=== PATIENT | female | born 1995 | race Caucasian/White ===

== ENCOUNTER → 2017-06-10 13:19 | Outpatient (CLI) | payer MEDICAID, SELFPAY | PROVIDERS: Visit Provider Obstetrics & Gynecology | DX: N39.0 Urinary tract infection, site not specified (principal) | CPT/HCPCS: 87086; 87088; 87186 ==

== ENCOUNTER → 2017-07-10 16:50 | Outpatient (CLI) | payer MEDICAID, SELFPAY ==
[2017-07-10 20:33] LABS: Chlamydia Trachomatis by PCR POSITIVE (Negative); Neisserai gonorrhoeae by PCR Negative (Negative); Probe Check PASS; Sample Adequacy Control PASS; Specimen Processing Control PASS
[2017-07-18 11:10] LABS: HPV HC, High Risk Positive (Negative)
[2017-07-18 11:42] LABS: HPV Reflexed? YES, CHARGE PATIENT
== END ==
PROVIDERS: Visit Provider Obstetrics & Gynecology
DX: Z12.4 Encounter for screening for malignant neoplasm of cervix (principal); R87.612 Low grade squamous intraepithelial lesion on cytologic smear of cervix (LGSIL)
CPT/HCPCS: 87491; 87591; 87624; 88175; G0145

== ENCOUNTER → 2017-08-26 16:50 | Outpatient (CLI) | payer MEDICAID, SELFPAY ==
[2017-08-30 13:23] LABS: HSV 1 By PCR Negative
[2017-08-30 13:36] LABS: HSV 2 By PCR POSITIVE ABNORMAL
== END ==
PROVIDERS: Visit Provider Obstetrics & Gynecology
DX: N89.8 Other specified noninflammatory disorders of vagina (principal)
CPT/HCPCS: 87529

== ENCOUNTER → 2018-07-28 14:32 | Outpatient (CLI) | payer MEDICAID, SELFPAY ==
[2018-04-07 12:39] VITALS: BMI 30.6
[2018-07-30 16:23] LABS: HPV Reflexed? NOT INDICATED
== END ==
PROVIDERS: Visit Provider Obstetrics & Gynecology
DX: Z12.4 Encounter for screening for malignant neoplasm of cervix (principal)
CPT/HCPCS: 88175; G0145

== ENCOUNTER → 2019-09-29 17:16 | Outpatient (CLI) | payer OTHER, SELFPAY ==
[2018-04-07 12:39] VITALS: BMI 30.6
== END ==
PROVIDERS: Referring Provider Obstetrics & Gynecology; Visit Provider Obstetrics & Gynecology
DX: Z12.4 Encounter for screening for malignant neoplasm of cervix (principal); Z11.3 Encounter for screening for infections with a predominantly sexual mode of transmission

== ENCOUNTER → 2020-03-21 | Outpatient (CLI) | payer SELFPAY ==
[2018-04-07 12:39] VITALS: BMI 30.6
== END | disposition home or self-care (01) ==
PROVIDERS: Visit Provider Obstetrics & Gynecology
DX: Z11.3 Encounter for screening for infections with a predominantly sexual mode of transmission (principal)

== ENCOUNTER → 2020-05-26 16:09 | Outpatient (CLI) | payer MEDICAID, SELFPAY ==
[2018-04-07 12:39] VITALS: BMI 30.6
[2020-05-26 17:39] LABS: Absolute Lymphocyte Count 2.63 X10^3/uL (0.83-4.51); Basophil# 0.03 X10^3/uL; Basophil% 0.3 % (0-1); Eosinophil# 0.12 X10^3/uL; Eosinophils% 1.2 % (0-5); Hematocrit 36.1 % (37-47); Hemoglobin 11.5 g/dL (12.0-15.0); Lymphocyte # 2.63 X10^3/ul (4.0); Lymphocyte % 25.3 % (19-41); Mean Corp Hgb Conc 31.9 g/dL (32-36); Mean Corpuscular Volume 87.8 fL (81-99); Monocyte% 5.8 % (0-10); NRBC Flagged by Analyzer 0 % (0-5); Neutrophil # 6.98 X10^3/uL (2.7-7.7); Platelet Count 285 K/mm3 (150-450); RBC Distribution Width CV 13.5 % (11.6-14.6); RBC Distribution Width SD 43.8 fl (35.1-43.9); Red Blood Count 4.11 M/mm3 (4.2-5.4); White Blood Count 10.4 K/mm3 (4.4-11.0)
[2020-05-26 18:06] LABS: Color, Urine Yellow (Yellow); Glucose, Dipstick Normal (Normal); Ketone-Dipstick 5 mg/dl (Negative); Leukocyte Esterase-Dipstick Negative /ul (Negative); Nitrite-Dipstick Negative (Negative); Occult Blood-Urine Negative /ul (Negative); Protein-Dipstick 15 mg/dl (Negative); Specific Gravity, Urine 1.025 (1.002-1.030); Urine Bilirubin Dipstick Negative (Negative); Urine Clarity Clear (Clear); Urine Urobilinogen Normal (Normal)
[2020-05-26 18:14] LABS: Thyroid Stim Hormone (TSH) 2.39 uIU/mL (0.358-3.74)
[2020-05-26 18:22] LABS: Amphetamine Urine VISTA NEGATIVE (<1000 ng/mL); Barbiturate Urine VISTA NEGATIVE (< 200 ng/mL); Benzodiazepine Urine VISTA NEGATIVE (< 200 ng/mL); Cocaine Urine VISTA NEGATIVE (< 300 ng/mL); Ecstacy Urine VISTA NEGATIVE (< 500 ng/mL); Methadone Urine VISTA NEGATIVE (< 300 ng/mL); PCP Urine VISTA NEGATIVE (< 25 ng/mL); THC Urine VISTA NEGATIVE (< 50 ng/mL); Vista UDS pH Range 5
[2020-05-29 11:41] LABS: HIV - WCH Non-Reactive (Nonreactive); Hepatitis B Surface Antigen Non-Reactive (Nonreactive); Hepatitis C Antibody Non-Reactive (Nonreactive); Rubella IgG Reactive (Nonreactive); Vitamin D,25 Hydroxy 23.4 ng/mL
[2020-06-01 03:02] LABS: Prenatal RPR NONREACTIVE (NONREACTIVE)
== END ==
PROVIDERS: Visit Provider Obstetrics & Gynecology
DX: Z34.81 Encounter for supervision of other normal pregnancy, first trimester (principal)
CPT/HCPCS: 36415; 80307; 81002; 82306; 83021; 84443; 85025; 85660; 86703; 86762; 86803; 87340; 87491; 87591

== ENCOUNTER → 2020-10-25 15:05 | Outpatient (CLI) | payer MEDICAID, SELFPAY ==
[2018-04-07 12:39] VITALS: BMI 30.6
[2020-10-25 15:37] LABS: Glucose Challenge Gest 1H 50g 178 mg/dL (70-140)
[2020-10-25 15:38] LABS: Hematocrit 33.3 % (37-47); Hemoglobin 10.9 g/dL (12.0-15.0); Mean Corp Hgb Conc 32.7 g/dL (32-36); Mean Corpuscular Hgb 28.1 pg (27.0-32.0); Mean Corpuscular Volume 85.8 fL (81-99); Platelet Count 213 K/mm3 (150-450); RBC Distribution Width CV 14.7 % (11.6-14.6); RBC Distribution Width SD 45.9 fl (35.1-43.9); Red Blood Count 3.88 M/mm3 (4.2-5.4); White Blood Count 11.4 K/mm3 (4.4-11.0)
== END ==
PROVIDERS: Visit Provider Obstetrics & Gynecology
DX: Z34.83 Encounter for supervision of other normal pregnancy, third trimester (principal)
CPT/HCPCS: 36415; 82950; 85027

== ENCOUNTER → 2020-11-01 09:49 | Outpatient (CLI) | payer MEDICAID, SELFPAY ==
[2018-04-07 12:39] VITALS: BMI 30.6
[2020-11-01 10:58] LABS: Glucose GTT-Gestation. Fasting 84 mg/dL (<105)
[2020-11-01 12:17] LABS: Glucose GTT-Gestational 1 Hr 195 mg/dL (<190)
[2020-11-01 14:10] LABS: Glucose GTT-Gestational 2 Hr 154 mg/dL (<165)
[2020-11-01 14:10] LABS: Glucose GTT-Gestational 3 Hr 114 L (<145)
== END ==
PROVIDERS: Referring Provider Obstetrics & Gynecology; Visit Provider Obstetrics & Gynecology
DX: O24.912 Unspecified diabetes mellitus in pregnancy, second trimester (principal); Z3A.00 Weeks of gestation of pregnancy not specified
CPT/HCPCS: 36415; 82951; 82952

== ENCOUNTER → 2020-12-18 | Outpatient (CLI) | payer MEDICAID, SELFPAY ==
[2018-04-07 12:39] VITALS: BMI 30.6
== END | disposition home or self-care (01) ==
LOC: LABSPEC 17:09
PROVIDERS: Visit Provider Obstetrics & Gynecology
DX: Z36.85 Encounter for antenatal screening for Streptococcus B (principal)
CPT/HCPCS: 87077; 87081; 87186

== ENCOUNTER 2021-01-15 14:20 | Outpatient (CLI) | payer MEDICAID, SELFPAY ==
[2021-01-15 14:38] VITALS: BP 124/68; PULSE 95; TEMP 36.9; O2SAT 97
[2021-01-15 14:40] VITALS: BMI 34.4
--- NOTE | 2021-01-17 20:39 | OB.TRI.NOTE ---
HPI - General HPI Narrative OSMNAI RICHARDSON, is a 25 F who presents who presents to labor and delivery at 40 weeks 2 days gestation with decreased movement. PFSH PFSH Medical History (Updated 01/17/21 @ 20:[address] Brooks Villafuerte MD) Abnormal bruising Anxiety Chest pain Chlamydia infection affecting Chronic neck and back pain Difficulty balancing Knee pain Home Medications acyclovir 200 mg capsule 400 mg PO DAILY 04/07/18 [History Last Taken 01/16/21 12:00] ferrous sulfate [Iron (ferrous sulfate)] 325 mg PO DAILY 01/15/21 [History Last Taken 01/16/21 12:00] prenat.vits,adriana,[id number] [ #2] 1 tab PO DAILY 01/15/21 [History Last Taken 01/16/21 12:00] helder [id number]-ipgyfeszs ac [[place] Oil] 1 cap PO TID 01/17/21 [History Last Taken 01/16/21 12:00] Allergy/AdvReac Type Severity Reaction Status Date / Time No Known Allergies Allergy Verified 01/15/21 14:41 Family History (Updated 04/07/18 @ 12:45 by Sandy Ramírez) Other Diabetes Surgical History (Updated 01/17/21 @ 10:10 by Aldair Bryant) History of surgery Social History (Updated 04/07/18 @ 13:25 by Toy PETER, PA) Smoking Status: Never smoker alcohol intake: never History Elective abortions Hx Para 1 Spontaneous abortions Hx # Term Pregnancies Ectopic pregnancies Hx # Pregnancies Multiple births # of living children NST FHR Rate Baby A NST Reactive:: Yes FHR Category:: Category I Assessment & Plan (1) Decreased movement during in third trimester, antepartum: PLAN: 40 weeks 2 days gestation with decreased movement. Cervix is closed. Rupture membrane test negative. Minimal to no contractions noted. Encourage fluid intake. Nonstress test was reactive. Routine follow-up in the office recommended and labor instructions given.
== END 2021-01-15 15:37 | disposition home or self-care (01) ==
LOC: WPOUT 14:37 → WP 14:37
PROVIDERS: Visit Provider Obstetrics & Gynecology
DX: O36.8130 Decreased fetal movements, third trimester, not applicable or unspecified (principal); Z3A.40 40 weeks gestation of pregnancy
CPT/HCPCS: 59025; 59050

== ENCOUNTER 2021-01-17 09:20 | Inpatient (IN) | payer MEDICAID, SELFPAY ==
[2021-01-17] VITALS (28 sets, daily range): BP systolic 94–146; BP diastolic 52–76; PULSE 64–117; RESP 21; TEMP 35.9–37.8; O2SAT 92–99; BMI 37.5
[2021-01-17 09:18] LABS: ROM Internal Control Test YES-OK TO RESULT pt. (Internal QC)
[2021-01-17 09:19] LABS: ROM Patient Test POSITIVE (Negative)
[2021-01-17] MEDS: Lactated Ringers 1,000 ML 50 ML IV (10:00)
[2021-01-17 10:25] LABS: Absolute Lymphocyte Count 1.45 X10^3/uL (0.83-4.51); Absolute Neutrophil Count 8.7 X10^3/uL (2.0-7.7); Basophil# 0.02 X10^3/uL; Basophil% 0.2 % (0-1); Eosinophil# 0.07 X10^3/uL; Eosinophils% 0.6 % (0-5); Hematocrit 34.7 % (37-47); Hemoglobin 11.2 g/dL (12.0-15.0); Lymphocyte # 1.45 X10^3/ul (0.83-4.51); Lymphocyte % 13.2 % (19-41); Mean Corp Hgb Conc 32.3 g/dL (32-36); Mean Corpuscular Volume 86.8 fL (81-99); Mean Platelet Vol. 10.1 fl (6.2-12.0); Monocyte# 0.61 X10^3/uL; Monocyte% 5.6 % (0-10); NRBC Flagged by Analyzer 0 % (0-5); Neutrophil % 79.3 % (47-70); Platelet Count 215 K/mm3 (150-450); RBC Distribution Width CV 14.9 % (11.6-14.6); RBC Distribution Width SD 47.5 fl (35.1-43.9)
[2021-01-17] MEDS: Penicillin G 3,000,000 Units 50 ML 100 UNITS IV (14:11)
--- NOTE | 2021-01-17 15:21 | HP.PCM_ITS ---
History and Physical Date of Admission: 01/17/21 ACOG ANTEPARTUM RECORD - HISTORY AND PHYSICAL (01/17/2021) Name: CHRISTINA CUEVAS History of this : This is a 25 year old [id number] presents at 40 wks + 4 days gestation in active labor with spontaneous rupture membranes. OB Physician: Mercy Zhang MD [place]'s Physician: UNDECIDED ...................................................................... : 1995 Age: 25 Address: [address] [place] [address] Phone: (H) [phone] (O) [phone] Insurance Carrier: [facility] CLAIMS DEPT [phone] Emergency Contact: SAUNDRA OGDEN [phone] ...................................................................... Final JAVY: 01/13/21 By Ultrasound: 10 weeks 6 days PARITY: (G-Total Pregnancies P-Fullterm,Premature,Induced AB,Spont AB, Ectopics, Multiple,Living) JAVY CONFIRMATION: By LMP: 04/08/20 By First Ultrasound Exam: 01/09/21 Final JAVY: 01/13/21 OB PROBLEM LIST: 3 hour GTT OK (one abnormal) Anxiety, states undaignosed. EPDS = 3. Breastfeeidng, office class encouraged Does not want an epidural, office childbirth class encouraged First baby was adopted out. 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 Drug Use - denies use of street drugs Sexual Activity - Residence - lives with Place of - [place] Hours Worked - 30 wk Spouse-Sig Other Name - Lee Cuevas Spouse-Sig Other Occupation - , Khai Spouse-Sig Other Phone No - [phone] PRIOR DELIVERY HISTORY DEL DATE GEST LAB WT LB WT OZ TYPE ANES LABOR TX 19 Aug 10 38 12 0 0 Vag Epidural No ANTEPARTUM FLOW CHART VISIT GE RTC FU F F NH U U DATE WK MD WKS HT PN HR M SS BP ED WT NH GL D EF ST __ ____ ___ __ __ ___ __ __ __ ___ __ __ __ ___ __ 02 Jan 39 JMW 1 38 V + + 104/66 0 233 1+ ne Dec JM 1 38 V + + 136/86 sl 234 tr - 1 Dec JM 1 37 V + + 126/82 sl 233 tr - 09 Dec 36 JM 1 36 V + + 122/70 0 234 - - 1 Nov JM 2 34 V + + 112/72 233 1+ - 16 Nov JM 2 32 V + + 130/76 sl 234 tr - 30 Nov 08 JM 2 30 - + + 116/70 0 229 tr ne 16 Nov 06 JMW 2 29 + + 110/70 0 231 1+ ne October 02 JMW 4 24 + + 106/62 0 233 tr - 14 Aug 28 JMW 4 20 + + 100/70 0 229 16 Jul 24 JMW 4 15 + ? 134/82 0 231 tr - 12 Jun 21 SHM 5 on US 100/80 0 238 tr - ANTEPARTUM NOTE(S): Jan 11 2021: Good FM Jan 04 2021: Ctxs-occas, Good FM, Dec 29 2020: Ctxs-mild, Good FM,Feeling Well Dec 18 2020: Dec 07 2020: heartburn Nov 24 2020: Occ low backache, occ isela hip pains Nov 08 2020: Oct 25 2020: Check 3-hour GTT Sep 27 2020: 1 HR instructions given, US OK Aug 23 2020: US today Jul 25 2020: Declines AFP and Declines CF, Feeling Well Jun 23 2020: feeling well. Would like to do gender blood draw. AM COMPREHENSIVE ANTEPARTUM NOTE(S): Jan 11 2021: Christina is here for PNV at 39/5. States that if she makes it to next week's apt would like membrane sweep. Declines cervix check today. No ctx or LOF. Having good FM. No edema noted today. Urine 1+/neg. LSS Jan 04 2021: 38wk, discussed IOL at 41wk. JM Dec 29 2020: Christina presents here today for PNV and reports that last night she fell on her (R) side and injured her (R) elbow, did not hit her abdomen. Denies cramping/pain. Denies spotting/bleeding or leaking of fluid. Good FM last night and today. TERRI Dec 29 2020: 37 weeks, GBS positive. Discussed GBS in . For penicillin in labor. Discussed cervical exams with patient. Discussed visitation in labor and delivery. Dec 28 2020: H faxed to OB. AB Dec 21 2020: GBS pos Dec 18 2020: Christina reporting good FM. GBS and LARC done today; declines LARC. Advised to pre-register. kbm Dec 18 2020: 36 weeks, GBS collected today. Patient currently on HSV prophylaxis. Dec 08 2020: 34 weeks, travel to [place] without any issue. Feeling well. GBS next visit. Dec 07 2020: Christina is here for a PNV at 34 wks. Good FM. No edema present. Reports heartburn, tx's w/ milk and asia chews. Rib pain. No other concerns expressed. Nov 24 2020: 32 weeks, patient desires plan gave me a copy of the plan. Sciatic pain, reviewed herbal supplement noted to unknown side effects in . Offered Tylenol Flexeril, declined. Traveling to [place] discussed travel. Nov 08 2020: Christina is here for PNV. Other than being hot, voices no complaints or concers today. No edema noted. Having good FM. Urine tr/neg. 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 Desires birthing tub, educated on tub. Oct 26 2020: 3 hr GTT scheduled for 11/01/2020. Order sent. Sep 27 2020: Christina is here for a PNV. Good FM. No edema present. Materials/ instructions given for 1 HR at next appt. Jun 26 2020: TELEHEALTH NOB VISIT, 45 MINUTE DURATION. Christina is a 24 year old with an JAVY of 01/13/2021, current GA is 11 w 2 d. She states that this is a planned , and that she and , Lee, as well as their families, are all really happy. Christina states that she adopted her first child out, and is not sure about all of the details of the babies , weight; past history up Jun 23 2020: Christina is here with her today. She had labs at last visit and wnl. Rh positive, Hgb AA. Reviewed. Discussed aneuploidy screening, pt considering for next visit, but has opted for [place] [place]ek today. Discussed exercise in . NEW REVIEW OF SYSTEMS: GENERAL - Denies fever, or chills SKIN - Denies rash, new skin lesions, or change in moles EYES - Denies blurred vision, or change in visual acuity EARS - Denies ear pain, or difficulty hearing NOSE - Denies nasal congestion, discharge, or bleeding MOUTH - Denies sore throat, or difficulty swallowing NECK - Denies pain or swelling RESPIRATORY - Denies shortness of breath, cough, wheezing CARDIOVASCULAR - Denies palpitations, chest pain, orthopnea, PND, peripheral edema, syncope or claudication GASTROINTESTINAL - Denies nausea, vomiting, diarrhea, constipation, Denies abdominal pain, melena and or bright red blood GENITOURINARY - Denies dysuria, frequency of urination, urgency, or hesitancy MUSCULOSKELETAL - Denies joint or muscle pain, or back pain NEUROLOGICAL - Denies localized numbness, weakness, or tingling PSYCHIATRIC - Denies depression, anxiety, substance abuse or suicide attempts ENDOCRINE - Denies heat or cold intolerance, weight loss or gain, increasing thirst HEMATO-IMMUNOLOGIC - Denies easy bruising, bleeding, oral ulcerations or recurrent infections GENETICS SCREENING: Age 35+ years: No Thalassemia: No Neural Tube Defect: No Down Syndrome: No EVELYN-SACHS: No Sickle Cell Disease: No Hemophilia: No Musc. Dystrophy: No Cystic Fibrosis: requests screening [place] Chorea: No Mental Retardation: No Fragile X: No Other genetic: No Other defects: No SABs/still births: No Drugs since LMP: No Comments: AA INFECTION HISTORY: High risk AIDS: No High risk Hepatitis: No Exposed to TB: No Exposed to Herpes: No Rash/viral illness since LMP: No History of STD: HPV Comments: HSV MENSTRUAL HISTORY: *Menses Amount/Duration: 4 daysMenses Regularity: RegularFrequency: monthlyMenarche (Age Onset): 9* PAST SUMMARY: PARITY: 1. Total Pregnancies............ 2 2. Full Term Pregnancies........ 1 3. Premature.................... 0 4. Abortions - Induced.......... 0 5. Abortions - Spontaneous...... 0 6. Ectopics..................... 0 7. Multiple Births.............. 0 8. Living Children.............. 1 PAST #1: Date of :.................. 12/28/09 Gestation Weeks:................ 38 Length of labor(hours):......... 12 Sex:............................ F Weight-lbs:............... 0 Weight-oz:................ 0 Type of Delivery:............... Vag Type of Anesthesia:............. Epidural Place of Delivery:.............. [place] Treatment of Labor?:.... No Comment: ADOPTED BABY OUT PHYSICAL EXAMINATION General Appearence: 25 yo female in no acute distress Vital Signs: AF, VSS Heart: RRR without rubs or gallops Lungs: CTA x 2 Breasts: deferred Abdomen: gravid Pelvis: Cervix: Presentation: cephalic Station: Fetus: Size: AGA Movement: present Heart: present LAB TEST(S) ORDERED SINCE:04/18/20 01/17/2021 TYPE AND SCREEN 01/17/2021 COVID 19 AG RAPID (RN COLLECT) 01/17/2021 CBC W/DIFF, AUTOMATED 01/17/2021 (ROM) RUPTURE OF MEMBRANES 12/22/2020 RULE OUT BETA STREP (GRP. B) 11/01/2020 GESTATIONAL GTT 3HR 100G 10/25/2020 GLUCOSE CHALLENGE GEST 1H 50G 10/25/2020 CBC-COMPLETE BLOOD CNT NO DIFF 06/01/2020 RPR 05/31/2020 HEMOGLOBINOPATHY PROFILE 05/29/2020 VITAMIN D,25 HYDROXY 05/29/2020 RUBELLA IGG 05/29/2020 HIV - [facility] 05/29/2020 HEPATITIS C ANTIBODY 05/29/2020 HEPATITIS B SURFACE ANTIGEN 05/26/2020 URINE DRUG SCREEN (VISTA) 05/26/2020 URINALYSIS, ROUTINE (DIPSTICK) 05/26/2020 THYROID STIM HORMONE (TSH) 05/26/2020 T AND S-NO CHARGE W/PNP 05/26/2020 CBC W/DIFF, AUTOMATED == ==== Order Observation Description Value Ref_Range A* Site == ==== Labor [facility]~[address] [place], [address]~ TYPE AND SCRE AB SCREEN GEL NEGATIVE ML CBC W/DIFF, AUT NOTE HERBERT CBC W/DIFF, AUT WBC 11.0 K/mm3 4.4-11.0 ML CBC W/DIFF, AUT RBC 4.00 M/mm3 4.2-5.4 L ML CBC W/DIFF, AUT HGB 11.2 g/dL 12.0-15.0 L ML CBC W/DIFF, AUT HCT 34.7 37-47 L ML CBC W/DIFF, AUT MCV 86.8 fL 81-99 ML CBC W/DIFF, AUT MCH 28.0 pg 27.0-32.0 ML CBC W/DIFF, AUT MCHC 32.3 g/dL 32-36 ML CBC W/DIFF, AUT RDW CV 14.9 11.6-14.6 H ML CBC W/DIFF, AUT RDW SD 47.5 fl 35.1-43.9 H ML CBC W/DIFF, AUT PLT 215 K/mm3 150-450 ML CBC W/DIFF, AUT MPV 10.1 fl 6.2-12.0 ML CBC W/DIFF, AUT NEUT% 79.3 47-70 H ML CBC W/DIFF, AUT LY% 13.2 19-41 L ML CBC W/DIFF, AUT MONO% 5.6 0-10 ML CBC W/DIFF, AUT EO% 0.6 0-5 ML CBC W/DIFF, AUT BASO% 0.2 0-1 ML CBC W/DIFF, AUT IG% 1.100 0.0-0.9 H ML IG% - Immature Granulocytes (promyelocytes, myelocytes and metamyelocytes) > 1% indicates that a LEFT SHIFT is Present. CBC W/DIFF, AUT ABSOLUTE NEUT 8.7 X10 3/uL 2.0-7.7 H ML CBC W/DIFF, AUT ABSOLUTE LYMPH 1.45 X10 3/uL 0.83-4.51 ML CBC W/DIFF, AUT NUCLEATED RBC 0 0-5 ML COVID 19 AG RAP NOTE HERBERT (ROM) RUPTURE O NOTE HERBERT (ROM) RUPTURE O ROM POSITIVE Negative A ML Amniotic fluid present indicates rupture of Membranes. RESULTS CALLED TO FABIAN 01/17/21 [email or web address] Wendy Grossman. REPORT READ BACK BY KT . RULE OUT BETA S NOTE HERBERT GESTATIONAL GTT NOTE HERBERT GESTATIONAL GTT 3HR GTT- GEST. MG/DL H ML FASTING 84 Col: 11/01/20 0957 GLUCOSE TOLERANCE TEST FOR Reference Interval GESTATIONAL DIABETES Fasting <105 mg/dL 1 hour <190 mg/dl 2 hour <165 mg/dl 3 hour <145 mg/dl 1 HR GLU 195 H Col: 11/01/20 1105 2 HR GLU 154 Col: 11/01/20 1202 3 HR GLU 114 Col: 11/01/20 1303 CBC-COMPLETE BL NOTE HERBERT CBC-COMPLETE BL WBC 11.4 K/mm3 4.4-11.0 H ML CBC-COMPLETE BL RBC 3.88 M/mm3 4.2-5.4 L ML CBC-COMPLETE BL HGB 10.9 g/dL 12.0-15.0 L ML CBC-COMPLETE BL HCT 33.3 37-47 L ML CBC-COMPLETE BL MCV 85.8 fL 81-99 ML CBC-COMPLETE BL MCH 28.1 pg 27.0-32.0 ML CBC-COMPLETE BL MCHC 32.7 g/dL 32-36 ML CBC-COMPLETE BL RDW CV 14.7 11.6-14.6 H ML CBC-COMPLETE BL RDW SD 45.9 fl 35.1-43.9 H ML CBC-COMPLETE BL PLT 213 K/mm3 150-450 ML CBC-COMPLETE BL MPV 10.0 fl 6.2-12.0 ML GLUCOSE CHALLEN NOTE HERBERT GLUCOSE CHALLEN GLU GEST 50G 1H 178 mg/dL 70-140 H ML RPR NOTE HERBERT RPR RPR NONREACTIVE NONREACTIVE ML HEMOGLOBINOPATH NOTE HERBERT HEMOGLOBINOPATH HGB SOLUBILITY . LC TEST RESULT LIMITS Hgb Frac. Profile Hgb Solubility Negative Negative Hgb F 0.0 % 0.0-2.0 Hgb A 98.3 % 96.4-98.8 Hgb S 0.0 % 0.0 Hgb C 0.0 % 0.0 Hgb A2 1.7 Low % 1.8-3.2 Interpretation Normal adult hemoglobin present. Low Hgb A2 may indicate an alpha-thalassemia or iron deficiency. Suggest clinical and hematologic correlation. Comments: Results of this test are labeled for research purposes only by the assay's photoengraving apprentice. The performance characteristics of this assay have not been established by the photoengraving apprentice. The result should not be used for treatment or for diagnostic purposes without confirmation of the diagnosis by another medically established diagnostic product or procedure. The performance characteristics were determined by [facility]. TESTING PERFORMED AT [facility]. ORIGINAL REPORT ON FILE IN LAB CONTAINS ADDITIONAL TEST SITE INFORMATION. HEPATITIS C ANT NOTE HERBERT HEPATITIS C ANT HEPATITIS C AB Non-Reactive Nonreactive ML Non Reactive: < 0.8 Equivocal: >/= 0.8 to < 1.0 Reactive: >/= 1.0 The CDC recommends that a reactive/equivocal HCV antibody result be followed up by the HCV Nucleic Acid Amplification test (389244) HEPATITIS B CRISSY NOTE HERBERT HEPATITIS B CRISSY HEPB SURFACE AG Non-Reactive Nonreactive ML HIV - WCH NOTE HERBERT HIV - WCH HIV - [facility] Non-Reactive Nonreactive ML RUBELLA IGG NOTE HERBERT RUBELLA IGG RUBELLA IGG Reactive Nonreactive ML Antibody Results Interpretation of Immune Status Non Reactive Presumed Non-Immune Equivocal Equivocal Reactive Presumed Immune VITAMIN D,25 HY NOTE HERBERT VITAMIN D,25 HY VITAMIN D 25-OH 23.4 ng/mL ML Vitamin D 25(OH) Status Range Deficiency <20 ng/mL (50nmol/L) Insufficiency 20 - 30 ng/mL (50 - 75 nmol/L) Sufficiency 30 - 100 ng/mL (75 - 250 nmol/L) Toxicity >100 ng/mL (>250 nmol/L) URINE DRUG SCRE NOTE HERBERT URINE DRUG SCRE TO BE CONFIRMED ML CONFIRMATORY TESTING FOR ALL POSITIVE URINE DRUG SCREEN RESULTS WILL ONLY BE SENT OUT UPON PHYSICIAN ORDER. VISTA Urine Drug Screen methods provide only preliminary analytical test results. A more specific alternate chemical method must be used in order to obtain a confirmed analytical result. Gas chromatography/mass spectrometery (GC/MS) is the preferred confirmatory method. Clinical consideration and professional judgement should be applied to any drug of abuse test result, particularly when preliminary positive results are used. URINE TCA TESTING MUST BE ORDERED SEPARATELY. USE TEST MNEMONIC: UTCA URINE DRUG SCRE VISTA UDS PH 5 ML URINE DRUG SCRE AMPHETAMINES NEGATIVE <1000 ng/mL ML URINE DRUG SCRE BARBITIURATES NEGATIVE < 200 ng/mL ML URINE DRUG SCRE BENZODIAZIPINE NEGATIVE < 200 ng/mL ML URINE DRUG SCRE COCAINE NEGATIVE < 300 ng/mL ML URINE DRUG SCRE ECSTACY NEGATIVE < 500 ng/mL ML URINE DRUG SCRE METHADONE NEGATIVE < 300 ng/mL ML URINE DRUG SCRE OPIATES NEGATIVE < 300 ng/mL ML URINE DRUG SCRE PCP NEGATIVE < 25 ng/mL ML URINE DRUG SCRE THC NEGATIVE < 50 ng/mL ML THYROID STIM HO NOTE HERBERT THYROID STIM HO TSH 2.39 uIU/mL 0.358-3.74 ML Reason for Type AND Screen/Red Cells: Surgery? [facility]~[address] [place], [address]~ T AND BLOOD TYPE GEL A POSITIVE N ML T AND AB SCREEN GEL NEGATIVE N ML URINALYSIS, ROU NOTE HERBERT URINALYSIS, ROU COLOR Yellow Yellow ML URINALYSIS, ROU CLARITY Clear Clear ML URINALYSIS, ROU GLUCOSE, UR Normal mg/dl Normal ML URINALYSIS, ROU BILIRUBIN URINE Negative mg/dL Negative ML URINALYSIS, ROU KETONE UR 5 mg/dl Negative H ML URINALYSIS, ROU SP.GR. DIPSTX 1.025 1.002-1.030 ML URINALYSIS, ROU PH UR 5.0 5.0 - 8.0 ML URINALYSIS, ROU PROT DIPSTX 15 mg/dl Negative H ML URINALYSIS, ROU UROBILI Normal mg/dl Normal ML URINALYSIS, ROU NITRITE UR Negative Negative ML URINALYSIS, ROU OCCULT BLOOD-UR Negative /ul Negative ML URINALYSIS, ROU LEUK ESTERASE Negative /ul Negative ML CBC W/DIFF, AUT NOTE HERBERT CBC W/DIFF, AUT WBC 10.4 K/mm3 4.4-11.0 ML CBC W/DIFF, AUT RBC 4.11 M/mm3 4.2-5.4 L ML CBC W/DIFF, AUT HGB 11.5 g/dL 12.0-15.0 L ML CBC W/DIFF, AUT HCT 36.1 % 37-47 L ML CBC W/DIFF, AUT MCV 87.8 fL 81-99 ML CBC W/DIFF, AUT MCH 28.0 pg 27.0-32.0 ML CBC W/DIFF, AUT MCHC 31.9 g/dL 32-36 L ML CBC W/DIFF, AUT RDW CV 13.5 % 11.6-14.6 ML CBC W/DIFF, AUT RDW SD 43.8 fl 35.1-43.9 ML CBC W/DIFF, AUT PLT 285 K/mm3 150-450 ML CBC W/DIFF, AUT MPV 10.0 fl 6.2-12.0 ML CBC W/DIFF, AUT NEUT% 67.0 % 47-70 ML CBC W/DIFF, AUT LY% 25.3 % 19-41 ML CBC W/DIFF, AUT MONO% 5.8 % 0-10 ML CBC W/DIFF, AUT EO% 1.2 % 0-5 ML CBC W/DIFF, AUT BASO% 0.3 % 0-1 ML CBC W/DIFF, AUT IM GRAN % 0.400 % 0.0-0.9 ML IG% - Immature Granulocytes (promyelocytes, myelocytes and metamyelocytes) > 1% indicates that a LEFT SHIFT is Present. CBC W/DIFF, AUT ABSOLUTE NEUT 7.0 X10 3/uL 2.0-7.7 ML CBC W/DIFF, AUT ABSOLUTE LYMPH 2.63 X10 3/uL 0.83-4.51 ML CBC W/DIFF, AUT NRBC, FLAGGED 0 % 0-5 ML A POSITIVE *Negative results from patients with symptom onset beyond five days should be treated as presumptive and confirmed by a molecular assay if clinically necessary. Negative results should not be used as the sole basis for treatment or for patient management. COVID 19 AG RAPID (RN COLLECT) *Positive results do not differentiate between SARS-CoV and SARS-CoV-2. If differentation of the specific SARS virus is desired an additional sample and an additional order is required. COVID 19 AG RAPID (RN COLLECT) * This test has not been FDA cleared or approved; the test has been authorized by FDA under an Emergency Use Authorization (EAU) for use by laboratories certified under CLIA that meet the requirements to perform moderate, high, or waived complexity tests. COVID 19 AG RAPID (RN COLLECT) Normal Reference Range: Negative SARS-CoV-2 (COVID 19) Negative RAPID METHOD Quidel Deisy Analyzer MALDONADO, lateral flow immunofluorescent Streptococcus agalactiae (B) Amount Growth Growth Streptococcus agalactiae (B): REACTION Ampicillin <=0.25 Penicillin G 0.12 S Ceftriaxone <=0.12 S Clindamycin >=1 R Clindamycin.induced NEG Linezolid <=2 S Vancomycin 0.5 S == ==== Impression /Plan: 40 wks + 4 days intrauterine in active labor with spontaneous rupture of membranes. Preparations in progress for delivery.
[2021-01-17] MEDS: Oxytocin 30 units/NS 500 ml 30 UNITS/500 ML IV.SOLN 334 UNITS IV (17:21)
[2021-01-17] MEDS: Methylergonovine 0.2 MG/ML Ampul IM (17:24)
--- NOTE | 2021-01-17 17:31 | EX.PCM.OBRPT ---
Maternal Data Information Gestational age: 40 weeks 4 days gestation Vaginal Delivery Maternal Presentation Maternal Presentation: Active Labor and Spontaneous Rupture of Membranes Operative Information Date of Procedure: 01/17/21 Pre-Operative Diagnosis: IUP Post-Operative Diagnosis: IUP Surgery / Procedure Performed: Spontaneous Vaginal Delivery Type of Anesthesia: None Estimated Blood Loss: 250 cc Fluids Replaced: Crystalloid Findings Description of Procedure: Spontaneous vaginal delivery of a viable male with Apgars of 8/9 from an occiput anterior presentation with clear amniotic fluid and normal three-vessel placenta. No episiotomy. First-degree midline laceration repaired with 3-0 repeat suture. Sponges okay. Delivery physician: Brooks Villafuerte MD. Presentation: Vertex Amniotic Membrane Rupture Type: Spontaneous Amniotic Fluid Description: Clear Placental Delivery Description: Spontaneous Placenta Disposition: [facility] Cord Vessel Description: 3 Vessels Cord Entanglement: None A Gender: Male (1 minute): 8 (5 minute): 9 Post Vaginal Delivery Medications Given After Delivery: IV Pitocin and IM Methergin Episiotomy Description: None Laceration: Midline and 1st degree Complication Complications: None
--- NOTE | 2021-01-17 17:36 | DCINST_ITS ---
Discharge Instructions Diet Discharge Diet: No restrictions Activity Discharge Activity: May Drive (In 1 to 2 days if not taking narcotic pain medication), May Shower and May Take a Tub Bath May resume sexual activity in: 4-6 weeks Additional Activity Instructions:: Nothing in the vagina for 4-6 weeks. You may return to work/school in 6 weeks. Dressing / Incision Call your doctor if you observe: Fever of 101 or Higher, Inability to urinate, Inability to have a bowel movement and Using more than 1 pad per hour Follow Up Care Please Follow Up With: Luis Melgar MD When: Call [phone] to make an appointment with your doctor in 6 weeks. Test Results: Test results from this visit will be discussed in further detail at your follow-up appointment, if applicable. Discharge Plan Admission Admit Date/Time: 01/17/21 09:20 Primary Reason for Your Visit: Vaginal Delivery Attending Provider: Brooks Villafuerte Primary Care Provider: Care Physician,Elba Primary Discharge Orders/Prescriptions Prescriptions: No Action acyclovir 200 mg capsule 400 mg PO DAILY RF: 0 ferrous sulfate [Iron (ferrous sulfate)] 325 mg (65 mg iron) Tablet 325 mg PO DAILY RF: 0 #2 Tablet 1 tab PO DAILY RF: 0 [place] Oil 1,000 mg Capsule 1 cap PO TID RF: 0 Referrals / Follow Up: Care Physician,No Primary [Primary Care Provider] - Disposition Disposition (needs filled in before D/C Order can be placed): Home, Self Care
--- NOTE | 2021-01-17 19:48 | NURSING ---
pt also missed hat during urination
[2021-01-17] MEDS: 0.9% Saline Lock 10 ML Syringe IV (20:08)
[2021-01-17] MEDS: Acyclovir 200 MG Capsule 400 MG PO (21:08)
[2021-01-18 00:05] VITALS: BP 117/64; PULSE 89; RESP 22; TEMP 37.3
[2021-01-18 03:22] VITALS: BP 98/46; PULSE 74; RESP 20; TEMP 36.8
--- NOTE | 2021-01-18 07:15 | NURSING ---
bedside report given to Elo Keene RN who is assuming care of pt at this time
[2021-01-18 07:54] VITALS: BP 116/60; PULSE 82; RESP 16; TEMP 36.8
--- NOTE | 2021-01-18 09:34 | PCM.PN.OB ---
Subjective Subjective Patient without complaints. Getting some help with breast-feeding this afternoon. Wants to go home later today. Minimal vaginal bleeding reported. Objective Data Objective Data Vital Signs: Vital Signs Temp Pulse Resp BP Pulse Ox 98.2 F 82 16 116/60 98 01/18/21 07:54 01/18/21 07:54 01/18/21 07:54 01/18/21 07:54 01/17/21 19:48 Oxygen Delivery Method Room Air Weight: 233 lb 0.458 oz Body Mass Index (BMI) 37.5 Intake & Output: Intake and Output for Last 24 Hours 01/16/21 01/17/21 01/18/21 23:59 23:59 23:59 Intake Total 1162.49 / 1162.49 Output Total 700 / 700 500 / 500 Balance 462.49 / 462.49 -500 / -500 Lab / Micro Data Result Diagrams: 01/17/21 09:55 Labs: Laboratory Results - last 24 hr 01/17/21 09:55: WBC 11.0, RBC 4.00 L, Hgb 11.2 L, Hct 34.7 L, MCV 86.8, MCH 28.0, MCHC 32.3, RDW Std Deviation 47.5 H, RDW Coeff of Caitlyn 14.9 H, Plt Count 215, MPV 10.1, Immature Gran % (Auto) 1.100 H, Neut % (Auto) 79.3 H, Lymph % (Auto) 13.2 L, Parmer % (Auto) 5.6, Eos % (Auto) 0.6, Baso % (Auto) 0.2, Absolute Neuts (auto) 8.7 H, Absolute Lymphs (auto) 1.45, Nucleated RBC % 0 01/17/21 09:55: Blood Type A POSITIVE, Antibody Screen NEGATIVE Micro: Microbiology 01/17/21 09:40 Nasal Secretion SARS-CoV-2 Antigen (Rapid) - Final Assessment & Plan (1) Spontaneous vaginal delivery: PLAN: Doing well day #1 status post routine spontaneous vaginal delivery. Will discharge to home with routine instructions if baby is able to be discharged later today.
[2021-01-18] MEDS: Acyclovir 200 MG Capsule 400 MG PO (09:53)
[2021-01-18 13:55] VITALS: BP 103/64; PULSE 86; RESP 16; TEMP 36.8
--- NOTE | 2021-01-18 16:15 | CASEMGMT ---
Social Work Assessment Labor and Delivery Unit Patient Address: [address] [place] [address] Phone number: [phone] Date of Referral: 01/17/2021 Time of Referral: 2102 Referred By: Dr. Brooks Villafuerte Date of Intervention: 01/18/2021 Time of Intervention: 1615 : Maternal history of anxiety; first child placed for adoption 11 years ago History obtained from: Medical records and mother of baby (MOB) Christina Cuevas; father of baby (FOB) Lee Cuevas present for part of conversation.*OTILIO'S sister also present for part of conversation, but did not participate in conversation.* Household composition: MOB and FOB live in an apartment together. The MOB sister who was present in the room also has been staying at this apartment. Home situation is reported as adequate. Patient's parent/guardian status: OTILIO is a 25-year-old female, to the FOB who is -[place]. for 2 years, but together for 5. During private conversation with the MOB, the MOB denied any type of abuse, control, or intimidation in the relationship with the FOB. [place] baby is the first child for the parents together, and the first for the FOB. [place] baby boy is to be named Deshaun Cuevas, born 01/17/2021.OTILIO delivered a baby girl on December 28, 2009, and this child was placed for adoption. LESLIE was a teen when the baby was born. LESLIE states that she is still at peace with this decision to make an adoption plan. Medical History: OTILIO is 2, para 1 now 2 after delivering Deshaun. care started at 10 weeks and regular thereafter. Deshaun delivered at 8 pounds 10 ounces. Apgars are 8 and 9 at 1 and 5 minutes of life respectively. Educational Status: OTILIO graduated from high school. No reported issues with reading, writing, or learning. Financial Status: OTILIO is employed at [employer] and will return there after maternity leave. The FOB is in the [employer] and receives financial payment for this. Father of baby also reportedly works at [employer]. The plate MOB sister who lives in the home also is employed at [employer]. Infant Supplies: OTILIO reports to have all necessary supplies for the infant including safe sleep sleep space and car seat. Reports to be okay on clothing, diapers, and wipes. MOB is planning to breast-feed. Childcare/Caregiver(s): MOB will be the primary caregiver along with help from the FOB. Transportation: MOB and FOB both report to have vehicles and dolly driver's licenses. Programs/Agencies Involved: MOB has Medicaid through job and family services. Has not done anything with WIC due to belief that GIANFRANCO makes too much money. MOB and FOB verbally agreed to help me grow referral. Children Services/Legal Issues: No reported legal issues. No reported history of children services. Behavioral Health Issues: Mental Health History: MOB has a history of anxiety. [place] depression screen completed during was a score of 3 on this date, during the assessment the MOB'S score was: 1. MOB denies: History of suicidal ideation, planning, or attempts. States I could never do that. MOB denies any depression or anxiety during this . Reports does not really remember the . After her daughter was born, so cannot really say whether she had any depression or anxiety at that time. Substance Use History: MOB denies any substance use history and does not smoke cigarettes. Drug Screens: Maternal drug screen negative on 05/26/2020. Family/Social Stressors: No identified stressors at this time. The MOB'S mother did want to be the second support person for delivery, but the MOB sister came along and was banded as the second visitor. This created a little bit of stress but MOB reports to be doing well. MOB started sharing that the labor was difficult but that she got through it. MOB delivered without an epidural. The FOB interjected that he got the MOB through without having to have an epidural. Support Systems: MOB reports support from the FOB, her parents, sister. MOB and FOB both report believed to have an adequate support system. Depression/Shaken Baby/Safe Sleeping: Educated to shaken baby prevention and safe sleeping. Educated to mood and anxiety disorders, risk factors, and that both mom and dad's can experience this. ASSESSMENT: Met with the MOB and FOB in room. Baby to MOB's past intermittently feeding and sleeping during social work assessment. The MOB sister was present in the room and on her phone. The FOB and sister did me in the room at 1 point when this writer producer requested, so as to complete the [place] depression screen privately. During private conversation was able to also address substance use topic and domestic violence. MOB denied any substance use history, and denied any type of domestic violence, control, or intimidation by the FOB. MOB and FOB both report to have necessary supplies to care for the baby. FOB plans to take some time off of work, but the MOB sister and also MOB'S family are available to help if and when needed. MOB and FOB both agreed to help me grow referral. This writer producer observed that when the family was present the MOB'S affect was constricted with shorter answers, and the FOB interjecting and answering questions that were directly asked to the MOB. FOB was pleasant and cooperative but did seem to want to be part of the conversation. When speaking with the MOB privately, the MOB'S affect was less constricted, more expansive answers, and better eye contact. MOB a did identify that when she is feeling overwhelmed or emotionally upset, the FOB is the first person she goes to. And will be shared that the FOB is the counselor of various family members as many people tend to tell FOB their problems. Provided the parents with [facility] in case there is needed in the future, which does include services for in current support, counseling, intermediate. Note did educate the MOB that due to having Medicaid product his insurance, the family would qualify for [facility] services. Encourage MOB to consider this should the family need or desire some additional support. Information provided on mood and anxiety disorders as well. No voiced concerns by nursing staff regarding parent-child interactions or bonding. PLAN: MOB and infant will discharge home when ready. Homemaker referral to be made. Community resource information has been provided. -RAMANDEEP Malave MSW *This note was generated with [employer]comation software. It may contain incorrect words, spelling, and punctuation that were not noted in review of the chart prior to signing*
[2021-01-18 20:00] VITALS: BP 113/69; PULSE 86; RESP 18; TEMP 36.7; O2SAT 98
--- NOTE | 2021-01-19 09:58 | CASEMGMT ---
Social Work Labor and Delivery unit Help me grow referral submitted through the [facility] assisted care web-based referral system. No other services requested or indicated. -JAYNE Malave, VEGETABLE TRIMMER. *This note was generated with [employer] dictation software. It may contain incorrect words, spelling, and punctuation that were not noted in review of the chart prior to signing*
== END 2021-01-18 21:50 | disposition home or self-care (01) | DRG 560 ==
LOC: WPOUT 09:26 → WP 09:26
PROVIDERS: Admitting Provider Obstetrics & Gynecology; Referring Provider Obstetrics & Gynecology; Visit Provider Obstetrics & Gynecology
DX: O48.0 Post-term pregnancy (principal); Z3A.40 40 weeks gestation of pregnancy; O70.0 First degree perineal laceration during delivery; Z37.0 Single live birth
CPT/HCPCS: 59025; 59050; 84112; 85025; 86850; 86900; 86901; 87426; 99218; J7120; A4216; G0378

== ENCOUNTER 2021-05-21 14:34 | Outpatient (CLI) | payer MEDICAID, SELFPAY ==
[2021-05-21 14:52] LABS: Absolute Neutrophil Count 7.3 X10^3/uL (2.0-7.7); Basophil# 0.02 X10^3/uL; Basophil% 0.2 % (0-1); Eosinophil# 0.11 X10^3/uL; Eosinophils% 1.1 % (0-5); Hematocrit 34.6 % (37-47); Hemoglobin 11.4 g/dL (12.0-15.0); Lymphocyte % 18.9 % (19-41); Mean Corp Hgb Conc 32.9 g/dL (32-36); Mean Corpuscular Hgb 28.5 pg (27.0-32.0); Mean Corpuscular Volume 86.5 fL (81-99); Mean Platelet Vol. 9.7 fl (6.2-12.0); NRBC Flagged by Analyzer 0 % (0-5); Neutrophil % 72.5 % (47-70); Platelet Count 244 K/mm3 (150-450); RBC Distribution Width SD 43.7 fl (35.1-43.9); White Blood Count 10.1 K/mm3 (4.4-11.0)
[2021-05-21 17:54] LABS: HIV - WCH Non-Reactive (Nonreactive); Hepatitis B Surface Antigen Non-Reactive (Nonreactive); Hepatitis C Antibody Non-Reactive (Nonreactive); Rubella IgG Reactive (Nonreactive); Syphilis Antibodies Non-reactive
[2021-05-23 22:06] LABS: Chlamydia By Nucleic Acid AMP Negative (Negative)
[2021-05-24 08:23] LABS: Gonococcus By Nucleic Acid AMP Negative (Negative)
== END 2021-05-21 23:59 | disposition short-term general hospital (02) ==
LOC: WOBLAB 14:36
PROVIDERS: Visit Provider Obstetrics & Gynecology
DX: Z34.81 Encounter for supervision of other normal pregnancy, first trimester (principal)
CPT/HCPCS: 36415; 85025; 86703; 86762; 86780; 86803; 87086; 87088; 87340; 87491; 87591

== ENCOUNTER 2021-08-17 18:35 | Outpatient (CLI) | payer MEDICAID, SELFPAY ==
[2021-08-17 18:48] VITALS: BMI 36.9
[2021-08-17 20:04] LABS: Color, Urine Yellow (Yellow); Glucose, Dipstick Normal (Normal); Ketone-Dipstick Negative (Negative); Leukocyte Esterase-Dipstick 500 /ul (Negative); Nitrite-Dipstick Negative (Negative); Occult Blood-Urine 150 /ul (Negative); Protein-Dipstick 15 mg/dl (Negative); Urine Bilirubin Dipstick Negative (Negative); Urine Clarity Clear (Clear); Urine Urobilinogen Normal (Normal)
[2021-08-17] MEDS: Lactated Ringers 500 ML 999 ML IV (20:05)
--- NOTE | 2021-08-21 04:51 | PCM.PN.BLA ---
Progress Note Triage visit 08/17: Pt in triage on 08/16 for spotting with wiping at 21/0 weeks. Cramping. Patient was monitored for 90 minutes, no irritability or contractions on toco. heart rate 150s. UA sent, leukocyte esterase, protein, blood. Throughout stay, patient was comfortable in bed on phone. Patient had some light spotting when wiping after voiding. With cramping. No leaking of fluid. IV fluid bolus given. Discharge home with precautions, follow-up to be arranged this week. Macrobid prescription sent to pharmacy. A pos, anterior placenta on anatomy US (no previa) Note this was previously documented on admission 08/19
== END 2021-08-17 23:59 | disposition home or self-care (01) ==
LOC: WPOUT 18:44 → WP 18:47
PROVIDERS: Visit Provider Student in an Organized Health Care Education/Training Program
DX: O26.852 Spotting complicating pregnancy, second trimester (principal); Z3A.21 21 weeks gestation of pregnancy
CPT/HCPCS: 59025; 59050 ×2; 81002; 96360; G0378 ×2; 99218; J7120

== ENCOUNTER 2021-08-19 04:31 | Inpatient (IN) | payer MEDICAID, SELFPAY ==
[2021-08-19] VITALS (30 sets, daily range): BP systolic 104–119; BP diastolic 55–77; PULSE 78–98; RESP 17–18; TEMP 36.4–37.1; O2SAT 96–99; BMI 37.1
--- NOTE | 2021-08-19 04:28 | POC_PTH ---
PATIENT: OSMANI RICHARDSON LOC: WP U#:[id number] AGE/SX: ROOM: WP019 RE08/19/[address]: Dr. Hannah Melgar DO : 1995 BED: 1 DIS: 08/19/2021 SPEC #: [id number] RECD: 08/20/21 09:38 STATUS: JOE REQ #: [id number] LORENA: 08/19/21 04:[address]: Hannah Melgar DEPT: SURGICAL PATHOLOGY RECD BY: Carolyn Henry ENTERED: 08/20/21 09:39 SP TYPE: PROD CONC OTHR DR: No Primary Care Phys Tissues: Product of conception, NOS Procedures: Surgery Specimen Level IV HEADER OPERATION: Not noted PRE-OP DIAGNOSIS: demise TISSUE SUBMITTED: Products of conception MICROSCOPIC DIAGNOSIS Products of conception: Chorionic villi, decidualized stroma and trophoblastic cells consistent with products of conception. AM:chuck 08/21/2021 MICROSCOPIC DESCRIPTION Slides are reviewed. GROSS DESCRIPTION Received is one container labeled with the patient's name and not further designated. The specimen consists of an irregular fragment of light pink-espinoza soft tissue measuring 4 x 4 x 0.7 cm. The specimen is sectioned to reveal spongy cut surfaces. The specimen is serially sectioned and totally submitted in two cassettes. / AM:chuck 08/20/2021 TC:5 CPT: 00015
--- NOTE | 2021-08-19 04:48 | ED.VIS.FEGU ---
HPI HPI - Female History of Present Illness Chief Complaint: Vag Bld, Preg Narrative Narrative: Patient is a G3, P2 female who is approximately 21 weeks . She states she was having some light bleeding/spotting over the last few days. She states with this she has felt some abdominal cramping. She reports that this evening the cramping worsened along with the bleeding and she felt she was going into early labor and therefore came to the ER. Patient set up to get into the wheelchair and at that time passed a large sac that is most consistent with expulsion of contents. Patient denies any history of bleeding disorder or blood thinner use. She denies any lightheadedness or syncope. She states her first 2 pregnancies occurred without difficulty and that her blood type is a positive [facility] Medical History Abnormal bruising Anxiety Chest pain Chlamydia infection affecting Chronic neck and back pain Difficulty balancing Knee pain Spontaneous vaginal delivery Home Medications acyclovir 200 mg capsule 400 mg PO DAILY 04/07/18 [History Last Taken 08/16/21] ferrous sulfate [Iron (ferrous sulfate)] 325 mg PO DAILY 01/15/21 [History Last Taken 08/16/21] prenat.vits,adriana,qph-[id number] [ #2] 1 tab PO DAILY 01/15/21 [History Last Taken 08/16/21] amoxicillin 08/17/21 [History Last Taken 08/17/21] famotidine 08/17/21 [History Last Taken Unknown] promethazine [Phenergan] 08/17/21 [History Last Taken Unknown] Allergy/AdvReac Type Severity Reaction Status Date / Time No Known Allergies Allergy Verified 08/17/21 18:53 Family History (Updated 04/07/18 @ 12:45 by Sandy Ramírez) Other Diabetes Surgical History History of surgery Social History (Updated 04/07/18 @ 13:25 by Toy PETER, PA) Smoking Status: Never smoker alcohol intake: never ROS ROS ED Constitutional Constitutional ED: Denies chills or fever(s) ENT ENT ED: Denies sore throat Cardiovascular Cardiovascular: Denies chest pain Respiratory/Chest Respiratory/Chest: Denies cough or dyspnea Gastrointestinal Gastrointestinal: Reports abdominal pain and nausea; Denies diarrhea or vomiting Genitourinary Genitourinary ED: Reports other Details: Positive vaginal bleeding ; Denies dysuria Musculoskeletal Musculoskeletal: Denies myalgias Integumentary Denies rash Neurologic Neurologic: Denies headache(s) Psychiatric Psychiatric: Reports anxiety Hematologic/Lymphatic Hematologic/Lymphatic: Denies easy bleeding or easy bruising EXAM Physical Exam Const Vital Signs: 08/19/21 04:32 Temperature 97.8 F Temperature Source Oral Pulse Rate 98 Respiratory Rate 18 Blood Pressure 113/74 Blood Pressure Mean 87 Pulse Ox 99 Oxygen Delivery Method Room Air Positive well nourished and well developed General Appearance ED: well developed Eyes PERRL and EOMs intact bilaterally Neck supple Resp normal respiratory effort and clear to auscultation bilaterally Cardio regular rate and regular rhythm GI normal to inspection, nondistended, normoactive bowel sounds, soft to palpation, non-tender and non-distended GI Narrative: No abdominal guarding or rigidity. No obvious fundus palpated. No pulsatile mass Auscultation: normoactive bowel sounds Palpation: soft Narrative: Patient has small amount of clots that the vaginal opening with trickle of blood but nothing to suggest yari hemorrhage Extremity normal to inspection Neuro oriented x3 and CN's II-XII intact bilaterally Sensorium / Orientation: alert Psych mental status grossly normal Skin no rashes or lesions noted MDM MDM MDM Narrative Medical decision making narrative: Patient had reported increased bleeding over the past few days with abdominal cramping most consistent with labor. She stood up in order to transfer from the car to the wheelchair and had spontaneous expulsion of the contents. After this her vitals remained stable her blood pressure is normal she is not tachycardic and pulse ox is 99% on room air. She has a soft abdomen with minimal pain and no obvious changes to suggest yari hemorrhage. Examination of the expels contents does appear to indicate that she has no retained products of conception. Chart review reveals that she is a positive consistent with her reported history and therefore there is no need for RhoGam. RESTAURANT GREETER was contacted and does recommend that patient be sent to their section of the hospital so that patient can undergo further recovery and treatment options. The plan of care was discussed with the patient and she is agreeable to this. Therefore she will be discharged from the emergency department and will be transported to OB for further care. Discharge Plan Triage Chief Complaint: Vag Bld, Preg ED Provider: Jt Solomon Dx/Rx/DC Orders Clinical Impression: Spontaneous miscarriage Instructions: ED MISCARRIAGE Completed Prescriptions: No Action acyclovir 200 mg capsule 400 mg PO DAILY RF: 0 ferrous sulfate [Iron (ferrous sulfate)] 325 mg (65 mg iron) Tablet 325 mg PO DAILY RF: 0 #2 Tablet 1 tab PO DAILY RF: 0 amoxicillin 500 mg Capsule RF: 0 promethazine [Phenergan] 12.5 mg Tablet RF: 0 famotidine 20 mg Tablet RF: 0 Primary Care Provider: Care Physician,No Primary Referrals: Care Physician,No Primary [Primary Care Provider] - Hannah Melgar DO [STAFF PHYSICIAN] - As soon as possible Disposition Disposition: Home, Self Care
[2021-08-19] MEDS: oxyCODONE 5 MG Tablet PO (04:54)
[2021-08-19] MEDS: LORazepam 1 MG Tablet PO (04:54)
[2021-08-19] MEDS: Ondansetron ODT 4 MG Tablet PO (04:55)
--- NOTE | 2021-08-19 04:56 | ED.RN ---
Dr Hannah Melgar paged and spoke with Emily SCOTT from , both are in agreement that the patient should be sent down to their department for recovery and proper paperwork and resources. Pt and in agreement with plan. Dr Solomon in agreement, nursing instructional supervisor contacted. Pt was seen and assessed by Dr Solomon. Emily SCOTT came to patients bedside to transport patient to .
--- NOTE | 2021-08-19 04:59 | ED.RN ---
pressed the button for ER door, stating his is in labor. Patient was sitting in car and says she cannot stand up. They report she is 21 weeks. Patient;s pad covered in large blood and tissue. As patient went to stand the placenta fell out, still whole, and hit the ground between her feet. She began to vomit and was tearful at this time. Brought patient in via wheel chair and placenta brought into the ER room. [facility] called.
--- NOTE | 2021-08-19 04:59 | ED.RN ---
Assisted Jayne SCOTT with getting pt out of car. Fetus fell onto ground once pt was standing. Gave emotional support and put in wheelchair. Brought to ER bed 2. Cleaned with bath wipes and sheets changed for comfort with Mary SCOTT. Emotional support given.
[2021-08-19] MEDS: 0.9% Saline Lock 10 ML Syringe IV (05:45)
--- NOTE | 2021-08-19 05:57 | PCM.HP.BLA ---
History and Physical Date of Admission: 08/19/21 History of present illness: 25-year-old G3, P2 at 21/2w JAVY 12/27/2021 by LMP, admitted after delivery of previable fetus. Patient had been seen and evaluated on Friday evening for cramping and light bleeding. She had some spotting with wiping, nothing on a pad or in toilet. No clots. She was monitored on toco with no irritability or contractions, received IV fluid bolus. UA positive for possible UTI, sent home with treatment on Macrobid. She states yesterday she had some cramping on and off, was not very painful, was able to rest. She had intermittent light spotting with wiping. Last night cramping became more severe and had heavier bleeding. She and partner then came to the emergency room, delivered in ER parking lot. States she no longer has cramping. She is having some bleeding, states that it feels minimal. Denies fevers or chills, nausea or vomiting, chest pain or shortness of breath, diarrhea or constipation. complicated by: Shortening of , genital herpes on suppression OBSTETRICS GYNECOLOGY PHYSICIAN history: G1: 01/07/2010 38-week , adopted G2: 01/17/2021 40-week Medical history: Denies Surgical history: 1. Adenoidectomy Family history: Noncontributory Social history: Denies tobacco, alcohol, drug use Allergies: No known drug allergies Medications: vitamin, acyclovir, aspirin 81 mg, Macrobid, Pepcid, Phenergan Review of systems: Negative otherwise stated above Physical exam: Vitals: Blood pressure 111/57, pulse 83, Oxygen saturation 97% on room air General: Patient resting in bed HEENT: Normocephalic/atraumatic, PERRLA Cardiorespiratory: No increased effort Abdomen: Soft, slight discomfort with ultrasound probe, otherwise nontender nondistended fundus firm and below umbilicus Extremities: No edema Musculoskeletal: Strength 5 out of 5 throughout all extremities Neurologic: Cranial nerves II through XII grossly intact no focal deficits labs: A pos Gonorrhea/chlamydia negative HIV negative Hepatitis B/hepatitis C negative/negative Rubella immune Syphilis negative CBC, type and screen today pending Fetus inspected: Delivered and call with intact membranes. Placenta inspected thoroughly, appears intact without any missing areas of the placenta. Amniotic fluid clear, yellow-colored. Amniotic fluid was not cloudy or foul-smelling. 21-week female fetus: Normal in appearance, no skin sloughing or visualized anomalies. Bedside ultrasound completed: Some clot in the endometrial cavity. No noted blood flow. Assessment/plan: 25-year-old admitted status post previable delivery. Working diagnosis: labor. -Admit to labor and delivery for observation. -CBC, type and screen, demise labs to be drawn. Placenta to be sent to pathology. Discussed autopsy, do not think that this would be helpful in this scenario, however offered to patient and her partner. Have not decided yet. -Discussed possible etiologies or causes for labor and delivery. These include but are not limited to: Infection, severe maternal medical problems, cervical insufficiency. Reassured patient that this was not a result of her doing. Discussed that in the scenarios it can be difficult to discern the precise cause. Emotional support provided at length. Briefly discussed possible measures for delivery prevention in future . -Discussed precautions of when to call office for evaluation. Patient to call for fever over 100.4 ?F, foul-smelling discharge, heavy bleeding (soaking 2 pads an hour for 2 hours), call with any questions or concerns in regarding delivery. -All questions answered. -Reviewed plan at length with bedside RN -We will advance diet to clears at this time, will monitor for bleeding post delivery. -Continued monitoring, will reevaluate later today for stability of discharge if patient desires, otherwise discharged home tomorrow. Assessment & Plan Assessment/Plan (1) delivery:
--- NOTE | 2021-08-19 06:54 | PCM.PN.BLA ---
Progress Note Triage visit 08/16: Pt in triage on 08/16 for spotting with wiping at 21/0 weeks. Cramping. Patient was monitored for 90 minutes, no irritability or contractions on toco. heart rate 150s. UA sent, leukocyte esterase, protein, blood. Throughout stay, patient was comfortable in bed on phone. Patient had some light spotting when wiping after voiding. With cramping. No leaking of fluid. IV fluid bolus given. Discharge home with precautions, follow-up to be arranged this week. Macrobid prescription sent to pharmacy. A pos, anterior placenta on anatomy US (no previa)
[2021-08-19 07:26] LABS: Absolute Lymphocyte Count 1.06 X10^3/uL (0.83-4.51); Absolute Neutrophil Count 15.3 X10^3/uL (2.0-7.7); Basophil# 0.01 X10^3/uL; Basophil% 0.1 % (0-1); Eosinophil# 0.01 X10^3/uL; Eosinophils% 0.1 % (0-5); Hematocrit 31.5 % (37-47); Hemoglobin 10.1 g/dL (12.0-15.0); Lymphocyte # 1.06 X10^3/ul (0.83-4.51); Lymphocyte % 6.1 % (19-41); Mean Corp Hgb Conc 32.1 g/dL (32-36); Mean Corpuscular Hgb 26.9 pg (27.0-32.0); Mean Corpuscular Volume 83.8 fL (81-99); Mean Platelet Vol. 10.2 fl (6.2-12.0); Monocyte# 0.87 X10^3/uL; NRBC Flagged by Analyzer 0 % (0-5); Neutrophil # 15.31 X10^3/uL (2.7-7.7); Neutrophil % 87.9 % (47-70); Platelet Count 252 K/mm3 (150-450); RBC Distribution Width CV 14.2 % (11.6-14.6); RBC Distribution Width SD 43.6 fl (35.1-43.9); Red Blood Count 3.76 M/mm3 (4.2-5.4); White Blood Count 17.4 K/mm3 (4.4-11.0)
[2021-08-19 07:45] LABS: Thyroid Stim Hormone (TSH) 2.26 uIU/mL (0.358-3.74)
[2021-08-19 07:51] LABS: International Normalized Ratio 1.1; Prothrombin Time (Protime)PT. 13.6 SECONDS (11.7-14.9)
[2021-08-19 07:52] LABS: Partial Thromboplast Time 28.3 Seconds (24.1-36.2)
--- NOTE | 2021-08-19 07:52 | NURSING ---
0428 call received from ER that patient was on ER ramp and delivered intact in the amniotic sack with placenta; after assessment in ER, patient moved to for recovery and emotional support.
[2021-08-19 08:24] LABS: Hemoglobin A1c 5.5 % (3.8-5.6)
[2021-08-19 08:33] LABS: Pathology Specimen OB SEE PATHOLOGY REPORT
[2021-08-19 08:37] LABS: Syphilis Antibodies Non-reactive
--- NOTE | 2021-08-19 09:22 | NURSING ---
0990-called Gianluca home, made aware of pt choosing their home for doing their for their baby. originally spoke with Krystal and then Hai called back. to call Hai when family is ready for them to come apple picking supervisor baby.
--- NOTE | 2021-08-19 09:25 | NURSING ---
0830- weight on demise is 13.5oz, .385 gms Head 18.5cm Length 26.25 cm, 10.25 inches
--- NOTE | 2021-08-19 12:50 | PCM.DC ---
Discharge Instructions Diet Discharge Diet: No restrictions Activity Discharge Activity: Return to Normal Activity May resume sexual activity in: 4-6 weeks Lifting Restrictions: No greater than 25 pounds Dressing / Incision Call your doctor if you observe: Fever of 101 or Higher, Inability to urinate, Using more than 1 pad per hour, Shortness of breath, Dizziness, Swelling in the ankles, Chest pain, Calf discomfort and Uncontrolled pain Follow Up Care Please Follow Up With: Luis Melgar MD When: 1-2 weeks Test Results: Test results from this visit will be discussed in further detail at your follow-up appointment, if applicable. Discharge Plan Admission Admit Date/Time: 08/19/21 05:10 Primary Reason for Your Visit: Delivery, miscarriage Attending Provider: Hannah Melgar Primary Care Provider: Care Physician,Elba Primary Instructions Patient Instructions: ED MISCARRIAGE Completed Discharge Orders/Prescriptions Prescriptions: No Action ferrous sulfate [Iron (ferrous sulfate)] 325 mg (65 mg iron) Tablet 325 mg PO DAILY RF: 0 #2 Tablet 1 tab PO DAILY RF: 0 amoxicillin 500 mg Capsule 500 mg BID RF: 0 promethazine [Phenergan] 12.5 mg Tablet PO Q8H PRN PRN (Reason: Nausea) RF: 0 Referrals / Follow Up: Hannah Melgar DO [STAFF PHYSICIAN] - As soon as possible Care Physician,No Primary [Primary Care Provider] - Disposition Disposition (needs filled in before D/C Order can be placed): Home, Self Care
--- NOTE | 2021-08-19 13:00 | PCM.PN.OB ---
Subjective Subjective Patient seen and examined. Resting in bed. Partner at bedside. Reports bleeding as minimal. Mild cramping, declines any Motrin or Tylenol. Objective Data Objective Data Vital Signs: Vital Signs Temp Pulse Resp BP Pulse Ox 98.8 F 78 18 110/55 L 98 08/19/21 12:33 08/19/21 12:33 08/19/21 12:33 08/19/21 12:33 08/19/21 06:56 Oxygen Delivery Method Room Air Weight: 104.4 kg Body Mass Index (BMI) 37.1 Lab / Micro Data Result Diagrams: 08/19/21 06:50 Labs: Laboratory Results - last 24 hr 08/19/21 06:50: WBC 17.4 H, RBC 3.76 L, Hgb 10.1 L, Hct 31.5 L, MCV 83.8, MCH 26.9 L, MCHC 32.1, RDW Std Deviation 43.6, RDW Coeff of Caitlyn 14.2, Plt Count 252, MPV 10.2, Immature Gran % (Auto) 0.800, Neut % (Auto) 87.9 H, Lymph % (Auto) 6.1 L, [place] % (Auto) 5.0, Eos % (Auto) 0.1, Baso % (Auto) 0.1, Absolute Neuts (auto) 15.3 H, Absolute Lymphs (auto) 1.06, Nucleated RBC % 0 08/19/21 06:50: Blood Type A POSITIVE, Antibody Screen NEGATIVE 08/19/21 06:50: PT 13.6, INR 1.1, APTT 28.3 08/19/21 06:50: TSH 2.26 08/19/21 06:50: Hemoglobin A1c 5.5 08/19/21 06:50: Syphilis Total Ab Non-reactive Physical Exam Const alert, oriented x3 and no apparent distress HEENT normocephalic Head and Scalp: atraumatic Resp normal respiratory effort Cardio regular rate GI normal to inspection, nondistended, normoactive bowel sounds GI Narrative: No fundal tenderness Extremity no pedal edema Assessment & Plan (1) delivery: PLAN: day 0 status post 21-week vaginal delivery. -Quiet in room, partner with her in room, supportive. -Mild cramping, declines Motrin or Tylenol. No fundal tenderness, bleeding minimal. Patient is afebrile, vital signs are stable. Mild leukocytosis, likely secondary to delivery. -TSH and hemoglobin A1c, syphilis all negative. Remaining labs pending. Results reviewed with patient. -Patient and partner have not seen baby or held her at this time. Partner is considering, but does not feel ready quite at this time. Discussed that they have time to rest, and decide when they are ready. Photos mementos done, discussed that they may want to look at these in the short-term or it may be far in the future. Discussed other support materials and packet. Emotional support provided. -Stable for discharge at any time when patient feels ready. -Plan for 1 to 2-week follow-up visit (2) Spontaneous miscarriage:
--- NOTE | 2021-08-19 14:39 | NURSING ---
1313- reviewed with pt concerns for depression and grief following the loss of her baby. informed pt nurse will place note for hospital nursing home social worker and she may receive a call from her. pt ok with this.
[2021-08-21 12:16] LABS: Toxoplasma Gondii IgG < 3.0 IU/mL (0.0-7.1)
[2021-08-21 14:10] LABS: Dilute Prothrombin Time (dPT) 40.3 sec (0.0-47.6); PTT-LA 37.2 sec (0.0-51.9); Thrombin Time 14.4 sec (0.0-23.0); dPT Confirm Ratio 1.11 Ratio (0.00-1.34)
[2021-08-21 15:33] LABS: Interpretation Comment: (.)
[2021-08-22 21:40] LABS: Anti-Cardiolipin Ab, IgA, Qn < 9 APL U/mL (0-11); Anti-Cardiolipin Ab, IgG, Qn < 9 GPL U/mL (0-14); Anti-Cardiolipin Ab, IgM, Qn 14 MPL U/mL (0-12); CMV Acute Antibody IgM < 30.0 AU/mL (0.0-29.9); PARVOVIRUS B19 IGG 0.1 index (0.0-0.8); PARVOVIRUS B19 IGM 0.1 index (0.0-0.8); Toxoplasma Gondii IgM < 3.0 AU/mL (0.0-7.9)
--- NOTE | 2021-08-23 15:33 | CASEMGMT ---
Social Work Labor and Delivery Unit Message received from TYLER Pond Regarding and out reach call to this patient. Concern regarding 21-week demise that was delivered on the ramp in the emergency department. Medical records reviewed, and this marketing copywriter familiar with patient from prior delivery at [facility]. Phone call to patient, introducing to self and role. Patient reports to be doing okay, and just taking things day by day. Reports her Lee has been at home for support. Reports to have arrangements made for the infant, Osbaldo Cuevas. This marketing copywriter offered to send information regarding grief, supports, and resources. Patient reports was provided resources prior to home-going, and denies any additional needs. Explored whether patient has been eating and sleeping okay, and the patient reports has been doing the best that she can. Reports to have phone numbers to call should patient feel the need for any additional support. This marketing copywriter let patient know, that if concerns or questions arise could call into the unit for direction on resources. Reviewed that staff typically call into a 1 month follow-up, and patient was okay with this. Patient denies any additional needs at this point. Condolences and emotional support offered during brief phone call. -JAYNE Malave, NEUROPSYCHOLOGIST *This note was generated with [employer] dictation software. It may contain incorrect words, spelling, and punctuation that were not noted in review of the chart prior to signing*
--- NOTE | 2021-08-23 15:55 | NURSING ---
Discussed with social work about follow-up phone call d/t seeing note from TYLER Aguilar sent to DALLIN Raza to follow-up. Follow up done per DALLIN today.
[2021-08-23 15:59] LABS: Beta-2-Microglobulin, S 1.3 mg/L (0.6-2.4)
--- NOTE | 2021-09-17 19:26 | NURSING ---
Called Christina this evening to follow-up from delivery 1 month ago of 21 week loss, daughter Osbaldo. Upon answering the phone, pt. reports she has continued fever and sinus pressure. Upon further conversation, it was realized that Christina was in Urgent Care today, and was diagnosed with Covid. Pt. reports she is taking cold & flu meds, and aware able to take Tylenol prn. Asked how pt. has been doing since loss of baby Osbaldo, reports she thinks she is doing ok. Sleeping ok, as much as can with an 8-month-old. Reports and son also at urgent care, and have covid as well. Asked pt. if she was aware of resources if needed for support - pt. reports that she has info on resources, will reach out prn. Discussed grief taking different lengths of time for each person, hitting different areas of grief at times when it seemed it was over. Also discussed men and women dealing with grief differently, and to try to talk with each other over this loss as needed. Pt. reports she will reach out to resources prn. Offered follow-up phone calls for due date and 1-yr anniversary, and pt. remains firm in decision to not receive phone calls after today. Denies other needs at this time.
== END 2021-08-19 14:05 | disposition home or self-care (01) | DRG 564 ==
LOC: ED 04:58 → WP 12:51
PROVIDERS: Admitting Provider Student in an Organized Health Care Education/Training Program; Emergency Provider Emergency Medicine; Visit Provider Student in an Organized Health Care Education/Training Program
DX: O03.9 Complete or unspecified spontaneous abortion without complication (principal); O98.32 Other infections with a predominantly sexual mode of transmission complicating childbirth; A60.09 Herpesviral infection of other urogenital tract; O26.852 Spotting complicating pregnancy, second trimester; Z3A.21 21 weeks gestation of pregnancy; Z79.899 Other long term (current) drug therapy
CPT/HCPCS: 59025; 59050; 76815; 81002; 82232; 83036; 84443; 85025; 85610; 85730; 86147; 86644; 86645; 86747; 86777; 86778; 86780; 86850; 86900; 86901; 88305; 99218; 99282; J7120; A4216; G0378

== ENCOUNTER → 2022-01-09 | Outpatient (CLI) | payer MEDICAID, SELFPAY | END | disposition home or self-care (01) | LOC: LABSPEC 15:14 | PROVIDERS: Visit Provider Obstetrics & Gynecology | DX: N76.0 Acute vaginitis (principal); R30.0 Dysuria | CPT/HCPCS: 87077; 87086; 87088; 87186 ==

== ENCOUNTER → 2022-06-11 | Outpatient (CLI) | payer MEDICAID, SELFPAY ==
[2022-06-17 14:31] LABS: HPV Reflexed? NOT INDICATED
== END | disposition home or self-care (01) ==
LOC: LABSPEC 15:36
PROVIDERS: Visit Provider Obstetrics & Gynecology
DX: Z12.4 Encounter for screening for malignant neoplasm of cervix (principal)
CPT/HCPCS: 88175; G0145

== ENCOUNTER → 2022-10-03 | Outpatient (CLI) | payer MEDICAID, SELFPAY ==
[2022-10-03 14:59] LABS: Absolute Lymphocyte Count 1.67 X10^3/uL (0.83-4.51); Absolute Neutrophil Count 5.6 X10^3/uL (2.0-7.7); Basophil# 0.03 X10^3/uL; Basophil% 0.4 % (0-1); Eosinophil# 0.12 X10^3/uL; Eosinophils% 1.5 % (0-5); Hematocrit 34.9 % (37-47); Hemoglobin 11.5 g/dL (12.0-15.0); Lymphocyte # 1.67 X10^3/ul (0.83-4.51); Lymphocyte % 21.1 % (19-41); Mean Corpuscular Hgb 28.3 pg (27.0-32.0); Mean Platelet Vol. 10.3 fl (6.2-12.0); Monocyte# 0.41 X10^3/uL; Monocyte% 5.2 % (0-10); NRBC Flagged by Analyzer 0 % (0-5); Neutrophil # 5.62 X10^3/uL (2.7-7.7); Neutrophil % 71.2 % (47-70); Platelet Count 193 K/mm3 (150-450); RBC Distribution Width CV 14.2 % (11.6-14.6); RBC Distribution Width SD 44.8 fl (35.1-43.9); Red Blood Count 4.06 M/mm3 (4.2-5.4); White Blood Count 7.9 K/mm3 (4.4-11.0)
[2022-10-03 16:12] LABS: HIV - WCH Non-Reactive (Nonreactive); Hepatitis B Surface Antigen Non-Reactive (Nonreactive); Hepatitis C Antibody Non-Reactive (Nonreactive); Rubella IgG Reactive (Nonreactive); Syphilis Antibodies Non-reactive
[2022-10-05 05:07] LABS: V-Zoster IgG (Immunity) 167 index (Immune >165)
== END | disposition home or self-care (01) ==
LOC: WOBLAB 14:02
PROVIDERS: Visit Provider Obstetrics & Gynecology
DX: Z34.81 Encounter for supervision of other normal pregnancy, first trimester (principal); N91.2 Amenorrhea, unspecified
CPT/HCPCS: 36415; 85025; 86703; 86762; 86780; 86787; 86803; 87086; 87088; 87340

== ENCOUNTER → 2022-11-05 | Outpatient (CLI) | payer MEDICAID, SELFPAY ==
[2022-11-05 14:37] LABS: Glucose Challenge Gest 1H 50g 153 mg/dL (70-140)
== END | disposition home or self-care (01) ==
LOC: WOBLAB 13:29
PROVIDERS: Visit Provider Obstetrics & Gynecology
DX: Z34.82 Encounter for supervision of other normal pregnancy, second trimester (principal); Z3A.00 Weeks of gestation of pregnancy not specified
CPT/HCPCS: 36415; 82950

== ENCOUNTER → 2022-11-11 | Outpatient (CLI) | payer MEDICAID, SELFPAY ==
[2022-11-11 10:02] LABS: Glucose GTT-Gestation. Fasting 87 mg/dL (<105)
[2022-11-11 10:11] LABS: Glucose GTT-Gestational 1 Hr 193 mg/dL (<190)
[2022-11-11 11:16] LABS: Glucose GTT-Gestational 2 Hr 138 mg/dL (<165)
[2022-11-11 12:38] LABS: Glucose GTT-Gestational 3 Hr 73 L (<145)
== END | disposition home or self-care (01) ==
LOC: WOBLAB 08:37
PROVIDERS: Visit Provider Obstetrics & Gynecology
DX: O24.912 Unspecified diabetes mellitus in pregnancy, second trimester (principal); Z3A.00 Weeks of gestation of pregnancy not specified
CPT/HCPCS: 36415; 82951; 82952

== ENCOUNTER → 2022-12-23 | Outpatient (CLI) | payer MEDICAID, SELFPAY ==
[2022-12-23 09:03] LABS: Absolute Lymphocyte Count 1.73 X10^3/uL (0.83-4.51); Absolute Neutrophil Count 5.6 X10^3/uL (2.0-7.7); Basophil# 0.01 X10^3/uL; Basophil% 0.1 % (0-1); Eosinophil# 0.11 X10^3/uL; Eosinophils% 1.4 % (0-5); Hematocrit 33.5 % (37-47); Hemoglobin 10.5 g/dL (12.0-15.0); Lymphocyte # 1.73 X10^3/ul (0.83-4.51); Lymphocyte % 21.9 % (19-41); Mean Corp Hgb Conc 31.3 g/dL (32-36); Mean Corpuscular Hgb 27.4 pg (27.0-32.0); Mean Corpuscular Volume 87.5 fL (81-99); Monocyte# 0.42 X10^3/uL; Monocyte% 5.3 % (0-10); NRBC Flagged by Analyzer 0 % (0-5); Neutrophil # 5.58 X10^3/uL (2.7-7.7); Neutrophil % 70.8 % (47-70); Platelet Count 199 K/mm3 (150-450); RBC Distribution Width CV 14.7 % (11.6-14.6); RBC Distribution Width SD 46.6 fl (35.1-43.9); Red Blood Count 3.83 M/mm3 (4.2-5.4); White Blood Count 7.9 K/mm3 (4.4-11.0)
[2022-12-23 09:36] LABS: Glucose GTT-Gestation. Fasting 93 mg/dL (<105)
[2022-12-23 09:55] LABS: Syphilis Antibodies Non-reactive
[2022-12-23 10:42] LABS: Glucose GTT-Gestational 1 Hr 216 mg/dL (<190)
[2022-12-23 11:16] LABS: Glucose GTT-Gestational 2 Hr 134 mg/dL (<165)
[2022-12-23 13:18] LABS: Glucose GTT-Gestational 3 Hr 91 L (<145)
== END | disposition home or self-care (01) ==
LOC: WOBLAB 08:36
PROVIDERS: Visit Provider Obstetrics & Gynecology
DX: Z34.92 Encounter for supervision of normal pregnancy, unspecified, second trimester (principal); Z3A.24 24 weeks gestation of pregnancy
CPT/HCPCS: 36415; 82951; 82952; 85025; 86780

== ENCOUNTER 2023-04-01 19:15 | Outpatient (CLI) | payer MEDICAID, SELFPAY ==
[2023-04-01 19:35] LABS: Color, Urine Yellow (Yellow); Glucose, Dipstick Normal (Normal); Ketone-Dipstick Negative (Negative); Leukocyte Esterase-Dipstick 25 /ul (Negative); Nitrite-Dipstick Negative (Negative); Occult Blood-Urine Negative /ul (Negative); Protein-Dipstick 15 mg/dl (Negative); Specific Gravity, Urine 1.025 (1.002-1.030); Urine Bilirubin Dipstick Negative (Negative); Urine Clarity Sl. Cloudy (Clear); Urine Urobilinogen Normal (Normal)
[2023-04-01 19:37] VITALS: BP 120/72; PULSE 92; TEMP 36.9; O2SAT 96
[2023-04-01 19:39] VITALS: BMI 39.3
--- NOTE | 2023-04-11 18:29 | OB.TRI.PN ---
Progress Notes Progress Note: Emma presents at 36w3 days for lower back pain. No vaginal bleeding or fluid leakage. Laboratory Studies: Laboratory Tests 04/01/23 Range/Units 19:25 Urine Color Yellow (Yellow) Urine Clarity Sl. Cloudy (Clear) Urine pH 6.0 (5.0 - 8.0) Ur Specific [place] 1.025 (1.002-1.030) Urine Protein 15 H (Negative) mg/dl Urine Glucose (UA) Normal (Normal) mg/dl Urine Ketones Negative (Negative) mg/dl Urine Occult Blood Negative (Negative) /ul Urine Nitrite Negative (Negative) Urine Bilirubin Negative (Negative) mg/dL Urine Urobilinogen Normal (Normal) mg/dl Ur Leukocyte Esterase 25 H (Negative) /ul NST 130, moderate, accels, reactive Cervix closed Assessment & Plan (1) Back pain: (2) 36 weeks gestation of : PLAN: Plan 1) No signs of labor 2) Tylenol for pain 3) D/C home
== END 2023-04-01 20:15 | disposition home or self-care (01) ==
LOC: WPOUT 19:19 → WP 19:19
PROVIDERS: Referring Provider Advanced Practice Midwife; Visit Provider Advanced Practice Midwife
DX: O99.891 Other specified diseases and conditions complicating pregnancy (principal); Z3A.36 36 weeks gestation of pregnancy; M54.50 Low back pain, unspecified
CPT/HCPCS: 59025; 59050; 81002; 87086; 87088; 99221; G0378

== ENCOUNTER 2023-04-23 07:30 | Inpatient (IN) | payer MEDICAID, SELFPAY ==
[2023-04-23] VITALS (37 sets, daily range): BP systolic 95–176; BP diastolic 52–135; PULSE 63–122; RESP 16; TEMP 36.5–37.3; O2SAT 96–100; BMI 39.6
--- NOTE | 2023-04-23 07:44 | PCM.HP.OB ---
HPI - General General Date of Admission: 04/23/23 HPI Narrative OSMANI RICHARDSON, is a 27 F at 39.3 weeks gestation who presents for induction of labor. complicated by GDM A1, Oligo, SGA, GBS positive, and previous demise at 21 weeks gestation. Maternal Data Information JAVY Calculator Estimated Delivery Date Method Current WG Current Estimate 04/27/23 Manual 39w 3d PFSH [facility] Medical History Abnormal bruising Acute sinusitis, unspecified Anxiety Chest pain Chlamydia infection affecting Chronic neck and back pain Difficulty balancing Knee pain Spontaneous vaginal delivery Home Medications ferrous sulfate 325 mg (65 mg iron) tablet (Iron (ferrous sulfate)) 325 mg PO DAILY anemia 01/15/21 [History Last Taken 03/31/23 19:00] prenat.vits,adriana,puz-sfvb-oqtpr 1 tab PO DAILY 01/15/21 [History Last Taken 03/31/23 19:00] acyclovir 400 mg tablet 400 mg PO DAILY 01/23/23 [History Last Taken 03/31/23 19:00] aspirin 81 mg tablet,delayed release mg PO 01/23/23 [History Last Taken 03/31/23 19:00] folic acid 800 mcg tablet PO 01/23/23 [History Last Taken 03/31/23 19:00] Allergy/AdvReac Type Severity Reaction Status Date / Time No Known Allergies Allergy Verified 04/01/23 19:41 Family History Other Diabetes Surgical History History of adenoidectomy History of surgery Social History Smoking Status: Never smoker alcohol intake: never History Elective abortions Hx Para 1 Spontaneous abortions Hx # Term Pregnancies Ectopic pregnancies Hx # Pregnancies Multiple births # of living children Labs Labs Labs: Blood Type A POSITIVE Antibody Screen NEGATIVE Hct 34.9 % (37-47) L Hgb 11.3 g/dL (12.0-15.0) L Syphilis Total Ab Non-reactive VZV IgG Antibody 167 index (Immune >165) Rubella IgG Antibody Reactive (Nonreactive) Hep Bs Antigen Non-Reactive (Nonreactive) Hepatitis C Antibody Non-Reactive (Nonreactive) Chlamydia DNA (ELDA) Negative (Negative) N.gonorrhoeae DNA (ELDA) Negative (Negative) HIV 1&2 Antibody Non-Reactive (Nonreactive) Glucose 1 Hr 50 gm 153 mg/dL (70-140) H Gest Glucose Tolerance MG/DL Rhogam given: No Miscellaneous Test GBS postive Assessment & Plan (1) 39 weeks gestation of : (2) GDM, class A1: (3) Oligohydramnios: (4) Prior with demise: PLAN: Plan Cat. 1 tracing No contractions CE- 1/50/-2 Quintanilla bulb placed without difficulty and filled with 50 cc N/S Start Pitocin at 2 mu/min and increase per policy GBS positive- Start PCN protocol Dr. Drake notified of admission and is collaborating physician
[2023-04-23] MEDS: Lactated Ringers 1,000 ML 999 ML IV (07:55)
[2023-04-23] MEDS: 0.9% Normal Saline Single 100 ML IV.SOLN. INTRA-UTER (07:57)
[2023-04-23] MEDS: Penicillin G Pot 5,000,000 UNITS in 0.9% Normal Saline (100mL MB+) 100 ML 150 UNITS IV (08:04)
[2023-04-23 08:18] LABS: Absolute Lymphocyte Count 1.41 X10^3/uL (0.83-4.51); Absolute Neutrophil Count 7.2 X10^3/uL (2.0-7.7); Basophil# 0.01 X10^3/uL; Basophil% 0.1 % (0-1); Eosinophil# 0.05 X10^3/uL; Eosinophils% 0.6 % (0-5); Hematocrit 34.9 % (37-47); Hemoglobin 11.3 g/dL (12.0-15.0); Lymphocyte # 1.41 X10^3/ul (0.83-4.51); Lymphocyte % 15.6 % (19-41); Mean Corp Hgb Conc 32.4 g/dL (32-36); Mean Corpuscular Hgb 28.3 pg (27.0-32.0); Mean Corpuscular Volume 87.3 fL (81-99); Mean Platelet Vol. 10.2 fl (6.2-12.0); Monocyte# 0.34 X10^3/uL; Monocyte% 3.8 % (0-10); NRBC Flagged by Analyzer 0 % (0-5); Neutrophil # 7.16 X10^3/uL (2.7-7.7); Neutrophil % 79.3 % (47-70); Platelet Count 200 K/mm3 (150-450); RBC Distribution Width SD 48.4 fl (35.1-43.9)
[2023-04-23] MEDS: Oxytocin 15 Units/NS 250ml 15 UNITS/250 ML IV.SOLN 2 UNITS IV (08:40)
[2023-04-23] MEDS: Lactated Ringers 1,000 ML 50 ML IV (08:57)
[2023-04-23 08:59] LABS: Bedside Glucose 211 mg/dL (74-106)
[2023-04-23] MEDS: Lactated Ringers 1,000 ML 15 ML IV (09:00)
[2023-04-23 09:01] LABS: Syphilis Antibodies Non-reactive
[2023-04-23 09:07] LABS: Bedside Glucose 176 mg/dL (74-106)
[2023-04-23] MEDS: Insulin Lispro 100 UNIT in 0.9% Normal Saline (100mL Bag) 99 ML IV (09:22)
[2023-04-23] MEDS: Dext 5%-0.45% NS 1,000 ML 125 ML IV (09:23)
[2023-04-23 11:02] LABS: Bedside Glucose 151 mg/dL (74-106)
[2023-04-23 12:10] LABS: Bedside Glucose 76 mg/dL (74-106)
[2023-04-23] MEDS: Penicillin G 3,000,000 Units 50 ML 100 UNITS IV ×2 (12:38→17:25)
--- NOTE | 2023-04-23 12:43 | PN.OBGYN_ITS ---
Subjective Subjective Patient seen at bedside. Starting to feel pain with contractions. Quintanilla bulb out. Objective Data Objective Data Vital Signs: Vital Signs Temp Pulse BP Pulse Ox 97.7 F L 90 133/72 H 98 04/23/23 11:48 04/23/23 12:39 04/23/23 12:39 04/23/23 11:47 Weight: 246 lb Body Mass Index (BMI) 39.6 Intake & Output: Intake and Output for Last 24 Hours 04/21/23 04/22/23 04/23/23 23:59 23:59 23:59 Intake Total 1531.37 / 1531.37 Output Total 600 / 600 Balance 931.37 / 931.37 Lab / Micro Data 04/23/23 07:45 Labs: Laboratory Results - last 24 hr 04/23/23 07:45: WBC 9.0, RBC 4.00 L, Hgb 11.3 L, Hct 34.9 L, MCV 87.3, MCH 28.3, MCHC 32.4, RDW Std Deviation 48.4 H, RDW Coeff of Caitlyn 15.0 H, Plt Count 200, MPV 10.2, Immature Gran % (Auto) 0.600, Neut % (Auto) 79.3 H, Lymph % (Auto) 15.6 L, [place] % (Auto) 3.8, Eos % (Auto) 0.6, Baso % (Auto) 0.1, Absolute Neuts (auto) 7.2, Absolute Lymphs (auto) 1.41, Nucleated RBC % 0, Syphilis Total Ab Non- reactive, Blood Type A POSITIVE, Antibody Screen NEGATIVE 04/23/23 07:48: POC Glucose 211 H 04/23/23 08:48: POC Glucose 176 H 04/23/23 10:26: POC Glucose 151 H 04/23/23 11:50: POC Glucose 76 Micro: Microbiology 04/23/23 08:30 Genital vaginal Chlamydia trachomatis (PCR) - Final 04/23/23 08:30 Genital vaginal Neisseria gonorrhoeae (PCR) - Final Assessment & Plan (1) Oligohydramnios: (2) GDM, class A1: (3) 39 weeks gestation of : (4) Obesity affecting : PLAN: Plan Insulin pump started due to elevated blood glucose levels NST reactive, Cat. 1 tracing Pitocin at 10 mu/min- continue to increase per policy CE- 4/70/-2 AROM for minimal amount of bloody fluid IUPC and FSE placed without difficulty Epidural when indicated Anticipate
[2023-04-23 13:35] LABS: Bedside Glucose 91 mg/dL (74-106)
[2023-04-23 13:35] LABS: Bedside Glucose 63 mg/dL (74-106)
[2023-04-23] MEDS: CHLORHEXIDINE GLUC 2% CLOTH 1 EACH TOWELETTE TOPICAL (13:47)
[2023-04-23 14:31] LABS: Bedside Glucose 84 mg/dL (74-106)
[2023-04-23] MEDS: LACTATED RINGERS 500 ML 999 ML IV (15:44)
[2023-04-23] MEDS: Amnioinfusion- 0.9% NS 1,000 ML IV.SOLN. 1000 ML INTRA-UTER (15:48)
[2023-04-23] MEDS: fentaNYL-bupivacaine (epidural) 100 ML BAG EPIDURAL (16:48)
[2023-04-23 17:58] LABS: Bedside Glucose 85 mg/dL (74-106)
--- NOTE | 2023-04-23 18:15 | OP.PCM_ITS ---
Assessment & Plan (1) GDM, class A1: (2) Obesity affecting : (3) Spontaneous vaginal delivery: Maternal Data Information JAVY Calculator Estimated Delivery Date Method Current WG Current Estimate 04/27/23 Manual 39w 3d Vaginal Delivery Maternal Presentation Maternal Presentation: Medically Indicated Induction Maternal Presentation: for induction of labor for GDM, Obesity, and Oligohydramnios. Type of Induction: Pitocin, Quintanilla Bulb and Amniotomy Medical Reason for Induction: - (GDM, Obesity, Oligohydramnios) Operative Information Date of Procedure: 04/23/23 Pre-Operative Diagnosis: Term gestation, induction of labor Post-Operative Diagnosis: , live male infant Surgery / Procedure Performed: Spontaneous Vaginal Delivery Type of Anesthesia: Epidural Estimated Blood Loss: 100 Time of Delivery: 17:50 Findings Description of Procedure: Patient quickly progressed to complete dilation with urge to push. With initial push, head delivered over intact perineum followed immediately by manager payroll ior shoulder and remainder of infant body without traction. Vigorous male placed on maternal abdomen and was attended to by nursing staff. Pitocin Iv started for active management of the third stage of labor. 3 vessel cord clamped and cut by FOB after delay and infant placed skin to skin with patient. Placenta delivered spontaneously and intact. Vagina and perineum intact. Vaginal sweep completed by me. Fundus firm 2 below U. Hemostasis obtained. EBL [address] cc. APGARS 8/9. Dr. Drake notified of delivery. Presentation: Vertex Amniotic Membrane Rupture Type: Artificial Time of Membrane Rupture: 1230 Amniotic Fluid Description: Clear Placental Delivery Description: Spontaneous Placenta Disposition: [facility] Cord Vessel Description: 3 Vessels Cord Entanglement: None A Gender: Male (1 minute): 8 (5 minute): 9 Delayed Cord Clamping: Yes Post Vaginal Delivery Medications Given After Delivery: IV Pitocin Episiotomy Description: None Laceration: None Complication Complications: None
[2023-04-23] MEDS: Oxytocin 15 Units/NS 250ml 15 UNITS/250 ML IV.SOLN 83 UNITS IV (18:20)
[2023-04-23 19:17] LABS: Bedside Glucose 92 mg/dL (74-106)
[2023-04-24 04:00] VITALS: BP 105/66; PULSE 79; RESP 16; TEMP 36.4
[2023-04-24 06:07] LABS: Bedside Glucose 70 mg/dL (74-106)
--- NOTE | 2023-04-24 08:07 | PCM.PN.OB ---
Subjective Subjective No complaints Objective Data Objective Data Vital Signs: Vital Signs Temp Pulse Resp BP Pulse Ox O2 Del Method 97.6 F L 79 16 105/66 100 Room Air 04/24/23 04:00 04/24/23 04:00 04/24/23 04:00 04/24/23 04:00 04/23/23 17:17 04/24/23 04:00 Oxygen Delivery Method Room Air Weight: 246 lb Body Mass Index (BMI) 39.6 Intake & Output: Intake and Output for Last 24 Hours 04/22/23 04/23/23 04/24/23 23:59 23:59 23:59 Intake Total 3238.95 / 3238.95 Output Total 1500 / 1500 250 / 250 Balance 1738.95 / 1738.95 -250 / -250 Lab / Micro Data 04/23/23 07:45 Labs: Laboratory Results - last 24 hr 04/23/23 07:45: WBC 9.0, RBC 4.00 L, Hgb 11.3 L, Hct 34.9 L, MCV 87.3, MCH 28.3, MCHC 32.4, RDW Std Deviation 48.4 H, RDW Coeff of Caitlyn 15.0 H, Plt Count 200, MPV 10.2, Immature Gran % (Auto) 0.600, Neut % (Auto) 79.3 H, Lymph % (Auto) 15.6 L, [place] % (Auto) 3.8, Eos % (Auto) 0.6, Baso % (Auto) 0.1, Absolute Neuts (auto) 7.2, Absolute Lymphs (auto) 1.41, Nucleated RBC % 0, Syphilis Total Ab Non-reactive, Blood Type A POSITIVE, Antibody Screen NEGATIVE 04/23/23 07:48: POC Glucose 211 H 04/23/23 08:48: POC Glucose 176 H 04/23/23 10:26: POC Glucose 151 H 04/23/23 11:50: POC Glucose 76 04/23/23 12:42: POC Glucose 63 L 04/23/23 13:04: POC Glucose 91 04/23/23 14:10: POC Glucose 84 04/23/23 17:29: POC Glucose 85 04/23/23 18:56: POC Glucose 92 04/24/23 05:48: POC Glucose 70 L Micro: Microbiology 04/23/23 08:30 Genital vaginal Chlamydia trachomatis (PCR) - Final 04/23/23 08:30 Genital vaginal Neisseria gonorrhoeae (PCR) - Final Physical Exam Const alert, oriented x3 and no apparent distress HEENT normocephalic GI soft to palpation, non-tender and non-distended GI Narrative: fundus firm, mid & below umbilicus Extremity normal to inspection and no calf tenderness Assessment & Plan (1) GDM, class A1: COMMENT: PPD#1 (2) Oligohydramnios: QUALIFIERS: Fetus number: single or unspecified fetus Trimester: unspecified trimester Qualified Code(s): O41.00X0 - Oligohydramnios, unspecified trimester, not applicable or unspecified (3) Spontaneous vaginal delivery: PLAN: Plan GDM - FBS normal this am. Plan for PP GDM screening. Routine PP care
[2023-04-24 08:45] VITALS: BP 112/55; PULSE 68; RESP 16; TEMP 36.9
[2023-04-24] MEDS: Acetaminophen 500 MG Tablet 1000 MG PO (09:08)
[2023-04-24 12:15] VITALS: BP 119/60; PULSE 76; RESP 16; TEMP 37
[2023-04-24 15:15] VITALS: BP 132/78; PULSE 76; RESP 18; TEMP 36.8
[2023-04-24 15:38] VITALS: BP 119/79
--- NOTE | 2023-04-24 15:39 | NURSING ---
patient was ambulating the room before B/P, B/P will be repeated in 15-30 minutes.
--- NOTE | 2023-04-24 16:18 | CASEMGMT ---
Social Work Assessment Labor and Delivery Unit Patient Address:[address] [place] [id number] Phone number: [phone] Date of Referral: 04/23/23 Time of Referral:? 1941 Referred By: Charla Rubio Date of Intervention: 04/24/23?? Time of Intervention:?1419 Reason for Referral:? History of anxiety, 21 week demise Sw completed chart review and acknowledges social work consult entered due to maternal mental health history positive for anxiety and for a previous 21 week demise. Sw presented to bedside and introduced self to mother of baby (MOB- Christina) and father of baby (FOB- Lee). Parents had visitor present, sw asked if it was ok to complete psychosocial assessment with visitor present, to which MOB stated that it was. History obtained from: medical records, MOB and FOB Household composition: OTILIO, GIANFRANCO, their older son (Jelani 2 years old) and now baby currently reside with maternal great grandparents. Parents state that their housing is safe and secure. Parents report that they are in the process of looking for their own housing, working on improving their credit score and saving money. Patient's parent/guardian status:? ?OTILIO states that she and GIANFRANCO have been together for 6 years. They met while they were both working at [employer]. No concerns at this time regarding domestic violence or intimate partner violence. Medical History: ?OTILIO is 27 year old, female who is 4, para 2-now 3. MOB states that she had a daughter when she was 14 years and and gave baby up for adoption. OTILIO states that that daughter is now 13 years old and they have an open adoption- but OTILIO is not close with her at this time. OTILIO states that she and GIANFRANCO have their 2 year old son, and then experienced a loss at 21 weeks in 2021. OTILIO states that she has done well over the past year with her grief, but was anxious and fearful when she learned she was again. OTILIO received routine care during with [facility]. OTILIO delivered baby on 04/23/23 via vaginal delivery after scheduled induction. Baby boy, named Minesh, was born weighing 6lb 11oz and his apgars were 8 and 9 at one and five minutes of life respectfully. Baby will be followed by Dr. Everett for pediatrics. Educational Status:? MOB states that both parents graduated from high school. OTILIO obtained her associates degree in medical billing and coding. Parents deny any concerns with reading, learning and comprehension. Financial Status: GIANFRANCO is gainfully employed outside of the home as a cook at [employer] in [place]. OTILIO works for [employer]. OTILIO states that she is able to take 6 weeks off of work for maternity leave. Supplies:?? OTILIO states that she has obtained all necessary baby supplies, including: car seat, safe sleep space, clothes, diapers and wipes. Childcare/Caregiver(s):? OTILIO states that she and GIANFRANCO alternate their schedules so that one of them is always able to watch their children. Transportation:?? No barriers at this time. Programs/Agencies Involved: ???Parents are connected to resources through [employer] including insurance and WIC. Children Services/Legal Issues:??No history of involvement, no issues or concerns warranting a referral to be made at this time. ? Behavioral Health Issues: ??Mental Health History:??GIANFRANCO denies mental health history. OTILIO states that she has been diagnosed with anxiety and did experience anxiety after their son was born. OTILIO stated that she is not prescribed any medications at this time. OTILIO completed [place] Depression Scale, her score was a 4. Thelma provided education and literature for OTILIO to review. ? Substance Use History:??Parents deny Family History:?No family history of substance use or mental health.? Drug Screens: No urine screens observed in chart review. ?? Family/Social Stressors:?MOB denies any stressors at this time. Support Systems: MOB states that they have a lot of family support. Depression/Shaken Baby/Safe Sleeping:? Sw educated parents on signs and symptoms of baby blues and depression/ anxiety. MOB states that GIANFRANCO would be able to recognize when she is struggling and he would know how to best support her. Sw educated parents on shaken baby prevention and ABCs of safe sleep. Parents expressed understanding. ASSESSMENT:? MOB and baby admitted following labor and delivery. Parents talking over each other answering questions asked during psychosocial assessment. Family member visiting with parents was appropriately providing hands on care to baby. MOB made eye contact with sw during assessment and answered questions openly. MOB with history of loss at 21 weeks but states that she feels as though she is doing ok. Parents have supports in place and have obtained all necessary baby supplies. MOB was encouraged to utilize supports from community mental health agencies should she struggle with depression/ or anxiety during her journey. MOB expressed understanding. PLAN:? MOB and baby to be discharged when medically ready. ?No other services requested or indicated. Baudilio Robertson, DEVOPS, MANAGER GRAPHIC
--- NOTE | 2023-04-24 17:26 | PCM.DC.SUM ---
Providers Date of Admission: 04/23/23 Primary Care Physician: No Primary Care Phys Reason For Visit: VAG Diagnosis Discharge Diagnosis (1) GDM, class A1: Status: Acute Code(s): O24.410 - Gestational diabetes mellitus in , diet controlled (2) Oligohydramnios: Status: Acute Code(s): O41.00X0 - Oligohydramnios, unspecified trimester, not applicable or unspecified Qualifiers: Fetus number: single or unspecified fetus Trimester: unspecified trimester Qualified Code(s): O41.00X0 - Oligohydramnios, unspecified trimester, not applicable or unspecified (3) Spontaneous vaginal delivery: Status: Acute Code(s): O80 - Encounter for full-term uncomplicated delivery Plan GDM - FBS normal this am. Plan for PP GDM screening. Routine PP care Medications at Discharge Home Medications prenat.vits,adriana,kmp-amrg-lgfft 1 tab PO DAILY 01/15/21 acyclovir 400 mg tablet 400 mg PO DAILY 01/23/23 acetaminophen 500 mg tablet 1,000 mg (2 x 500 mg) PO Q6H PRN PRN Pain 1-10 Or Fever #0 tabs 04/24/23 ibuprofen 600 mg tablet 600 mg PO Q6H PRN PRN Pain Score 1-3 #0 tabs 04/24/23 Hospital Course Summary of Care Provided Minutes Spent on Discharge: 15 Hospital Course: Vaginal delivery Weight / BMI Weight Weight: 246 lb Body Mass Index (BMI) 39.6 ABG / Lab / Microbiology Data 04/23/23 07:45 Laboratory: Laboratory Results - last 24 hr 04/23/23 17:29: POC Glucose 85 04/23/23 18:56: POC Glucose 92 04/24/23 05:48: POC Glucose 70 L Microbiology: Microbiology 04/23/23 08:30 Genital vaginal Chlamydia trachomatis (PCR) - Final 04/23/23 08:30 Genital vaginal Neisseria gonorrhoeae (PCR) - Final D/C Instructions Discharge Diet: No restrictions Discharge Activity: May Shower May resume sexual activity in: 6 weeks Weight Bearing Status: Weight bearing as tolerated Call your doctor if you observe: Fever of 101 or Higher, Coldness, Increased Pain, Change in Color, Inability to urinate, Inability to have a bowel movement, Using more than 1 pad per hour, Shortness of breath, Dizziness, Fainting spells, Chest pain, Increased palpitations (irregular heartbeat), Calf discomfort and Uncontrolled pain Please Follow Up With: Charla Rubio CNM When: Follow up in 2 and 6 weeks for visits. Meaningful Use Info Meaningful Use Diagnoses (Choose all that apply): None applicable Discharge Plan Admission Admit Date/Time: 04/23/23 07:30 Primary Reason for Your Visit: Vaginal delivery Attending Provider: Charla Rubio Primary Care Provider: Care Physician,[place] Primary Discharge Orders/Prescriptions Prescriptions: New acetaminophen 500 mg Tablet 1,000 mg PO Q6H PRN PRN (Reason: Pain 1-10 Or Fever) Qty: 0 0RF ibuprofen 600 mg Tablet 600 mg PO Q6H PRN PRN (Reason: Pain Score 1-3) Qty: 0 0RF Continued acyclovir 400 mg tablet 400 mg PO DAILY prenat.vits,adriana,ddl-icgl-mohec Tablet 1 tab PO DAILY Discontinued aspirin 81 mg tablet,delayed release (DR/EC) 81 mg PO DAILY folic acid 800 mcg tablet 0.8 mg PO DAILY ferrous sulfate [Iron (ferrous sulfate)] 325 mg (65 mg iron) Tablet 325 mg PO DAILY Referrals / Follow Up: Care Physician,No Primary [Primary Care Provider] - Disposition Disposition (needs filled in before D/C Order can be placed): Home, Self Care
== END 2023-04-24 18:30 | disposition home or self-care (01) | DRG 560 ==
PROVIDERS: Admitting Provider Advanced Practice Midwife; Visit Provider Advanced Practice Midwife
DX: O41.03X0 Oligohydramnios, third trimester, not applicable or unspecified (principal); Z37.0 Single live birth; O24.420 Gestational diabetes mellitus in childbirth, diet controlled; O99.214 Obesity complicating childbirth; O99.824 Streptococcus B carrier state complicating childbirth; Z3A.39 39 weeks gestation of pregnancy; Z79.82 Long term (current) use of aspirin; Z79.899 Other long term (current) drug therapy
CPT/HCPCS: 59025; 59050; 82962; 85025; 86780; 86850; 86900; 86901; 87491; 87591; 99221; J7030; J7120; G0378; J7799

== ENCOUNTER → 2023-06-27 | Outpatient (CLI) | payer MEDICAID, SELFPAY ==
--- NOTE | 2023-06-27 11:38 | RAD_ITS ---
STUDY: X-RAY - RIGHT WRIST REASON FOR EXAM: Female, 27 years old. Right wrist pain TECHNIQUE: 3 view(s) of the wrist were obtained. COMPARISON: None. FINDINGS: Normal visualized distal radius and ulna. Normal radiocarpal articulation. Normal distal radioulnar articulation. Normal carpal bones. Normal carpal articulations. Normal carpometacarpal articulation of the thumb. Normal second through fifth carpometacarpal articulations. Normal visualized metacarpal bones. The soft tissue structures are unremarkable. RAD/Wrist min 3 Views IMPRESSION: Normal x-ray examination of the wrist. Electronically Signed: Mamadou Pal MD at 12:14 EST ,
--- OUTSIDE RECORDS SUMMARY | 2023-06-27 12:00 | XMS RPT_ITS | CCD ---
Author Name Unknown Address [id number] [place] [address] Organization [facility] Care Team Providers Care Supervisor Trust Accounts Name Role Phone VLAD DOMINGUEZ Unavailable Unavailable ANDRE ALVARADO Unavailable Unavailable Unavailable Primary Care Provider Unavailabl e Unavailable Primary Care Provider Unavailabl e Unavailable Primary Care Provider Unavailabl e TOUSSAINT, ZOHAIB F Attending Unavailable RANDEEPKE, PAXTON M Primary Care Unavailable NEIL ALVARADO Referring Unavailable KRELOYPKE, PAXTON M Primary Care Unavailable CARLOS DE LUNA Attending Unavailable NEIL ALVARADO Referring Unavailable KRUEPKE, PAXTON M Primary Care Unavailable CARLOS DE LUNA A Attending Unavailable DANNY AGUILA Referring Unavailable KRUEPKE, PAXTON M Primary Care Unavailable TOUSSAINT, ZOHAIB F Attending Unavailable DANNY AGUILA Referring Unavailable KRUEPKE, PAXTON M Primary Care Unavailable DANNY AGUILA Attending Unavailable DANNY AGUILA Referring Unavailable KRUEPKE, PAXTON M Primary Care Unavailable DANNY AGUILA Referring Unavailable TOUSSAINT, ZOHAIB F Attending Unavailable CARMELITAUEPKE, PAXTON M Primary Care Unavailable CARLOS DE LUNA A Attending Unavailable DANNY AGUILA Referring Unavailable KRUEPKE, PAXTON M Primary Care Unavailable DANNY AUGILA Referring Unavailable TOUSSAINT, ZOHAIB F Attending Unavailable SAMIRA, PAXTON M Primary Care Unavailable DANNY AGUILA Referring Unavailable TOUSSAINT, ZOHAIB F Attending Unavailable RANDEEPKE, PAXTON M Primary Care Unavailable DANNY AGUILA Referring Unavailable TOUSSAINT, ZOHAIB F Attending Unavailable RANDEEPKE, PAXTON M Primary Care Unavailable CARLOS DE LUNA Attending Unavailable DANNY AGUILA Referring Unavailable KRUEPKE, PAXTON M Primary Care Unavailable BEBE HARRIS Attending Unavailable DANNY AGUILA Referring Unavailable TOUSSAINT, ZOHAIB F Attending Unavailable PAXTON HOGAN M Primary Care Unavailable NEIL ALVARADO Referring Unavailable ZOHAIB TOUSSAINT Attending Unavailable SAMIRA, PAXTON M Primary Care Unavailable KAYLAN HARRIS Referring Unavailable SAMIRA, PAXTON M Primary Care Unavailable CARLOS DE LUNA Attending Unavailable DANNY AGUILA Referring Unavailable PAXTON HOGAN M Primary Care Unavailable CARLOS DE LUNA Attending Unavailable NEIL MORALES Referring Unavailable Kelechi Viveros DO Primary Care Provider YOUNG DELGADO Attending Unavailable NEIL ALVARADO Attending Unavailable ANAYA MORALES Referring Unavailable ANAYA MORALES Attending Unavailable BRITNEY REYES Attending Unavail able KELECHI VIVEROS Primary Care Unavailable BRITNEY REYES Attending Unavail able PIETRO MCKEE Attending Unavailable YOUNG DELGADO Attending Unavailable PIETRO MCKEE Attending Unavailable PIETRO MCKEE Attending Unavailable Medications Completed/Discontinued Medications Medication Drug Class(es) Dates Sig (Normalized) Sig (Original) acyclovir 400 mg oral tablet (18 sources) Herpesvirus Nucleoside Analog DNA Polymerase Inhibitor, Herpes Simplex Virus Nucleoside Analog DNA Polymerase Inhibitor, Herpes Zoster Virus Nucleoside Analog DNA Polymerase Inhibitor Start: 03-04-2023 take 1 tablet by mouth three times daily acyclovir (ZOVIRAX) 400 mg tablet Take 1 tablet by mouth three times a day. 80 tablet 4 03/04/2023 Active Problems Active Problems Problem Classification Problem Date Documented Da te Episodic/Chronic Immunizations and screening for infectious disease (9 sources) Patient encounter status; Translations: [Encounter for immunization] Onset: 03-18-2023 03-18-2023 Episodic Other complications of (2 sources) Maternal obesity complicating , childbirth and the puerperium, antepartum; Translations: [Obesity complicating , third trimester] 04-14-2023 Chronic Other complications of (20 sources) High risk ; Translations: [Supervision of with other poor reproductive or obstetric history, unspecified trimester] Onset: 02-03-2023 02-03-2023 Episodic Other complications of (1 source) Supervision of other high risk pregnancies, third trimester; Translations: [Supervision of other high risk pregnancies, third trimester] Onset: 03-20-2023 Episodic Other upper respiratory infections (1 source) Sore throat symptom; Translations: [Acute pharyngitis, unspecified] 05-31-2023 Episodic Polyhydramnios and other problems of amniotic cavity (1 source) Oligohydramnios; Translations: [Oligohydramnios, third trimester, not applicable or unspecified] 04-22-2023 Episodic Residual codes; unclassified (1 source) Gestation period, 28 weeks; Translations: [28 weeks gestation of ] 02-03-2023 Episodic Residual codes; unclassified (1 source) Gestation period, 30 weeks; Translations: [30 weeks gestation of ] 02-21-2023 Episodic Residual codes; unclassified (1 source) Gestation period, 32 weeks; Translations: [32 weeks gestation of ] 03-07-2023 Episodic Residual codes; unclassified (1 source) Gestation period, 38 weeks; Translations: [38 weeks gestation of ] 04-14-2023 Episodic Residual codes; unclassified (1 source) Gestation period, 39 weeks; Translations: [39 weeks gestation of ] 04-22-2023 Episodic Residual codes; unclassified (1 source) 34 weeks gestation of ; Translations: [34 weeks gestation of ] Onset: 03-18-2023 Episodic Viral infection (2 sources) Viral disease; Translations: [Viral infection, unspecified] Episodic Past or Other Problems Problem Classification Problem Date Documented Da te Episodic/Chronic Diabetes or abnormal glucose tolerance complicating ; childbirth; or the puerperium (19 sources) Gestational diabetes mellitus; Translations: [Gestational diabetes mellitus in , diet controlled] Onset: 02-03-2023 02-03-2023 Episodic Early or threatened labor (13 sources) Premature delivery; Translations: [ labor with delivery, unspecified trimester, not applicable or unspecified] Onset: 02-03-2023 02-03-2023 Episodic Residual codes; unclassified (1 source) 28 weeks gestation of ; Translations: [28 weeks gestation of ] Onset: 02-03-2023 Episodic Results Test Name Value Interpretation Reference Range Facil ity Vital Signs Date Time Vital Sign Value Performing Clinician Cruz vera 05-31-2023 12:56-0500 Body temperature 97.7 [degF] Jorge Schmitz [employer].PORTRAIT CONSULTANT Work Phone: [facility] 05-31-2023 12:56-0500 Body weight 105.14 kg Jorge Callow [employer]PORTRAIT CONSULTANT Work Phone: [facility] 05-31-2023 12:56-0500 Diastolic blood pressure 68 mm[Hg] Jorge Callow [employer].PORTRAIT CONSULTANT Work Phone: [facility] 05-31-2023 12:56-0500 Heart rate 80 /min Jorge Callow [employer].PORTRAIT CONSULTANT Work Phone: [facility] 05-31-2023 12:56-0500 Respiratory rate 16 /min Jorge Callow [employer].PORTRAIT CONSULTANT Work Phone: [facility] 05-31-2023 12:56-0500 SaO2% (BldA) [Mass fraction] 98 % Jorge Callow [employer].PORTRAIT CONSULTANT Work Phone: [facility] 05-31-2023 12:56-0500 Systolic blood pressure 90 mm[Hg] Jorge Callow [employer].PORTRAIT CONSULTANT Work Phone: [facility] 04-22-2023 15:07-0500 Body weight 109.77 kg Britney Lee MD Work Phone: [facility] 04-22-2023 15:07-0500 Diastolic blood pressure 77 mm[Hg] Britney Lee MD Work Phone: [facility] 04-22-2023 15:07-0500 Systolic blood pressure 114 mm[Hg] Britney Lee MD Work Phone: [facility] 04-14-2023 14:45-0500 Body weight 110.77 kg Pietro Mckee [employer].CNM Work Phone: [facility] 04-14-2023 14:45-0500 Diastolic blood pressure 69 mm[Hg] Pietro Mckee [employer].CNM Work Phone: [facility] 04-14-2023 14:45-0500 Systolic blood pressure 104 mm[Hg] Pietro Mckee [employer].CNM Work Phone: [facility] 03-07-2023 10:33-0400 Body weight 107.23 kg Young Delgado MD Work Phone: [facility] 03-07-2023 10:33-0400 Diastolic blood pressure 62 mm[Hg] Young Delgado MD Work Phone: [facility] 03-07-2023 10:33-0400 Systolic blood pressure 100 mm[Hg] Young Delgado MD Work Phone: [facility] 02-21-2023 14:47-0400 Body height 167.6 cm Neil Alvarado MD Work Phone: [facility] 02-21-2023 14:35-0400 Body weight 107.5 kg Neil Alvarado MD Work Phone: [facility] 02-21-2023 14:35-0400 Diastolic blood pressure 72 mm[Hg] Neil Alvarado MD Work Phone: [facility] 02-21-2023 14:35-0400 Systolic blood pressure 110 mm[Hg] Neil Alvarado MD Work Phone: [facility] 02-03-2023 13:05-0400 Body weight 107.05 kg Anaya Andrew [employer]PORTRAIT CONSULTANT Work Phone: [facility] 02-03-2023 13:05-0400 Diastolic blood pressure 70 mm[Hg] Anaya Andrew [employer].PORTRAIT CONSULTANT Work Phone: [facility] 02-03-2023 13:05-0400 Systolic blood pressure 110 mm[Hg] Anaya [place] [employer].PORTRAIT CONSULTANT Work Phone: [facility] 03-20-2022 17:20-0500 Body temperature 98.1 [degF] Willie Ellis [employer].PORTRAIT CONSULTANT Work Phone: [facility] 03-20-2022 17:20-0500 Body weight 111.4 kg Willie Ellis [employer].PORTRAIT CONSULTANT Work Phone: [facility] 03-20-2022 17:20-0500 Diastolic blood pressure 78 mm[Hg] Willie Pendlebury [employer].PORTRAIT CONSULTANT Work Phone: [facility] 03-20-2022 17:20-0500 Heart rate 106 /min Willie Pendlebury [employer].PORTRAIT CONSULTANT Work Phone: [facility] 03-20-2022 17:20-0500 Respiratory rate 18 /min Willie Pendlebury [employer].PORTRAIT CONSULTANT Work Phone: [facility] 03-20-2022 17:20-0500 SaO2% (BldA) [Mass fraction] 98 % Willie Pendlebury [employer].PORTRAIT CONSULTANT Work Phone: [facility] 03-20-2022 17:20-0500 Systolic blood pressure 110 mm[Hg] Willie Pendlebury [employer].PORTRAIT CONSULTANT Work Phone: [facility] 09-17-2021 13:45-0400 Body temperature 100.4 [degF] Willie Pendlebury [employer].PORTRAIT CONSULTANT Work Phone: [facility] 09-17-2021 13:45-0400 Body weight 103.42 kg Willie Pendlebury [employer].PORTRAIT CONSULTANT Work Phone: [facility] 09-17-2021 13:45-0400 Diastolic blood pressure 72 mm[Hg] Willie Pendlebury [employer].PORTRAIT CONSULTANT Work Phone: [facility] 09-17-2021 13:45-0400 Heart rate 126 /min Willie Pendlebury [employer].PORTRAIT CONSULTANT Work Phone: [facility] 09-17-2021 13:45-0400 Respiratory rate 18 /min Willie Pendlebury [employer].PORTRAIT CONSULTANT Work Phone: [facility] 09-17-2021 13:45-0400 SaO2% (BldA) [Mass fraction] 98 % Willie Pendlebury [employer].PORTRAIT CONSULTANT Work Phone: [facility] 09-17-2021 13:45-0400 Systolic blood pressure 124 mm[Hg] Willie Pendlebury [employer].PORTRAIT CONSULTANT Work Phone: [facility] Encounters Encounter Date Encounter Type Care Provider Facility Start: 06-04-2023 End: 06-04-2023 ambulatory BRITNEY LEE Facility:[facility] Start: 05-31-2023 End: 05-31-2023 ambulatory YOUNG DELGADO Facility:[facility] Start: 05-31-2023 End: 05-31-2023 Patient encounter procedure Jorge Schmitz [employer]PORTRAIT CONSULTANT Work Phone: [facility] Procedures Date Procedure Procedure Detail Performing Clinician Start: 05-31-2023 STREP A MOLECULAR (POC) [facility] Provider Start: 04-22-2023 URINE OB DIP B/O Britney Lee MD Work Phone: Start: 04-14-2023 URINE OB DIP B/O Avelina Mckee APRN.CNM Work Phone: Start: 03-07-2023 URINE OB DIP B/O Young Delgado MD Work Phone: Start: 02-21-2023 URINE OB DIP B/O Sandra Alvarado MD Work Phone: Start: 02-03-2023 Antibody screen YOUNG DELGADO Plan of Treatment Date Care Activity Detail Author Start: 05-12-2023 Depression Assessment Depression Ass essment [facility] Start: 03-15-2023 Urine microalbumin profile DTaP,Tdap,Td Vaccine (7 - Td or Tdap) [facility] Start: 02-03-2023 End: 04-05-2023 SYPHILIS TOTAL W/REFLEX [facility] Work Phone: Immunizations Immunization Date Immunization Notes Care Provider Fa cility 03-18-2023 respiratory syncytia l virus (RSV) vaccine, bivalent (ABRYSVO) Pietro Mckee APRN.CNM Work Phone: [facility] 03-15-2013 meningococcal polysaccharide (groups A, C, Y and W-135) diphtheria toxoid conjugate vaccine (MCV4P) Young Delgado MD Work Phone: [facility] 11-04-2013 tetanus toxoid, redu isacc diphtheria toxoid, and acellular pertussis vaccine, adsorbed Young Delgado MD Work Phone: [facility] 02-04-2001 varicella virus vaccine Alexander Delgado MD Work Phone: [facility] 12-17-1999 diphtheria, tetanus toxoids and acellular pertussis vaccine Young Delgado MD Work Phone: [facility] 12-17-1999 measles, mumps and rubella virus vaccine Young Delgado MD Work Phone: [facility] 12-17-1999 poliovirus vaccine, inactivated Young Delgado MD Work Phone: [facility] 12-08-1995 diphtheria, tetanus toxoids and acellular pertussis vaccine Young Delgado MD Work Phone: [facility] 12-08-1995 haemophilus influenz ae type b vaccine, PRP-T conjugate Young Delgado MD Work Phone: [facility] 09-12-1995 measles, mumps and rubella virus vaccine Young Delgado MD Work Phone: [facility] 04-17-1995 hepatitis B vaccine, pediatric or pediatric/adolescent dosage Young Delgado MD Work Phone: [facility] 02-19-1995 diphtheria, tetanus toxoids and acellular pertussis vaccine Young Delgado MD Work Phone: [facility] 02-19-1995 haemophilus influenz ae type b vaccine, PRP-T conjugate Young Delgado MD Work Phone: [facility] 02-19-1995 poliovirus vaccine, inactivated Young Delgado MD Work Phone: [facility] 1994 diphtheria, tetanus toxoids and acellular pertussis vaccine Young Delgado MD Work Phone: [facility] 1994 haemophilus influenz ae type b vaccine, PRP-T conjugate Young Delgado MD Work Phone: [facility] 1994 poliovirus vaccine, inactivated Young Delgado MD Work Phone: [facility] 1994 hepatitis B vaccine, pediatric or pediatric/adolescent dosage Young Delgdao MD Work Phone: [facility] 1994 diphtheria, tetanus toxoids and acellular pertussis vaccine Young Delgado MD Work Phone: [facility] 1994 haemophilus influenz ae type b vaccine, PRP-T conjugate Young Delgado MD Work Phone: [facility] 1994 poliovirus vaccine, inactivated Young Delgado MD Work Phone: [facility] 1994 hepatitis B vaccine, pediatric or pediatric/adolescent dosage Young Delgado MD Work Phone: [facility] NEGATED: Highlighted row has not occurred!02-03-2023 RHO(D) immune globulin- IV or IM Anaya [place] [employer].PORTRAIT CONSULTANT Work Phone: [facility] Payers Date Payer Category Payer Medicaid [employer] [facility] MEDICAID [id number] 2020-Present [phone] [address] [place] [address] Medicaid [id number] 2020 Medicaid [id number] 2017 Unknown [id number] 1994 Unknown [id number] 1994 Unknown [id number] 1994 Unknown [id number] 1994 Unknown [id number] 1994 Unknown [id number] 1994 Unknown [id number] 1994 Unknown [id number] 1994 Unknown [id number] 1994 Unknown [id number] 1994 Unknown [id number] 1994 Unknown [id number] 1994 Unknown [id number] 1994 Unknown [id number] 1994 Unknown [id number] 1994 Unknown [id number] 1994 Unknown [id number] Unknown [id number] Social History Date Type Detail Facility Start: 12-08-2012 End: 03-20-2022 Tobacco smoking status MIIS Never smoked tobacco [facility] Work Phone: Start: 12-08-2012 End: 03-20-2022 Tobacco use and exposure Smokeless tobacco non-user [facility] Work Phone: Start: 09-17-2021 End: 03-20-2022 Alcohol intake Not Asked [facility] Start: 1995 Sex Assigned At Not on file [facility] Start: 09-07-2021 End: 03-20-2022 Exposure to SARS-CoV-2 (event) Not sure [facility] Start: 03-20-2022 End: 02-03-2023 History of Social function [facility] Start: 03-20-2022 End: 02-03-2023 Tobacco use panel [facility] National Score (1-100), lower number is lower risk Not on file [facility] Start: 02-03-2023 End: 05-31-2023 Alcohol intake Lifetime non-drinker (finding) [facility] Start: 08-04-2022 [facility] Medical Equipment Procedure Code Equipment Code Equipment Origin al Text Equipment Identifier Dates TRUE METRIX GLUC OSE TEST STRIP test strip Start: 01-15-2023 Goals Date Patient Goal Desired Activity /State Personal health goal Clinical Notes 09-17-2021 to 06-04-2023 Jorge Schmitz APRN.PORTRAIT CONSULTANT - 05/31/2023 1:05 PM Britney Piper MD - 04/22/2023 5:09 PM ESTPrenatal Quick Notes - Britney Reyes MD - 04/22/2023 5:07 PM ESTPatient Instructions Note Date & Type Note Facility 06-04-2023 Note HNO ID: [id number] Author: BRITNEY REYES MD Service: ? Author Type: Physician Type: Progress Notes Filed: 06/04/2023 15:24 Note Text: VISIT Christina Cuevas is a 27 year old year old here for visit.pt reports bright red blood with BMs x 3 episodes. No h/o hemorrhoids. Delivery Summary: 04/23/2023 Male- Minesh 6lb 11oz ROS/ Recovery: Feeding: Bottle feeding problems: None Menses since delivery: spotting Menstrual pattern prior to : Regular periods [place] since delivery: Not resumed Depression: denies symptoms of depression. OB Depression and Anxiety Screening- This Encounter (since 06/03/2023) Over the past 2 weeks have you felt down, depressed, or hopeless? Positive - Further Testing Indicated I have been able to laugh and see the funny side of things. As much as I always could I have looked forward with enjoyment to things. As much as I ever did I have blamed myself unnecessarily when things went wrong. No, never I have been anxious or worried for no good reason. Hardly ever I have felt scared or panicky for no good reason. No, not at all Things have been getting on top of me. No, I have been coping as well as ever I have been so unhappy that I have had difficulty sleeping. Not at all I have felt sad or miserable. Yes, quite often I have been so unhappy that I have been crying. Only occasionally The thought of harming myself has occurred to me. Never [place] Depression Scale Total 4 Feeling nervous, anxious or on edge 2-More than half the days Not being able to stop or control worrying 0-Not al all Anxiety Pre-Screening Total (If >/= 3 additional questions will be reviewed) 2 Emotional support: Yes Bowel symptoms: Negative for abdominal discomfort, blood in stools or black stools and change in bowel habits Abdomen: N/A Bladder symptoms: No dysuria, gross hematuria, urinary frequency, urinary urgency, or incontinence Other issues: None Last Pap: N/A HPV: N/A No past medical history on file. PAST SURGICAL HISTORY Procedure Laterality Date ADENOIDECTOMY SECONDARY AGE 11/> Bilateral No family history on file. Social History Tobacco Use Smoking status: Never Smokeless tobacco: Never Substance Use Topics Alcohol use: Never Drug use: Never PHYSICAL EXAMINATION: BP 108/64 Wt 231 lb (104.8kg) LMP 07/21/2022 GENERAL: pleasant, female in no apparent distress HEENT: Normocephalic, atraumatic, mucus membranes moist, and no lesions NECK: Supple, full range of motion, no adenopathy, and thyroid normal DERMATOLOGY: Normal, without lesions, non-icteric, and non-hirsute BREAST: pt declined ABDOMEN: soft, non-tender, and no masses. INCISION: N/A PELVIC: external genitalia normal, normal Bartholin's glands, urethra, [place]'s glands, no vulvar lesions, no cervical lesions, good vaginal support, physiologic discharge present, normal appearing perineal body and perianal region- No external hemorrhoids noted BIMANUAL: uterus normal size, shape and consistency, no adnexal masses, and non-tender NEURO: alert and oriented x3,exam grossly non-focal EXTREMITIES: normal ASSESSMENT AND PLAN: 27 year old status post with normal course. Contraception plan: patch- no CI to start Follow up: Prescription given per orders, PAP, RTC for annual exams and PRN, Consult to Gen surgery for evaluation of rectal bleeding. Britney Hickey MD [facility] 05-31-2023 Note HNO ID: [id number] Author: JORGE SCHMITZ APRN.PORTRAIT CONSULTANT Service: ? Author Type: Nurse Practitioner Type: Progress Notes Filed: 05/31/2023 13:21 Note Text: Subjective HPI Christina presents today say with resolved cough but continues to clear her throat a lot . She has not had a fever, is eating and drinking well, her son is also sick. No past medical history on file. PAST SURGICAL HISTORY Procedure Laterality Date ADENOIDECTOMY SECONDARY AGE 11/> Bilateral ALLERGIES Patient has no known allergies. MEDICATIONS vit calc,iron,folic (PRENAT.VITS,GERA,JVA-DRVF-WOPVO ORAL) Take 1 tablet by mouth once daily. MAGNESIUM GLYCINATE ORAL Take 2 capsules by mouth once daily. acyclovir (ZOVIRAX) 400 mg tablet Take 1 tablet by mouth three times a day. No family history on file. Social History Tobacco Use Smoking status: Never Smokeless tobacco: Never Substance Use Topics Alcohol use: Never Drug use: Never Review of Systems HENT: Positive for sore throat. Objective Physical Exam Vitals and nursing note reviewed. Constitutional: General: She is not in acute distress. Appearance: Normal appearance. HENT: Head: Normocephalic and atraumatic. Right Ear: Tympanic membrane, ear canal and external ear normal. Left Ear: Tympanic membrane, ear canal and external ear normal. Nose: Nose normal. Mouth/Throat: Mouth: Mucous membranes are dry. Pharynx: Oropharynx is clear. No oropharyngeal exudate or posterior oropharyngeal erythema. Eyes: Extraocular Movements: Extraocular movements intact. Conjunctiva/sclera: Conjunctivae normal. Pupils: Pupils are equal, round, and reactive to light. Cardiovascular: Rate and Rhythm: Normal rate and regular rhythm. Pulses: Normal pulses. Heart sounds: Normal heart sounds. Pulmonary: Effort: Pulmonary effort is normal. No respiratory distress. Breath sounds: Normal breath sounds. No stridor. No wheezing, rhonchi or rales. Chest: Chest wall: No tenderness. Abdominal: General: Abdomen is flat. Palpations: Abdomen is soft. Musculoskeletal: General: Normal range of motion. Cervical back: Normal range of motion and neck supple. No rigidity or tenderness. Lymphadenopathy: Cervical: No cervical adenopathy. Skin: General: Skin is warm and dry. Capillary Refill: Capillary refill takes less than 2 seconds. Neurological: General: No focal deficit present. Mental Status: She is alert and oriented to person, place, and time. Psychiatric: Mood and Affect: Mood normal. ASSESSMENT/PLAN: 1. Sorethroat - ICD9: 462, ICD10: J02.9 - suspect viral - Discussed supportive care treatment with fluids, rest and analgesia. - The patient may also use nasal saline gtts and suction prn. - Contagious dz precautions discussed- including considered contagious until on antibiotics for 24 hours - Call back if drooling, increased temperature, symptoms of dehydration and/or still sick in one week - COVID AND INFLUENZA A/B AND RSV NAAT, ROUTINE - RAPID STREP TEST B/O Jorge Schmitz APRN.[facility] 05-31-2023 History of Presen t illness Narrative Subjective HPI Christina presents today say with resolved cough but continues to clear her throat a lot . She has not had a fever, is eating and drinking well, her son is also sick. No past medical history on file. PAST SURGICAL HISTORY Procedure Laterality Date ADENOIDECTOMY SECONDARY AGE 11/> Bilateral ALLERGIES Patient has no known allergies. MEDICATIONS vit calc,iron,folic (PRENAT.VITS,GERA,YYN-MADI-APSFY ORAL) Take 1 tablet by mouth once daily. MAGNESIUM GLYCINATE ORAL Take 2 capsules by mouth once daily. acyclovir (ZOVIRAX) 400 mg tablet Take 1 tablet by mouth three times a day. No family history on file. Social History Tobacco Use Smoking status: Never Smokeless tobacco: Never Substance Use Topics Alcohol use: Never Drug use: Never Review of Systems HENT: Positive for sore throat. Objective Physical Exam Vitals and nursing note reviewed. Constitutional: General: She is not in acute distress. Appearance: Normal appearance. HENT: Head: Normocephalic and atraumatic. Right Ear: Tympanic membrane, ear canal and external ear normal. Left Ear: Tympanic membrane, ear canal and external ear normal. Nose: Nose normal. Mouth/Throat: Mouth: Mucous membranes are dry. Pharynx: Oropharynx is clear. No oropharyngeal exudate or posterior oropharyngeal erythema. Eyes: Extraocular Movements: Extraocular movements intact. Conjunctiva/sclera: Conjunctivae normal. Pupils: Pupils are equal, round, and reactive to light. Cardiovascular: Rate and Rhythm: Normal rate and regular rhythm. Pulses: Normal pulses. Heart sounds: Normal heart sounds. Pulmonary: Effort: Pulmonary effort is normal. No respiratory distress. Breath sounds: Normal breath sounds. No stridor. No wheezing, rhonchi or rales. Chest: Chest wall: No tenderness. Abdominal: General: Abdomen is flat. Palpations: Abdomen is soft. Musculoskeletal: General: Normal range of motion. Cervical back: Normal range of motion and neck supple. No rigidity or tenderness. Lymphadenopathy: Cervical: No cervical adenopathy. Skin: General: Skin is warm and dry. Capillary Refill: Capillary refill takes less than 2 seconds. Neurological: General: No focal deficit present. Mental Status: She is alert and oriented to person, place, and time. Psychiatric: Mood and Affect: Mood normal. ASSESSMENT/PLAN: 1. Sorethroat - ICD9: 462, ICD10: J02.9 - suspect viral - Discussed supportive care treatment with fluids, rest and analgesia. - The patient may also use nasal saline gtts and suction prn. - Contagious dz precautions discussed- including considered contagious until on antibiotics for 24 hours - Call back if drooling, increased temperature, symptoms of dehydration and/or still sick in one week - COVID & INFLUENZA A/B & RSV NAAT, ROUTINE - RAPID STREP TEST B/O Jorge Schmitz APRN.PORTRAIT CONSULTANT documented in this encounter [facility] 05-03-2023 Note HNO ID: [id number] Author: Vlad Arzate MD Service: ? Author Type: Physician Type: Progress Notes Filed: 05/03/2023 1:58 PM Note Text: Patient presents with: Cough: Cough x 9 days HPI: Coughing for 9 days. Positive symptoms: Cough, Rhinorrhea, Negative symptoms: Shortness of breath, Wheezing, Chest pain, Sore throat, Earache, Sinus pressure, Fever, Chills, Body Aches, Malaise, Nausea, Vomiting, Diarrhea, OTC: Cold Medicine, benadryl, left over amoxicillin Patient delivered via at [facility] on 04/23/23. Symptoms started after she was discharged home. She is not breast-feeding. MEDICATIONS: Current Outpatient Medications Medication Sig acyclovir (ZOVIRAX) 400 mg tablet Take 1 tablet by mouth three times a day. No current facility-administered medications for this visit. ALLERGIES: ALLERGIES No Known Allergies VITALS: BP 102/64 Pulse 84 Temp 36.6 ?C (97.9 ?F) (Tympanic) Resp 18 Wt 102.3 kg (225 lb 9.6 oz) LMP 07/21/2022 SpO2 98% BMI 36.41 kg/m? PHYSICAL EXAM: GEN: mildly ill appearing HEENT: PERRL, EOMI, conjunctiva clear Ears: canals clear. TMs without erythema, bulge, or effusion Sinuses: non-tender frontal sinus, non-tender maxillary sinuses Throat: moist mucous membranes, no erythema, no exudate Neck: supple, no thyromegaly, no lymphadenopathy HEART: regular rate and rhythm, no murmurs LUNGS: clear to auscultation, no wheezes or crackles, no increased WOB ASSESSMENT/PLAN: 1. Acute cough - ICD9: 786.2, ICD10: R05.1 - suspect viral URI - Discussed supportive care treatment with rest, cough and cold medicine, and analgesia. - BENZONATATE 100 MG CAPSULE Vlad Arzate MD [facility] 04-24-2023 Note HNO ID: [id number] Author: Krystal Uribe RN Service: ? Author Type: Registered Nurse Type: Progress Notes Filed: 04/24/2023 8:37 AM Note Text: Patient delivered via at [facility] on 04/23/23 per Charla Rubio CNM. See OB Outcome note. Krystal Uribe RN [facility] 04-22-2023 Note HNO ID: [id number] Author: Britney Reyes MD Service: ? Author Type: Physician Type: Progress Notes Filed: 04/22/2023 5:09 PM Note Text: NST SUMMARY PROVIDER ASSESSMENT AND INTERPRETATION Christina Cuevas is a 27 year old female, , who is at 39w2d with an JAVY of 04/27/2023, by Last Menstrual Period dating method. Indications for NST: Oligohydramnios Baseline: 140 Variability: Moderate Accelerations: Present 15 X 15 Decelerations: None Contractions: TOCO: None Interpretation: Category I and Reactive SIGNATURE: Britney Hickey MD [facility] 04-22-2023 History of Presen t illness Narrative NST SUMMARY PROVIDER ASSESSMENT AND INTERPRETATION Christina Cuevas is a 27 year old female, , who is at 39w2d with an JAVY of 04/27/2023, by Last Menstrual Period dating method. Indications for NST: Oligohydramnios Baseline: 140 Variability: Moderate Accelerations: Present 15 X 15 Decelerations: None Contractions: TOCO: None Interpretation: Category I and Reactive SIGNATURE: Britney Hickey MD documented in this encounter [facility] 04-22-2023 Miscellaneous Notes DM-Pt doing well. Denies vaginal Bleeding, Leaking fluid, or regular Contractions. Pt reports good movement Physical Exam: Gen: female in no apparent distress Abd: soft, Gravid. Non tender to palpation. See flow sheet A/P: @ 39.2 weeks- GDMA1, Oligo 1) sent from [facility] office for OLIGO 2cm- IOL scheduled tmrw, NST today reactive cat 1 2) [place]anilla/pit reviewed 3) Kick counts 4) reviewed BS log - well controlled 5) IOL consent signed Britney Hickey MD documented in this encounter [facility] 04-22-2023 Jaqueline Montalvo Ma - 04/22/2023 3:07 PM EST SEQUENTIAL SCREENINGS The [facility] offers sequential screenings for women who are interested in screenings for chromosomal abnormalities and certain defects during a . The sequential screen combines ultrasound and blood tests to determine the risk of chromosomal abnormalities, including Down's Syndrome (Trisomy 21) and Trisomy 18, as well as open neural tube defects including spina bifida. Ultrasound examination is performed between 11 weeks and 13 weeks gestational age. Blood tests are drawn after the ultrasound and again later in the between 15 and 21 weeks gestational age. Please let your physician know if you are interested in this testing. It will require an appointment with our tool maintenance technician. This is not an ultrasound performed by a physician in our office during a routine visit. SIGNS AND SYMPTOMS OF LABOR 1. Contractions every 10 minutes or more often 2. Clear, pink, or brownish fluid (water) leaking from vagina 3. Feeling that baby is pushing down, pressure 4. Low, dull backache 5. Cramps that feel like a period 6. Cramps with or without diarrhea If you notice any of the above symptoms, contact our office at [phone] and ask to speak with a nurse. After hours, you can call doctors registry at [phone] OR call [facility] at [phone] and ask to have the doctor siphon operator paged. If you consider this an emergency, dial 9-1-1 or go to your nearest emergency department. NEED HELP? Are you dealing with a violent or abusive relationship? Are you a victim of rape or sexual assult? Call [facility] ([place]) 24 hour Crisis Hotline: 583.507.9600 or 776-946-8058. MANUAL Your Guide to a Healthy manual is now on-line. Visit [email or web address] to download your free copy documented in this encounter [facility] 04-22-2023 Miscellaneous Notes Patient coming in for an appointment to see DM. Spoke with L&D. They took patient name down to hold an induction spot for tomorrow AM. Krystal Uribe, RN Spoke w/ MFM from [facility]. US today shows oligo> BPP 10/17. Needs to come to office for NST, cervical check and schedule induction. Please call her MATTHEW. Dr. Delgado aware. See if tomorrow there is an opening in the am they can save for her. Neil Alvarado MD Received the following message from : This patient is on my schedule for but should be rescheduled to cnm or physician due to diabetes and to schedule an induction. Left patient a message to either call the office or to review Mychart message. Moved her to 2:40 with KJ instead that day. documented in this encounter [facility] 04-22-2023 Note HNO ID: [id number] Author: Paxton Montalvo MA Service: ? Author Type: Tying Machine Operator Type: Progress Notes Filed: 04/22/2023 10:59 AM Note Text: POPULATION HEALTH NAVIGATION OUTREACH Action/ 2nd attempt: Called and left message to call back. Patient Identified by Name and : NO Outreach Outcome/Action Unable to reach patient: Left message Navigation Signature: Paxton Lopez MA April 22, 2023 10:59 AM [facility] 04-18-2023 Note Patient Outreach (NE TNAV) CHRISTINA CUEVAS ([id number]) 1995 F Date Time Provider Department 04/18/23 PAXTON MONTALVO During your visit today, we recorded the following information about you: Paxton Montalvo MA 04/18/2023 10:30 AM Signed POPULATION HEALTH NAVIGATION OUTREACH Action/FYI 1st attempt: Called and left message to call back to discuss arborer. MC message sent. Patient Identified by Name and : NO Outreach Outcome/Action Unable to reach patient: Left message MyChart message sent Did you use a PCP flex slot to schedule this appointment? 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: Payor: [facility] MEDICAID / Plan: [facility] MEDICAID / Product Type: Medicaid / Care Gap Reviewed:: N/A Reminder: Reminder note to check Health Maintenance for items below Health Maintenance items due: Covid-19 Vaccine(1) Never done Pap Testing Never done Depression Assessment Never done Influenza Vaccine(1) Never done DTaP,Tdap,Td Vaccine(7 - Td or Tdap) due on 03/15/2023 Navigation Signature: Paxton Lopez MA April 18, 2023 10:15 AM Paxton Montalvo MA 04/22/2023 10:59 AM Signed POPULATION HEALTH NAVIGATION OUTREACH Action/I 2nd attempt: Called and left message to call back. Patient Identified by Name and : NO Outreach Outcome/Action Unable to reach patient: Left message Navigation Signature: Paxton Lopez MA April 22, 2023 10:59 AM Allergies As of Date: 04/18/2023 (No Known Allergies) Date Reviewed: 04/14/2023 Reviewed by: Paxton Trevino MA - Fully Assessed Reason for Visit: Population Health Navigation Outreach [3910] Cmt: Peds/OB Prescriptions as of 04/22/2023 - PNV no.95/ferrous fum/folic ac ( ORAL) Take by mouth. - acyclovir (ZOVIRAX) 400 mg tablet Take 1 tablet by mouth three times a day. - aspirin, enteric coated (ASPIRIN, ENTERIC COATED) 81 mg EC tablet - TRUE METRIX GLUCOSE TEST STRIP test strip - TRUE METRIX AIR GLUCOSE METER - folic acid 800 mcg tablet Take by mouth. - Progesterone 200 mg supp Use 1 Suppository vaginally once daily. - ferrous sulfate 325 mg (65 mg iron) tablet Take by mouth. Problem List As Of Date 04/18/2023 Noted Resolved Diet controlled gestational diabetes mellitus (*02/03/2023 Prior with demise [O09.299] 02/03/2023 Premature delivery [O60.10X0] 02/03/2023 Supervision of other high risk pregnancies, thi*03/18/2023 Encounter for administration of vaccine [Z23] 03/18/2023 Encounter Status:Closed by PAXTON MONTALVO on 04/18/23 [facility] 04-18-2023 Note HNO ID: [id number] Author: Paxton Montalvo MA Service: ? Author Type: Tying Machine Operator Type: Progress Notes Filed: 04/18/2023 10:30 AM Note Text: POPULATION HEALTH NAVIGATION OUTREACH Action/ attempt: Called and left message to call back to discuss arborer. MC message sent. Patient Identified by Name and : NO Outreach Outcome/Action Unable to reach patient: Left message MyChart message sent Did you use a PCP flex slot to schedule this appointment? 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: Payor: [facility] MEDICA[facility] / Plan: [facility] / Product Type: Medicaid / Care Gap Reviewed:: N/A Reminder: Reminder note to check Health Maintenance for items below Health Maintenance items due: Covid-19 Vaccine(1) Never done Pap Testing Never done Depression Assessment Never done Influenza Vaccine(1) Never done DTaP,Tdap,Td Vaccine(7 - Td or Tdap) due on 03/15/2023 Navigation Signature: Paxton Lopez MA April 18, 2023 10:15 AM [facility] 04-18-2023 History of Presen t illness Narrative POPULATION HEALTH NAVIGATION OUTREACH Action/ 1st attempt: Called and left message to call back to discuss arborer. MC message sent. Patient Identified by Name and : NO Outreach Outcome/Action Unable to reach patient: Left message MyChart message sent Did you use a PCP flex slot to schedule this appointment? 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: Payor: [facility] MEDICAID / Plan: [facility] / Product Type: Medicaid / Care Gap Reviewed:: N/A Reminder: Reminder note to check Health Maintenance for items below Health Maintenance items due: Covid-19 Vaccine(1) Never done Pap Testing Never done Depression Assessment Never done Influenza Vaccine(1) Never done DTaP,Tdap,Td Vaccine(7 - Td or Tdap) due on 03/15/2023 Navigation Signature: Paxton Lopez MA April 18, 2023 10:15 AM documented in this encounter [facility] 04-14-2023 Note HNO ID: [id number] Author: Pietro Mckee APRN.CNM Service: ? Author Type: Route Manager Type: Progress Notes Filed: 04/14/2023 4:45 PM Note Text: NST SUMMARY PROVIDER ASSESSMENT AND INTERPRETATION Christina Cuevas is a 27 year old female, , who is at 38w1d with an JAVY of 04/27/2023, by Last Menstrual Period dating method. Indications for NST: Diabetes - Diet Controlled Baseline: 135 Variability: Moderate Accelerations: Present 15 X 15 Decelerations: None Contractions: TOCO: None Interpretation: Reactive SIGNATURE: Pietro Mckee APRN.CNM [facility] 04-14-2023 History of Presen t illness Narrative NST SUMMARY PROVIDER ASSESSMENT AND INTERPRETATION Christina Cuevas is a 27 year old female, , who is at 38w1d with an JAVY of 04/27/2023, by Last Menstrual Period dating method. Indications for NST: Diabetes - Diet Controlled Baseline: 135 Variability: Moderate Accelerations: Present 15 X 15 Decelerations: None Contractions: TOCO: None Interpretation: Reactive SIGNATURE: Pietro Mckee APRN.CNM documented in this encounter [facility] 04-14-2023 Miscellaneous Notes MIR-S: Christina Cuevas is a 27 year old female who presents at 38w1d with JAVY:04/27/2023, by Last Menstrual Period for a routine visit. Good FM. Denies headache, visual changes, chest pain, shortness of breath, vaginal bleeding, leakage of fluid, or dysuria. Feeling well, no complaints. O: See flow sheet Gen: No apparent distress Abd: Gravid, nontender NST reactive FBS all nml, 2 elevate 2hr PP, good control ASSESSMENT/PLAN: 1. 38 weeks gestation of 2. Supervision of other high risk pregnancies, third trimester 3. Diet controlled gestational diabetes mellitus (GDM) in third trimester 4. Obesity affecting in third trimester, unspecified obesity type P: 1) PTL precautions reviewed and when to call 2) RTO in one week for NST and visit 3) Schedule IOL 39-40 week for GDM and history of demise. She is uncertain and may want to go to 41 weeks. Does not want to schedule today and discuss next visit. 4) Good glycemic control 5) Growth US with Rosa Mckee APRN.CNM documented in this encounter [facility] 04-14-2023 Instructions Paxton Trevino MA - 04/14/2023 2:44 PM EST SEQUENTIAL SCREENINGS The [facility] offers sequential screenings for women who are interested in screenings for chromosomal abnormalities and certain defects during a . The sequential screen combines ultrasound and blood tests to determine the risk of chromosomal abnormalities, including Down's Syndrome (Trisomy 21) and Trisomy 18, as well as open neural tube defects including spina bifida. Ultrasound examination is performed between 11 weeks and 13 weeks gestational age. Blood tests are drawn after the ultrasound and again later in the between 15 and 21 weeks gestational age. Please let your physician know if you are interested in this testing. It will require an appointment with our tool maintenance technician. This is not an ultrasound performed by a physician in our office during a routine visit. SIGNS AND SYMPTOMS OF LABOR 1. Contractions every 10 minutes or more often 2. Clear, pink, or brownish fluid (water) leaking from vagina 3. Feeling that baby is pushing down, pressure 4. Low, dull backache 5. Cramps that feel like a period 6. Cramps with or without diarrhea If you notice any of the above symptoms, contact our office at [phone] and ask to speak with a nurse. After hours, you can call doctors registry at [phone] OR call [facility] at [phone] and ask to have the doctor siphon operator paged. If you consider this an emergency, dial 9--1 or go to your nearest emergency department. NEED HELP? Are you dealing with a violent or abusive relationship? Are you a victim of rape or sexual assult? Call [facility] ([place]) 24 hour Crisis Hotline: 283.748.9472 or 921-832-1209. MANUAL Your Guide to a Healthy manual is now on-line. Visit [email or web address] to download your free copy documented in this encounter [facility] 04-08-2023 Note HNO ID: [id number] Author: Young Delgado MD Service: ? Author Type: Physician Type: Progress Notes Filed: 04/08/2023 3:52 PM Note Text: NST SUMMARY PROVIDER ASSESSMENT AND INTERPRETATION Christina Cuevas is a 27 year old female, , who is at 37w2d with an JAVY of 04/27/2023, by Last Menstrual Period dating method. Indications for NST: Obesity Baseline: 140 Variability: Moderate Accelerations: Present 15 X 15 Decelerations: Variable Contractions: TOCO: None Interpretation: Reactive SIGNATURE: Young Delgado MD [facility] 04-07-2023 Miscellaneous Notes 3rd risk assessment form submitted 04/07/23 Nara Blount RN documented in this encounter [facility] 04-04-2023 Miscellaneous Notes FMLA faxed to employer, scanned into EMR and filed in nurses station. Adri De La Rosa LPN FMLA completed and placed on providers desk for signature. Adri LPN\ documented in this encounter [facility] 03-20-2023 Note HNO ID: [id number] Author: Krystal Uribe RN Service: ? Author Type: ? Type: Progress Notes Filed: 03/20/2023 12:02 PM Note Text: [facility] Ultrasound on 03/20/23 Scan on 03/20/2023 11:44 AM by Provider, ExternalJAISONC: Ultrasound [facility] 03-18-2023 Miscellaneous Notes Patient in office for visit with MIR now. Geraldine Breen RN Reassuring growth US. Follow up is scheduled 2 weeks from that US. Young Delgado MD Received US from [facility] Scan on 03/18/2023 10:24 AM by Provider, JAISON VargasC: Ultrasound Called and spoke with [facility]. They will be faxing the US report over to our office. Krystal Uribe RN Attempted to contact [facility] in [place] @ [phone] but no one in the office. Will try calling again. Krystal Uribe RN Patient returned call. Asked patient to contact [facility] and have them fax our office the US report and future reports. Please leave open to make sure the US report is faxed to us. Krystal Uribe RN Left message for patient to call office. Dr. Delgado requested a copy of the US report from [facility] but we never received it, not on care everywehre. Patients care team on their encounter has Danny Aguila listed, so was going to ask patient to update them that she is seeing us and ask them to send her ultrasound to us. REKHA SCHAEFER, RN documented in this encounter [facility] 03-07-2023 Miscellaneous Notes 2ND risk assessment form submitted 03/07/23 Nara Blount RN documented in this encounter [facility] 03-07-2023 Miscellaneous Notes KJ - VB No. LOF No. CTXS No. Movement: present. Other c/o: No. Medication list reviewed. Physical Exam See Flow Sheet Gen: no accute distress, well appearing Abd: soft, nontender, gravid A/P 32w5d Estimated Date of Delivery: 04/27/23 GDMA1 - BS log reviewed & all normal H/o 21wk demise - continue US with Kendra PIKE (last US yesterday & await final report) PTL precautions reviewed, Kick counts reviewed. Young Delgado MD documented in this encounter [facility] 03-07-2023 Instructions Paxton Trevino MA - 03/07/2023 10:26 AM EDT SEQUENTIAL SCREENINGS The [facility] offers sequential screenings for women who are interested in screenings for chromosomal abnormalities and certain defects during a . The sequential screen combines ultrasound and blood tests to determine the risk of chromosomal abnormalities, including Down's Syndrome (Trisomy 21) and Trisomy 18, as well as open neural tube defects including spina bifida. Ultrasound examination is performed between 11 weeks and 13 weeks gestational age. Blood tests are drawn after the ultrasound and again later in the between 15 and 21 weeks gestational age. Please let your physician know if you are interested in this testing. It will require an appointment with our tool maintenance technician. This is not an ultrasound performed by a physician in our office during a routine visit. SIGNS AND SYMPTOMS OF LABOR 1. Contractions every 10 minutes or more often 2. Clear, pink, or brownish fluid (water) leaking from vagina 3. Feeling that baby is pushing down, pressure 4. Low, dull backache 5. Cramps that feel like a period 6. Cramps with or without diarrhea If you notice any of the above symptoms, contact our office at [phone] and ask to speak with a nurse. After hours, you can call doctors registry at [phone] OR call [facility] at [phone] and ask to have the doctor siphon operator paged. If you consider this an emergency, dial 9-6 or go to your nearest emergency department. NEED HELP? Are you dealing with a violent or abusive relationship? Are you a victim of rape or sexual assult? Call [facility] ([place]) 24 hour Crisis Hotline: 547.822.1765 or 904-158-1393. MANUAL Your Guide to a Healthy manual is now on-line. Visit [email or web address] to download your free copy documented in this encounter [facility] 03-04-2023 Miscellaneous Notes Done Young Delgado MD 32w2d Patient is a transfer from [place]. Takes Acyclovir for daily suppressive therapy. She has been out of her medication for approximately a week. Needing a new Rx. Pharmacy is up to date. No need to call patient back unless there is a problem. Krystal Uribe RN documented in this encounter [facility] 02-21-2023 Miscellaneous Notes RR- VB No. LOF No. CTXS No. Movement: present. Other c/o: pelvic pain, hard to stand and work her 5 hr shifts this Medication list reviewed. Physical Exam See Flow Sheet Abd: soft, nontender, gravid Ext: edema: 1+ A/P 30w5d Estimated Date of Delivery: 04/27/23 GDMA1- reports FBS are in 90 range after meals within limits for most part per her. Neil Alvarado M.D. documented in this encounter [facility] 02-21-2023 Instructions Ashlee Rebolledo Kendal - 02/21/2023 2:34 PM EDT SEQUENTIAL SCREENINGS The [facility] offers sequential screenings for women who are interested in screenings for chromosomal abnormalities and certain defects during a . The sequential screen combines ultrasound and blood tests to determine the risk of chromosomal abnormalities, including Down's Syndrome (Trisomy 21) and Trisomy 18, as well as open neural tube defects including spina bifida. Ultrasound examination is performed between 11 weeks and 13 weeks gestational age. Blood tests are drawn after the ultrasound and again later in the between 15 and 21 weeks gestational age. Please let your physician know if you are interested in this testing. It will require an appointment with our tool maintenance technician. This is not an ultrasound performed by a physician in our office during a routine visit. SIGNS AND SYMPTOMS OF LABOR 1. Contractions every 10 minutes or more often 2. Clear, pink, or brownish fluid (water) leaking from vagina 3. Feeling that baby is pushing down, pressure 4. Low, dull backache 5. Cramps that feel like a period 6. Cramps with or without diarrhea If you notice any of the above symptoms, contact our office at [phone] and ask to speak with a nurse. After hours, you can call doctors registry at [phone] OR call [facility] at [phone] and ask to have the doctor siphon operator paged. If you consider this an emergency, dial -2 or go to your nearest emergency department. NEED HELP? Are you dealing with a violent or abusive relationship? Are you a victim of rape or sexual assult? Call [facility] ([place]) 24 hour Crisis Hotline: 291.623.6129 or 500-715-2561. MANUAL Your Guide to a Healthy manual is now on-line. Visit [email or web address] to download your free copy documented in this encounter [facility] 02-03-2023 Note HNO ID: [id number] Author: Anaya Morales APRN.CNP Service: ? Author Type: Nurse Practitioner Type: Progress Notes Filed: 02/03/2023 1:57 PM Note Text: INITIAL OB ASSESSMENT OB Provider: Anaya Morales CNP HPI: Christina is a 27 year old White here to establish Obstetrical Care. Patient's last menstrual period was 05/25/2017. from OB Dating Form. Cycles regular was unplanned but accepted Complaints: None OB History T2 L2 SAB0 IAB0 Ectopic0 Multiple0 Live Births2 Previous history: Prior : never History of 4th degree laceration: No History of shoulder dystocia: No History of Hypertensive disorders including pre-eclampsia, chronic hypertension or gestational hypertension: No History of gestational diabetes: No -current Patient's Risk Screening for delivery: MEDICAL/PSYCHOSOCIAL HISTORY: History of hemorrhage or bleeding concerns: No Thyroid Disease: No History of chronic hypertension: No History of pre-existing diabetes: No No results found for: ABORHD No weight on file for this encounter. History of abnormal pap: No-has history of HPV Prior treatment for cervical dysplasia: none. History of STDs: HPV and HSV Tobacco use: No Caffeine use: Yes occasionally Drug use: No Alcohol use: No Multivitamin with Folic acid: Yes Druze or heritage: No Would refuse blood transfusion if medically necessary: No Are you currently employed? Yes, Occupation: [employer] Do you have any history of depression, anxiety, PTSD, eating disorders or other mood problems: Yes anxiety Do you have any safety concerns or history of traumatic events that you would like to discuss with your provider: No SDOH Screening: How often does this describe you? I don't have enough money to pay my bills: Never Within the past 12 months, have you worried that your food would run out before you had money to buy more: Never In the past 12 months, has lack of reliable transportation kept you from going to medical appointments or work, or from keeping things needed for daily living: Never In the past 12 months, have you had any concerns about having a place to live, or about the condition or quality of your housing: Never Are there any cultural or spiritual needs we should be aware of: No Depression/Anxiety Screening: denies symptoms of depression. OB Depression and Anxiety Screening- This Encounter (since 02/02/2023) None Genetic Screening: Partner present: No Patient verbalized knowledge of partner family health history: No Do you or your partner have any personal or family history of defects not previously discussed: No Do you have history of a complicated by anomaly, genetic condition, or demise: Yes, 21 weeks demise ACOG Recommended Screening Screening for early gestational diabetes testing: Criteria for early testing requires elevated BMI plus one other risk factor: No weight on file for this encounter. (risk factor if > than 25 or 23 in Americans) Additional risk factors: None She does meet ACOG criteria for early gestational DM screening. Screening for low dose aspirin use for the prevention of pre-eclampsia: Low dose aspirin should be considered if the patient has one high or two moderate risk factors: High risk factors: None Moderate risk ractors: Obesity (body mass index greater than 30) She does meet criteria for low dose ASA Marital Status: Partner: Name: Lee Age: 24 Occupation: [employer] Gender: Male History of STDs: HSV No past medical history on file. No past surgical history on file. Current Outpatient Medications Medication Sig Dispense Refill ferrous sulfate 325 mg (65 mg iron) tablet Take by mouth. (Patient not taking: Reported on 09/17/2021 ) promethazine (PHENERGAN) 12.5 mg tablet Take 12.5 mg by mouth. (Patient not taking: Reported on 09/17/2021 ) famotidine (PEPCID) 20 mg tablet Take 20 mg by mouth twice daily. (Patient not taking: Reported on 09/17/2021 ) Pseudoephedrine HCl (SUDAFED 12 HOUR) 120 mg TbER Take 1 tablet by mouth every 12 hours. (Patient not taking: Reported on 03/07/2020 ) 30 tablet 0 fluticasone (FLONASE) 50 mcg/actuation nasal spray Use 2 Sprays in each nostril once daily. Rinse mouth after use. (Patient not taking: Reported on 03/07/2020 ) 1 Bottle 1 Ethinyl Estradiol-Norelgestrom (XULANE) 150-35 mcg/24 hr (Patient not taking: Reported on 06/12/2021 ) ACYCLOVIR ORAL Take by mouth. No current facility-administered medications for this visit. Allergies As of Date: 02/03/2023 (No Known Allergies) Fully Assessed 03/20/2022 Does patient have penicillin allergy: No REVIEW OF SYSTEMS: GENERAL: Negative for: Fever or Chills HEENT: Negative for: Headache, Impaired Vision, Ringing in Ears, Nosebleeds NECK: Negative for: Swelling, Pain, Stiffness RESPIRATORY: (more content not included)... [facility] 02-03-2023 History of Presen t illness Narrative INITIAL OB ASSESSMENT OB Provider: Anaya Morales CNP HPI: Christina is a 27 year old White here to establish Obstetrical Care. Patient's last menstrual period was 05/25/2017. from OB Dating Form. Cycles regular was unplanned but accepted Complaints: None OB History T2 L2 SAB0 IAB0 Ectopic0 Multiple0 Live Births2 Previous history: Prior : never History of 4th degree laceration: No History of shoulder dystocia: No History of Hypertensive disorders including pre-eclampsia, chronic hypertension or gestational hypertension: No History of gestational diabetes: No -current Patient's Risk Screening for delivery: MEDICAL/PSYCHOSOCIAL HISTORY: History of hemorrhage or bleeding concerns: No Thyroid Disease: No History of chronic hypertension: No History of pre-existing diabetes: No No results found for: ABORHD No weight on file for this encounter. History of abnormal pap: No-has history of HPV Prior treatment for cervical dysplasia: none. History of STDs: HPV and HSV Tobacco use: No Caffeine use: Yes occasionally Drug use: No Alcohol use: No Multivitamin with Folic acid: Yes Druze or heritage: No Would refuse blood transfusion if medically necessary: No Are you currently employed? Yes, Occupation: [employer] Do you have any history of depression, anxiety, PTSD, eating disorders or other mood problems: Yes anxiety Do you have any safety concerns or history of traumatic events that you would like to discuss with your provider: No SDOH Screening: How often does this describe you? I don't have enough money to pay my bills: Never Within the past 12 months, have you worried that your food would run out before you had money to buy more: Never In the past 12 months, has lack of reliable transportation kept you from going to medical appointments or work, or from keeping things needed for daily living: Never In the past 12 months, have you had any concerns about having a place to live, or about the condition or quality of your housing: Never Are there any cultural or spiritual needs we should be aware of: No Depression/Anxiety Screening: denies symptoms of depression. OB Depression and Anxiety Screening- This Encounter (since 02/02/2023) None Genetic Screening: Partner present: No Patient verbalized knowledge of partner family health history: No Do you or your partner have any personal or family history of defects not previously discussed: No Do you have history of a complicated by anomaly, genetic condition, or demise: Yes, 21 weeks demise ACOG Recommended Screening Screening for early gestational diabetes testing: Criteria for early testing requires elevated BMI plus one other risk factor: No weight on file for this encounter. (risk factor if > than 25 or 23 in Americans) Additional risk factors: None She does meet ACOG criteria for early gestational DM screening. Screening for low dose aspirin use for the prevention of pre-eclampsia: Low dose aspirin should be considered if the patient has one high or two moderate risk factors: High risk factors: None Moderate risk ractors: Obesity (body mass index greater than 30) She does meet criteria for low dose ASA Marital Status: Partner: Name: Lee Age: 24 Occupation: [employer] Gender: Male History of STDs: HSV No past medical history on file. No past surgical history on file. Current Outpatient Medications Medication Sig Dispense Refill ferrous sulfate 325 mg (65 mg iron) tablet Take by mouth. (Patient not taking: Reported on 09/17/2021 ) promethazine (PHENERGAN) 12.5 mg tablet Take 12.5 mg by mouth. (Patient not taking: Reported on 09/17/2021 ) famotidine (PEPCID) 20 mg tablet Take 20 mg by mouth twice daily. (Patient not taking: Reported on 09/17/2021 ) Pseudoephedrine HCl (SUDAFED 12 HOUR) 120 mg TbER Take 1 tablet by mouth every 12 hours. (Patient not taking: Reported on 03/07/2020 ) 30 tablet 0 fluticasone (FLONASE) 50 mcg/actuation nasal spray Use 2 Sprays in each nostril once daily. Rinse mouth after use. (Patient not taking: Reported on 03/07/2020 ) 1 Bottle 1 Ethinyl Estradiol-Norelgestrom (XULANE) 150-35 mcg/24 hr (Patient not taking: Reported on 06/12/2021 ) ACYCLOVIR ORAL Take by mouth. No current facility-administered medications for this visit. Allergies As of Date: 02/03/2023 (No Known Allergies) Fully Assessed 03/20/2022 Does patient have penicillin allergy: No REVIEW OF SYSTEMS: GENERAL: Negative for: Fever or Chills HEENT: Negative for: Headache, Impaired Vision, Ringing in Ears, Nosebleeds NECK: Negative for: Swelling, Pain, Stiffness RESPIRATORY: Negative for: Cough, Shortness of breath, Wheezing GASTROINTESTINAL: Positive for: Heartburn MUSCULOSKELETAL: Negative for: Muscle or joint pain, stiffness, Joint swelling NEUROLOGIC/PSYCHIATRIC: Negative for: Weakness, Paralysis, Numbness, Tingling, Tremor, Anxiety, Depression, Memory loss SKIN: Negative for: Rash, Itching GENITOURINARY: Negative for: vaginal itching, vaginal discharge, hematuria or dysuria PHYSICAL EXAM: LMP 05/25/2017 GENERAL: pleasant in no apparent distress DERMATOLOGY: Normal, without lesions, non-icteric, and non-hirsute CHEST: Normal inspiratory effort Limited OB ultrasound exam: not performed ASSESSMENT: 27 year old at 28w3d wks gestational age PLAN: 1) Patient oriented to practice. Patient given new OB orientation folder. Discussed nutrition, folic acid supplementation, dietary guidelines, exercise, smoking, alcohol, caffeine, and drug use. Discussed gestational weight gain guidelines. Discussed routine OB labs including STD/HIV. Discussed how to access Your guide to a health and the Insurance And Financial Services Agent. Reviewed midwifery and machine puller services that are available. 2) Gest DM- diet controlled Refused Tdapt, LARC declined Follow up in 2 weeks or sooner franchesca. Anaya Morales APRN.NATALY documented in this encounter [facility] 02-03-2023 Instructions Jaqueline Ching Ma 02/03/2023 1:03 PM EDT Please select the following link to access the [facility] Your Guide to a Healthy . [email or web address] documented in this encounter [facility] 01-10-2023 Note HNO ID: [id number] Author: Krystal Uribe RN Service: ? Author Type: ? Type: Progress Notes Filed: 01/10/2023 9:21 AM Note Text: Records updated in [employer]. Sent for scanning. Krystal Uribe RN [facility] 01-09-2023 Note HNO ID: [id number] Author: Krystal Uribe RN Service: ? Author Type: ? 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 In nurse triage room. Krystal Uribe RN [facility] 01-09-2023 History of Presen t illness Narrative Received outside medical records from [facility] [employer] O[employer]ATOR. In nurse triage room. Krystal Uribe RN documented in this encounter [facility] 03-20-2022 History of Presen t illness Narrative Subjective HPI Nontoxic-appearing female presents urgent complaint sore throat left ear pain. Duration of symptoms transient over the last week and a half. Presents today for evaluation. States feels like she is improving. Concerned about possible ear infection. No known sick contacts. 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 No OTC medications currently. No pain. Denies any fever body aches chills productive cough chest pain shortness of breath pleuritic pain hemoptysis nausea vomiting abdominal pain change in bowel or bladder habits. Past medical history prescription medication use and allergies reviewed. .Patient presents with: Sore Throat: ST and left ear pain x 1.5 days History reviewed. No pertinent past medical history. History reviewed. No pertinent surgical history. ALLERGIES Patient has no known allergies. MEDICATIONS ferrous sulfate 325 mg (65 mg iron) tablet Take by mouth. (Patient not taking: Reported on 09/17/2021 ) promethazine (PHENERGAN) 12.5 mg tablet Take 12.5 mg by mouth. (Patient not taking: Reported on 09/17/2021 ) famotidine (PEPCID) 20 mg tablet Take 20 mg by mouth twice daily. (Patient not taking: Reported on 09/17/2021 ) Pseudoephedrine HCl (SUDAFED 12 HOUR) 120 mg TbER Take 1 tablet by mouth every 12 hours. (Patient not taking: Reported on 03/07/2020 ) fluticasone (FLONASE) 50 mcg/actuation nasal spray Use 2 Sprays in each nostril once daily. Rinse mouth after use. (Patient not taking: Reported on 03/07/2020 ) Ethinyl Estradiol-Norelgestrom (XULANE) 150-35 mcg/24 hr (Patient not taking: Reported on 06/12/2021 ) ACYCLOVIR ORAL Take by mouth. History reviewed. No pertinent family history. Social History Tobacco Use Smoking status: Never Smokeless tobacco: Never BP 110/78 Pulse 106 Temp 36.7 C (98.1 F) (Tympanic) Resp 18 Wt 111.4 kg (245 lb 9.6 oz) LMP 05/25/2017 SpO2 98% Hr 92 Review of Systems Constitutional: Negative for chills, fever and malaise/fatigue. HENT: Positive for ear pain and sore throat. Negative for congestion, ear discharge and sinus pain. Eyes: Negative for blurred vision, pain, discharge and redness. Respiratory: Negative for cough, hemoptysis, sputum production, shortness of breath, wheezing and stridor. Cardiovascular: Negative for chest pain. Gastrointestinal: Negative for abdominal pain, diarrhea, nausea and vomiting. Musculoskeletal: Negative for myalgias. Skin: Negative for itching and rash. Neurological: Negative for dizziness and headaches. Objective Physical Exam Constitutional: General: She is not in acute distress. Appearance: She is not diaphoretic. HENT: Head: Normocephalic. Right Ear: Tympanic membrane, ear canal and external ear normal. Left Ear: Tympanic membrane, ear canal and external ear normal. Nose: Congestion present. Mouth/Throat: Mouth: Mucous membranes are moist. Pharynx: Oropharynx is clear. Uvula midline. No pharyngeal swelling, oropharyngeal exudate, posterior oropharyngeal erythema or uvula swelling. Tonsils: No tonsillar exudate or tonsillar abscesses. Eyes: Conjunctiva/sclera: Conjunctivae normal. Pupils: Pupils are equal, round, and reactive to light. Cardiovascular: Rate and Rhythm: Normal rate and regular rhythm. Heart sounds: Normal heart sounds. Pulmonary: Effort: Pulmonary effort is normal. No tachypnea, accessory muscle usage or respiratory distress. Breath sounds: Normal breath sounds. No stridor. No wheezing, rhonchi or rales. Abdominal: Palpations: Abdomen is soft. Tenderness: There is no abdominal tenderness. There is no guarding or rebound. Musculoskeletal: Cervical back: Normal range of motion and neck supple. No rigidity or tenderness. Lymphadenopathy: Cervical: No cervical adenopathy. Skin: General: Skin is warm and dry. Neurological: Mental Status: She is alert and oriented to person, place, and time. ASSESSMENT/PLAN: 1. Viral illness - ICD9: 079.99, ICD10: B34.9 Patient diagnosed with viral illness. His symptoms progressively improving. We will continue supportive therapies. Follow-up with PCP 3 to 5 days reevaluation. Red flags for prompt reevaluation discussed. Patient was educated on supportive therapies. Patient will follow up with primary care provider as needed. Patient was instructed to immediately proceed to emergency room for any new, worsening, or symptoms lasting longer than anticipated. The patient's clinical presentation is otherwise unremarkable at this time. Based on exam and clinical finding, the patient is stable for discharge. Plan of care was discussed with patient. Patient verbalizes understanding and agrees to plan of care. This note was generated using [employer] software. It may contain errors in wording, punctuation, or spelling. Willie Ellis APRN.NATALY documented in this encounter [facility] 09-18-2021 Miscellaneous Notes Patient given results and verbalized understanding of instructions given. Coco Chao You tested positive for COVID-19 Follow the CDC guidelines for isolation: 1. Everyone, regardless of vaccination status, should stay home for 5 days. 2. If you have no symptoms or your symptoms are resolving after 5 days, you can leave your house. 3. Continue to wear a mask around others for 5 additional days. If you have a fever, continue to stay home until your fever resolves, even if it is longer than 5 days. Please monitor your symptoms, and for any worrisome symptoms, call your primary care provider or schedule a visit with [facility]. A test is not recommended to return to work/school when meeting the above criteria. documented in this encounter [facility] 09-17-2021 Instructions Willie Ellis APRN.NATALY - 09/17/2021 2:16 PM EDT How to Manage Common Symptoms Associated with COVID for Adults Fever- Fever is a temperature over 100.4 F and can occur when the body is fighting an infection. To help treat a fever: Drink plenty of fluids and stay well hydrated. Eat small amounts of easy to digest food. Rest. Your body needs rest to recover, but getting up and moving around the house frequently is a good idea. You should try to continue doing your normal daily activities (bathing, toileting, grooming, cooking), though you will probably feel tired, and need to rest often. Avoid any heavy activity or exercise, as this will increase your body temperature. Dress in light clothing and stay covered in a light sheet. Keep the room temperature cool. Take a slightly warm (not cold or cool) bath, or apply damp washcloths to the forehead and wrists. Cough- Cough is a common symptom associated with COVID and can be bothersome. To help treat a cough: Stay well hydrated. Try warm water or tea with lemon and/or honey to help soothe the cough. Use a humidifier to add moisture to the air. Try a product with menthol, like a cough drop or a rub for your chest such as Vicks, which can help reduce cough. Try cough drops. Avoid smoking and other strong odors or perfumes. Try breathing exercises to keep your lungs open and clear. Take a big deep breath through your nose and hold for 5 seconds before slowly releasing. Repeat frequently, while you are awake. Congestion- Runny nose or nasal congestion can occur with COVID. Treatment can help relieve symptoms: Try OTC nasal saline spray, or nasal saline rinse to relieve mucus congestion. Nasal strips can help keep nasal passages open, to increase airflow. Elevating your head with an extra pillow in bed can help reduce congestion. Using a humidifier can increase moisture in the air, and make breathing easier. Sore Throat- Another common symptom with COVID, can be managed at home by: Stay well hydrated. Gargle with salt water mix teaspoon salt with 1 cup of warm water and gargle. This helps to loosen mucus in the back of the throat and may reduce discomfort. Try ice chips, popsicles or lozenges to soothe the throat. Nausea/Vomiting/Diarrhea- These are common symptoms, and staying hydrated is most important. If you are nauseous or vomiting, start with small sips of water every 10-15 minutes and increase as tolerated. You can try sucking an ice cube too. If tolerating, you can try pedialyte or Gatorade, or flat sprite or asia-sydnie. Start slowly and increase as you are able to. Instead of meals, try smaller, more frequent snacks. Try eating bland foods like crackers, toast, rice, and applesauce. Avoid spicy, greasy or fried foods and dairy containing foods. Even if you aren't feeling hungry due to lack of smell or taste, it is important to try to take in some food when you are able. After drinking and eating, rest in an upright position for up to two hours as needed to help decrease nauseous feelings. Try closing your eyes, avoid moving and watching TV. Avoid strong odors that can make you feel more nauseated. When to seek emergency medical attention Look for emergency warning signs for COVID-19. If having any of these symptoms, seek emergency medical care immediately: Trouble breathing Persistent pain or pressure in the chest New confusion Inability to wake or stay awake Bluish lips or face *This list is not all possible symptoms. Please call your medical provider for any other symptoms that are severe or concerning to you. documented in this encounter [facility] 09-17-2021 History of Presen t illness Narrative Subjective HPI Nontoxic-appearing female presents urgent care chief complaint sinus pressure fatigue. Duration of symptoms 1 day. Associated symptoms sinus pressure ear pain headache dizziness cough body aches chills and fever. Patient states 1 episode of dizziness early this morning that has since subsided. States she did take a positive COVID-19 home test. Other members of her family are sick as well. Denies history of COVID-19. Is not vaccinated. Denies any productive cough chest pain shortness of breath pleuritic pain hemoptysis nausea vomiting abdominal pain change in bowel or bladder habits. Denies chance of . Is not breast-feeding. Past medical history prescription medication use allergies reviewed. .Patient presents with: Sinus Problem: sinus pressure, fatigue and dizziness x 1 day History reviewed. No pertinent past medical history. History reviewed. No pertinent surgical history. ALLERGIES Patient has no known allergies. MEDICATIONS ACYCLOVIR ORAL Take by mouth. ferrous sulfate 325 mg (65 mg iron) tablet Take by mouth. promethazine (PHENERGAN) 12.5 mg tablet Take 12.5 mg by mouth. famotidine (PEPCID) 20 mg tablet Take 20 mg by mouth twice daily. Pseudoephedrine HCl (SUDAFED 12 HOUR) 120 mg TbER Take 1 tablet by mouth every 12 hours. fluticasone (FLONASE) 50 mcg/actuation nasal spray Use 2 Sprays in each nostril once daily. Rinse mouth after use. Ethinyl Estradiol-Norelgestrom (XULANE) 150-35 mcg/24 hr History reviewed. No pertinent family history. Social History Tobacco Use Smoking status: Never Smoker Smokeless tobacco: Never Used Substance Use Topics Alcohol use: Not on file Drug use: Not on file BP 124/72 Pulse (!) 126 Temp (!) 38 C (100.4 F) Resp 18 Wt 103.4 kg (228 lb) LMP 05/25/2017 SpO2 98% hr 103 Review of Systems Constitutional: Positive for chills and fever. Negative for malaise/fatigue. HENT: Positive for congestion, sinus pain and sore throat. Negative for ear discharge and ear pain. Eyes: Negative for blurred vision, pain, discharge and redness. Respiratory: Positive for cough. Negative for hemoptysis, sputum production, shortness of breath, wheezing and stridor. Cardiovascular: Negative for chest pain. Gastrointestinal: Negative for abdominal pain, diarrhea, nausea and vomiting. Musculoskeletal: Positive for myalgias. Skin: Negative for itching and rash. Neurological: Positive for headaches. Negative for dizziness. Objective Physical Exam Vitals and nursing note reviewed. Constitutional: General: She is not in acute distress. Appearance: She is not diaphoretic. HENT: Head: Normocephalic and atraumatic. Jaw: No trismus. Right Ear: Hearing, tympanic membrane, ear canal and external ear normal. No decreased hearing noted. No drainage, swelling or tenderness. No mastoid tenderness. Tympanic membrane is not perforated, erythematous or bulging. Left Ear: Hearing, tympanic membrane, ear canal and external ear normal. No decreased hearing noted. No drainage, swelling or tenderness. No mastoid tenderness. Tympanic membrane is not perforated, erythematous or bulging. Mouth/Throat: Lips: Ruma. Mouth: Mucous membranes are moist. Pharynx: Oropharynx is clear. Uvula midline. No pharyngeal swelling, oropharyngeal exudate, posterior oropharyngeal erythema or uvula swelling. Eyes: General: Right eye: No discharge. Left eye: No discharge. Conjunctiva/sclera: Conjunctivae normal. Pupils: Pupils are equal, round, and reactive to light. Cardiovascular: Rate and Rhythm: Normal rate and regular rhythm. Heart sounds: Normal heart sounds. Pulmonary: Effort: Pulmonary effort is normal. No tachypnea, accessory muscle usage or respiratory distress. Breath sounds: Normal breath sounds. No stridor. No wheezing or rales. Chest: Chest wall: No tenderness. Abdominal: Palpations: Abdomen is soft. Tenderness: There is no abdominal tenderness. Musculoskeletal: General: No tenderness. Normal range of motion. Cervical back: Normal range of motion and neck supple. No rigidity or tenderness. Lymphadenopathy: Head: Right side of head: No submental, submandibular, tonsillar, preauricular, posterior auricular or occipital adenopathy. Left side of head: No submental, submandibular, tonsillar, preauricular, posterior auricular or occipital adenopathy. Cervical: No cervical adenopathy. Right cervical: No superficial or posterior cervical adenopathy. Left cervical: No superficial or posterior cervical adenopathy. Skin: General: Skin is warm and dry. Findings: No rash. Neurological: Mental Status: She is alert and oriented to person, place, and time. ASSESSMENT/PLAN: 1. Viral illness - ICD9: 079.99, ICD10: B34.9 - COVID WITH FLUA+B, ROUTINE Will test for COVID-19 due to positive home test. Suspicious of viral illness. Home quarantining recommended. Patient was educated on supportive therapies. Patient will follow up with primary care provider as needed. Patient was instructed to immediately proceed to emergency room for any new, worsening, or symptoms lasting longer than anticipated. The patient's clinical presentation is otherwise unremarkable at this time. Based on exam and clinical finding, the patient is stable for discharge. Plan of care was discussed with patient. Patient verbalizes understanding and agrees to plan of care. This note was generated using [employer] software. It may contain errors in wording, punctuation, or spelling. Willie Ellis APRN.NATALY documented in this encounter [facility] Viral illness- Primary Unspecified viral infection, in conditions classified elsewhere and of unspecified site [facility] Diagnosis 28 weeks gestation of - Primary state, incidental Previous stillbirth or demise, antepartum with other poor reproductive history Diet controlled gestational diabetes mellitus (GDM) in third trimester Prior with demise with other poor reproductive history documented in this encounter [facility] note* Diagnosis 30 weeks gestation of - Primary state, incidental Diet controlled gestational diabetes mellitus (GDM) in third trimester Prior with demise with other poor reproductive history [facility] Diagnosis 32 weeks gestation of - Primary state, incidental Diet controlled gestational diabetes mellitus (GDM) in third trimester [facility]* Diagnosis 38 weeks gestation of - Primary state, incidental Supervision of other high risk pregnancies, third trimester Diet controlled gestational diabetes mellitus (GDM) in third trimester Obesity affecting in third trimester, unspecified obesity type documented in this encounter [facility] note* Diagnosis Supervision of other high risk pregnancies, third trimester- Primary Diet controlled gestational diabetes mellitus (GDM) in third trimester Oligohydramnios in third trimester, single or unspecified fetus Obesity affecting in third trimester, unspecified obesity type 39 weeks gestation of state, incidental [facility] Diagnosis Sorethroat- Primary Acute pharyngitis documented in this encounter [facility] Summary Purpose Family History No Family History Records FoundNo Family History Records FoundNo Family History Records Found Advance Directives No Advanced Directives Records FoundNo Advanced Directives Records FoundNo Advanced Directives Records Found Health Concerns Infection Onset Date Last Indicated Resolved Time COVID-19 Confirmed 09/17/2021 09/17/2021 Problem Noted Date Diagnosed Date [facility] - [facility] 02/03/2023 Education - [place] 02/03/2023 Problem Noted Date Diagnosed Date [facility] - [facility] 02/03/2023 Education - [place] 02/03/2023 Problem Noted Date Diagnosed Date [facility] - [facility] 02/03/2023 Education - [place] 02/03/2023 Problem Noted Date Diagnosed Date [facility] - [facility] 02/03/2023 Education - [place] 02/03/2023 Problem Noted Date Diagnosed Date [facility] - [facility] 02/03/2023 Education - [place] 02/03/2023 Problem Noted Date Diagnosed Date [facility] - [facility] 02/03/2023 Education - [place] 02/03/2023 Problem Noted Date Diagnosed Date [facility] - [facility] 02/03/2023 Education - [place] 02/03/2023 Problem Noted Date Diagnosed Date [facility] - [facility] 02/03/2023 Education - [place] 02/03/2023 Problem Noted Date Diagnosed Date [facility] - [facility] 02/03/2023 Education - [place] 02/03/2023 Problem Noted Date Diagnosed Date [facility] - [facility] 02/03/2023 Education - [place] 02/03/2023 Problem Noted Date Diagnosed Date [facility] - [facility] 02/03/2023 Education - [place] 02/03/2023 Additional Source Comments INFORMATION SOURCE (unrecogn ized section and content) DATE CREATED AUTHOR AUTHOR'S ORGANIZ ATION 04/24/2023 [facility] DATE CREATED AUTHOR AUTHOR'S ORGANIZ ATION 06/14/2023 [facility] Source Comments (unrecognize d section and content) In the event this informatio n is protected by the Federal Confidentiality of Alcohol and Drug Abuse Patient Records regulations: The Federal rules restrict any use of the information to criminally investigate or prosecute any alcohol or drug abuse patient.[facility] the event this information is protected by the Federal Confidentiality of Alcohol and Drug Abuse Patient Records regulations: The Federal rules restrict any use of the information to criminally investigate or prosecute any alcohol or drug abuse patient.[facility] the event this information is protected by the Federal Confidentiality of Alcohol and Drug Abuse Patient Records regulations: The Federal rules restrict any use of the information to criminally investigate or prosecute any alcohol or drug abuse patient.[facility] the event this information is protected by the Federal Confidentiality of Alcohol and Drug Abuse Patient Records regulations: The Federal rules restrict any use of the information to criminally investigate or prosecute any alcohol or drug abuse patient.[facility] the event this information is protected by the Federal Confidentiality of Alcohol and Drug Abuse Patient Records regulations: The Federal rules restrict any use of the information to criminally investigate or prosecute any alcohol or drug abuse patient.[facility] the event this information is protected by the Federal Confidentiality of Alcohol and Drug Abuse Patient Records regulations: The Federal rules restrict any use of the information to criminally investigate or prosecute any alcohol or drug abuse patient.[facility] the event this information is protected by the Federal Confidentiality of Alcohol and Drug Abuse Patient Records regulations: The Federal rules restrict any use of the information to criminally investigate or prosecute any alcohol or drug abuse patient.[facility] the event this information is protected by the Federal Confidentiality of Alcohol and Drug Abuse Patient Records regulations: The Federal rules restrict any use of the information to criminally investigate or prosecute any alcohol or drug abuse patient.[facility] the event this information is protected by the Federal Confidentiality of Alcohol and Drug Abuse Patient Records regulations: The Federal rules restrict any use of the information to criminally investigate or prosecute any alcohol or drug abuse patient.[facility] the event this information is protected by the Federal Confidentiality of Alcohol and Drug Abuse Patient Records regulations: The Federal rules restrict any use of the information to criminally investigate or prosecute any alcohol or drug abuse patient.[facility] the event this information is protected by the Federal Confidentiality of Alcohol and Drug Abuse Patient Records regulations: The Federal rules restrict any use of the information to criminally investigate or prosecute any alcohol or drug abuse patient.[facility] the event this information is protected by the Federal Confidentiality of Alcohol and Drug Abuse Patient Records regulations: The Federal rules restrict any use of the information to criminally investigate or prosecute any alcohol or drug abuse patient.[facility] the event this information is protected by the Federal Confidentiality of Alcohol and Drug Abuse Patient Records regulations: The Federal rules restrict any use of the information to criminally investigate or prosecute any alcohol or drug abuse patient.[facility] the event this information is protected by the Federal Confidentiality of Alcohol and Drug Abuse Patient Records regulations: The Federal rules restrict any use of the information to criminally investigate or prosecute any alcohol or drug abuse patient.[facility] the event this information is protected by the Federal Confidentiality of Alcohol and Drug Abuse Patient Records regulations: The Federal rules restrict any use of the information to criminally investigate or prosecute any alcohol or drug abuse patient.[facility] the event this information is protected by the Federal Confidentiality of Alcohol and Drug Abuse Patient Records regulations: The Federal rules restrict any use of the information to criminally investigate or prosecute any alcohol or drug abuse patient.[facility] Center[facility] the event this information is protected by the Federal Confidentiality of Alcohol and Drug Abuse Patient Records regulations: The Federal rules restrict any use of the information to criminally investigate or prosecute any alcohol or drug abuse patient.[facility] Reason for Visit (unrecogniz ed section and content) Reason Comments Results Reason Comments Sore Throat ST and left ear pain x 1.5 days Reason Comments Received Outside Medical Records Reason Onset Date Comments Care 02/21/2023 Reason Comments Question (OB Question) Acyclovir Reason Onset Date Comments Care 03/07/2023 Reason Comments PRAF Reason Comments FMLA Paperwork Reason Onset Date Comments Care 04/14/2023 Reason Onset Date Comments Population Health Navigation Outreach 04/18/2023 Peds/OB Reason Comments Appointment Reason Onset Date Comments Care 04/22/2023 Reason Comments Rhinitis With nasal drainage x 2 days Care Teams (unrecognized sec tion and content) FOR RECORDS PERTAINING TO PATIENTS WHO ARE OR HAVE BEEN ENROLLED IN A CHEMICAL DEPENDENCY/SUBSTANCEABUSE PROGRAM, SOME INFORMATION MAY BE OMITTED. This clinical summary was aggregated from multiple sources. Caution should be exercised in using it in the provision of clinical care. This summary normalizes information from multiple sources, and as a consequence, information in this document may materially change the coding, format and clinical context of patient data. In addition, data may be omitted in some cases. CLINICAL DECISIONS SHOULD BE BASED ON THE PRIMARY CLINICAL RECORDS. [employer] [facility]. provides no warranty or guarantee of the accuracy or completeness of information in this document.
== END | disposition home or self-care (01) ==
LOC: MTRAD 11:36
PROVIDERS: Referring Provider Physician Assistant Surgical; Visit Provider Physician Assistant Surgical
DX: S66.911A Strain of unspecified muscle, fascia and tendon at wrist and hand level, right hand, initial encounter (principal); X58.XXXA Exposure to other specified factors, initial encounter
CPT/HCPCS: 73110

== ENCOUNTER 2023-07-20 03:41 | Emergency (ER) | payer MEDICAID, SELFPAY ==
[2023-07-20 03:42] VITALS: BP 124/84; PULSE 76; RESP 18; TEMP 36.7; O2SAT 97; BMI 37.1
--- NOTE | 2023-07-20 03:48 | EX.ED.DYSGE1 ---
HPI History of Present Illness Chief Complaint: Abd Pain PFSH PFSH Medical History Abnormal bruising Acute sinusitis, unspecified Anxiety Chlamydia infection affecting Chronic neck and back pain GDM, class A1 Gestational diabetes HPV (human papilloma virus) infection Oligohydramnios Prior with demise Spontaneous vaginal delivery Stillborn, normal Home Medications sertraline 50 mg tablet (Zoloft) 50 mg PO DAILY 06/27/23 [History Last Taken Unknown] vitamin C 45 mg-zinc citrate 3.75 mg-elderberry 50 mg chewable tablet (Front Flip) 2 tab PO DAILY 06/27/23 [History Last Taken Unknown] ondansetron 4 mg disintegrating tablet 4 mg PO Q8H PRN PRN Nausea #10 tabs 07/20/23 [Rx Last Taken Unknown] Allergy/AdvReac Type Severity Reaction Status Date / Time No Known Allergies Allergy Verified 07/20/23 03:41 Family History Other Diabetes Surgical History History of adenoidectomy History of surgery Social History Smoking Status: Never smoker alcohol intake: never EXAM Physical Exam Const Vital Signs: 07/20/23 03:42 Temperature 98.1 F Temperature Source Oral Pulse Rate 76 Respiratory Rate 18 Blood Pressure 124/84 H Blood Pressure Mean 97 Pulse Ox 97 MDM MDM MDM Narrative Medical decision making narrative: HISTORY OF PRESENT ILLNESS: 19-year-old female presents abdominal pain. States this began 11 PM last night. Notes acute onset epigastric abdominal pain that is nonradiating. Is not worse with food. She denies any vomiting but notes nausea. Denies any changes to bowel or bladder habits. Denies any vaginal bleeding or discharge. Denies history abdominal surgeries. REVIEW OF SYSTEMS: Pertinent positives: Abdominal pain, nausea Pertinent negatives: Vomiting, constipation, hematuria, vaginal bleeding or discharge PHYSICAL EXAM: Nursing triage notes reviewed, Vital signs reviewed Constitutional: please see mdm HENT: MMM Eyes: Pupils equal round and reactive to light, Extraocular muscles intact Neck: No stridor, no JVD, full neck ROM Lungs: Clear to auscultation, No wheezing or rales. No increased work of breathing, no conversational dyspnea, no accessory muscle use, no nasal flaring. No respiratory distress noted Heart: Regular rate and rhythm, No murmurs, No rubs and No gallops, 2+ distal pulses (radial, femoral, posterior tibial) in all extremities Abdomen: Soft, there is no tenderness, rigidity, rebound or guarding, no obvious peritoneal signs, no palpable pulsatile abdominal masses, no auscultated abdominal bruit : No CVAT Extremities: No edema Neuro: No focal neurological deficits, cranial nerves II through XII intact, 5/5 strength in all extremities. Intact sensation to light touch in all extremities, 2+ reflexes bilateral patella tendons. Normal gait. No ataxia. Skin: No rash or lesions noted MEDICAL DECISION MAKING: Chief Complaint: Abdominal pain External records reviewed: No recent advanced imaging of the abdomen Factors affecting care: none Social determinants of health: none History obtained from others: none Consults: none MDM Narrative: Patient was hemodynamically stable, afebrile, nontoxic-appearing. Abdominal exam benign. Abdominal exam is not consistent with perforation or obstruction. While I considered obtaining CT scan the benign nature the patients abdominal exam made an acute life-threatening etiology less likely and as such a CT scan not indicated at this time. I considered the following differential diagnosis: AAA, small bowel obstruction, abdominal perforation, appendicitis, pancreatitis, hepatobiliary pathology (acute cholecystitis), mesenteric ischemia, pathology (ie nephrolithiasis, pyelonephritis). I opted to obtain labs to further elucidate the etiology of the patient's complaints Treat the patient with normal saline, Zofran and Pepcid ALL IMAGES (IF OBTAINED) HAVE BEEN PERSONALLY REVIEWED AND INTERPRETED BY MYSELF. CBC without leukocytosis, anemia, no thrombocytopenia BMP without evidence of significant electrolyte abnormalities, no anion gap, no acute kidney injury. Lipase is wnl indicating no pancreatic inflammation. Urine is negative Patient noted symptomatic improvement after the above interventions. I suspect the patient is suffering from gastritis. Repeat abdominal exam remained benign The patient and/or family, caregivers express understanding. The patient and/or family, caregivers agrees with the plan. Shared decision making: I will have a discussion with the patient and or visitors regarding risk/benefits of further testing or admission. They will be made aware of of the risk/benefits inherent in this decision they will be given the opportunity to voice understanding. Total critical care time today provided was at least 0 minutes. This excludes separately billable procedures. Critical care time (if documented) is secondary to the patient having high probability of clinically significant/life threatening deterioration in the patient's condition which required my urgent intervention. Impression: 1. Abdominal pain 2. Anemia Dispo: Discharge home This note was generated with [employer] dictation software. It may contain incorrect words, spelling, and punctuation that were not noted in review of the chart prior to signing. Lab Data Labs: Laboratory Results - last 24 hr 07/20/23 07/20/23 04:27 06:08 WBC 3.3 L RBC 4.11 L Hgb 11.5 L Hct 36.0 L MCV 87.6 MCH 28.0 MCHC 31.9 L RDW Std Deviation 43.8 RDW Coeff of Caitlyn 13.6 Plt Count 157 MPV 9.5 Immature Gran % (Auto) 0.000 Neut % (Auto) 52.7 Lymph % (Auto) 36.6 Jewell % (Auto) 9.8 Eos % (Auto) 0.6 Baso % (Auto) 0.3 Absolute Neuts (auto) 1.7 L Absolute Lymphs (auto) 1.19 Nucleated RBC % 0 Sodium 139 Potassium 3.8 Chloride 107 Carbon Dioxide 27.0 Anion Gap 5 BUN 13 Creatinine 0.74 Estim Creat Clear Calc 138.19 Est GFR (MDRD) Af Amer 119 Est GFR (MDRD) Non-Af 99 BUN/Creatinine Ratio 17.6 Glucose 114 H Calcium 8.4 L Lipase 44 Urine Test Negative Discharge Plan Triage Chief Complaint: Abd Pain ED Provider: Francisco Mcgovern Dx/Rx/DC Orders Instructions: ED Abdominal Pain Unkn Cause Male... Prescriptions: New ondansetron 4 mg tablet,disintegrating 4 mg PO Q8H PRN PRN (Reason: Nausea) Qty: 10 0RF No Action sertraline [Zoloft] 50 mg tablet 50 mg PO DAILY Front Flip 45-3.75-50 mg tablet,chewable 2 tab PO DAILY Primary Care Provider: Care Physician,No Primary Referrals: Deanna Mayes MD [Med Staff - Instructional Support Services Director] - Friend,DO Osvaldo [Med Staff - Active Staff] - Activity Restrictions/Additional Instructions: Thank you for trusting us with your care today! Please go to local pharmacy or drugstore and obtain omeprazole(Prilosec). Please take as directed. Please take Zofran as needed for nausea control. Please take Tylenol (2 pills, 650 mg) every 6 hours as needed for pain and fever control. Please return to the emergency department if your symptoms change or worsen. Please follow with your primary care physician for further outpatient evaluation and management. Please follow-up with our local clinical data abstractor Dr. Roper at the number and location provided. Disposition Disposition: Home, Self Care
--- OUTSIDE RECORDS SUMMARY | 2023-07-20 04:08 | XMS RPT_ITS | CCD ---
Author Name Unknown Address [address] [place] [address] Organization [facility] Care Team Providers Care King Maker Name Role Phone VLAD DOMINGUEZ Unavailable Unavailable [...] Care Unavailable CARLOS DE LUNA Attending Unavailable DNANY AGUILA Referring Unavailable PAXTON HOGAN M Primary [...] 12:56-0500 Body temperature 97.7 [degF] Jorge Schmitz HAIRSPRING VIBRATOR.TELEHEALTH NURSE EDUCATOR Work Phone: [facility] 05-31-2023 12:56-0500 Body weight 105.14 kg Jorge Callow HAIRSPRING VIBRATOR.TELEHEALTH NURSE EDUCATOR Work Phone: [facility] 05-31-2023 12:56-0500 Diastolic blood pressure 68 mm[Hg] Jorge Callow HAIRSPRING VIBRATOR.TELEHEALTH NURSE EDUCATOR Work Phone: [facility] 05-31-2023 12:56-0500 Heart rate 80 /min Jorge Callow HAIRSPRING VIBRATOR.TELEHEALTH NURSE EDUCATOR Work Phone: [facility] 05-31-2023 12:56-0500 Respiratory rate 16 /min Jorge Callow HAIRSPRING VIBRATOR.TELEHEALTH NURSE EDUCATOR Work Phone: [facility] 05-31-2023 12:56-0500 SaO2% (BldA) [Mass fraction] 98 % Jorge Callow HAIRSPRING VIBRATOR.TELEHEALTH NURSE EDUCATOR Work Phone: [facility] 05-31-2023 12:56-0500 Systolic blood pressure 90 mm[Hg] Jorge Callow HAIRSPRING VIBRATOR.TELEHEALTH NURSE EDUCATOR Work Phone: [facility] 04-22-2023 15:07-0500 Body weight 109.77 kg Britney Lee MD Work Phone: [facility] 04-22-2023 15:07-0500 Diastolic blood pressure 77 mm[Hg] Britney Lee MD Work Phone: [facility] 04-22-2023 15:07-0500 Systolic blood pressure 114 mm[Hg] Britney Lee MD Work Phone: [facility] 04-14-2023 14:45-0500 Body weight 110.77 kg Pietro Mckee HAIRSPRING VIBRATOR.CNM Work Phone: [facility] 04-14-2023 14:45-0500 Diastolic blood pressure 69 mm[Hg] Pietro Mckee HAIRSPRING VIBRATOR.CNM Work Phone: [facility] 04-14-2023 14:45-0500 Systolic blood pressure 104 mm[Hg] Pietro Mckee HAIRSPRING VIBRATOR.CNM Work Phone: [facility] 03-07-2023 10:33-0400 Body weight 107.23 kg Young Delgado MD Work Phone: [facility] 03-07-2023 10:33-0400 Diastolic blood pressure 62 mm[Hg] Young Delgado MD Work Phone: [facility] 03-07-2023 10:33-0400 Systolic blood pressure 100 mm[Hg] Young Delgado MD Work Phone: [facility] 02-21-2023 14:47-0400 Body height 167.6 cm Neil Alvarado MD Work Phone: [facility] 02-21-2023 14:35-0400 Body weight 107.5 kg Neil Alvarado MD Work Phone: [facility] 02-21-2023 14:35-0400 Diastolic blood pressure 72 mm[Hg] Neil Alvarado MD Work Phone: [facility] 02-21-2023 14:35-0400 Systolic blood pressure 110 mm[Hg] Neil Alvarado MD Work Phone: [facility] 02-03-2023 13:05-0400 Body weight 107.05 kg Anaya Highspire HAIRSPRING VIBRATOR.TELEHEALTH NURSE EDUCATOR Work Phone: [facility] 02-03-2023 13:05-0400 Diastolic blood pressure 70 mm[Hg] Anaya Highspire HAIRSPRING VIBRATOR.TELEHEALTH NURSE EDUCATOR Work Phone: [facility] 02-03-2023 13:05-0400 Systolic blood pressure 110 mm[Hg] Anaya Andrew HAIRSPRING VIBRATOR.TELEHEALTH NURSE EDUCATOR Work Phone: [facility] 03-20-2022 17:20-0500 Body temperature 98.1 [degF] Willie Ellis HAIRSPRING VIBRATOR.TELEHEALTH NURSE EDUCATOR Work Phone: [facility] 03-20-2022 17:20-0500 Body weight 111.4 kg Willie Ellis HAIRSPRING VIBRATOR.TELEHEALTH NURSE EDUCATOR Work Phone: [facility] 03-20-2022 17:20-0500 Diastolic blood pressure 78 mm[Hg] Willie Pendlebury HAIRSPRING VIBRATOR.TELEHEALTH NURSE EDUCATOR Work Phone: [facility] 03-20-2022 17:20-0500 Heart rate 106 /min Willie Pendlebury HAIRSPRING VIBRATOR.TELEHEALTH NURSE EDUCATOR Work Phone: [facility] 03-20-2022 17:20-0500 Respiratory rate 18 /min Willie Pendlebury HAIRSPRING VIBRATOR.TELEHEALTH NURSE EDUCATOR Work Phone: [facility] 03-20-2022 17:20-0500 SaO2% (BldA) [Mass fraction] 98 % Willie Pendlebury HAIRSPRING VIBRATOR.TELEHEALTH NURSE EDUCATOR Work Phone: [facility] 03-20-2022 17:20-0500 Systolic blood pressure 110 mm[Hg] Wilile Pendlebury HAIRSPRING VIBRATOR.TELEHEALTH NURSE EDUCATOR Work Phone: [facility] 09-17-2021 13:45-0400 Body temperature 100.4 [degF] Willie Pendlebury HAIRSPRING VIBRATOR.TELEHEALTH NURSE EDUCATOR Work Phone: [facility] 09-17-2021 13:45-0400 Body weight 103.42 kg Willie Pendlebury HAIRSPRING VIBRATOR.TELEHEALTH NURSE EDUCATOR Work Phone: [facility] 09-17-2021 13:45-0400 Diastolic blood pressure 72 mm[Hg] Willie Pendlebury HAIRSPRING VIBRATOR.TELEHEALTH NURSE EDUCATOR Work Phone: [facility] 09-17-2021 13:45-0400 Heart rate 126 /min Willie Pendlebury HAIRSPRING VIBRATOR.TELEHEALTH NURSE EDUCATOR Work Phone: [facility] 09-17-2021 13:45-0400 Respiratory rate 18 /min Willie Pendlebury HAIRSPRING VIBRATOR.TELEHEALTH NURSE EDUCATOR Work Phone: [facility] 09-17-2021 13:45-0400 SaO2% (BldA) [Mass fraction] 98 % Willie Pendlebury HAIRSPRING VIBRATOR.TELEHEALTH NURSE EDUCATOR Work Phone: [facility] 09-17-2021 13:45-0400 Systolic blood pressure 124 mm[Hg] Willie Pendlebury HAIRSPRING VIBRATOR.TELEHEALTH NURSE EDUCATOR Work Phone: [facility] Encounters Encounter Date Encounter Type Care Provider Facility Start: 06-04-2023 End: 06-04-2023 ambulatory BRITNEY LEE Facility:[facility] Start: 05-31-2023 End: 05-31-2023 ambulatory YOUNG DELGADO Facility:[facility] Start: 05-31-2023 End: 05-31-2023 Patient encounter procedure Jorge Schmitz HAIRSPRING VIBRATOR.TELEHEALTH NURSE EDUCATOR Work Phone: [facility] Procedures Date [...] Start: 05-12-2023 Depression Assessment Depression Ass essment [facility] Start: 03-15-2023 Urine microalbumin profile DTaP,Tdap,Td Vaccine (7 - Td or Tdap) [facility] Start: 02-03-2023 End: 04-05-2023 SYPHILIS TOTAL W/REFLEX [facility] Work Phone: Immunizations Immunization Date Immunization Notes Care Provider Fa cility 03-18-2023 respiratory syncytia l virus (RSV) vaccine, bivalent (ABRYSVO) Pietro cMkee APRN.CNM Work Phone: [facility] 03-15-2013 meningococcal polysaccharide (groups A, C, Y and W-135) diphtheria toxoid conjugate vaccine (MCV4P) Young Delgado MD Work Phone: [facility] 11-04-2013 tetanus toxoid, redu isacc diphtheria toxoid, and acellular pertussis vaccine, adsorbed Young Delgado MD Work Phone: [facility] 02-04-2001 varicella virus vaccine Alexander Delgado MD Work Phone: [facility] 12-17-1999 diphtheria, tetanus toxoids and acellular pertussis vaccine Young Delgado MD Work Phone: [facility] 12-17-1999 measles, mumps and rubella virus vaccine Young Delgado MD Work Phone: [facility] 12-17-1999 poliovirus vaccine, inactivated Young Delgado MD Work Phone: [facility] 12-08-1995 diphtheria, tetanus toxoids and acellular pertussis vaccine Young Delgado MD Work Phone: [facility] 12-08-1995 haemophilus influenz ae type b vaccine, PRP-T conjugate Young Delgado MD Work Phone: [facility] 09-12-1995 measles, mumps and rubella virus vaccine Young Delgado MD Work Phone: [facility] 04-17-1995 hepatitis B vaccine, pediatric or pediatric/adolescent dosage Young Delgado MD Work Phone: [facility] 02-19-1995 diphtheria, tetanus toxoids and acellular pertussis vaccine Young Delgado MD Work Phone: [facility] 02-19-1995 haemophilus influenz ae type b vaccine, PRP-T conjugate Young Delgado MD Work Phone: [facility] 02-19-1995 poliovirus vaccine, inactivated Young Delgado MD Work Phone: [facility] 1994 diphtheria, tetanus toxoids and acellular pertussis vaccine Young Delgado MD Work Phone: [facility] 1994 haemophilus influenz ae type b vaccine, PRP-T conjugate Young Delgado MD Work Phone: [facility] 1994 poliovirus vaccine, inactivated Young Delgado MD Work Phone: [facility] 1994 hepatitis B vaccine, pediatric or pediatric/adolescent dosage Young Delgado MD Work Phone: [facility] 1994 diphtheria, tetanus toxoids and acellular pertussis vaccine Young Delgado MD Work Phone: [facility] 1994 haemophilus influenz ae type b vaccine, PRP-T conjugate Young Delgado MD Work Phone: [facility] 1994 poliovirus vaccine, inactivated Young Delgado MD Work Phone: [facility] 1994 hepatitis B vaccine, pediatric or pediatric/adolescent dosage Young Delgado MD Work Phone: [facility] NEGATED: Highlighted row has not occurred!02-03-2023 RHO(D) immune globulin- IV or IM Anaya Highspire HAIRSPRING VIBRATOR.TELEHEALTH NURSE EDUCATOR Work Phone: [facility] Payers Date Payer Category Payer Medicaid [employer] [facility] MEDICAID [id number] 2020-Present [phone] [address] [place] [address] Medicaid [id number] 2020 Medicaid [id number] 2017 Unknown [id number] 1994 Unknown [id number] 1994 Unknown [id number] 1994 Unknown [id number] 1994 Unknown [id number] 1994 Unknown [id number] 1994 Unknown [id number] 1994 Unknown [id number] 1994 Unknown [id number] 1994 Unknown [id number] 1994 Unknown [id number] 1994 Unknown [id number] 1994 Unknown [id number] 1994 Unknown [id number] 1994 Unknown [id number] 1994 Unknown [id number] 1994 Unknown [id number] Unknown [id number] Social History Date Type Detail Facility Start: 12-08-2012 End: 03-20-2022 Tobacco smoking status RIIS Never smoked tobacco [facility] Work Phone: Start: 12-08-2012 End: 03-20-2022 Tobacco use and exposure Smokeless tobacco non-user [facility] Work Phone: Start: 09-17-2021 End: 03-20-2022 Alcohol intake Not Asked [facility] Start: 1995 Sex Assigned At Not on file [facility] Start: 09-07-2021 End: 03-20-2022 Exposure to SARS-CoV-2 (event) Not sure [facility] Start: 03-20-2022 End: 02-03-2023 History of Social function [facility] Start: 03-20-2022 End: 02-03-2023 Tobacco use panel [facility] National Score (1-100), lower number is lower risk Not on file [facility] Start: 02-03-2023 End: 05-31-2023 Alcohol intake Lifetime non-drinker (finding) [facility] Start: 08-04-2022 [facility] Medical Equipment Procedure Code Equipment Code Equipment Origin al Text Equipment Identifier Dates TRUE METRIX GLUC OSE TEST STRIP test strip Start: 01-15-2023 Goals Date Patient Goal Desired Activity /State Personal health goal Clinical Notes 09-17-2021 to 06-04-2023 Jorge Schmitz APRN.TELEHEALTH NURSE EDUCATOR - 05/31/2023 1:05 PM Britney Piper MD - 04/22/2023 5:09 PM ESTPrenatal Quick Notes - Britney Reyes MD - 04/22/2023 5:07 PM ESTPatient Instructions Note Date & Type Note Facility 06-04-2023 Note HNO ID: [id number] Author: BRITNEY REYES MD Service: ? Author [...] Menstrual pattern prior to : Regular periods [place] since delivery: Not resumed Depression: denies symptoms [...] harming myself has occurred to me. Never [place] Depression Scale Total 4 Feeling nervous, anxious [...] external genitalia normal, normal Bartholin's glands, urethra, [place]'s glands, no vulvar lesions, no cervical lesions, [...] evaluation of rectal bleeding. Britney Hickey MD [facility] 05-31-2023 Note HNO ID: [id number] Author: JORGE SCHMITZ APRN.TELEHEALTH NURSE EDUCATOR Service: ? Author Type: Nurse Practitioner Type: [...] has no known allergies. MEDICATIONS vit calc,iron,folic (PRENAT.VITS,GERA,SCF-VXPI-QPRWA ORAL) Take 1 tablet by mouth once [...] - RAPID STREP TEST B/O Jorge Schmitz APRN.[facility] 05-31-2023 History of Presen t illness Narrative [...] has no known allergies. MEDICATIONS vit calc,iron,folic (PRENAT.VITS,GERA,IYD-[id number]-KJESN ORAL) Take 1 tablet by mouth once [...] - RAPID STREP TEST B/O Jorge Schmitz APRN.TELEHEALTH NURSE EDUCATOR documented in this encounter [facility] 05-03-2023 Note HNO ID: [id number] Author: Vlad Arzate MD Service: ? Author [...] left over amoxicillin Patient delivered via at [facility] on 04/23/23. Symptoms started after she was [...] BENZONATATE 100 MG CAPSULE Vlad Arzate MD [facility] 04-24-2023 Note HNO ID: [id number] Author: Krystal Uribe RN Service: ? Author Type: Registered Nurse Type: Progress Notes Filed: 04/24/2023 8:37 AM Note Text: Patient delivered via at [facility] on 04/23/23 per Charla Rubio CNM. See OB Outcome note. Krystal Uribe RN [facility] 04-22-2023 Note HNO ID: [id number] Author: Britney Reyes MD Service: ? Author [...] I and Reactive SIGNATURE: Britney Hickey MD [facility] 04-22-2023 History of Presen t illness [...] Britney Hickey MD documented in this encounter [facility] 04-22-2023 Miscellaneous Notes DM-Pt doing well. Denies vaginal Bleeding, Leaking fluid, or regular Contractions. Pt reports good movement Physical Exam: Gen: female in no apparent distress Abd: soft, Gravid. Non tender to palpation. See flow sheet A/P: @ 39.2 weeks- GDMA1, Oligo 1) sent from [facility] office for OLIGO 2cm- IOL scheduled tmrw, NST today reactive cat 1 2) [place]/pit reviewed 3) Kick counts 4) reviewed BS log - well controlled 5) IOL consent signed Britney Hickey MD documented in this encounter [facility] 04-22-2023 Jaqueline Montalvo Ma - 04/22/2023 3:07 PM EST SEQUENTIAL SCREENINGS The [facility] offers sequential screenings for women who are [...] It will require an appointment with our eye technician. This is not an ultrasound performed [...] the above symptoms, contact our office at [phone] and ask to speak with a nurse. After hours, you can call doctors registry at [phone] OR call [facility] at [phone] and ask to have the doctor ironer machine paged. If you consider this an emergency, dial 9-1-1 or go to your nearest emergency department. NEED HELP? Are you dealing with a violent or abusive relationship? Are you a victim of rape or sexual assult? Call [facility] ([place]) 24 hour Crisis Hotline: 617.613.5546 or 463-980-0408. MANUAL Your Guide to a Healthy manual is now on-line. Visit [email or web address] to download your free copy documented in this encounter [facility] 04-22-2023 Miscellaneous Notes Patient coming in for an appointment to see DM. Spoke with L&D. They took patient name down to hold an induction spot for tomorrow AM. Krystal Uribe, RN Spoke w/ MFM from [facility]. US today shows oligo> BPP 10/17. [...] instead that day. documented in this encounter [facility] 04-22-2023 Note HNO ID: [id number] Author: Paxton Montalvo MA Service: ? Author Type: Signal Engineer Type: Progress Notes Filed: 04/22/2023 10:59 AM Note Text: POPULATION HEALTH NAVIGATION OUTREACH Action/ 2nd attempt: Called and left message to call back. Patient Identified by Name and : NO Outreach Outcome/Action Unable to reach patient: Left message Navigation Signature: Paxton Lopez MA April 22, 2023 10:59 AM [facility] 04-18-2023 Note Patient Outreach (NE TNAV) CHRISTINA CUEVAS ([id number]) 1995 F Date Time Provider Department 04/18/23 PAXTON MONTALOV During your visit today, we recorded the following information about you: Paxton Montalvo MA 04/18/2023 10:30 AM Signed POPULATION HEALTH NAVIGATION OUTREACH Action/FYI 1st attempt: Called and left message to call back to discuss broke handler. MC message sent. Patient Identified by Name and : NO Outreach Outcome/Action Unable to reach patient: Left message MyChart message sent Did you use a PCP flex slot to schedule this appointment? N/A Reason for Outreach Payer: Payor: [facility] MEDICAID / Plan: [facility] MEDICAID / Product Type: Medicaid / [...] Encounter Status:Closed by PAXTON MONTALVO on 04/18/23 [facility] 04-18-2023 Note HNO ID: [id number] Author: Paxton Montalvo MA Service: ? Author Type: Signal Engineer Type: Progress Notes Filed: 04/18/2023 10:30 AM Note Text: POPULATION HEALTH NAVIGATION OUTREACH Action/ attempt: Called and left message to call back to discuss broke handler. MC message sent. Patient Identified by Name and : NO Outreach Outcome/Action Unable to reach patient: Left message MyChart message sent Did you use a PCP flex slot to schedule this appointment? N/A Reason for Outreach Payer: Payor: [facility] MEDICAID / Plan: [facility] MEDICAID / Product Type: Medicaid / Care Gap Reviewed:: N/A Reminder: Reminder note to check Health Maintenance for items below Health Maintenance items due: Covid-19 Vaccine(1) Never done Pap Testing Never done Depression Assessment Never done Influenza Vaccine(1) Never done DTaP,Tdap,Td Vaccine(7 - Td or Tdap) due on 03/15/2023 Navigation Signature: Paxton Lopez MA April 18, 2023 10:15 AM [facility] 04-18-2023 History of Presen t illness Narrative POPULATION HEALTH NAVIGATION OUTREACH Action/ 1st attempt: Called and left message to call back to discuss broke handler. MC message sent. Patient Identified by Name and : NO Outreach Outcome/Action Unable to reach patient: Left message MyChart message sent Did you use a PCP flex slot to schedule this appointment? N/A Reason for Outreach [place] Payer: Payor: [facility] MEDICAID / Plan: [facility] MEDICAID / Product Type: Medicaid / Care Gap Reviewed:: N/A Reminder: Reminder note to check Health Maintenance for items below Health Maintenance items due: Covid-19 Vaccine(1) Never done Pap Testing Never done Depression Assessment Never done Influenza Vaccine(1) Never done DTaP,Tdap,Td Vaccine(7 - Td or Tdap) due on 03/15/2023 Navigation Signature: Paxton Lopez MA April 18, 2023 10:15 AM documented in this encounter [facility] 04-14-2023 Note HNO ID: [id number] Author: Pietro Mckee APRN.CNM Service: ? Author Type: Flat Lock Machine Operator Type: Progress Notes Filed: 04/14/2023 4:45 PM [...] None Interpretation: Reactive SIGNATURE: Pietro Mckee APRN.CNM [facility] 04-14-2023 History of Presen t illness [...] Pietro Mckee APRN.CNM documented in this encounter [facility] 04-14-2023 Miscellaneous Notes MIR-S: Christina Cuevas is [...] Rosa Mckee APRN.CNM documented in this encounter [facility] 04-14-2023 Instructions Paxton Trevino MA - 04/14/2023 2:44 PM EST SEQUENTIAL SCREENINGS The [facility] offers sequential screenings for women who are [...] It will require an appointment with our eye technician. This is not an ultrasound performed [...] the above symptoms, contact our office at [phone] and ask to speak with a nurse. After hours, you can call doctors registry at [phone] OR call [facility] at [phone] and ask to have the doctor ironer machine paged. If you consider this an emergency, dial 9--1 or go to your nearest emergency department. NEED HELP? Are you dealing with a violent or abusive relationship? Are you a victim of rape or sexual assult? Call [facility] ([place]) 24 hour Crisis Hotline: 940.421.3748 or 881-059-4678. MANUAL Your Guide to a Healthy manual is now on-line. Visit [email or web address] to download your free copy documented in this encounter [facility] 04-08-2023 Note HNO ID: [id number] Author: Young Delgado MD Service: ? Author [...] None Interpretation: Reactive SIGNATURE: Young Delgado MD [facility] 04-07-2023 Miscellaneous Notes 3rd risk assessment form submitted 04/07/23 Nara Blount RN documented in this encounter [facility] 04-04-2023 Miscellaneous Notes FMLA faxed to employer, scanned into EMR and filed in nurses station. Adri De La Rosa LPN FMLA completed and placed on providers desk for signature. Adri LPN\ documented in this encounter [facility] 03-20-2023 Note HNO ID: [id number] Author: Krystal Uribe RN Service: ? Author Type: ? Type: Progress Notes Filed: 03/20/2023 12:02 PM Note Text: [facility] Ultrasound on 03/20/23 Scan on 03/20/2023 11:44 AM by Provider, ExternalJAISONC: Ultrasound [facility] 03-18-2023 Miscellaneous Notes Patient in office for visit with MIR now. Geraldine Breen RN Reassuring growth US. Follow up is scheduled 2 weeks from that US. Young Delgado MD Received US from [facility] Scan on 03/18/2023 10:24 AM by Provider, JAISON VargasC: Ultrasound Called and spoke with [facility]. They will be faxing the US report over to our office. Krystal Uribe RN Attempted to contact [facility] in [place] @ [phone] but no one in the office. Will try calling again. Krystal Uribe RN Patient returned call. Asked patient to contact [facility] and have them fax our office the US report and future reports. Please leave open to make sure the US report is faxed to us. Krystal Uribe RN Left message for patient to call office. Dr. Delgado requested a copy of the US report from [facility] but we never received it, not on care everywehre. Patients care team on their encounter has Danny Aguila listed, so was going to ask patient to update them that she is seeing us and ask them to send her ultrasound to us. REKHA SCHAEFER, RN documented in this encounter [facility] 03-07-2023 Miscellaneous Notes 2ND risk assessment form submitted 03/07/23 Nara Blount RN documented in this encounter [facility] 03-07-2023 Miscellaneous Notes KJ - VB No. [...] Young Delgado MD documented in this encounter [facility] 03-07-2023 Instructions Paxton Trevino MA - 03/07/2023 10:26 AM EDT SEQUENTIAL SCREENINGS The [facility] offers sequential screenings for women who are [...] It will require an appointment with our eye technician. This is not an ultrasound performed [...] the above symptoms, contact our office at [phone] and ask to speak with a nurse. After hours, you can call doctors registry at [phone] OR call [facility] at [phone] and ask to have the doctor ironer machine paged. If you consider this an emergency, dial 9-8 or go to your nearest emergency department. NEED HELP? Are you dealing with a violent or abusive relationship? Are you a victim of rape or sexual assult? Call [facility] ([place]) 24 hour Crisis Hotline: 390.101.7393 or 858-200-3908. MANUAL Your Guide to a Healthy manual is now on-line. Visit [email or web address] to download your free copy documented in this encounter [facility] 03-04-2023 Miscellaneous Notes Done Young Dlegado MD 32w2d Patient is a transfer from [place]. Takes Acyclovir for daily suppressive therapy. She has been out of her medication for approximately a week. Needing a new Rx. Pharmacy is up to date. No need to call patient back unless there is a problem. Krystal Uribe RN documented in this encounter [facility] 02-21-2023 Miscellaneous Notes RR- VB No. LOF [...] Neil Alvarado M.D. documented in this encounter [facility] 02-21-2023 Instructions Ashlee Rebolledo Kendal - 02/21/2023 2:34 PM EDT SEQUENTIAL SCREENINGS The [facility] offers sequential screenings for women who are [...] It will require an appointment with our eye technician. This is not an ultrasound performed [...] the above symptoms, contact our office at [phone] and ask to speak with a nurse. After hours, you can call doctors registry at [phone] OR call [facility] at [phone] and ask to have the doctor ironer machine paged. If you consider this an emergency, dial 5--9 or go to your nearest emergency department. NEED HELP? Are you dealing with a violent or abusive relationship? Are you a victim of rape or sexual assult? Call [facility] ([place]) 24 hour Crisis Hotline: 267.217.8501 or 361-542-2269. MANUAL Your Guide to a Healthy manual is now on-line. Visit [email or web address] to download your free copy documented in this encounter [facility] 02-03-2023 Note HNO ID: [id number] Author: Anaya Morales APRN.CNP Service: ? Author [...] use: No Multivitamin with Folic acid: Yes Denominational or heritage: No Would refuse blood transfusion [...] Status: Partner: Name: Lee Age: 24 Occupation: [employer] Gender: Male History of STDs: HSV No [...] Pain, Stiffness RESPIRATORY: (more content not included)... [facility] 02-03-2023 History of Presen t illness [...] use: No Multivitamin with Folic acid: Yes Denominational or heritage: No Would refuse blood transfusion [...] Status: Partner: Name: Lee Age: 24 Occupation: [employer] Gender: Male History of STDs: HSV No [...] Your guide to a health and the Registered Radiographer. Reviewed midwifery and probate clerk services that are available. 2) Gest DM- diet controlled Refused Tdapt, LARC declined Follow up in 2 weeks or sooner franchesca. Anaya Morales APRN.NATALY documented in this encounter [facility] 02-03-2023 Instructions Jaqueline Ching Ma 02/03/2023 1:03 PM EDT Please select the following link to access the [facility] Your Guide to a Healthy . [email or web address] documented in this encounter [facility] 01-10-2023 Note HNO ID: [id number] Author: Krystal Uribe RN Service: ? Author Type: ? Type: Progress Notes Filed: 01/10/2023 9:21 AM Note Text: Records updated in [employer]. Sent for scanning. Krystal Uribe RN [facility] 01-09-2023 Note HNO ID: [id number] Author: Krystal Uirbe RN Service: ? Author Type: ? Type: Progress Notes Filed: 01/09/2023 5:36 PM Note Text: Received outside medical records from [place] COORDINATOR. In nurse triage room. Krystal Uribe RN [facility] 01-09-2023 History of Presen t illness Narrative Received outside medical records from [place] COORDIN[facility]. In nurse triage room. Krystal Uribe RN documented in this encounter [facility] 03-20-2022 History of Presen t illness Narrative [...] of care. This note was generated using [employer] software. It may contain errors in wording, punctuation, or spelling. Willie Ellis APRN.NATALY documented in this encounter [facility] 09-18-2021 Miscellaneous Notes Patient given results and [...] care provider or schedule a visit with [facility]. A test is not recommended to return to work/school when meeting the above criteria. documented in this encounter [facility] 09-17-2021 Instructions Willie Ellis APRN.NATALY - 09/17/2021 [...] concerning to you. documented in this encounter [facility] 09-17-2021 History of Presen t illness Narrative [...] not perforated, erythematous or bulging. Mouth/Throat: Lips: [place]. Mouth: Mucous membranes are moist. Pharynx: Oropharynx [...] of care. This note was generated using [employer] software. It may contain errors in wording, punctuation, or spelling. Willie Ellis APRN.NATALY documented in this encounter [facility] Viral illness- Primary Unspecified viral infection, in conditions classified elsewhere and of unspecified site [facility]* Diagnosis 28 weeks gestation of - Primary state, incidental Previous stillbirth or demise, antepartum with other poor reproductive history Diet controlled gestational diabetes mellitus (GDM) in third trimester Prior with demise with other poor reproductive history documented in this encounter [facility] note* Diagnosis 30 weeks gestation of - Primary state, incidental Diet controlled gestational diabetes mellitus (GDM) in third trimester Prior with demise with other poor reproductive history [facility] Diagnosis 32 weeks gestation of - Primary state, incidental Diet controlled gestational diabetes mellitus (GDM) in third trimester documented [facility]* Diagnosis 38 weeks gestation of - Primary state, incidental Supervision of other high risk pregnancies, third trimester Diet controlled gestational diabetes mellitus (GDM) in third trimester Obesity affecting in third trimester, unspecified obesity type documented in this encounter [facility] note* Diagnosis Supervision of other high risk pregnancies, third trimester- Primary Diet controlled gestational diabetes mellitus (GDM) in third trimester Oligohydramnios in third trimester, single or unspecified fetus Obesity affecting in third trimester, unspecified obesity type 39 weeks gestation of state, incidental [facility] Diagnosis Sorethroat- Primary Acute pharyngitis documented in this encounter [facility] Summary Purpose Family History No Family History Records FoundNo Family History Records FoundNo Family History Records Found Advance Directives No Advanced Directives Records FoundNo Advanced Directives Records FoundNo Advanced Directives Records Found Health Concerns Infection Onset Date Last Indicated Resolved Time COVID-19 Confirmed 09/17/2021 09/17/2021 Problem Noted Date Diagnosed Date [facility] - [facility] 02/03/2023 [place] - [place] 02/03/2023 Problem Noted Date Diagnosed Date [facility] - [facility] 02/03/2023 [place] - [place] 02/03/2023 Problem Noted Date Diagnosed Date [facility] - [facility] 02/03/2023 [place] - [place] 02/03/2023 Problem Noted Date Diagnosed Date [facility] - [facility] 02/03/2023 Education - [place] 02/03/2023 Problem Noted Date Diagnosed Date [facility] - [facility] 02/03/2023 Education - [place] 02/03/2023 Problem Noted Date Diagnosed Date [facility] - [facility] 02/03/2023 Education - [place] 02/03/2023 Problem Noted Date Diagnosed Date [facility] - [facility] 02/03/2023 Education - [place] 02/03/2023 Problem Noted Date Diagnosed Date [facility] - [facility] 02/03/2023 Education - [place] 02/03/2023 Problem Noted Date Diagnosed Date [facility] - [facility] 02/03/2023 Education - [place] 02/03/2023 Problem Noted Date Diagnosed Date [facility] - [facility] 02/03/2023 Education - [place] 02/03/2023 Problem Noted Date Diagnosed Date [facility] - [facility] 02/03/2023 [place] - [place] 02/03/2023 Additional Source Comments INFORMATION SOURCE (unrecogn ized section and content) DATE CREATED AUTHOR AUTHOR'S ORGANIZ ATION 04/24/2023 [facility] DATE CREATED AUTHOR AUTHOR'S ORGANIZ ATION 06/14/2023 [facility] Source Comments (unrecognize d section and content) In the event this informatio n is protected by the Federal Confidentiality of Alcohol and Drug Abuse Patient Records regulations: The Federal rules restrict any use of the information to criminally investigate or prosecute any alcohol or drug abuse patient.[facility] the event this information is protected by the Federal Confidentiality of Alcohol and Drug Abuse Patient Records regulations: The Federal rules restrict any use of the information to criminally investigate or prosecute any alcohol or drug abuse patient.[facility] Foundation[facility] the event this information is protected by the Federal Confidentiality of Alcohol and Drug Abuse Patient Records regulations: The Federal rules restrict any use of the information to criminally investigate or prosecute any alcohol or drug abuse patient.[facility] Foundation[facility] the event this information is protected by the Federal Confidentiality of Alcohol and Drug Abuse Patient Records regulations: The Federal rules restrict any use of the information to criminally investigate or prosecute any alcohol or drug abuse patient.[facility] Foundation[facility] the event this information is protected by the Federal Confidentiality of Alcohol and Drug Abuse Patient Records regulations: The Federal rules restrict any use of the information to criminally investigate or prosecute any alcohol or drug abuse patient.[facility] Foundation[facility] the event this information is protected by the Federal Confidentiality of Alcohol and Drug Abuse Patient Records regulations: The Federal rules restrict any use of the information to criminally investigate or prosecute any alcohol or drug abuse patient.[facility] Foundation[facility] the event this information is protected by the Federal Confidentiality of Alcohol and Drug Abuse Patient Records regulations: The Federal rules restrict any use of the information to criminally investigate or prosecute any alcohol or drug abuse patient.[facility] Foundation[facility] the event this information is protected by the Federal Confidentiality of Alcohol and Drug Abuse Patient Records regulations: The Federal rules restrict any use of the information to criminally investigate or prosecute any alcohol or drug abuse patient.[facility] Foundation[facility] the event this information is protected by the Federal Confidentiality of Alcohol and Drug Abuse Patient Records regulations: The Federal rules restrict any use of the information to criminally investigate or prosecute any alcohol or drug abuse patient.[facility] Foundation[facility] the event this information is protected by the Federal Confidentiality of Alcohol and Drug Abuse Patient Records regulations: The Federal rules restrict any use of the information to criminally investigate or prosecute any alcohol or drug abuse patient.[facility] Foundation[facility] the event this information is protected by the Federal Confidentiality of Alcohol and Drug Abuse Patient Records regulations: The Federal rules restrict any use of the information to criminally investigate or prosecute any alcohol or drug abuse patient.[facility] Foundation[facility] the event this information is protected by the Federal Confidentiality of Alcohol and Drug Abuse Patient Records regulations: The Federal rules restrict any use of the information to criminally investigate or prosecute any alcohol or drug abuse patient.[facility] Foundation[facility] the event this information is protected by the Federal Confidentiality of Alcohol and Drug Abuse Patient Records regulations: The Federal rules restrict any use of the information to criminally investigate or prosecute any alcohol or drug abuse patient.[facility] Foundation[facility] the event this information is protected by the Federal Confidentiality of Alcohol and Drug Abuse Patient Records regulations: The Federal rules restrict any use of the information to criminally investigate or prosecute any alcohol or drug abuse patient.[facility] FoundationIn the event this information is protected by the Federal Confidentiality of Alcohol and Drug Abuse Patient Records regulations: The Federal rules restrict any use of the information to criminally investigate or prosecute any alcohol or drug abuse patient.[facility] Foundation[facility] the event this information is protected by the Federal Confidentiality of Alcohol and Drug Abuse Patient Records regulations: The Federal rules restrict any use of the information to criminally investigate or prosecute any alcohol or drug abuse patient.[facility] Foundation[facility] the event this information is protected by the Federal Confidentiality of Alcohol and Drug Abuse Patient Records regulations: The Federal rules restrict any use of the information to criminally investigate or prosecute any alcohol or drug abuse patient.[facility] Reason for Visit (unrecogniz ed section and [...] BE BASED ON THE PRIMARY CLINICAL RECORDS. [facility]. provides no warranty or guarantee of the accuracy or completeness of information in this document.
[2023-07-20] MEDS: Famotidine 200 MG/20 ML MDV 20 MG in 0.9% Normal Saline (Pres. free 8 ML 300 MG IV (04:25)
[2023-07-20] MEDS: Ondansetron 4 MG/2 ML Vial IV (04:25)
[2023-07-20] MEDS: 0.9% Normal Saline (1000mL) 1,000 ML 1000 ML IV (04:27)
[2023-07-20 04:32] LABS: Absolute Lymphocyte Count 1.19 X10^3/uL (0.83-4.51); Absolute Neutrophil Count 1.7 X10^3/uL (2.0-7.7); Basophil# 0.01 X10^3/uL; Basophil% 0.3 % (0-1); Eosinophil# 0.02 X10^3/uL; Eosinophils% 0.6 % (0-5); Hemoglobin 11.5 g/dL (12.0-15.0); Lymphocyte # 1.19 X10^3/ul (0.83-4.51); Lymphocyte % 36.6 % (19-41); Mean Corp Hgb Conc 31.9 g/dL (32-36); Mean Corpuscular Volume 87.6 fL (81-99); Mean Platelet Vol. 9.5 fl (6.2-12.0); Monocyte# 0.32 X10^3/uL; Monocyte% 9.8 % (0-10); NRBC Flagged by Analyzer 0 % (0-5); Neutrophil # 1.71 X10^3/uL (2.7-7.7); Neutrophil % 52.7 % (47-70); Platelet Count 157 K/mm3 (150-450); RBC Distribution Width CV 13.6 % (11.6-14.6); RBC Distribution Width SD 43.8 fl (35.1-43.9); Red Blood Count 4.11 M/mm3 (4.2-5.4); White Blood Count 3.3 K/mm3 (4.4-11.0)
[2023-07-20 04:46] LABS: Anion Gap 5 (5-15); BUN 13 mg/dL (7-18); BUN/Creat Ratio 17.6 RATIO (10-20); Calcium,Total 8.4 mg/dL (8.5-10.1); Chloride 107 mmol/L (98-107); Creatinine, Serum 0.74 mg/dL (0.55-1.02); EST Glomerular Filtration Rate 99 mL/min (>60); Est Glom Filt Rate - Afr Amer 119 mL/min (>60); Estimated Creatinine Clearance 138.19 ml/min; Glucose 114 mg/dL (74-106); Lipase 44 U/L (13-75); Potassium 3.8 mmol/L (3.5-5.1); Sodium Level 139 mmol/L (136-145)
[2023-07-20 06:23] LABS: Internal QC Validated? YES +Cl - CLEAR BKGD; Pregnancy, Urine Negative Negative
[2023-07-20 07:16] VITALS: BP 110/72; PULSE 55; RESP 16; TEMP 36.7; O2SAT 99
== END 2023-07-20 07:18 | disposition home or self-care (01) ==
PROVIDERS: Emergency Provider Emergency Medicine; Visit Provider Emergency Medicine
DX: R10.9 Unspecified abdominal pain (principal); D64.9 Anemia, unspecified; F41.9 Anxiety disorder, unspecified; Z79.899 Other long term (current) drug therapy
CPT/HCPCS: 80048; 81025; 83690; 85025; 96361; 96374; 96375; 99283; J7030; A4216; J2405; J3490

== ENCOUNTER 2023-09-29 23:27 | Observation (INO) | payer MEDICAID, SELFPAY ==
[2023-09-29 23:28] VITALS: BP 118/76; PULSE 56; RESP 18; TEMP 35.8; O2SAT 99; BMI 37.7
--- NOTE | 2023-09-29 23:48 | ED.VIS.GI ---
HPI <Dr. Ben Galloway MD - Last Filed: 09/30/23 01:15> HPI - GI History of Present Illness Chief Complaint: Abd Pain Informant: patient Narrative Narrative: 28-year-old female states she has been having upper abdominal pain as a band across her upper abdomen but does not go into her back or shoulders for the past couple hours. Prior to coming here, she had nausea and vomiting, she tried multiple antacids none of which helped. She tried a nausea medicine that did not help. She states it started maybe an hour after eating a cheeseburger. She had this couple months ago and was seen here and diagnosed with gastritis she states. She has had no hematemesis or bright red blood per rectum or melena. No fevers or chills. No prior abdominal surgeries. PFSH <Dr. Ben Galloway MD - Last Filed: 09/30/23 01:15> [facility] Medical History HPV (human papilloma virus) infection Stillborn, normal Oligohydramnios Gestational diabetes Prior with demise GDM, class A1 Acute sinusitis, unspecified Spontaneous vaginal delivery Chlamydia infection affecting Anxiety Chronic neck and back pain Abnormal bruising Home Medications ?Medication ?Instructions ?Recorded ?Last Taken ?Type sertraline 50 mg tablet (Zoloft) 50 mg PO DAILY 06/27/23 09/29/23 History vitamin C 45 mg-zinc citrate 3.75 2 tab PO DAILY 06/27/23 09/29/23 History mg-elderberry 50 mg chewable tablet (YaSabe) Allergy/AdvReac Type Severity Reaction Status Date / Time No Known Allergies Allergy Verified 09/29/23 23:28 Family History Other Diabetes Surgical History History of adenoidectomy History of surgery Social History Smoking Status: Never smoker alcohol intake: never ROS <Dr. Ben Galloway MD - Last Filed: 09/30/23 01:15> ROS ED Constitutional Constitutional ED: Denies chills or fever(s) Eyes Eyes: Denies change in vision or diplopia ENT ENT ED: Denies rhinorrhea or sore throat Cardiovascular Cardiovascular: Denies chest pain or palpitations Respiratory/Chest Respiratory/Chest: Denies cough or dyspnea Gastrointestinal Gastrointestinal: Reports abdominal pain, nausea and vomiting; Denies diarrhea or melena Genitourinary Genitourinary ED: Denies dysuria or hematuria Musculoskeletal Musculoskeletal: Denies back pain or neck pain Integumentary Denies abscess or rash Neurologic Neurologic: Denies headache(s), paresthesias or weakness Psychiatric Psychiatric: Denies suicidal thoughts EXAM <Dr. Ben Galloway MD - Last Filed: 09/30/23 01:15> Physical Exam Const Vital Signs: 09/29/23 23:28 09/30/23 01:30 09/30/23 03:00 Temperature 96.4 F L Temperature Source Temporal Pulse Rate 56 L 78 74 Respiratory Rate 18 23 H 16 Blood Pressure 118/76 120/81 H 127/98 H Blood Pressure Mean 90 94 107 Pulse Ox 99 98 Oxygen Delivery Method Room Air Room Air 09/30/23 05:00 09/30/23 07:00 09/30/23 09:00 Temperature 98.4 F Temperature Source Oral Pulse Rate 77 61 Respiratory Rate 18 16 14 Blood Pressure 135/90 H 134/84 H Blood Pressure Mean 105 100 Pulse Ox 98 98 Oxygen Delivery Method Room Air Room Air Positive well nourished and well developed Constitutional Narrative: Well-appearing in no distress General Appearance ED: well developed and NAD HEENT Reports moist mucous membranes normocephalic and atraumatic Eyes PERRL and EOMs intact bilaterally Neck full ROM and supple Resp normal respiratory effort and clear to auscultation bilaterally Cardio regular rate, regular rhythm and no murmurs GI non-distended GI Narrative: Tender across upper abdomen negative Tee no guarding or rebound otherwise benign exam Auscultation: normoactive bowel sounds Palpation: soft Back/Spine no CVA tenderness General Back: other FROM Extremity normal to inspection General Extremety ED: Negative for edema, pulses abnormal or tenderness General Extremity: Negative for edema or pulses abnormal Neuro oriented x3, CN's II-XII intact bilaterally and no sensory deficits noted Sensorium / Orientation: awake and alert Motor Exam: strength 5/5 throughout Skin no rashes or lesions noted and no wounds <Dr. Krystal Miller MD - Last Filed: 09/30/23 10:54> Physical Exam Const Vital Signs: 09/29/23 23:28 09/30/23 01:30 09/30/23 03:00 Temperature 96.4 F L Temperature Source Temporal Pulse Rate 56 L 78 74 Respiratory Rate 18 23 H 16 Blood Pressure 118/76 120/81 H 127/98 H Blood Pressure Mean 90 94 107 Pulse Ox 99 98 Oxygen Delivery Method Room Air Room Air 09/30/23 05:00 09/30/23 07:00 09/30/23 09:00 Temperature 98.4 F Temperature Source Oral Pulse Rate 77 61 Respiratory Rate 18 16 14 Blood Pressure 135/90 H 134/84 H Blood Pressure Mean 105 100 Pulse Ox 98 98 Oxygen Delivery Method Room Air Room Air MDM <Dr. Ben Galloway MD - Last Filed: 09/30/23 01:15> [facility] Narrative Medical decision making narrative: Symptoms could be compatible with gastritis but also suspicious for biliary colic, although her symptoms are not colicky. Patient presents after ultrasound is gone and not available. Therefore I did a bedside ultrasound of the gallbladder, I see what appears to be a normal kidney without hydronephrosis on the right, and a distended gallbladder with a normal wall grossly, and I can see a single shadowing stone. She has a positive sonographic Tee's. She has a white blood count of 13.8 but her liver enzymes are within normal limits and her total bilirubin is normal as well as her lipase. is negative ruling out ectopic . She was given Toradol, it helped her pain some. She was asking for IV fluids which were not initially ordered because she has had pain and vomiting for an hour or 2. Given all of this, I think the best course of action given her leukocytosis and leftward shift with only couple hours of pain is to observe her in the emergency department until ultrasound is available in the morning; does not need to be done emergently, but if it shows signs of cholecystitis, then antibiotics and admission for cholecystectomy would be most reasonable disposition. Therefore at 0115 she was placed in ED observation for that reason. Lab Data Attestation: I reviewed the patient's lab results. Labs: Laboratory Results - last 24 hr 09/29/23 00:25 WBC 13.8 H RBC 4.22 Hgb 11.8 L Hct 37.7 MCV 89.3 MCH 28.0 MCHC 31.3 L RDW Std Deviation 42.1 RDW Coeff of Caitlyn 12.9 Plt Count 225 MPV 10.1 Immature Gran % (Auto) 0.600 Neut % (Auto) 84.6 H Lymph % (Auto) 9.9 L [place] % (Auto) 4.1 Eos % (Auto) 0.6 Baso % (Auto) 0.2 Absolute Neuts (auto) 11.7 H Absolute Lymphs (auto) 1.37 Nucleated RBC % 0 Sodium 139 Potassium 3.9 Chloride 108 H Carbon Dioxide 26.0 Anion Gap 5 BUN 18 Creatinine 0.80 Estim Creat Clear Calc 127.71 Est GFR (MDRD) Af Amer 109 Est GFR (MDRD) Non-Af 90 BUN/Creatinine Ratio 22.4 H Glucose 159 H Calcium 8.7 Total Bilirubin 0.10 L AST 21 ALT 34 Alkaline Phosphatase 40 L Total Protein 7.4 Albumin 3.5 Globulin 3.9 Albumin/Globulin Ratio 0.9 Lipase 40 Serum , Qual NEGATIVE Radiography Diagnostic Testing: Clinical Impression(s) from Imaging Studies Gallbladder Ultrasound 09/30/23 01:32 IMPRESSION: Cholelithiasis with distended gallbladder. Electronically Signed: Destin Valadez MD at 7:36 EDT , <Dr. Krystal Miller MD - Last Filed: 09/30/23 10:54> [facility] Lab Data Labs: Laboratory Results - last 24 hr 09/29/23 00:25 WBC 13.8 H RBC 4.22 Hgb 11.8 L Hct 37.7 MCV 89.3 MCH 28.0 MCHC 31.3 L RDW Std Deviation 42.1 RDW Coeff of Caitlyn 12.9 Plt Count 225 MPV 10.1 Immature Gran % (Auto) 0.600 Neut % (Auto) 84.6 H Lymph % (Auto) 9.9 L [place] % (Auto) 4.1 Eos % (Auto) 0.6 Baso % (Auto) 0.2 Absolute Neuts (auto) 11.7 H Absolute Lymphs (auto) 1.37 Nucleated RBC % 0 Sodium 139 Potassium 3.9 Chloride 108 H Carbon Dioxide 26.0 Anion Gap 5 BUN 18 Creatinine 0.80 Estim Creat Clear Calc 127.71 Est GFR (MDRD) Af Amer 109 Est GFR (MDRD) Non-Af 90 BUN/Creatinine Ratio 22.4 H Glucose 159 H Calcium 8.7 Total Bilirubin 0.10 L AST 21 ALT 34 Alkaline Phosphatase 40 L Total Protein 7.4 Albumin 3.5 Globulin 3.9 Albumin/Globulin Ratio 0.9 Lipase 40 Serum , Qual NEGATIVE Radiography Diagnostic Testing: Clinical Impression(s) from Imaging Studies Gallbladder Ultrasound 09/30/23 01:32 IMPRESSION: Cholelithiasis with distended gallbladder. Electronically Signed: Destin Valadez MD at 7:36 EDT , Treatment and Re-Evaluation :: Patient signed out to me pending right upper quadrant ultrasound. Ultrasound does reveal distended gallbladder with gallstones. No pericholecystic fluid and negative sonographic Tee sign. I went back and examined the patient. She does still grimace with palpation to the right upper quadrant. I spoke with Dr. Soliz who presented to the emergency room to see the patient. He will plan to admit the patient to take her gallbladder out. I will give her dose of Zosyn at this time. Discharge Plan Triage Chief Complaint: Abd Pain ED Provider: Ben Galloway Dx/Rx/DC Orders Clinical Impression: Acute upper abdominal pain, Cholelithiasis Prescriptions: No Action sertraline [Zoloft] 50 mg tablet 50 mg PO DAILY YaSabe 45-3.75-50 mg tablet,chewable 2 tab PO DAILY Primary Care Provider: Care Physician,No Primary Referrals: Care Physician,No Primary [Primary Care Provider] - Print Language: [place] Irish Disposition Disposition: [facility] Care [facility]
[2023-09-30] VITALS (9 sets, daily range): BP systolic 100–135; BP diastolic 72–106; PULSE 51–78; RESP 14–23; TEMP 36.5–37; O2SAT 96–100; BMI 37.1
[2023-09-30 00:35] LABS: Absolute Lymphocyte Count 1.37 X10^3/uL (0.83-4.51); Absolute Neutrophil Count 11.7 X10^3/uL (2.0-7.7); Basophil# 0.03 X10^3/uL; Basophil% 0.2 % (0-1); Eosinophil# 0.08 X10^3/uL; Eosinophils% 0.6 % (0-5); Hematocrit 37.7 % (37-47); Hemoglobin 11.8 g/dL (12.0-15.0); Lymphocyte # 1.37 X10^3/ul (0.83-4.51); Lymphocyte % 9.9 % (19-41); Mean Corp Hgb Conc 31.3 g/dL (32-36); Mean Corpuscular Volume 89.3 fL (81-99); Mean Platelet Vol. 10.1 fl (6.2-12.0); Monocyte# 0.56 X10^3/uL; Monocyte% 4.1 % (0-10); NRBC Flagged by Analyzer 0 % (0-5); Neutrophil # 11.67 X10^3/uL (2.7-7.7); Neutrophil % 84.6 % (47-70); Platelet Count 225 K/mm3 (150-450); RBC Distribution Width CV 12.9 % (11.6-14.6); RBC Distribution Width SD 42.1 fl (35.1-43.9); Red Blood Count 4.22 M/mm3 (4.2-5.4); White Blood Count 13.8 K/mm3 (4.4-11.0)
[2023-09-30 00:43] LABS: Internal QC Validated? YES +Cl - CLEAR BKGD; Pregnancy, Serum, hCG Quali. NEGATIVE Negative; Record Kit Lot#, Serum Preg. 718089
[2023-09-30 00:49] LABS: ALB/GLOB Ratio 0.9 RATIO (0.9-2.4); AST(SGOT) 21 U/L (15-37); Alanine Aminotransfer ALT/SGPT 34 U/L (13-56); Albumin, Serum 3.5 g/dL (3.2-5.0); Alkaline Phosphatase 40 U/L (45-117); Anion Gap 5 (5-15); BUN 18 mg/dL (7-18); BUN/Creat Ratio 22.4 RATIO (10-20); Calcium,Total 8.7 mg/dL (8.5-10.1); Chloride 108 mmol/L (98-107); EST Glomerular Filtration Rate 90 mL/min (>60); Est Glom Filt Rate - Afr Amer 109 mL/min (>60); Estimated Creatinine Clearance 127.71 ml/min; Globulin 3.9 g/dL (2.2-4.2); Glucose 159 mg/dL (74-106); Lipase 40 U/L (13-75); Potassium 3.9 mmol/L (3.5-5.1); Protein, Total 7.4 g/dL (6.4-8.2); Sodium Level 139 mmol/L (136-145)
[2023-09-30] MEDS: Ketorolac 15 MG/ML Vial IV (00:57)
[2023-09-30] MEDS: Ondansetron 4 MG/2 ML Vial IV (00:57)
[2023-09-30] MEDS: 0.9% Normal Saline (500mL Bag) 500 ML 999 ML IV (01:12)
--- NOTE | 2023-09-30 01:32 | US_ITS ---
EXAM: US ABDOMEN LIMITED, RIGHT UPPER QUADRANT CLINICAL INDICATION: pain, n/v TECHNIQUE: Real-time ultrasound of the right upper quadrant with image documentation. COMPARISON: No relevant prior studies available. FINDINGS: LIVER: The liver measures 18 cm. There is normal echotexture. No intrahepatic biliary ductal dilation. GALLBLADDER: The gallbladder is distended measuring 4.3 cm in diameter and 10.3 cm in length. Multiple small stones layering in the gallbladder neck. No gallbladder wall thickening is demonstrated. No pericholecystic fluid. Negative sonographic Tee''s sign. COMMON BILE DUCT: Unremarkable as visualized. The proximal common bile duct is within normal limits for the patient''s age. PANCREAS: Unremarkable as visualized. No focal abnormality is demonstrated in the pancreas. No pancreatic ductal dilatation. RIGHT KIDNEY: Unremarkable. There is no hydronephrosis. No shadowing calculus. No focal lesion or perinephric collection is demonstrated. US/Gallbladder IMPRESSION: Cholelithiasis with distended gallbladder. Electronically Signed: Destin Valadez MD at 7:36 EDT ,
--- NOTE | 2023-09-30 09:13 | PCM.HP.STD ---
HPI - General General Date of Admission: 09/30/23 Date of Service: 09/30/23 Chief Complaint: Upper abdominal pain HPI Narrative OSMANI RICHARDSON, is a 28 F who presents with an acute onset of epigastric pain. Patient notes an hour after eating a cheeseburger for dinner last night at [facility], she developed acute onset of epigastric discomfort, nausea and vomiting. Patient denies any change in bowel habits. She notes the nausea has subsided since being in the ED. She has not vomited any further. She denies being around any sick contacts. Patient notes she was in the ED with similar pain approximately 2 months ago. She notes she was diagnosed with gastritis at that time and was old to take over the counter antacids, which she did faithfully for a couple of weeks and then stopped. She notes the medication did not make any difference in her symptoms. She notes she was not having any true abdominal pain until this most recent bout. She states the pain does not radiate any other place. She states she tried antacids last night and also tried OTC Prilosec or Nexium without any relief, which prompted her to come to the ED. She notes the pain went from a 7-8/10 to a 4/10 with the pain medication, however the pain is still present. She notes when the ultrasound probe was applied it was painful. Patient's WBC is 13.8 with left shift. Liver enzymes are normal. RUQ u/s demonstrated cholelithiasis with distended gallbladder. Negative for gallbladder wall thickening and no fluid noted. [facility] Medical History HPV (human papilloma virus) infection Stillborn, normal Oligohydramnios Gestational diabetes Prior with demise GDM, class A1 Acute sinusitis, unspecified Spontaneous vaginal delivery Chlamydia infection affecting Anxiety Chronic neck and back pain Abnormal bruising Home Medications ?Medication ?Instructions ?Recorded ?Last Taken ?Type sertraline 50 mg tablet (Zoloft) 50 mg PO DAILY 06/27/23 09/29/23 History vitamin C 45 mg-zinc citrate 3.75 2 tab PO DAILY 06/27/23 09/29/23 History mg-elderberry 50 mg chewable tablet ([employer]) Allergy/AdvReac Type Severity Reaction Status Date / Time No Known Allergies Allergy Verified 09/29/23 23:28 Family History Other Diabetes Surgical History History of adenoidectomy History of surgery Social History Smoking Status: Never smoker alcohol intake: never ROS Constitutional Constitutional: Reports fatigue Eyes Eyes: Reports systems reviewed and no addt'l complaints, except as documented ENT HEENT: Reports systems reviewed and no addt'l complaints, except as documented Cardiovascular Cardiovascular: Reports systems reviewed and no addt'l complaints, except as documented Respiratory/Chest Respiratory/Chest: Reports systems reviewed and no addt'l complaints, except as documented Gastrointestinal Gastrointestinal: Reports systems reviewed and no addt'l complaints, except as documented Genitourinary Genitourinary: Reports systems reviewed and no addt'l complaints, except as documented Musculoskeletal Musculoskeletal: Reports systems reviewed and no addt'l complaints, except as documented Integumentary Integumentary: Reports systems reviewed and no addt'l complaints, except as documented Neurologic Neurologic: Reports systems reviewed and no addt'l complaints, except as documented Psychiatric Psychiatric: Reports systems reviewed and no addt'l complaints, except as documented Endocrine Endocrinology: Reports systems reviewed and no addt'l complaints, except as documented Hematologic/Lymphatic Hematologic/Lymphatic: Reports systems reviewed and no addt'l complaints, except as documented Allergic/Immunologic Allergic/Immunologic: Reports systems reviewed and no addt'l complaints, except as documented Vital Signs Vital Signs Vital Signs: 09/29/23 23:28 09/30/23 01:30 09/30/23 03:00 Temperature 96.4 F L Temperature Source Temporal Pulse Rate 56 L 78 74 Respiratory Rate 18 23 H 16 Blood Pressure 118/76 120/81 H 127/98 H Blood Pressure Mean 90 94 107 Pulse Ox 99 98 Oxygen Delivery Method Room Air Room Air 09/30/23 05:00 09/30/23 07:00 Temperature Temperature Source Pulse Rate 77 Respiratory Rate 18 16 Blood Pressure 135/90 H Blood Pressure Mean 105 Pulse Ox 98 Oxygen Delivery Method Room Air Weight Weight: 233 lb 9.6 oz Body Mass Index (BMI) 37.7 Physical Exam Const alert, oriented x3 and no apparent distress HEENT normocephalic and head/scalp atraumatic Eyes PERRL Neck full ROM Lymph Lymphatic: no lymphadenopathy noted Chest inspection of chest normal Resp normal respiratory effort and clear to auscultation bilaterally Cardio regular rate and regular rhythm GI soft to palpation Inspection: central obesity Palpation: tender epigastric and RUQ no CVA tenderness Back/Spine no CVA tenderness Extremity normal to inspection Skin no rashes or lesions noted Neuro no focal motor deficits and no sensory deficits noted Psych Appearance: grossly normal Speech: normal speech Results Lab / Micro Data 09/29/23 00:25 09/29/23 00:25 Labs: Laboratory Results - last 24 hr 09/29/23 00:25: WBC 13.8 H, RBC 4.22, Hgb 11.8 L, Hct 37.7, MCV 89.3, MCH 28.0, MCHC 31.3 L, RDW Std Deviation 42.1, RDW Coeff of Caitlyn 12.9, Plt Count 225, MPV 10.1, Immature Gran % (Auto) 0.600, Neut % (Auto) 84.6 H, Lymph % (Auto) 9.9 L, [place] % (Auto) 4.1, Eos % (Auto) 0.6, Baso % (Auto) 0.2, Absolute Neuts (auto) 11.7 H, Absolute Lymphs (auto) 1.37, Nucleated RBC % 0, Sodium 139, Potassium 3.9, Chloride 108 H, Carbon Dioxide 26.0, Anion Gap 5, BUN 18, Creatinine 0.80, Estim Creat Clear Calc 127.71, Est GFR (MDRD) Af Amer 109, Est GFR (MDRD) Non-Af 90, BUN/Creatinine Ratio 22.4 H, Glucose 159 H, Calcium 8.7, Total Bilirubin 0.10 L, AST 21, ALT 34, Alkaline Phosphatase 40 L, Total Protein 7.4, Albumin 3.5, Globulin 3.9, Albumin/Globulin Ratio 0.9, Lipase 40, Serum , Qual NEGATIVE Imaging Radiology Impression Gallbladder Ultrasound 09/30/23 01:32 IMPRESSION: Cholelithiasis with distended gallbladder. Electronically Signed: Destin Valadez MD at 7:36 EDT , Assessment & Plan Assessment/Plan (1) Cholelithiasis: QUALIFIERS: Cholelithiasis location: gallbladder Cholecystitis presence: without cholecystitis Biliary obstruction: without biliary obstruction Qualified Code(s): K80.20 - Calculus of gallbladder without cholecystitis without obstruction (2) Acute upper abdominal pain: PLAN: Plan I am following this patient in conjunction with Dr. Soliz. He will independently evaluate this patient. Patient presents with a white count with a left shift, epigastric/right upper quadrant pain, nausea, vomiting. RUQ u/s demonstrates gallstones without pericholecystic fluid. Patient relates her symptoms with dinner she had last evening. We will plan to admit the patient for IV antibiotics, fluids and lap augustus tomorrow. Dr. Soliz will plan to perform a laparoscopic cholecystectomy with intraoperative cholangiogram tomorrow. Procedure details, risks and benefits have been explained to the patient. Patient and her mother have had the opportunity to ask and have questions answered. Patient verbally understands and agrees with the plan. Patient also understands that her symptoms may or may not resolve from removal of her gallbladder as her symptoms may be some component of gastritis. Thank you for allowing us to participate in this patient's care. Charges/Coding Visit Charges OBSV E&M: 05063 Observ/hosp same date L2
--- NOTE | 2023-09-30 11:12 | NURSING ---
MED SURG OBS ZACARIAS CHOLELITHIASIS
[2023-09-30] MEDS: 0.9% Normal Saline (1000mL) 1,000 ML 125 ML IV ×2 (11:21→20:29)
[2023-09-30] MEDS: Piperacil/Tazobactam 3.375 GM in 0.9% Normal Saline (50mL MB+) 50 ML IV ×3 (11:21→22:56)
[2023-09-30] MEDS: HYDROmorphone 0.5 MG/0.5 ML SYRINGE IV (11:35)
[2023-09-30] MEDS: Acetaminophen 500 MG Tablet PO (17:41)
[2023-10-01] VITALS (11 sets, daily range): BP systolic 114–133; BP diastolic 69–88; PULSE 52–87; RESP 16–18; TEMP 36.2–36.8; O2SAT 93–99; BMI 37.1
[2023-10-01] MEDS: Piperacil/Tazobactam 3.375 GM in 0.9% Normal Saline (50mL MB+) 50 ML IV ×3 (05:15→22:10)
[2023-10-01] MEDS: 0.9% Normal Saline (1000mL) 1,000 ML 125 ML IV (05:16)
--- NOTE | 2023-10-01 05:55 | EKG12_ITS ---
Test Reason : pre-op Blood Pressure : / mmHG Vent. Rate : 051 BPM Atrial Rate : 051 BPM P-R Int : 154 ms QRS Dur : 086 ms QT Int : 462 ms P-R-T Axes : 052 017 020 degrees QTc Int : 425 ms Sinus bradycardia Otherwise normal ECG Confirmed by Destin Patton ([id number]), editor city NAHOMY SALAZAR ([id number]) on 10/02/2023 2:21:40 PM Referred By: Confirmed By:Destin Patton
[2023-10-01 07:14] LABS: Absolute Lymphocyte Count 1.84 X10^3/uL (0.83-4.51); Absolute Neutrophil Count 6.9 X10^3/uL (2.0-7.7); Basophil# 0.03 X10^3/uL; Basophil% 0.3 % (0-1); Eosinophil# 0.15 X10^3/uL; Eosinophils% 1.6 % (0-5); Hematocrit 36.2 % (37-47); Hemoglobin 11.5 g/dL (12.0-15.0); Lymphocyte # 1.84 X10^3/ul (0.83-4.51); Lymphocyte % 19.2 % (19-41); Mean Corp Hgb Conc 31.8 g/dL (32-36); Mean Corpuscular Volume 88.1 fL (81-99); Mean Platelet Vol. 10.3 fl (6.2-12.0); Monocyte# 0.65 X10^3/uL; Monocyte% 6.8 % (0-10); NRBC Flagged by Analyzer 0 % (0-5); Neutrophil # 6.87 X10^3/uL (2.7-7.7); Neutrophil % 71.8 % (47-70); Platelet Count 209 K/mm3 (150-450); RBC Distribution Width CV 13.1 % (11.6-14.6); Red Blood Count 4.11 M/mm3 (4.2-5.4); White Blood Count 9.6 K/mm3 (4.4-11.0)
[2023-10-01 07:36] LABS: ALB/GLOB Ratio 0.9 RATIO (0.9-2.4); AST(SGOT) 20 U/L (15-37); Alanine Aminotransfer ALT/SGPT 39 U/L (13-56); Albumin, Serum 3.1 g/dL (3.2-5.0); Alkaline Phosphatase 40 U/L (45-117); Anion Gap 3 (5-15); BUN 7 mg/dL (7-18); BUN/Creat Ratio 9.8 RATIO (10-20); Calcium,Total 8.3 mg/dL (8.5-10.1); Chloride 111 mmol/L (98-107); Creatinine, Serum 0.71 mg/dL (0.55-1.02); EST Glomerular Filtration Rate 103 mL/min (>60); Est Glom Filt Rate - Afr Amer 124 mL/min (>60); Estimated Creatinine Clearance 142.82 ml/min; Globulin 3.4 g/dL (2.2-4.2); Glucose 107 mg/dL (74-106); Protein, Total 6.5 g/dL (6.4-8.2); Sodium Level 138 mmol/L (136-145)
--- NOTE | 2023-10-01 07:53 | PN.SURG_ITS ---
Subjective Subjective Patient evaluated resting comfortably in bed. She notes her pain is improving. She denies nausea, vomiting. She is prepared for surgery and does understand that by removing her gallbladder there is a chance that she may have a component of gastritis post-operatively. Objective Data Objective Data Vital Signs: Vital Signs Temp Pulse Resp BP Pulse Ox O2 Del Method 98.1 F 57 L 16 123/76 H 99 Room Air 10/01/23 05:08 10/01/23 05:08 10/01/23 05:08 10/01/23 05:08 10/01/23 05:08 10/01/23 05:12 Oxygen Delivery Method Room Air Weight: 230 lb 6.129 oz Body Mass Index (BMI) 37.1 Intake & Output: Intake and Output for Last 24 Hours 09/29/23 09/30/23 10/01/23 23:59 23:59 23:59 Intake Total 1600.00 / 1600.00 1050 / 1050 Balance 1600.00 / 1600.00 1050 / 1050 Lab / Micro Data 10/01/23 06:25 10/01/23 06:25 Labs: Laboratory Results - last 24 hr 10/01/23 06:25: WBC 9.6, RBC 4.11 L, Hgb 11.5 L, Hct 36.2 L, MCV 88.1, MCH 28.0, MCHC 31.8 L, RDW Std Deviation 42.0, RDW Coeff of Caitlyn 13.1, Plt Count 209, MPV 10.3, Immature Gran % (Auto) 0.300, Neut % (Auto) 71.8 H, Lymph % (Auto) 19.2, [place] % (Auto) 6.8, Eos % (Auto) 1.6, Baso % (Auto) 0.3, Absolute Neuts (auto) 6.9, Absolute Lymphs (auto) 1.84, Nucleated RBC % 0, PT Cancelled, INR Cancelled, APTT Cancelled, Sodium 138, Potassium 4.0, Chloride 111 H, Carbon Dioxide 24.0, Anion Gap 3 L, BUN 7, Creatinine 0.71, Estim Creat Clear Calc 142.82, Est GFR (MDRD) Af Amer 124, Est GFR (MDRD) Non-Af 103, BUN/Creatinine Ratio 9.8 L, Glucose 107 H, Calcium 8.3 L, Total Bilirubin 0.30, AST 20, ALT 39, Alkaline Phosphatase 40 L, Total Protein 6.5, Albumin 3.1 L, Globulin 3.4, Albumin/Globulin Ratio 0.9 Physical Exam GI GI Narrative: Abdomen- soft, minimal tenderness in the epigastric region Assessment & Plan Assessment/Plan (1) Cholelithiasis: QUALIFIERS: Biliary obstruction: without biliary obstruction C holecystitis presence: without cholecystitis Cholelithiasis location: g allbladder Qualified Code(s): K80.20 - Calculus of gallbladder without cholecystitis without obstruction PLAN: I am following this patient in conjunction with Dr. Soliz. Plan for lap augustus later today around 2:30 We will continue to monitor this patient Possible discharge later today pending procedure outcome Charges/Coding Visit Charges Inpatient E&M: 18220 Subs Hosp L1 (pre-op; no charge)
[2023-10-01] MEDS: Acetaminophen 500 MG Tablet PO (07:59)
[2023-10-01 09:11] LABS: International Normalized Ratio 1.2; Prothrombin Time (Protime)PT. 15.1 SECONDS (11.7-14.9)
[2023-10-01 09:12] LABS: Partial Thromboplast Time 26.5 Seconds (24.1-36.2)
--- NOTE | 2023-10-01 14:30 | GALL_PTH ---
PATIENT: OSMANI RICHARDSON LOC: PCU U#:[id number] AGE/SX: 28/F ROOM: [facility] RE09/30/[address]: Dr. Destin Soliz MD : 1995 BED: 1 DIS: 10/02/2023 SPEC #: [id number] RECD: 10/01/23 18:19 STATUS: JOE REElo #: [id number] LORENA: 10/01/23 14:[address]: Destin Soliz DEPT: SURGICAL PATHOLOGY RECD BY: Carolyn Henry ENTERED: 10/02/23 07:06 SP TYPE: OZZY QUISEP DR: No Primary Care Phys Tissues: Gallbladder, NOS Procedures: Surgery Specimen Level III HEADER OPERATION: Laparoscopic, cholecystectomy with IOC PRE-OP DIAGNOSIS: Acute cholecystitis TISSUE SUBMITTED: Gallbladder and contents MICROSCOPIC DIAGNOSIS Gallbladder, cholecystectomy: Acute and chronic cholecystitis, cholelithiasis and cholesterolosis. AM/mr 10/03/2023 MICROSCOPIC DESCRIPTION Slides are reviewed. GROSS DESCRIPTION Received is one container labeled with the patient's name and designated gallbladder. The specimen consists of a gallbladder measuring 7.5 x 4.0 x 2.0 cm. The external surface is smooth and glistening. Focally, it is granular, hemorrhagic and contains cautery artifact. The lumen of the gallbladder contains yellow-green mucoid bile and multiple yellow chalky calculi ranging in size from <0.1 to 0.7cm in greatest dimension. The mucosa is bile-stained and without any mass lesions. The gallbladder wall averages 0.3 cm in thickness and is free of mass lesions. Compound Finisher sections of the gallbladder and the cystic duct at margin of resection are submitted in one cassette. / AM: 10/02/2023 TC:2 [facility]: [id number]
--- NOTE | 2023-10-01 14:35 | NURSING ---
Gave report to Georgina SCOTT
--- NOTE | 2023-10-01 16:15 | RAD_ITS ---
EXAM: FL CHOLANGIOGRAPHY AND/OR PANCREATOGRAPHY CLINICAL INDICATION: TECHNIQUE: Fluoroscopic cine images of the right upper quadrant obtained in the OR during contrast injections via the cystic duct at the time of the laparoscopic cholecystectomy. COMPARISON: No relevant prior studies available. FINDINGS: Normal-appearing biliary tree. No filling defects to indicate retained stone. There is visualization of the duodenum. See operative note for additional information. Approximate 26 seconds of fluoroscopy utilized. Cumulative dose is 13.9 mGy. RAD/Cholangiogram/ O R,Initial IMPRESSION: Normal operative cholangiogram. Electronically Signed: Meir Hackett MD at 16:51 EDT ,
[2023-10-01] MEDS: Bupivacaine Mpf 0.5% 30 ML VIAL (17:11)
--- NOTE | 2023-10-01 17:14 | PCM.OPRPT ---
Report of Operation Date of Procedure: 10/01/23 Pre-Operative Diagnosis: Acute cholecystitis Post-Operative Diagnosis: Same Surgery/Procedure Performed:: Laparoscopic cholecystectomy with intraoperative cholangiography Description of Surgical Findings:: ? Distended gallbladder that was taut with inflammatory change required decompression to apply traction Surgeon: Destin Soliz electric welder helper: Luan Trejo Type of Anesthesia: General/Supplemental Anesthesiologist: Christian Villafuerte Specimen's removed: Gallbladder Drains: None Estimated Blood Loss (mL): 25 Description of Procedure: After proper identification in the preoperative holding area the patient was brought to the operating room where she was positioned supine on the operating room table. Preoperatively SCDs were connected and antibiotics were redosed. General anesthesia was then induced. Patient's abdomen was prepped and draped in usual sterile fashion. A formal timeout was conducted to confirm both patient and the procedure. Procedure was begun with a supraumbilical incision which was extended deeply down to the level of the fascia. The fascia was elevated and incised, as well as the peritoneum. A finger sweep was performed to ensure there were no underlying adhesions and a 12 mm balloon trocar was inserted. Pneumoperitoneum was established at 15 mmHg. Three additional trocars (all 5 mm) were placed in the epigastrium and in the right upper quadrant. Inspection of the peritoneum revealed no inadvertent injury to the viscera below. The gallbladder was visualized with distention and significant acute inflammation. In fact when I attempted to grasp the gallbladder it was so taut with edema it was unable to be grasped with a traditional laparoscopic grasper. Therefore, the needle puncture tip of the laparoscopic suction veterans rehabilitation counselor was placed and the gallbladder was partially aspirated to facilitate placement of traction. This resulting hole was occluded with a grasper and the gallbladder fundus was then grasped and elevated cephalad. Using careful dissection the peritoneum was opened and the structures of the hepatocystic triangle were delineated. Once the critical view of safety was obtained, the cystic duct was singly clipped and partially divided with a ductotomy. Of note this critical view did include the appearance of a large posterior cystic artery. The proximal duct was milked of any debris until there was backflow of bile. Using an Carrizales [place] clamp, a cholangiocatheter was fed into the proximal segment of the cystic duct and clamped into place. Under fluoroscopy a cholangiogram was then obtained showing a standard length cystic duct flowing into a common bile duct with unobstructed antegrade flow of contrast into the duodenum. There was also retrograde flow through the common hepatic duct into the right and left hepatic ducts. Satisfied with this result, the cholangiocatheter was withdrawn and the proximal cystic duct was sealed with 2 Hem-o-lucho clips and the cystic duct was completely transected. The same process was used for the anterior cystic artery. Then, given the size of the posterior cystic artery I elected to dissect directly against the cystic plate to determine if there were any branches given off towards the liver. There did appear to be a diminutive branch taking this course so I dissected until I was distal to this takeoff point and then clipped above this takeoff point with a Hem-o-lucho clip. The vessel was divided with electrocautery. The gallbladder was then removed from the gallbladder fossa with the use of electrocautery. During this removal I did encounter some brisk bleeding from what appeared to be a superficial hepatic vein directly at the level of the gallbladder fossa. This bleeding was quickly controlled after I energized a laparoscopic [place] grasper and grasped the vessel while applying cautery effect. Additionally during this removal process an inadvertent rent was made in the gallbladder fundus as the gallbladder was removed in the last portion of the gallbladder fossa resulting in some local spillage of bile that was promptly suctioned free of the peritoneum with the laparoscopic suction veterans rehabilitation counselor device. After the gallbladder was nearly fully removed selective electrocautery was used to obtain hemostasis in the gallbladder fossa. The gallbladder was placed in an Endo Catch bag and removed from the peritoneum. Morison's pouch was irrigated and the effluent was suctioned free of the peritoneum. Hemostasis was again confirmed. The supraumbilical port site was closed under laparoscopic visualization using a Jose Raul Vides suture passer and #1 PDS suture in a [id number] fashion. A total of 30 mL of anesthetic was injected at the port sites for postoperative pain control. The skin of each port site was then closed in subcuticular fashion using 4-0 Monocryl. Steri-Strips and bandages were applied as dressings. Patient tolerated the procedure well without any apparent complications. On emergence from their anesthetic the patient was taken to PACU for ongoing recovery. Complications None Admit VTE Documentation VTE Mechan Device Prophylaxis: SCD's Procedures Digestive 40xxx-49xxx: [id number] Laparo cholecystectomy/graph
[2023-10-01] MEDS: 0.9% Normal Saline (1000mL) 1,000 ML 75 ML IV (20:13)
[2023-10-01] MEDS: Ibuprofen 400 MG Tablet PO (20:16)
[2023-10-02 01:02] VITALS: BP 120/74; PULSE 60; RESP 18; TEMP 36.7; O2SAT 96
[2023-10-02] MEDS: Ibuprofen 400 MG Tablet PO ×3 (01:02→12:02)
[2023-10-02] MEDS: Piperacil/Tazobactam 3.375 GM in 0.9% Normal Saline (50mL MB+) 50 ML IV (05:32)
[2023-10-02 05:35] VITALS: BP 117/57; PULSE 52; RESP 18; TEMP 36.5; O2SAT 96; O2SAT 97
[2023-10-02 06:57] LABS: Absolute Lymphocyte Count 1.14 X10^3/uL (0.83-4.51); Absolute Neutrophil Count 7.8 X10^3/uL (2.0-7.7); Basophil# 0.01 X10^3/uL; Basophil% 0.1 % (0-1); Eosinophil# 0.01 X10^3/uL; Eosinophils% 0.1 % (0-5); Hematocrit 35.4 % (37-47); Hemoglobin 11.2 g/dL (12.0-15.0); Lymphocyte # 1.14 X10^3/ul (0.83-4.51); Lymphocyte % 12.1 % (19-41); Mean Corp Hgb Conc 31.6 g/dL (32-36); Mean Corpuscular Hgb 27.8 pg (27.0-32.0); Mean Corpuscular Volume 87.8 fL (81-99); Mean Platelet Vol. 10.3 fl (6.2-12.0); Monocyte# 0.48 X10^3/uL; Monocyte% 5.1 % (0-10); NRBC Flagged by Analyzer 0 % (0-5); Neutrophil # 7.79 X10^3/uL (2.7-7.7); Neutrophil % 82.3 % (47-70); Platelet Count 206 K/mm3 (150-450); RBC Distribution Width CV 12.9 % (11.6-14.6); RBC Distribution Width SD 41.5 fl (35.1-43.9); Red Blood Count 4.03 M/mm3 (4.2-5.4); White Blood Count 9.5 K/mm3 (4.4-11.0)
[2023-10-02 07:39] LABS: ALB/GLOB Ratio 0.7 RATIO (0.9-2.4); AST(SGOT) 33 U/L (15-37); Alanine Aminotransfer ALT/SGPT 46 U/L (13-56); Albumin, Serum 2.9 g/dL (3.2-5.0); Alkaline Phosphatase 41 U/L (45-117); Anion Gap 7 (5-15); BUN 7 mg/dL (7-18); BUN/Creat Ratio 9.7 RATIO (10-20); Calcium,Total 8.6 mg/dL (8.5-10.1); Chloride 110 mmol/L (98-107); Creatinine, Serum 0.72 mg/dL (0.55-1.02); EST Glomerular Filtration Rate 101 mL/min (>60); Est Glom Filt Rate - Afr Amer 122 mL/min (>60); Estimated Creatinine Clearance 140.83 ml/min; Globulin 4.1 g/dL (2.2-4.2); Glucose 113 mg/dL (74-106); Potassium 4.3 mmol/L (3.5-5.1); Sodium Level 139 mmol/L (136-145)
--- NOTE | 2023-10-02 08:33 | PCM.PN.SRG ---
Subjective Subjective Patient evaluated this morning resting comfortably in bed. She notes umbilical incisional discomfort. She denies nausea, vomiting, fever. Objective Data Objective Data Vital Signs: Vital Signs Temp Pulse Resp BP Pulse Ox O2 Del Method 97.7 F L 52 L 18 117/57 L 96 Room Air 10/02/23 05:35 10/02/23 05:35 10/02/23 05:35 10/02/23 05:35 10/02/23 05:35 10/02/23 05:35 Oxygen Delivery Method Room Air Weight: 230 lb 6.129 oz Body Mass Index (BMI) 37.1 Intake & Output: Intake and Output for Last 24 Hours 09/30/23 10/01/23 10/02/23 23:59 23:59 23:59 Intake Total 1600.00 / 1600.00 2150 / 0 50 / 50 Balance 1600.00 / 1600.00 0 / 2149 50 / 50 Lab / Micro Data 10/02/23 06:00 10/02/23 06:00 Labs: Laboratory Results - last 24 hr 10/01/23 08:07: PT 15.1 H, INR 1.2, APTT 26.5 10/02/23 06:00: WBC 9.5, RBC 4.03 L, Hgb 11.2 L, Hct 35.4 L, MCV 87.8, MCH 27.8, MCHC 31.6 L, RDW Std Deviation 41.5, RDW Coeff of Caitlyn 12.9, Plt Count 206, MPV 10.3, Immature Gran % (Auto) 0.300, Neut % (Auto) 82.3 H, Lymph % (Auto) 12.1 L, [place] % (Auto) 5.1, Eos % (Auto) 0.1, Baso % (Auto) 0.1, Absolute Neuts (auto) 7.8 H, Absolute Lymphs (auto) 1.14, Nucleated RBC % 0, Sodium 139, Potassium 4.3, Chloride 110 H, Carbon Dioxide 22.0, Anion Gap 7, BUN 7, Creatinine 0.72, Estim Creat Clear Calc 140.83, Est GFR (MDRD) Af Amer 122, Est GFR (MDRD) Non-Af 101, BUN/Creatinine Ratio 9.7 L, Glucose 113 H, Calcium 8.6, Total Bilirubin 0.30, AST 33, ALT 46, Alkaline Phosphatase 41 L, Total Protein 7.0, Albumin 2.9 L, Globulin 4.1, Albumin/Globulin Ratio 0.7 L Radiography Diagnostic Testing: Radiology Impression Cholangiogram 10/01/23 16:15 IMPRESSION: Normal operative cholangiogram. Electronically Signed: Meir Hackett MD at 16:51 EDT Reading Location ID and State: [facility] / [place] Tel , Service support , Physical Exam GI GI Narrative: Abdomen- soft, tenderness surrounding incision sites. Incisions c/d/i. There is a small area of bloody drainage at the umbilical incision. Seems stable. No erythema or infection noted. Assessment & Plan Assessment/Plan (1) Cholelithiasis: QUALIFIERS: Cholelithiasis location: gallbladder Cholecystitis presence: without cholecystitis Biliary obstruction: without biliary obstruction Qualified Code(s): K80.20 - Calculus of gallbladder without cholecystitis without obstruction PLAN: I have evaluated this patient in conjunction with Dr. Soliz Labs reviewed this morning. Normal WBC and liver enzymes Increase diet to regular diet Plan for discharge after lunch today We will call for a progress report around lunch time Charges/Coding Visit Charges Inpatient E&M: 55749 Subs Hosp L1 (post-op; no charge)
--- NOTE | 2023-10-02 08:45 | PCM.DC.SUM ---
Providers Date of Admission: 09/30/23 Primary Care Physician: No Primary Care Phys Reason For Visit: ACUTE CHOLECYSTITIS Diagnosis Discharge Diagnosis (1) Cholelithiasis: Status: Acute Code(s): K80.20 - Calculus of gallbladder without cholecystitis without obstruction Qualifiers: Biliary obstruction: without biliary obstruction Cholecystitis presence: without cholecystitis Cholelithiasis location: gallbladder Qualified Code(s): K80.20 - Calculus of gallbladder without cholecystitis without obstruction Plan: I have evaluated this patient in conjunction with Dr. Soliz Labs reviewed this morning. Normal WBC and liver enzymes Increase diet to regular diet Plan for discharge after lunch today We will call for a progress report around lunch time Medications at Discharge Home Medications sertraline 50 mg tablet (Zoloft) 50 mg PO DAILY 06/27/23 vitamin C 45 mg-zinc citrate 3.75 mg-elderberry 50 mg chewable tablet (RIISnet) 2 tab PO DAILY 06/27/23 oxycodone 5 mg tablet 5 mg PO Q6H PRN PRN Pain Score 6-10 3 days #9 tabs 10/02/23 Hospital Course Operations cholecystecomy (with intraoperative cholangiogram) Summary of Care Provided Minutes Spent on Discharge: 30 Hospital Course: Patient is a 28 y/o F who presented to the ED with an acute onset of epigastric abdominal pain. RUQ u/s was obtained demonstrating cholelithiasis in the gallbladder. Dr. Soliz performed a laparoscopic cholecystectomy with intraoperative cholangiogram on 10/01/23. Patient tolerated the procedure well. Patient has an uneventful hospitalization. Upon discharge, patient is tolerating a diet. She notes minimal amount of incisional discomfort. Her lab work was unremarkable with normal WBC and liver enzymes. Patient is to follow-up with Dr. Soliz in 10-14 days. Weight / BMI Weight Weight: 230 lb 6.129 oz Body Mass Index (BMI) 37.1 ABG / Lab / Microbiology Data 10/02/23 06:00 10/02/23 06:00 Laboratory: Laboratory Results - last 24 hr 10/01/23 08:07: PT 15.1 H, INR 1.2, APTT 26.5 10/02/23 06:00: WBC 9.5, RBC 4.03 L, Hgb 11.2 L, Hct 35.4 L, MCV 87.8, MCH 27.8, MCHC 31.6 L, RDW Std Deviation 41.5, RDW Coeff of Caitlyn 12.9, Plt Count 206, MPV 10.3, Immature Gran % (Auto) 0.300, Neut % (Auto) 82.3 H, Lymph % (Auto) 12.1 L, [place] % (Auto) 5.1, Eos % (Auto) 0.1, Baso % (Auto) 0.1, Absolute Neuts (auto) 7.8 H, Absolute Lymphs (auto) 1.14, Nucleated RBC % 0, Sodium 139, Potassium 4.3, Chloride 110 H, Carbon Dioxide 22.0, Anion Gap 7, BUN 7, Creatinine 0.72, Estim Creat Clear Calc 140.83, Est GFR (MDRD) Af Amer 122, Est GFR (MDRD) Non-Af 101, BUN/Creatinine Ratio 9.7 L, Glucose 113 H, Calcium 8.6, Total Bilirubin 0.30, AST 33, ALT 46, Alkaline Phosphatase 41 L, Total Protein 7.0, Albumin 2.9 L, Globulin 4.1, Albumin/Globulin Ratio 0.7 L Radiography Diagnostic Testing: Radiology Impression Cholangiogram 10/01/23 16:15 IMPRESSION: Normal operative cholangiogram. Electronically Signed: Meir Hackett MD at 16:51 EDT , D/C Instructions Discharge Diet: Light diet - advance as tolerated Discharge Activity: May Not Drive (3 days or while on narcotic pain medications) Lifting Restrictions: 15 pounds for 2 weeks Call your doctor if your incision/area has: Continuous Slow Oozing, Sudden Increased Bleeding, Increased Pain/ Swelling, Increased Redness, Foul Smelling Discharge and Swelling at the incision site Call your doctor if you observe: Fever of 101 or Higher Suture Line Care: Avoid Pulling/Pushing and Avoid Pinching/Bending Remove Dressing in: 2 days Cleanse incision/area with: Soap & Water Please Follow Up With: Destin Soliz MD When: Please contact our office at [phone] to schedule a follow-up appointment for 10-14 days Meaningful Use Info Meaningful Use Meaningful Use Diagnoses (Choose all that apply): None applicable Ischemic Stroke Statin Dosing Therapy Reference: STATIN DOSE THERAPY REFERENCE: * Patients > 75 years receive moderate or high dose statin therapy. * Patients 75 years or YOUNGER should receive HIGH intensity statin dose unless contraindicated. You will be required to document reason for non-treatment if statin daily dose does not meet guidelines. HIGH DOSE STATIN THERAPY DAILY Atorvastatin > than or = to 40 mg Rosuvastatin > than or = to 20 mg Amlodipine + Atorvastatin > than or = to 2.5/40 mg Ezetimibe + Simvastatin 10/80 mg Simvastatin 80mg Discharge Plan Admission Admit Date/Time: 09/30/23 11:06 Primary Reason for Your Visit: Acute cholecystitis Attending Provider: Destin Soliz Primary Care Provider: Care Physician,No Primary Instructions Additional Instructions / Restrictions: Cholecystectomy Diet ? Start light with soups and soft bland foods. You may advance diet as tolerated. Activity ? You may drive in 3-5 days but not while taking narcotic pain medication. ? I encourage walking. You may go up steps, one at a time. ? Do not swim or use hot tubs for 2 weeks. ? For comfort, you may use warm compresses or ice as needed for 15-20 minutes at a time. Lifting ? You may lift up to 15 pounds for 2 weeks. Dressings/Incision ? You may shower OVER your plastic dressings ? Do NOT tub bathe for 1 week ? Leave plastic dressings on for 2 days. ? When plastic dressings are removed, you will find steri strips. It is okay to continue showering with them in place, pat them dry. ? You may remove steri-strips after 1 week. We recommend getting them soaking wet for easier removal. Medications ? Anesthesia used during surgery and pain medications may cause constipation. I recommend initiating on the day of surgery a fiber supplement like, Metamucil, Citrucel, FiberCon, Benefiber, or a generic form of these medications. 1 heaping tablespoon in water daily. You may continue to utilize any bowel regimen or oral laxatives that you routinely take. We recommend taking Miralax if any difficulties with constipation. Take 1 tablespoon and mix with an 8 ounce glass of water. ? As long as you are not intolerant to Tylenol, acetaminophen, ibuprofen, Motrin, Advil, Aleve, or similar medications, I would recommend transitioning to these mcts-yap-vnszops medicines as soon as possible instead of continued use of narcotic pain medication. Follow up ? You should call [facility] soon after surgery, at [phone] option 1 to make a follow up appointment for 10-14 days after your surgery. Discharge Orders/Prescriptions Prescriptions: New oxycodone 5 mg Tablet 5 mg PO Q6H PRN PRN (Reason: Pain Score 6-10) 3 Days Qty: 9 0RF Continued sertraline [Zoloft] 50 mg tablet 50 mg PO DAILY RIISnet 45-3.75-50 mg tablet,chewable 2 tab PO DAILY Referrals / Follow Up: Destin Soliz MD [Med Staff - Active Staff] - (Please call our office for a follow-up appointment for 10-14 days after your surgery) Care Physician,No Primary [Primary Care Provider] - Disposition Disposition (needs filled in before D/C Order can be placed): Home, Self Care Charges/Coding Visit Charges Inpatient E&M: 66011 Disch Hosp (no charge; post-op)
[2023-10-02 09:35] VITALS: BP 110/57; PULSE 55; RESP 16; TEMP 36.6; O2SAT 99
[2023-10-02 15:00] VITALS: BP 109/60; PULSE 69; RESP 16; TEMP 37; O2SAT 98
--- NOTE | 2023-10-02 15:16 | CASEMGMT ---
Patient has order for discharge. RN CM in to discuss needs at discharge. Patient denies needs or help at discharge. Patient had no further questions or concerns.
--- NOTE | 2023-10-02 15:30 | PHA.DC.MC.R ---
Pharmacy [facility] has performed discharge medication reconciliation and counseling for this patient. 1. OXYCODONE 5MG PO Q6H PRN PAIN The patient's discharge medication list was reviewed for discrepancies and discrepancies were resolved. The patient was counseled on the following discharge medications and changes in medications for homegoing were reviewed. The Reason for Use, instructions for use, and potential side effects were reviewed for all new medications. The patient's questions regarding all of their medications were answered. The patient was able to verbally demonstrate an understanding of their discharge medications. Medications at Discharge Home Medications sertraline 50 mg tablet (Zoloft) 50 mg PO DAILY 06/27/23 vitamin C 45 mg-zinc citrate 3.75 mg-elderberry 50 mg chewable tablet ([employer]) 2 tab PO DAILY 06/27/23 oxycodone 5 mg tablet 5 mg PO Q6H PRN PRN Pain Score 6-10 3 days #9 tabs 10/02/23
== END 2023-10-02 13:29 | disposition home or self-care (01) ==
LOC: ED 09-30 11:05 → PCU 09-30 11:19
PROVIDERS: Admitting Provider Surgery; Emergency Provider Emergency Medicine; Visit Provider Surgery
PROC: (CPT 47610; principal; 2023-10-01 14:15)
DX: K80.12 Calculus of gallbladder with acute and chronic cholecystitis without obstruction (principal)
CPT/HCPCS: 47563; 00790; 36415; 74300; 76000; 76705; 80053; 83690; 84703; 85025; 85610; 85730; 88304; 93005; 96361; 96365; 96366; 96375; 99221; 99283; J7030; A4216; G0378; J2405

== ENCOUNTER → 2024-03-26 | Outpatient (CLI) | payer MEDICAID, SELFPAY ==
--- NOTE | 2024-03-26 15:33 | RAD_ITS ---
INDICATION: left hip pain EXAMINATION/TECHNIQUE: X-RAY - LEFT XR Hip Unilateral with Pelvis when performed; 2-3 Views COMPARISON: None. FINDINGS: Single Frontal view of the pelvis. 2 views of the left hip. BONES: Normal anatomic alignment without evidence of fracture or subluxation. No concerning bony lesion or abnormal sclerosis to suggest lesion. JOINTS: No significant degenerative change. SOFT TISSUES: Unremarkable. RAD/HIP, UNI W/ Pelvis 2-3 Views IMPRESSION: No acute osseous abnormality of the pelvis or left hip. Electronically Signed: Tim Stoll MD at 1:02 EST ,
--- NOTE | 2024-03-26 15:40 | RAD_ITS ---
INDICATION: back pain EXAMINATION/TECHNIQUE: X-RAY - XR Spine Lumbar 2 or 3 Views COMPARISON: None. FINDINGS: 3 views of the lumbar spine. BONES: Normal anatomic alignment without evidence of fracture or subluxation. No concerning bony lesion or abnormal sclerosis to suggest lesion. DISCS/JOINTS: No significant degenerative change. SOFT TISSUES: Unremarkable. RAD/Lumbar Spine 2 or 3 Views IMPRESSION: Unremarkable lumbar spine. If there is persistent clinical concern for spine fracture and this is a trauma patient, recommend dedicated lumbar spine CT. Electronically Signed: Tim Stlol MD at 5:07 EST ,
== END | disposition home or self-care (01) ==
LOC: MTRAD 15:33
PROVIDERS: PCP Family Medicine; Referring Provider Family Medicine; Visit Provider Family Medicine
DX: M25.552 Pain in left hip (principal); M54.9 Dorsalgia, unspecified
CPT/HCPCS: 72100; 73502

== ENCOUNTER 2024-07-30 15:00 | Outpatient (RCR) | payer MEDICAID, SELFPAY ==
--- NOTE | 2024-06-21 14:33 | HP.PTEVAL_ITS ---
Patient's Visit Information Visit Information Visit Information: OSMANI RICHARDSON is a 28 year old F referred to Physical Therapy by DINESH Fraser with a diagnosis of CHRONIC BACK PAIN AND STRESS URINARY INCONTINENCE. Date of Evaluation: 06/21/24 Physical Therapist: Paulette Murrieta PT, Cert MDT Visit Plan Frequency: 1-2x /Week Duration: 2-4 Months Plan: POSTURE CORRECTION/STRENGTHENING, INSTRUCTION IN APPROPRIATE BODY MECHANICS AND ACTIVITY MODIFICATIONS. CORE AND JUVENAL LE ROM, STRETCHING AND STRENGTHENING. PELVIC FLOOR EDUCATION, STRENGTHENING AND ENDURANCE TRAINING. HEALTHY BLADDER HABIT EDUCATION. HEP INSTRUCTION. 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 MOM OF 2 CHILDREN AT HOME - AGES 3.5 YEARS OLD AND 14 MONTHS OLD. Disability: NO Present symptoms: CENTRAL LOW BACK/L HIP PAIN AND MILD INCONTINENCE WITH SNEEZING. INTERMITTENT L LE PAIN RADIATING DOWN LLE TO ARCH OF FOOT (X 2 IN THE LAST 5 MONTHS). PATIENT REPORTS A FEW DROPS INCONTIENCE OCCURRING LESS THAN ONCE A WEEK BUT MORE THAN ONCE A MONTH WITH SNEEZING. SHE DENIES WEARING PAD PROTECTION OR URINE LOSS WITH OTHER ACTIVITY. Present since: CHRONIC LBP/L HIP PAIN (AT LEAST 8 YEARS). UI X AT LEAST 15 YEARS SINCE HAVING FIRST CHILD. Pain Scale: LBP/HIP PAIN - WORST 7/10, LEAST 0/10 Currently: 3/10 Is it getting better, worse or staying the same: STAYING THE SAME Commenced as a result of: EPIDURAL FOR LBP BUT OTHERWISE NO APPARENT REASON. Worse: SITTING Better: RUBBING WITH LOTION, STRETCHING IT OUT - LEANING TO THE RIGHT. Disturbed sleep: NO Previous history/Previous treatment: PT YEARS AGO. CHIROPRACTOR A COUPLE TIMES A REALLY LONG TIME AGO - PATIENT DOESN'T REMEMBER EFFECT. NO BACK OR HIP INJECTIONS OR SURGERY. STATES SHE LEARNED KEGELS A WHILE AGO AND DOES THEM INTERMITTENTLY. Coughing/sneezing/straining: REPORTS intermittently having increased effect on back pain and intermittently having UI with sneezing. Gait: NORMAL. How long can you delay the need to urinate: LONG NEEDED TO GET TO THE BATHROOM IN TIME. Prolapse (Falling out feeling): NO/NEVER Frequency of Urination: 5-8 TIMES DURING THE DAY AND 1 TIME AT NIGHT. Ability to stop urine flow: CAN STOP COMPLETELY Ability to initiate urine stream: YES - NEVER TROUBLE INITIATING. Dyspareunia: NO Bowel Incontinence: NO Accidents: NO IMAGING: L HIP/PELVIS AND LUMBAR SPINE X-RAYS MAR 2024 APPEAR UNREMARKABLE - SEE [facility] EMR. PMH: GALLBLADDER REMOVAL SEPTEMBER 2023. Objective Objective: Sitting/Standing Posture: SITTING: VERY SLOUCHED. STANDING: ANTERIOR PELVIC TILT. NO RELEVANT LATERAL SHIFT. Active Correction of posture: PATIENT ABLE TO PARTIALLY CORRECT AND DENIES CHANGE IN PAIN. Other Observations: INDEP GAIT AND TRANSFERS. SIT TO STAND WITHOUT UE ASSIST. Sensory deficit: JUVENAL LE LIGHT TOUCH SENSATION GROSSLY INTACT AND SYMMETRICAL ROM deficit: JUVENAL LE HIP FLEXOR, ER, HS AND CALF TIGHTNESS Motor deficit: JUVENAL LE'S GROSSLY 5/5 EXCEPT HIPS 4/5 Reflexes: 2+ JUVENAL LE QUADS AND ACHILLES Dural Signs: NEGATIVE JUVENAL LE'S. Lumbar mvmt loss: flex - MIN - INCREASES LB - NW ext - MOD - INCREASES LB - NW R SG - MIN - INCREASES LB - NW L SG - MIN - INCREASES LB - NW Core strength: POOR FUNCTIONAL SCREEN: Incontinence Impact Questionnaire Score: 2 Urogenital Distress Inventory Score: 4 TREATMENT: HEP Inst: Quick Flick Kegels and Posture Correction. Balance/Special Test Scores Oswestry Low Back Score: 14 Goals Goal 1:: DECREASE C/O LOW BACK AND LLE PAIN BY AT LEAST 50% TO EASE ADL'S. Goal Time Frame: 6-8 Weeks Goal 2:: PATIENT WILL DEMONSTRATE/COMMUNICATE HEALTHY BACK HABITS FOR SITTING, WORK AND ADL FUNCTIONS Goal Time Frame: 4-6 Weeks Goal 3:: PATIENT WILL COMMUNICATE HEALTH BLADDER HABITS Goal Time Frame: 4-6 Weeks Goal 4:: PATIENT WILL DEMONSTRATE/COMMUNICATE 10 CONSISTENT AND CONSECUTIVE 10 SECOND PELVIC FLOOR MUSCLE CONTRACTIONS TO DEMONSTRATE IMPROVED PELVIC FLOOR ENDURANCE. Goal Time Frame: 8-12 Weeks Goal 5:: PATIENT WILL REPORT DECREASED UI WITH SNEEZING. Goal Time Frame: 8-12 Weeks Goal 6:: PATIENT WILL BE INDEP WITH A HEP/HOME INSTRUCTIONS FOR BACK/HIP STRETCHING/STRENGTHEING AND PELVIC FLOOR STRETCHING/STRENGTHEING FOR CONTINUED IMPROVEMENT ONCE FORMAL PHYSICAL THERAPY CONCLUDES. Goal Time Frame: 8-12 Weeks Rehabilitation Potential Physical Therapy Diagnosis: TRUNK AND LE STIFFNESS AND WEAKNESS ALONG WITH SX'S CONSISTENT WITH STRESS UI. Rehabilitation Potential: Good Anticipated Interventions Patient/Client Instruction: Educate patient on: Condition, Plan of Care and Risk Factors For the Purpose of:: To improve self management Therapeutic Exercise to Include: Strength training, Endurance training, Body mechanics, Postural training, Flexibilty training and Neuromotor development For the Purpose of:: To decrease pain, To improve muscle performance and motor function, To improve performance and independence with ADL's, To improve ability of physical actions for home/community/work/leisure and To improve self management Ultrasound (thermal/non thermal): Yes For the Purpose of:: To decrease pain and To improve nutrient delivery to tissue Text: Thank you for the opportunity to evaluate your patient. For Medicare and Medicare HMO plans, please review the plan of care and approve it. It will need to be FAXED BACK to us at [phone] for Medicare purposes. For Medicare only, by signing this I certify the plan of care. Please let me know if there are questions or concerns regarding this plan of care. Physician Signature: Date:
== END 2024-07-30 19:00 | disposition home or self-care (01) ==
LOC: PT 15:00
PROVIDERS: PCP Family Medicine; Referring Provider Nurse Practitioner Women's Health; Visit Provider Nurse Practitioner Women's Health
DX: M54.9 Dorsalgia, unspecified (principal); G89.29 Other chronic pain; N39.3 Stress incontinence (female) (male)
CPT/HCPCS: 97162; 97530

== ENCOUNTER 2025-03-08 18:00 | Emergency (ER) | payer MEDICAID, SELFPAY ==
[2025-03-08 18:00] VITALS: BP 139/67; PULSE 78; RESP 16; TEMP 36.1; O2SAT 97; BMI 40.6
--- NOTE | 2025-03-08 18:31 | ED.VIS.FEGU ---
HPI HPI - Female History of Present Illness Chief Complaint: Vag Bleeding Narrative Narrative: 29-year-old female presents with heavy vaginal bleeding that she has had for the last day. She is having stronger amount of cramping today as well. She relates history that she sees the [facility] [employer] practice locally. She had her bilateral tubal ligation performed back in September of this year, approximately 5 months ago. She had a regular menses afterwards, but last month had her normal menses. Today she is on day 4 of her cycle, but noticed increased vaginal bleeding as well as stronger pelvic cramping. She denies any lightheadedness, no exacerbating or alleviating factors, states that perhaps last month but especially this month her menses seem heavier. Quite frankly, she states that she presents to the emergency department to get her labs checked. [facility] Medical History Non-smoker HPV (human papilloma virus) infection Stillborn, normal Oligohydramnios Gestational diabetes Prior with demise GDM, class A1 Acute sinusitis, unspecified Spontaneous vaginal delivery Chlamydia infection affecting Anxiety Chronic neck and back pain Abnormal bruising URI, acute Home Medications ?Medication ?Instructions ?Recorded ?Last Taken ?Type sertraline 50 mg tablet (Zoloft) 50 mg PO DAILY 06/27/23 09/29/23 History vitamin C 45 mg-zinc citrate 3.75 2 tab PO DAILY 06/27/23 09/29/23 History mg-elderberry 50 mg chewable tablet ([employer]) ipratropium bromide 21 mcg (0.03 2 spray intranasal BID-TID PRN 01/20/25 Unknown Rx %) nasal spray postnasal drainage #30 mL Allergy/AdvReac Type Severity Reaction Status Date / Time No Known Allergies Allergy Verified 03/08/25 18:00 Family History Other Diabetes Surgical History History of cholecystectomy S/P cholecystectomy History of adenoidectomy History of surgery Social History Smoking Status: Never smoker alcohol intake: never ROS ROS ED ROS Narrative Review of systems is positive for heavy vaginal bleeding, day 4 of menses. History of regular menses most recently. No lightheadedness, no shortness of breath. No exacerbating or alleviating factors. Using 2 tampons/pads an hour. Increased pelvic cramping. EXAM Physical Exam Narrative Exam Narrative: Afebrile. Vital signs noted. Nontoxic-appearing. Cardiovascular semination reveals regular rate and rhythm. Lungs are clear to auscultation bilaterally. Abdomen is soft and nontender without guarding or rebound. Positive bowel sounds. Neurological examination nonfocal, nonlateralizing. No pallor of skin. Pelvic/speculum exam deferred. Const Vital Signs: 03/08/25 18:00 03/08/25 20:00 03/08/25 20:07 Temperature 97 F L 98 F Temperature Source Temporal Pulse Rate 78 65 65 Respiratory Rate 16 16 16 Blood Pressure 139/67 H 110/57 L 110/57 L Blood Pressure Mean 91 74 74 Pulse Ox 97 97 97 Oxygen Delivery Method Room Air Room Air MDM MDM MDM Narrative Medical decision making narrative: Differential diagnosis includes but not limited to dysfunctional uterine bleeding versus menorrhagia versus heavy menses versus ectopic . CBC, CMP, and serum will be obtained and reviewed. I reviewed her laboratory work and she has a normal white count of 8.2 with hemoglobin stable at 11.6 when compared to prior labs. Although she is slightly anemic I do not feel she requires transfusion. Platelet count normal at 254. CMP is grossly normal including LFTs. Serum test is negative. Hence, I do not feel that she has an ectopic . I feel that she is probably having menstrual cramping and heavy vaginal bleeding with menses. At this point in time, I feel she can be discharged to follow-up with her [employer]ICIAN IN[employer] should she continue to have vaginal bleeding after her regular menses. Return instructions to the emergency department were reviewed. Patient motivated for discharge. Disposition is discharged home, in stable condition. History & Record Review Discussion w/independent historian: Patient Additional record(s) reviewed:: Prior labs Lab Data Attestation: I reviewed the patient's lab results. Labs: Laboratory Results - last 24 hr 03/08/25 18:57 WBC 8.2 RBC 4.22 Hgb 11.6 L Hct 36.0 L MCV 85.3 MCH 27.5 MCHC 32.2 RDW Std Deviation 41.3 RDW Coeff of Caitlyn 13.2 Plt Count 254 MPV 9.6 Immature Gran % (Auto) 0.200 Neut % (Auto) 59.4 Lymph % (Auto) 28.7 [place] % (Auto) 7.1 Eos % (Auto) 4.2 Baso % (Auto) 0.4 Absolute Neuts (auto) 4.9 Absolute Lymphs (auto) 2.35 Nucleated RBC % 0 Sodium 139 Potassium 4.2 Chloride 107 Carbon Dioxide 22.2 Anion Gap 10 BUN 14 Creatinine 0.57 L Estim Creat Clear Calc 185.13 Est GFR (MDRD) Non-Af 125 BUN/Creatinine Ratio 23.8 H Glucose 94 Calcium 8.9 Total Bilirubin 0.16 AST 22 ALT 21 Alkaline Phosphatase 48 Total Protein 6.9 Albumin 4.1 Globulin 2.8 Albumin/Globulin Ratio 1.5 Serum , Qual NEGATIVE Discharge Plan Triage Chief Complaint: Vag Bleeding ED Provider: Terrell Cm Dx/Rx/DC Orders Clinical Impression: Episode of heavy vaginal bleeding, Menstrual cramps Instructions: Understanding Uterine Bleeding, ED MENSTRUAL CRAMPING Prescriptions: No Action sertraline [Zoloft] 50 mg tablet 50 mg PO DAILY [employer] 45-3.75-50 mg tablet,chewable 2 tab PO DAILY ipratropium bromide 21 mcg (0.03 %) spray,non-aerosol 2 spray intranasal BID-TID PRN (Reason: postnasal drainage) Qty: 30 0RF Rx Instructions: administer into each nostril Primary Care Provider: Steph Suh Referrals: Steph Suh MD [Primary Care Provider, Family Practice] Kylee Smith MD [Med Staff - Active Staff, Obstetrics-Gynecology (OBGYN)] - 3-5 Days if not improving Activity Restrictions/Additional Instructions: Follow-up with your 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 Return to the emergency department with increased bleeding, increased pain, new or worsening symptoms including fever. Print Language: Yoruba Disposition Disposition: Home, Self Care
--- OUTSIDE RECORDS SUMMARY | 2025-03-08 19:09 | XMS RPT_ITS | CCD ---
Author Organization [facility] Care Team Providers Care Manager Books Name Role Phone CORAL DOMINGUEZ Unavailable Unavailable ANDRE ALVARADO Unavailable Unavailable Unavailable Primary Care Provider Unavailabl e Unavailable Primary Care Provider Unavailabl e Care Physician, No Primary Primary Care Provider Unavailable Care Physician, No Primary Referring Provider Un available BRITTANI Dorsey Attending Provider BRITTANI Dailey Attending Provider [phone] Unavailable Primary Care Provider Unavailabl e Care Physician, No Primary Primary Care Provider Unavailable Care Physician, No Primary Referring Provider Un available BRITTANI Dorsey Attending Provider BRITTANI Dailey Attending Provider ZOHAIB TOUSSAINT Attending Unavailable KRUEPKE, JULIANA M Primary Care Unavailable NEIL ALVARADO Referring Unavailable KRUEPKE, JULIANA M Primary Care Unavailable CARLOS DE LUNA Attending Unavailable NEIL ALVARADO Referring Unavailable KRUEPKE, JULIANA M Primary Care Unavailable CARLOS DE LUNA Attending Unavailable DANNY AGUILA Referring Unavailable KRUEPKE, JULIANA M Primary Care Unavailable ZOHAIB TOUSSAINT F Attending Unavailable DANNY AGUILA Referring Unavailable KRUEPKE, JULIANA M Primary Care Unavailable DANNY AGUILA Attending Unavailable DANNY AGUILA Referring Unavailable KRUEPKE, JULIANA M Primary Care Unavailable DANNY AGUILA Referring Unavailable TOUSSAINT, ZOHAIB F Attending Unavailable RANDEEPKE, JULIANA M Primary Care Unavailable CARLOS DE LUNA Attending Unavailable DANNY AGUILA Referring Unavailable RANDEEPPADMINI, JULIANA M Primary Care Unavailable DANNY AGUILA Referring Unavailable ZOHAIB TOUSSAINT F Attending Unavailable SAMIRA, JULIANA M Primary Care Unavailable DANNY AGUILA Referring Unavailable ZOHAIB TOUSSAINT F Attending Unavailable SAMIRA, JULIANA M Primary Care Unavailable DANNY AGUILA Referring Unavailable TOUSSAINT, ZOHAIB F Attending Unavailable KRELOYPKE, JULIANA M Primary Care Unavailable ANNAMARIE, CARLOS Rosen Attending Unavailable DANNY AGUILA Referring Unavailable KRELOYPKE, JULIANA M Primary Care Unavailable BEBE HARRIS Attending Unavailable DANNY AGUILA Referring Unavailable TOUSSAINT, ZOHAIB F Attending Unavailable KRUEPKE, JULIANA M Primary Care Unavailable NEIL ALVARADO Referring Unavailable TOUSSAINT, ZOHAIB F Attending Unavailable KRUEPKE, JULIANA M Primary Care Unavailable KAYLAN HARRIS M Referring Unavailable KRUEPKE, JULIANA M Primary Care Unavailable DE LUNA, CARLOS A Attending Unavailable DANNY AGUILA Referring Unavailable KRUEPKE, JULIANA M Primary Care Unavailable ANNAMARIE, CARLOS Rosen Attending Unavailable NEIL WAGGONER Referring Unavailable Yumi DO, Kelechi A Primary Care Provider Care Physician, No Primary Primary Care Provider Unavailable Care Physician, No Primary Referring Provider Un available BRITTANI Dorsey Attending Provider DINESH Rosado Attending Provider Care Physician, No Primary Primary Care Provider Unavailable Care Physician, No Primary Referring Provider Un available BRITTANI Dorsey Attending Provider DINESH Rosado Attending Provider Kelechi Eason DO A Primary Care Provider Steph Schuler MD Primary Care Provider NEIL ALVARADO Admitting Unavailable NEIL ALVARADO Attending Unavailable GANGA, ADENIKEON Primary Care Unavailable NEIL ALVARADO Attending Unavailable YUMI, KELECHI A Primary Care Unavailable NEIL ALVARADO Referring Unavailable YUMI, KELECHI A Primary Care Unavailable YUMI, KELECHI A Primary Care Unavailable NEIL ALVARADO Attending Unavailable TRINIDAD RAYA Attending Unavailable STEPH SCHULER Primary Care Unavailable STEPH SCHULER Primary Care Unavailable KAREN GABRIEL Attending Unavailable TRINIDAD RAYA Attending Unavailable YUMI, KELECHI A Primary Care Unavailable TRINIDAD RAYA Referring Unavailable YUMI, KELECHI A Primary Care Unavailable TRINIDAD RAYA Attending Unavailable YUMI, KELECHI A Primary Care Unavailable Steph Schuler MD Primary Care Provider [phone] Steph Schuler MD Referring Provider [phone] Toy Dorsey Attending Provider Steph Schuler Attending Unavailable Ganga, Chalon Referring Unavailable Ganga, Chalon Primary Care Unavailable Ganga, Chalon Primary Care Unavailable Haury, Trinidad Attending Unavailable Haury, Trinidad Referring Unavailable Ganga, Chalon Referring Unavailable Ganga, Chalon Primary Care Unavailable Ganga, Adenikeon Attending Unavailable Ganga, Chalon Referring Unavailable Ganga, Chalon Primary Care Unavailable Toy Dorsey Attending Unavailable Steph Schuler MD Primary Care Physician [phone] Toy Dorsey Attending Physician Medications Current Medications Medication Drug Class(es) Dates Sig (Normalized) Sig (Original) acyclovir 400 mg oral tablet (20 sources) Herpesvirus Nucleoside Analog DNA Polymerase Inhibitor, Herpes Simplex Virus Nucleoside Analog DNA Polymerase Inhibitor, Herpes Zoster Virus Nucleoside Analog DNA Polymerase Inhibitor Start: 03-04-2023 take 1 tablet by mouth three times daily acyclovir (ZOVIRAX) 400 mg tablet Take 1 tablet by mouth three times a day. 80 tablet 4 03/04/2023 Active Start: 01-23-2023 End: 06-27-2023 take 1 tablet by mouth once daily Acyclovir 400 mg tablet Discontinued 400 mg PO DAILY January 23, 2023 12:00am June 27, 2023 12:06pm End: 03-04-2023 ACYCLOVIR ORAL Take by mouth . 0 03/04/2023 Discontinued ACYCLOVIR ORAL T marilin by mouth. 0 Active Comment on above: Take by mouth. Take 1 tablet by nguyễn th three times a day. 168 hr ethinyl estradiol 0.41762 mg/hr / norelgestromin 0.05288 mg/hr transdermal system (20 sources) Progestin, Estrogen Start: 4 End: 5 apply 1 dose transdermal route every week Ethinyl Estradiol-Norelg estrom (XULANE) 150-35 mcg/24 hr patch Apply 1 Patch as directed one time a week. 3 Patch 3 06/07/2024 Active Start: 04-07-2015 End: 04-07-2018 Norelgestromin-Ethin.Estradi ol 1 EACH patch weekly Discontinued 1 NMA TD DAILY April 07, 2015 1:00am April 07, 2018 1:40pm Start: 04-07-2015 End: 04-07-2018 Norelgestromin-Ethin.Estradi ol Discontinued 1 EACH TD DAILY April 07, 2015 1:00am April 07, 2018 1:40pm Start: 11-18-2014 End: 02-03-2023 Ethinyl Estradiol-Norelgestr om (XULANE) 150-35 mcg/24 hr ipratropium bromide 0.021 mg/actuat metered dose nasal spray (1 source) Anticholinergic Start: 01-20-2025 Ipratropium Immaculata 21 mcg (0.03 %) spray,non-aerosol Active 2 NMA INTRANASAL 2 to 3 times per day as needed for postnasal drainage 30 January 20, 2025 12:00am administer into each nostril Complies with drug therapy Magnesium glycinate (20 sources) take 2 capsules by mouth once daily MAGNESIUM GLYCINATE ORAL Take 2 capsules by mouth once daily. Active take 2 capsules by mouth once da ester MAGNESIUM GLYCINATE ORAL Take 2 capsules by mouth once daily. 0 Active Comment on above: Take 2 capsules by m out once daily. oxyCODONE hydrochloride 5 mg oral tablet (3 sources) Opioid Agonist Start: 09-13-2024 End: 09-16-2024 take 1 tablet by mouth every six hours as needed for pain oxyCODONE IR (ROXICODONE) 5 mg immediate release tablet Indications: Acute post-operative pain Take 1 tablet by mouth every 6 hours as needed for pain for up to 3 days. 5 tablet 09/13/2024 09/16/2024 Active Start: 10-02-2023 End: 10-16-2023 take 1 tablet by mouth every six hours as needed for pain Oxycodone 5 mg Tablet Discontinued 5 mg PO EVERY 6 HOURS NEEDED as needed for Pain Score 6-10 9 3 0 October 02, 2023 October 16, 2023 9:35am Cholelithiasis Calculus of gallbladder without cholecystitis without obstruction Prenat.Vits,Gera,Wty-Gmkw-Boe ic ( #2) Tablet (7 sources) Start: 01-15-2021 take 1 tablet by mouth once daily Prenat.Vits,Gear,Ptx-Kgel-Trhpl ( #2) Tablet Active 1 TABLET PO DAILY January 15, 2021 2:41pm Start: 01-15-2021 take 1 tablet by nguyễn th once daily Prenat.Vits,Gera,Ndj-Pujs-Fnmzt ( #2) Tablet Active 1 TABLET PO DAILY January 14, 2021 11:00pm Start: 01-15-2021 take 1 tablet by nguyễn th once daily Prenat.Vits,Gera,Pfl-Iyoy-Ttgnj ( #2) Tablet Active 1 TABLET PO DAILY January 15, 2021 12:00am sertraline 50 mg oral tablet (18 sources) Serotonin Reuptake Inhibitor Start: 06-07-2023 End: 10-18-2024 take 1 tablet by mouth once daily Vit C-Zinc Citrate-Elderberry (Elderberry Immune Health) 45-3.75-50 mg tablet,chewable (4 sources) Start: 06-27-2023 Start: 06-27-2023 Vit C-Zinc Cit rate-Elderberry (Elderberry Immune Health) 45-3.75-50 mg tablet,chewable Active 2 {tbl} PO DAILY June 27, 2023 1:00am Start: 06-27-2023 take 2 tablets by mo cah once daily Vit C-Zinc Citrate-Elderberry (Elderberry Immune Health) 45-3.75-50 mg tablet,chewable Active 2 TABLET PO DAILY June 27, 2023 1:00am Start: 06-27-2023 Vit C-Zinc Cit rate-Elderberry (Elderberry Immune Health) 45-3.75-50 mg tablet,chewable Active TABLET PO June 27, 2023 12:00am Zinc Acetate (9 sources) ZINC ACETATE ORA L Take by mouth. Active Completed/Discontinued Medications Medication Drug Class(es) Dates Sig (Normalized) Sig (Original) acetaminophen 500 mg oral tablet (7 sources) Start: 09-13-2024 End: 10-18-2024 take 2 tablets by mouth every six hours as needed acetaminophen (TYLENOL EXTRA STRENGTH) 500 mg tablet Take 2 tablets by mouth every 6 hours as needed for pain. 60 tablet 09/13/2024 10/18/2024 Discontinued Start: 04-24-2023 End: 07-20-2023 take 1-10 tablets by mouth every six hours as needed for pain Acetaminophen 500 mg Tablet Discontinued 1000 mg PO EVERY 6 HOURS NEEDED as needed for Pain 1-10 Or Fever 0 0 April 24, 2023 1:00am July 20, 2023 3:41am Start: 04-24-2023 End: 07-20-2023 take 1000 mg by mouth every six hours as needed Acetaminophen Discontinued 1000 MG PO EVERY 6 HOURS NEEDED 0 April 24, 2023 1:00am July 20, 2023 3:41am acetaminophen 325 mg / dextromethorphan hydrobromide 10 mg / phenylephrine hydrochloride 5 mg oral capsule (9 sources) Uncompetitive Y-joxwgl-V-aspartate Receptor Antagonist, Sigma-1 Agonist, alpha-1 Adrenergic Agonist Start: 03-26-2022 End: 04-01-2023 Wvlovxvxehoyn-Eu-Leabdvuarkn en (Vicks Dayquil Cold-Flu Relief) 5-10-325 mg capsule Discontinued NMA PO March 26, 2022 1:00am April 01, 2023 8:43pm amoxicillin 500 mg oral capsule (20 sources) Penicillin-class Antibacterial Start: 04-01-2022 End: 04-11-2022 take 2 capsu les by mouth twice daily Amoxicillin 500 mg capsule Discontinued 1000 mg PO TWICE A DAY 40 10 0 April 01, 2022 1:00am April 10, 2022 1:00am April 11, 2022 1:03am Start: 04-01-2022 End: 04-11-2022 take 1000 mg by mouth twice daily Amoxicillin Discontinued 1000 MG PO TWICE A DAY 40 10 April 01, 2022 1:00am April 11, 2022 1:03am Start: 08-17-2021 End: 03-26-2022 Amoxicillin 500 mg Capsule Discontinued 500 mg TWICE A DAY August 17, 2021 12:00am March 26, 2022 6:35pm ear infection amoxicillin 875 mg / clavulanate 125 mg oral tablet (10 sources) Penicillin-class Antibacterial Start: 05-15-2023 End: 05-25-2023 Amoxicillin-Pot Clavulanate 875-125 mg tablet Discontinued 1 {tbl} PO Q12H 20 10 0 May 15, 2023 1:00am May 24, 2023 1:00am May 25, 2023 1:05am Acute sinusitis, unspecified Start: 05-15-2023 End: 05-25-2023 take 1 tablet by mouth every twelve hours Amoxicillin-Pot Clavulanate Discontinued 1 TABLET PO Q12H 20 May 15, 2023 1:00am May 25, 2023 1:05am Start: 02-01-2023 End: 04-01-2023 Amoxicillin-Pot Clavulanate 875-125 mg tablet Discontinued 1 {tbl} PO TWICE A DAY 20 February 01, 2023 12:00am April 01, 2023 8:44pm Start: 02-01-2023 End: 04-01-2023 take 1 tablet by mouth twice daily Amoxicillin-Pot Clavulanate Discontinued 1 TABLET PO TWICE A DAY February 01, 2023 12:00am April 01, 2023 8:44pm aspirin 81 mg delayed release oral tablet (18 sources) Platelet Aggregation Inhibitor, Nonsteroidal Anti-inflammatory Drug Start: 01-23-2023 Aspirin Active MG PO January 22, 2023 11:00pm Start: 01-11-2023 End: 04-24-2023 take 1 tablet by mouth once daily Aspirin 81 mg tablet,delayed release (DR/EC) Discontinued 81 mg PO DAILY January 23, 2023 12:00am April 24, 2023 6:28pm azithromycin 250 mg oral tablet (9 sources) Macrolide Antimicrobial Start: 03-26-2022 End: 01-23-2023 take 2-5 tablets by mouth once daily Azithromycin 250 mg tablet Discontinued 0 PO .COMPLEX 6 0 March 26, 2022 1:00am January 23, 2023 12:23pm take 500 mg today (day 1), then 250 mg for 4 days (days 2-5) PO famotidine 20 mg oral tablet (5 sources) Histamine-2 Receptor Antagonist Start: 06-18-2021 End: 02-03-2023 take 1 tablet by mouth twice daily famotidine (PEPCID) 20 mg tablet Take 20 mg by mouth twice daily. 0 06/18/2021 02/03/2023 Discontinued Comment on above: Take 20 mg by mouth twice daily. ferrous sulfate 325 mg oral tablet (20 sources) Start: 01-15-2021 End: 04-24-2023 take 1 tablet by mouth once daily Ferrous Sulfate (Iron (Ferrous Sulfate)) 325 mg (65 mg iron) Tablet Discontinued 325 mg PO DAILY January 15, 2021 12:00am April 24, 2023 6:28pm anemia Comment on above: Take by mouth. fluconazole 150 mg oral tablet (1 source) Azole Antifungal Start: 10-19-2024 End: 10-19-2024 take 1 tablet by mouth once fluconazole (DIFLUCAN) 150 mg tablet Take 1 tablet by mouth one time only for 1 dose. 1 tablet 10/19/2024 10/19/2024 fluticasone propionate 0.05 mg/actuat metered dose nasal spray (5 sources) Corticosteroid Start: 04-12-2019 End: 02-03-2023 take 2 spray(s) by mouth once daily fluticasone (FLONASE) 50 mcg/actuation nasal spray Indications: URI, acute Use 2 Sprays in each nostril once daily. Rinse mouth after use. 1 Bottle 1 04/12/2019 02/03/2023 Discontinued Comment on above: Use 2 Sprays in each nostril once daily. Rinse mouth after use. folic acid 0.8 mg oral tablet (18 sources) Start: 01-23-2023 End: 04-24-2023 take 0.8 mg by mouth once daily Folic Acid 800 mcg tablet Discontinued 0.8 mg PO DAILY January 23, 2023 12:00am April 24, 2023 6:28pm pregnan Start: 01-23-2023 End: 04-24-2023 take 0.8 mg by mouth once daily Folic Acid Discontinued 0.8 MG PO DAILY January 23, 2023 12:00am April 24, 2023 6:28pm Start: 10-04-2022 folic acid 800 mcg tablet Take by mouth. 0 10/04/2022 Active Comment on above: Take by mouth. ibuprofen 600 mg oral tablet (7 sources) Nonsteroidal Anti-inflammatory Drug Start: End: take 1 tablet by mouth every six hours as needed ibuprofen (MOTRIN) 600 mg tablet Take 1 tablet by mouth every 6 hours as needed for pain. 30 tablet 09/13/2024 10/18/2024 Discontinued Start: 04-24-2023 End: 06-27-2023 take 1 tablet by mouth every six hours as needed for pain Ibuprofen 600 mg Tablet Discontinued 600 mg PO EVERY 6 HOURS NEEDED as needed for Pain Score 1-3 0 0 April 24, 2023 1:00am June 27, 2023 12:06pm methylPREDNISolone 4 mg oral tablet (4 sources) Corticosteroid Start: 05-15-2023 End: 05-21-2023 take 1 tablet by mouth once Methylprednisolone (Medrol (Chidi)) 4 mg tablets,dose pack Discontinued 4 mg PO per package directions 21 6 0 May 15, 2023 1:00am May 20, 2023 1:00am May 21, 2023 1:04am metroNIDAZOLE 500 mg oral tablet (9 sources) Nitroimidazole Antimicrobial Start: 06-23-2024 End: 06-30-2024 take 1 tablet by mouth twice daily metroNIDAZOLE (FLAGYL) 500 mg tablet Indications: Bacterial vaginosis Take 1 tablet by mouth two times a day for 7 days. 14 tablet 06/23/2024 06/30/2024 metronidazole (F LAGYL ORAL) Take by mouth. Active End: 09-11-2024 metronidazole (FLAGYL ORAL) Take by mouth. 09/11/2024 Active ondansetron 4 mg disintegrating oral tablet (5 sources) Serotonin-3 Receptor Antagonist Start: 09-13-2024 End: 10-18-2024 take 1 tablet by mouth every eight hours as needed ondansetron orally disintegrating (ZOFRAN ODT) 4 mg disintegrating tablet Take 1 tablet by mouth every 8 hours as needed for nausea/vomiting. 10 tablet 09/13/2024 10/18/2024 Discontinued Start: 07-20-2023 End: 09-30-2023 take 1 tablet by mouth every eight hours as needed for nausea Ondansetron 4 mg tablet,disintegrating Discontinued 4 mg PO EVERY 8 HOURS NEEDED as needed for Nausea 10 0 July 20, 2023 1:00am September 30, 2023 9:25am PNV no.95/ferrous fum/folic ac ( ORAL) (4 sources) PNV no.95/ferrou s fum/folic ac ( ORAL) Take by mouth. 0 Active Comment on above: Take by mouth. Prenat.Vits,Gera,Min-Iro n-Folic (3 sources) Start: 01-15-2021 End: 06-27-2023 take 1 tablet by mouth once daily Prenat.Vits,Gera,Min-Ir on-Folic Discontinued 1 TABLET PO DAILY January 15, 2021 12:00am June 27, 2023 12:06pm Start: 01-15-2021 End: 06-27-2023 take 1 tablet by mouth once daily Prenat.Vits,Gera,Qsa-Ehgd-Janep Discontin ued 1 TABLET PO DAILY January 14, 2021 11:00pm June 27, 2023 11:06am Start: 01-15-2021 take 1 tablet by nguyễn th once daily Prenat.Vits,Gera,Tgg-Xqqk-Azlos Active 1 TABLET PO DAILY January 14, 2021 11:00pm Prenat.Vits,Gera,Qba-Gmwu-Zig ic Tablet (2 sources) Start: 01-15-2021 End: 06-27-2023 Prenat.Vits,Gera,Rvq-Uwms-Zrw ic Tablet Discontinued 1 {tbl} PO DAILY January 15, 2021 12:00am June 27, 2023 12:06pm vit calc,iron,folic (PRENAT.VITS,GERA,BLT-VGRY-TNKET ORAL) (11 sources) Start: 01-15-2021 End: 08-09-2024 take 1 tablet by mouth once daily vit calc,iron,folic (PRENAT.VITS,GERA,ZFK-BSJR-ABJKO ORAL) Take 1 tablet by mouth once daily. 01/15/2021 08/09/2024 Discontinued Start: 01-15-2021 take 1 tablet by mouth once daily vit calc,iron,folic (PRENAT.VITS,GERA,CFH-GORJ-MGEPB ORAL) Take 1 tablet by mouth once daily. 01/15/2021 Active Start: 01-15-2021 take 1 tablet by mouth once daily vit calc,iron,folic (PRENAT.VITS,GERA,RDM-XFML-PGVAI ORAL) Take 1 tablet by mouth once daily. 0 01/15/2021 Active Comment on above: Take 1 tablet by nguyễn th once daily. Progesterone (12 sources) Progesterone Progesterone 200 mg supp Use 1 Suppository vaginally once daily. 0 Active Comment on above: Use 1 Suppository va ginally once daily. promethazine hydrochloride 12.5 mg oral tablet (17 sources) Phenothiazine Start: End: take 1 mg by mouth every eight hours as needed for nausea Promethazine (Phenergan) 12.5 mg Tablet Discontinued mg PO EVERY 8 HOURS NEEDED as needed for Nausea August 17, 2021 12:00am January 23, 2023 12:23pm Comment on above: Take 12.5 mg by mout h. 12 hr pseudoephedrine hydrochloride 120 mg extended release oral tablet (5 sources) alpha-Adrenergic Agonist Start: End: take 1 tablet by mouth every twelve hours Pseudoephedrine HCl (SUDAFED 12 HOUR) 120 mg TbER Indications: URI, acute Take 1 tablet by mouth every 12 hours. 30 tablet 0 04/12/2019 02/03/2023 Discontinued Comment on above: Take 1 tablet by nguyễn th every 12 hours. 2 ml rho(d) immune globulin, human 750 unt/ml prefilled syringe (1 source) Human Immunoglobulin G Start: End: RhoD immune globulin 300 mcg injection (RHOPHYLAC) TRUE METRIX AIR GLUCOSE METER (12 sources) Start: TRUE METRIX AIR GLUCOSE METER Problems Active Problems Problem Classification Problem Date Documented Date Episodic/Chronic Abdominal pain (4 sources) Vaginal pain; Translations: [Pelvic and perineal pain] Onset: 10-18-2024 10-18-2024 Episodic Acute bronchitis (12 sources) Acute bronchitis; Translations: [Acute bronchitis, unspecified] 03-26-2022 Episodic Biliary tract disease (2 sources) Biliary calculus; Translations: [Calculus of gallbladder without cholecystitis without obstruction] 10-10-2023 Episodic Contraceptive and procreative management (1 source) Encounter for sterilization; Translations: [Sterilization] Onset: 09-13-2024 Episodic Diabetes or abnormal glucose tolerance complicating ; childbirth; or the puerperium (20 sources) Gestational diabetes mellitus; Translations: [Gestational diabetes mellitus in , diet controlled] Onset: 02-03-2023 Resolved: 06-07-2023 02-03-2023 Episodic Comment on above: PPD#1 Early or threatened labor (20 sources) Premature delivery; Translations: [ labor with delivery, unspecified trimester, not applicable or unspecified] Onset: 02-03-2023 Resolved: 06-07-2023 Episodic Genitourinary symptoms and ill-defined conditions (2 sources) Female stress incontinence; Translations: [Stress incontinence (female) (male)] Onset: 06-07-2024 06-07-2024 Chronic Immunizations and screening for infectious disease (20 sources) Patient encounter status; Translations: [Encounter for immunization] Onset: 03-18-2023 Resolved: 06-07-2023 03-18-2023 Episodic Inflammatory diseases of female pelvic organs (3 sources) Bacterial vaginosis; Translations: [Acute vaginitis] Onset: 12-08-2024 06-23-2024 Episodic Other complications of (7 sources) Maternal obesity complicating , childbirth and the puerperium, antepartum; Translations: [Obesity complicating , third trimester] 04-14-2023 Chronic Other complications of (3 sources) Obesity complicating , unspecified trimester; Translations: [Obesity complicating , childbirth, or the puerperium, unspecified as to episode of care or not applicable] 04-24-2023 Chronic Other complications of (12 sources) Reduced movement; Translations: [Decreased movements, third trimester, not applicable or unspecified] 01-17-2021 Episodic Other complications of (20 sources) High risk ; Translations: [Supervision of with other poor reproductive or obstetric history, unspecified trimester] Onset: 02-03-2023 Resolved: 06-07-2023 02-03-2023 Episodic Other female genital disorders (1 source) Pruritus of vagina; Translations: [Other specified noninflammatory disorders of vagina] 06-21-2024 Episodic Other female genital disorders (1 source) Vaginal discharge; Translations: [Other specified noninflammatory disorders of vagina] 10-18-2024 Episodic Other female genital disorders (1 source) Other specified noninflammatory disorders of vagina; Translations: [Vaginal discharge] Onset: 10-18-2024 Episodic Other nervous system disorders (1 source) Other acute postprocedural pain; Translations: [Acute post-operative pain] Onset: 09-13-2024 Episodic Other nutritional; endocrine; and metabolic disorders (10 sources) Obese class II; Translations: [Obesity, Class II, BMI 35-39.9] Onset: 08-26-2024 08-26-2024 Chronic Other and delivery including normal (6 sources) Vaginal delivery; Translations: [Encounter for full-term uncomplicated delivery] 05-02-2023 Episodic Other upper respiratory disease (2 sources) Nasal discharge; Translations: [Other specified disorders of nose and nasal sinuses] 01-20-2025 Episodic Other upper respiratory infections (20 sources) Acute upper respiratory infection; Translations: [Acute upper respiratory infection, unspecified] Onset: 08-26-2024 04-07-2018 Episodic Otitis media and related conditions (6 sources) Acute right otitis media; Translations: [Otitis media, unspecified, right ear] 05-15-2023 Episodic Polyhydramnios and other problems of amniotic cavity (9 sources) Oligohydramnios; Translations: [Oligohydramnios, third trimester, not applicable [...] of ] 04-14-2023 Episodic Residual codes; unclassified (6 sources) Gestation period, 39 weeks; Translations: [39 weeks gestation of ] 04-22-2023 Episodic Residual codes; unclassified (5 sources) Gestation period, 36 weeks; Translations: [36 weeks gestation of ] 05-02-2023 Episodic Residual codes; unclassified (3 sources) 36 weeks gestation of ; Translations: [ state, incidental] 04-01-2023 Episodic Residual codes; unclassified (3 sources) 39 weeks gestation of ; Translations: [ state, incidental] 04-24-2023 Episodic Spontaneous (13 sources) Miscarriage; Translations: [Complete or unspecified spontaneous without complication] Episodic Sprains and strains (6 sources) Injury of right wrist; Translations: [Strain of unspecified muscle, fascia and tendon at wrist and hand level, right hand, initial encounter] 06-27-2023 Episodic Unclassified (1 source) Anesthesia Consult Onset: 08-26-2024 Viral infection (2 sources) Viral disease; Translations: [Viral infection, unspecified] Episodic Past or Other Problems Problem Classification Problem Date Documented Da te Episodic/Chronic Miscellaneous mental health disorders (20 sources) depression; Translations: [ depression] Onset: 06-07-2023 06-07-2023 Episodic Other complications of (1 source) Supervision of with other poor reproductive or obstetric history, unspecified trimester; Translations: [Supervision of high-risk with other poor reproductive history] 04-24-2023 Episodic Other lower respiratory disease (10 sources) H/O: asthma; Translations: [Personal history of other diseases of the respiratory system] Onset: 08-26-2024 08-26-2024 Episodic Other non-traumatic joint disorders (1 source) Pain in left hip; Translations: [Pain in left hip] Onset: 04-22-2024 Episodic Spondylosis; intervertebral disc disorders; other back problems (9 sources) Backache; Translations: [Dorsalgia, unspecified] Onset: 06-01-2024 05-02-2023 Episodic Results Test Name Value Interpretation Reference Range Facility Urgent Care Visit Reporton 0 01-20-2025 Urgent Care Visit Report [facility] [address], [address] [place] [address] OFFICE VISIT Date of Service: 01/20/25 MR#: [id number] Acct: [id number] Name: CHRISTINA CUEVAS Rep #: [id number] : 1995 Provider: BRITTANI Stewart Age/Sex: 29/F Location[place] [facility] [place] Status: Signed Intake Vital Signs 01/30/24 11:40 01/20/25 16:41 Height 5 ft 6 in BP 128/78 H 122/72 H Blood Pressure Location Lt brachial Lt brachial Position Sitting Sitting Respiration 16 15 Pulse 86 92 Pulse Source Monitor NIBP Temp 98.3 F 98.9 F Temp Source Temporal Oral Pulse Oximetry (%) 98 96 Oxygen Delivery Method room air room air Intake Visit Reasons: RUNNY NOSE Chief Complaint: runny nose Director Pediatric Required: No Is patient in pain?: No Allergies No Known Allergies Allergy (Verified 01/20/25 16:42) Is last menstrual period known: No Post menopausal: No Patient : No Have you fallen in the past year?: No Nurse's Note: runny nose x 1 week. all other viral s/s have resolve but runny nose persists. admits to grass allergy [facility] Medical History (Updated 01/20/25 @ 16:53 by Toy PETER, PA) URI, acute HPV (human papilloma virus) infection Stillborn, normal Oligohydramnios Gestational diabetes Prior with demise GDM, class A1 Acute sinusitis, unspecified Spontaneous vaginal delivery Chlamydia infection affecting Anxiety Chronic neck and back pain Abnormal bruising Surgical History (Updated 10/16/23 @ 20:[address] Destin Soliz MD) S/P cholecystectomy History of adenoidectomy History of surgery Family History Other Diabetes Social History Smoking Status: Never smoker alcohol intake: never HPI HPI Chief Complaint: runny nose Details: CHRISTINA CUEVAS, is a 29 F who presents to the office today for complaint of runny nose for the past 6 to 7 days. Patient states that she had a upper respiratory-like infection at the beginning of the episode however her sore throat and cough have resolved. She denies fever, chills or sweats. No nausea, vomiting or diarrhea. No loss of taste or smell. No other associated symptoms or alleviating/aggravati ng factors. ROS Const Constitutional: Positive for other (ROS negative x6 except what was placed in HPI) Exam Const General: cooperative and well developed HENNM Head: normal to inspection and atraumatic Ears: hearing grossly normal bilaterally Nose: nasal discharge clear Face and sinus: normal facial exam Mouth: oral mucosae normal Throat: postnasal drainage Resp Effort Inspection: normal respiratory effort and no audible wheezes Auscultation: Bilateral: Clear to Auscultation Cardio Rate: regular rate Rhythm: regular rhythm Neuro General: patient alert Psych Appearance: grossly normal Mental Status: mental status grossly normal Coding Level of Care Code Off vis,est,level 3 Diagnoses Rhinorrhea J34.89 Acute upper respiratory infection J06.9 Assessment and Plan Assessment and Plan (1) Rhinorrhea: Status: Acute (2) Acute upper respiratory infection: Status: Acute Medications: New ipratropium bromide administer into each nostril 2 sprays intranasal BID-TID PRN 30 mL 0RF postnasal drainage Plan Atrovent as prescribed today. Encouraged to get plenty of rest, drink lots of clear liquids, and use Tylenol or Ibuprofen (unless contraindicated) for fever and comfort. Patient also educated on other symptomatic management techniques. To be seen in 7-10 days if no improvement; sooner if worsening of symptoms. Patient advised of potential red flags and when appropriate to report to the ED. Patient verbalized understanding and agreement with all the above. Clinical Quality Measures Falls Risk Screening/Assistive Devices Have you fallen in the past year?: No 01/20/25 1706 Date [place] Signature: Date (if applicable) CC: Normal [facility] CNOVon 12-08-2024 CNOV Office Visit (OBGYWM ) CHRISTINA CUEVAS ([id number]) 1995 F Date Time Provider Department 12/08/24 3:30 PM KAREN GABRIEL OBMAR During your visit today, we recorded the following information about you: Blood pressure Weight 104/78 110.2 kg Karen Gabriel APRN.[facility] 12/08/2024 4:14 PM Signed Senior Clerk offered: Patient declines. Obstetrics and Gynecology [place] [employer] DIRECTOR Visit Subjective Recording using ambient Cognovant software for draft documentation of the visit was discussed with the patient/authorized labor union business representative; all questions welcomed and answered. Patient/authorized labor union business representative agreed to proceed CHIEF COMPLAINT: CC: Patient is a 29-year-old female presenting for evaluation of recurrent yeast infections and vaginal dryness. HPI: HPI: Yeast Infection: - Reports itching inside the vagina for about a week; no discharge noted. - Treated with Diflucan for a yeast infection in October. - Completed Day 5 of Monistat 7 treatment last night; symptoms improved by 50-60%. - Denies fever, chills, abdominal pain, bowel, or bladder problems. - No recent antibiotic use. Vaginal Dryness: - Experiencing vaginal dryness during intercourse with a new partner of two months. - Has not experienced this issue with previous partners. - Recently started using lubricant; unsure if discomfort is due to not being fully comfortable with the new partner yet. Sexual Health: - Has had multiple partners since ending a seven-year relationship. - No concerns for STD exposure with the new partner; had STD testing a couple of months ago. - Denies use of feminine sprays, washes, douches, or deodorants. - Has regular monthly periods; has had tubal ligation. - Declines STD testing. HISTORY: OB History Gravida4 Para4 Term3 Preterm1 AB0 Living3 SAB0 IAB0 Ectopic0 Multiple0 Live Births4 Dresser Tender History LMP: 09/09/2024 (Approximate), Unknown Age at Menarche: Age at First : Age at Menopause: Dresser Tender History Comments: Sexual Activity: Yes; Male Contraception: No contraception data on record History reviewed. No pertinent past medical history. PAST SURGICAL HISTORY Procedure Laterality Date ADENOIDECTOMY SECONDARY AGE 11/> Bilateral REMOVAL GALLBLADDER 09/2023 FAMILY HISTORY Problem Relation Age of Onset Diabetes Mother Depression Sister Hypertension Maternal Grandfather Social History Tobacco Use Smoking status: Never Smokeless tobacco: Never Vaping Use Vaping status: Never Used Substance Use Topics Alcohol use: Never Drug use: Never Current Outpatient Medications Medication Sig metronidazole (FLAGYL ORAL) Take by mouth. ZINC ACETATE ORAL Take by mouth. MAGNESIUM GLYCINATE ORAL Take 2 capsules by mouth once daily. acyclovir (ZOVIRAX) 400 mg tablet Take 1 tablet by mouth three times a day. No current facility-administered medications for this visit. ALLERGIES No Known Allergies REVIEW OF SYSTEMS: Genitourinary: (+) vaginal dryness, (+) vaginal pruritus, (+) vaginal burning, (-) abnormal vaginal discharge Objective SENSITIVE EXAM: The sensitive examination was discussed with the Patient or Patient's Authorized [employer]. As applicable, any other physician, advance practice provider, medical student, or other health professional student that will be observing or involved in the sensitive examination for educational or training purposes was discussed with the Patient or Authorized [employer]. The Patient or Authorized [employer] has agreed to proceed with the sensitive examination. (Sensitive examination includes inspection and/or palpation of the breasts, pelvis, prostate and anorectal regions). PHYSICAL EXAM: BP 104/78 Wt 243 lb (110.2kg) LMP 09/09/2024 GENERAL: Pleasant; in no acute distress PULMONARY: normal inspiratory effort ABDOMEN: soft, non-tender, no masses : - PELVIC: external genitalia normal, normal Bartholin's glands, urethra, Orrick's glands, no vulvar lesions, vulva without erythema, no cervical lesions, good vaginal support, physiologic discharge present, normal appearing perineal body and perianal region, unable to visualize internal structures due to presence of antifungal cream - BIMANUAL: uterus normal size, shape and consistency, no adnexal masses, non-tender - Patient consent for exam received NEURO: alert and oriented x3 EXTREMITIES: normal Assessment AND Plan ASSESSMENT AND PLAN: 1. Subacute vaginitis (N76.1) - Currently on day 6 of Monistat 7 treatment with approximately 50-60% improvement in symptoms. - Advised to complete the 7-day course of Monistat 7 and wait an additional 2-3 days post-treatment for full resolution. - If symptoms persist after completing treatment, advised to return for further evaluation. - Provided education on the effectiveness of Monistat 7 compared to Diflucan, and general inf (more content not included)... Normal [facility] BACTERIAL VAGINOSIS NAATon 0 10-18-2024 Lactobacillus crispatus+gasseri+jense andrey + Gardnerella vaginalis + Atopobium vaginae rRNA ELDA+probe Ql (Vag fld) Not detected Normal Not detected [facility] Comment on above: Order Comment: Speci men Type: SWABOrdering Facility: [facility] Address: [address] [place] [address] Performed By: #### B DM BARNHART ####[facility] LABCLIA [id number] [place] [address] [place] BARBARA/TRICHOMONAS NAATon 0 10-18-2024 C. glabrata RNA ELDA+probe Ql (Vag fld) Not detected Not detected [facility] Barbara sp DNA ELDA+probe Ql (Vag fld) Detected Abnormal Not detected [facility] Comment on above: The Barbara species group target includes C. albicans, C. tropicalis, C. parapsilosis, and C. dubliniensis. Interpretation and review of laboratory results Abnormal [facility] T. vaginalis DNA ELDA+probe Ql (Unsp spec) Not detected Not detected [facility] C. glabrata RNA ELDA+probe Ql (Vag fld) Not detected Normal Not detected [facility] Comment on above: Order Comment: Speci men Type: SWABOrdering Facility: [facility] Address: [address] [place] [address] Performed By: #### B VAMP, CVTV ####[facility] LABCLIA [id number] [place] [address] [place] Barbara sp DNA ELDA+probe Ql (Vag fld) Detected Abnormal Not detected [facility] Comment on above: Order Comment: Speci men Type: SWABOrdering Facility: [facility] Address: [address] [place] [address] Result Comment: The Barbara species group target includes C. albicans, C. tropicalis, C. parapsilosis, and C. dubliniensis. Performed By: #### B VAMP, CVTV ####[facility] LABCLIA [id number] [place] [address] [place] T. vaginalis DNA ELDA+probe Ql (Unsp spec) Not detected Normal Not detected [facility] Comment on above: Order Comment: Speci men Type: SWABOrdering Facility: [facility] Address: [address] [place] [address] Performed By: #### B VAMP, CVTV ####[facility] LABCLIA [id number] [place] [address] [place] CNOVon 10-18-2024 CNOV Office Visit (OBGYWM ) CHRISTINA CUEVAS ([id number]) 1995 F Date Time Provider Department 10/18/24 1:30 PM TRINIDAD RAYA During your visit today, we recorded the following information about you: Blood pressure Weight 118/70 108.9 kg Trinidad Raya APRN.COMPENSATOR 10/18/2024 2:40 PM Signed Senior Clerk offered: Patient declines. Christina Cuevas is a 29 year old female who presents for vaginal itching and internal vaginal swelling for 3 days. Has been using Vagisil. Vaginal discharge: none. 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 Contraception: tubal sterilization Last pap: 2023, abnormal ASCUS, HPV negative Past medical, surgical, social history, medications and allergies reviewed and updated. OBJECTIVE: SENSITIVE EXAM: The sensitive examination was discussed with the Patient or Patient's Authorized [employer]. As applicable, any other physician, advance practice provider, medical student, or other health professional student that will be observing or involved in the sensitive examination for educational or training purposes was discussed with the Patient or Authorized [employer]. The Patient or Authorized [employer] has agreed to proceed with the sensitive examination. (Sensitive examination includes inspection and/or palpation of the breasts, pelvis, prostate and anorectal regions). BP 118/70 Wt 240 lb (108.9kg) LMP 09/09/2024 GENERAL: Well developed, well nourished in no apparent distress PELVIC: external genitalia normal, normal Bartholin's glands, urethra, Orrick's glands, no vulvar lesions, no cervical lesions, good vaginal support, + white vaginal discharge, normal appearing perineal body and perianal region BIMANUAL: uterus normal size, shape and consistency, no adnexal masses + tenderness to vagina RECTOVAGINAL: deferred. ASSESSMENT/PLAN: 1. Vaginal pain - ICD9: 625.9, ICD10: R10.2 (primary diagnosis) 2. Vaginal discharge - ICD9: 623.5, ICD10: N89.8 - Denies concerns for STI exposure - Stop Vagisil use - Rotate Tylenol and Ibuprofen for pain - Denies concerns related to recent sterilization - History of HSV? Possible start of outbreak - BACTERIAL VAGINOSIS NAAT - BARBARA/TRICHOMONAS NAAT Treat accordingly. RTO for annual exam or sooner as needed. Trinidad Raya APRN.COMPENSATOR Medical Decision Making: Problems: Low: Acute, uncomplicated illness or injury Data: Unique test(s) ordered: 2 Risk: Minimal: Minimal risk from testing/treatment Medical Decision Making Level: 3 - Low Silvia Gant MA 10/18/2024 1:27 PM Signed Minimizing irritation of the vulva (area around the vagina) Wear white cotton underwear. Avoid synthetic fabrics and tight clothing. Sleep wearing shorts or pajama bottoms without underwear. Shower as soon as possible after exercise. Avoid clothing detergents and soaps with perfumes or dyes. Use warm (not hot) water to wash the vulva and if you use soap use a product designed for sensitive skin (like Dove or Cetaphil). Do not douche or use creams/powders in the vulvar area unless instructed by your physician. If you must douche, use only plain warm water. Make sure the vulva is dry before dressing by patting dry with a towel. Avoid vigorous rubbing with the towel. You may want to use the blow dryer (on the cool setting only!) on the vulva. The most important way to let your body heal is by avoiding scratching. Many patients find it difficult to avoid scratching at night when they are most aware of the itchiness. You can try taking Benadryl just before bedtime. Some women find it helpful to wear cotton gloves to bed to avoid scratching at night. Allergies As of Date: 10/18/2024 (No Known Allergies) Date Reviewed: 10/18/2024 Reviewed by: Trinidad Raya APRN.COMPENSATOR - Fully Assessed Reason for Visit: Dresser Tender Exam [50] Primary Visit Diagnosis:Vaginal pain [R10.2] Other Visit Diagnosis:Vaginal discharge [N89.8] Order(s):BACTERIAL VAGINOSIS NAAT [SQBVAMP] Order #: [id number]. #:[id number] BARBARA/TRICHOMONAS NAAT [SQCVTV] Order #: [id number]. #:[id number] Prescriptions as of 10/18/2024 - metronidazole (FLAGYL ORAL) Take by mouth. - ZINC ACETATE ORAL Take by mouth. - MAGNESIUM GLYCINATE ORAL Take 2 capsules by mouth once daily. - acyclovir (ZOVIRAX) (more content not included)... Normal [facility] CNCOon 09-15-2024 CNCO Letter Text [facility] CNPNon 09-14-2024 CNPN Telephone (OBGYWM) CHRISTINA CUEVAS ([id number]) 1995 F Date Time Provider Department 09/14/24 NEIL ALVARADO OBGYWJose Antonio During your visit today, we recorded the following information about you: Geraldine Daugherty RN 09/14/2024 4:30 PM Signed ----- Message from Neil Alvarado MD sent at 09/14/2024 3:35 PM EDT ----- she sent [employer] message about appointment for today. Please call her and triage her. Schedule for postop appointment in 1-2weeks, can be virtual. If I am not available another provider is fine. Thanks. rlr Geraldine Daugherty RN 09/14/2024 4:37 PM Signed Patient was just requesting letters, not appt. Does she need 1 week post op if she is doing well? She is requesting 1 letter for each of her jobs only. Her one job she has a lot of heavy lifting and would like this week off. 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 Okay for letters without appointment or does she need seen first? Original note stated: Patient had a b/l salpingectomy 09/13/2024 and called requesting notes for work. Patient has 2 jobs and is requesting 1 note written to be off work for 7 days and 2nd letter is requesting to be able to sit in a chair as needed during work hours. TYLER Cardenas Rebecca L, MD 09/14/2024 5:13 PM Signed yes both sound reasonable. Doesn't need postop appointment unless having a problem. Ok for letters. Thank you for the clarification. MD Steffi Kline Lindsey, RN 09/15/2024 8:34 AM Signed Spoke with patient, declines need for post op appointment. Patient would like both letters to be released to her [facility]. Letters prepared and released to [facility]. Екатерина Gann RN Allergies As of Date: 09/14/2024 (No Known Allergies) Date Reviewed: 09/13/2024 Reviewed by: Kaitlynn Parra RN - Fully Assessed Reason for Visit: Patient Request [[id number]] Prescriptions as of 09/15/2024 - metronidazole (FLAGYL ORAL) Take by mouth. - ibuprofen (MOTRIN) 600 mg tablet Take 1 tablet by mouth every 6 hours as needed for pain. - acetaminophen (TYLENOL EXTRA STRENGTH) 500 mg tablet Take 2 tablets by mouth every 6 hours as needed for pain. - oxyCODONE IR (ROXICODONE) 5 mg immediate release tablet Take 1 tablet by mouth every 6 hours as needed for pain for up to 3 days. - ondansetron orally disintegrating (ZOFRAN ODT) 4 mg disintegrating tablet Take 1 tablet by mouth every 8 hours as needed for nausea/vomiting. - ZINC ACETATE ORAL Take by mouth. - sertraline (ZOLOFT) 50 mg tablet Take 1 tablet by mouth once daily. - MAGNESIUM GLYCINATE ORAL Take 2 capsules by mouth once daily. - acyclovir (ZOVIRAX) 400 mg tablet Take 1 tablet by mouth three times a day. 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] 06/07/2023 Obesity, Class II, BMI 35-39.9 [E66.812] 08/26/2024 Viral upper respiratory tract infection [J06.9] 08/26/2024 History of asthma [Z87.09] 08/26/2024 Encounter Status:Closed by ЕКАТЕРИНА GANN on 09/15/24 [facility] ANES POSTPROC EVALon 09-13- 025 ANES POSTPROC EVAL HNO ID: [id number] Author: SON MARSHALL MD Service: Anesthesiology Author Type: Anesthesiologist Type: Anesthesia Postprocedure Evaluation Filed: 09/13/2024 12:38 Note Text: POST ANESTHESIA EVALUATION NOTE : 1995 Procedure Summary Date: 09/13/24 Room / Location: CO OR / CO OR Anesthesia Start: 1040 Anesthesia Stop: 1145 Procedure: LAPAROSCOPIC SALPINGECTOMY (Bilateral: Abdomen) Diagnosis: Sterilization (Sterilization [Z30.2]) Surgeons: Neil Alvarado MD Responsible Provider: Son Marshall MD Anesthesia Type: general ASA Status: 1 Anesthesia Type: general Airway Type: ETT Last Vitals Vitals Value Taken Time BP 133/78 09/13/24 1231 Temp 36 ?C (96.8 ?F) 09/13/24 1139 HR SpO2 84 09/13/24 1139 Resp 17 09/13/24 1225 SpO2 97 % 09/13/24 1236 Vitals shown include unfiled device data. Post Anesthesia Patient Status Patient Evaluation: bedside. Anticipated Disposition: phase 2 then home. Neurological Status: aware and responsive. Pulmonary Status: breathing comfortably on room air Airway Control: returned to baseline unsupported. Cardiovascular Status: stable. Pain Management: clinically adequate Postoperative Hydration: acceptable. Intraoperative Events: no significant anesthesia events Post Operative Nausea/Vomiting Status: no significant post operative nausea or vomiting Recommendation: continue current plan of care. Anesthesia Observations No Documentation SIGNATURE: Son Marshall MD PATIENT NAME: Christina Cuevas DATE: September 13, 2024 TIME: 12:38 PM CSN: [id number] [facility] ANES PRE-OPon 09-13-2024 ANES PRE-OP HNO ID: [id number] Author: SON MARSHALL MD Service: Anesthesiology Author Type: Anesthesiologist Type: Anesthesia Preprocedure Evaluation Filed: 09/13/2024 09:16 Note Text: ANESTHESIOLOGY DAY OF SURGERY NOTE : 1995 Procedure Information Date/Time: 09/13/24 1005 Procedure: LAPAROSCOPIC SALPINGECTOMY (Bilateral: Abdomen quadrant lower) Location: CO OR03 / CO OR Surgeons: Neil Alvarado MD Estimated body mass index is 38.49 kg/m? as calculated from the following: Height as of 09/09/24: 165 cm (5' 4.96). Weight as of 09/09/24: 104.8 kg (231 lb). Most recent hematocrit and potassium results: Hematocrit 35.4 02/03/2023 Relevant Problems NEURO-PSYCH (+) History of asthma I - PHYSICAL EVALUATION AIRWAY Patient intubated: No. Tracheostomy tube not present Mallampati: II. TM distance: >3 FB. Neck ROM: full ROM without neurological symptoms. Mouth opening: adequate. Short neck: no. Thick neck: no Matias present: no Microretrognathia/Agustín ronagthia/Recessed Chin: No DENTAL Dental findings: teeth intact. Additional exam findings: yes. CARDIOVASCULAR Rhythm: regular Rate: normal PULMONARY Breath sounds clear to auscultation. II - ANESTHESIA PLAN ASA Score: 1 Anesthetic Plan: general Airway type: ETT The patient is not a current smoker. NPO Status: adequate Beta Eyad Administration of chronic beta eyad medication not planned. Monitoring Plan Monitoring plan: standard ASA. Post Procedure Analgesic Plan Postoperative analgesic plan: parenteral or oral opioids. Informed Consent Anesthetic risks, benefits, alternatives, personnel and consent discussed: yes. Patient / Responsible Republican agrees to proceed: yes Patient / Surrogate agrees to blood products: Yes DNR status not reviewed with patient and/or family prior to surgery. Significant changes in the patient condition since the History and Physical, not otherwise documented in primary service progress note: no. Potential Anesthesia issues that may suggest increased risk of complications or contraindication to planned procedure: none. No vitals data found for the desired time range. Facility-Administered Medications as of 09/13/2024 Medication Dose Route Frequency lidocaine (PF) 10 mg/mL (1 %) 1-2 mg injection (XYLOCAINE) 0.1-0.2 mL INTRADERMAL PRN lactated ringers iv infusion 5-30 mL/hr INTRAVENOUS CONTINUOUS NaCl 0.9% iv flush bag 20 mL INTRAVENOUS PRN acetaminophen 1,000 mg tab(s) (TYLENOL) 1,000 mg ORAL Pre-Op Once celecoxib 400 mg cap(s) (CeleBREX) 400 mg ORAL Pre-Op Once Outpatient Medications as of 09/13/2024 Medication Sig metronidazole (FLAGYL ORAL) Take by mouth. Ethinyl Estradiol-Norelgestro m (XULANE) 150-35 mcg/24 hr patch Apply 1 Patch as directed one time a week. sertraline (ZOLOFT) 50 mg tablet Take 1 tablet by mouth once daily. MAGNESIUM GLYCINATE ORAL Take 2 capsules by mouth once daily. acyclovir (ZOVIRAX) 400 mg tablet Take 1 tablet by mouth three times a day. I have interviewed and examined the patient. I have reviewed the medical record and/or the pre-anesthesia evaluation, pertinent labs, and test results. This contains updated information obtained within 48 hours of Surgery/Procedure. SIGNATURE: Son Marshall MD PATIENT NAME: Christina Cuevas DATE: September 13, 2024 TIME: 9:13 AM CSN: [id number] [facility] OPERATIVE NOon 09-13-2024 OPERATIVE NO HNO ID: [id number] Author: NEIL ALVARADO MD Service: Gynecology Author Type: Physician Type: Operative Report Filed: 09/13/2024 11:58 Note Text: [employer] LABORATORY DIRECTOR OPERATIVE/PROCEDURE REPORT LOG ID: [id number] Surgery/Procedure Date: 09/13/2024 Incision/Procedure Start Time: 11:00 AM Incision Close/Procedure End Time: 11:28 AM Surgeon(s)/Procedural ist(s) and Foreman Or Supervisor And Operator(s): Surgeons and Role: * Neil Alvarado MD - Primary * Trinidad Hernandez MD - Resident - Assisting * Trinidad Brown DO - Resident - Assisting Informed Consent: Informed Consent obtained and on the chart Procedure: Laparoscopic Bilateral salpingectomy Pre-Op/Pre-Procedure Diagnosis: Desires sterilization Post-Op/Post-Procedur e Diagnosis: Same as pre-op diagnosis Antibiotic: None Findings: Uterus: Normal Right Ovary: Normal Left Ovary: Normal Right Fallopian Tube: Normal Left Fallopian Tube: Normal Posterior cul-de-sac: Normal Appendix: Not seen Liver: Not seen Procedure Details: Patient was taken to the operating room where the sign-in and time out were completed. General anesthesia was induced and found to be adequate. Once anesthesia was found to be adequate, her arms were then tucked to the side, she was placed in dorsal lithotomy position her legs were placed in [place]fin stirrups with careful attention not to hyperflex or hyperextend the knees or hips. SCDs were placed and turned on for DVT prophylaxis. Exam under anesthesia was performed. Patient was prepped and draped in the usual fashion. A Quintanilla catheter was placed in the urinary bladder under sterile conditions A weighted speculum and right angle retractor were placed in the patient's vagina with clear visualization of the cervix. The anterior lip of the cervix was grasped with a single tooth tenaculum. and the cervix was serially dilated to allow placement of a humi manipulator, which was placed in the uterus and left in place throughout the laparoscopic portion of the procedure. Attention was turned to the abdomen with clean sterile gloves. A 5 mm intraumbilical incision was made with the knife. Using a direct entry approach the 5 mm trochar was placed into the peritoneal cavity. The abdomen was insufflated with carbon dioxide. The lower abdominal wall was transilluminated and an avascular site was selected in the right and left lower abdominal quadrant. Before making incision, lidocaine 1% was injected. A 5mm skin incision was made in both the left and right lower quadrants. Under direction visualization, two, 5mm ports were placed in the right and left lower quadrants. Additional techniques Include: BILATERAL SALPINGECTOMY: Atraumatic grasping forceps was passed through the left port and used to elevate the right tube away from the sidewall. Placing the LigaSure across the fallopian tube, the LigaSure was used to serially transect the fallopian tube from the mesosalpinx. The tube was then transected from the uterus. The tube was removed from the ipsilateral port. The same procedure was performed on the contralateral fallopian tube. All pedicles observed and hemostatic. Abdomen was deflated of carbon dioxide and all trocars removed. All skin incisions were closed. The skin was closed with 4-0 Monocryl. The instruments were removed from the vagina. The Quintanilla catheter was removed. Sign-out was completed. IV Fluids: 1,000 mLs LR Urine Output: 50 mL Estimated Blood Loss: < 10 mL Specimens: ID Type Source Tests Collected by Time Destination A : Tissue Fallopian Tube, Left, Resection SURGICAL PATHOLOGY Neil Alvarado MD 09/13/2024 11:09 AM B : Tissue Fallopian Tube, Right, Resection SURGICAL PATHOLOGY Neil Alvarado MD 09/13/2024 11:09 AM Implantable Devices: NONE Drains: None Complications: None A digital sweep of the vaginal canal was performed by the Attending and it was ascertained that no instruments or other foreign bodies are retained within the cavity. Sponge, lap, and needle counts were correct times two and the patient was taken to the recovery room with stable vital signs after tolerating the procedure well. The attending was present for critical and taylor portions of the procedure or immediately available to provide assistance. SIGNATURE: Trinidad Brown DO PATIENT NAME: Christina Cuevas DATE: September 13, 2024 TIME: 11:44 AM PAGER/CONTACT #: Attending Note For the Laparoscopic bilateral salpingectomy procedure, I was physically present during the entire procedure. I was scrubbed for the entire procedure. Signature: Neil Alvarado MD Date: 09/13/2024 Time: 11:56 AM [facility] Pathology biopsy report Mina (Tiss)on 09-13-2024 AP DISCLAIMER [facility] Comment on above: Order Comment: Speci men Type: TISSUE SPECIMEN Ordering Facility: [facility] Address: [address] [place] [address] Result Comment: Labo ratory Developed Test (LDT) Disclaimer: Performance characteristics of immunohistochemical, immunofluorescent, and chromogenic in-situ hybridization tests have been determined by the performing laboratory within [facility]'s Deni Marisol [facility] Pathology and Laboratory Medicine Department ([facility], [facility], [facility], [facility], [facility], [facility], or [facility]) in a manner consistent with CLIA requirements. One or more of these tests may not have been cleared or approved by the FDA. [facility] is regulated under CLIA as qualified to perform high-complexity testing. These tests are used for clinical purposes. These should not be regarded as investigational or for research. Positive and negative controls stain appropriately. Performed By: #### 6 6121-5 #### [facility] CLIA [id number] [address] [place] [address] [place] CASE REPORT [facility] Comment on above: Order Comment: Speci men Type: TISSUE SPECIMEN Ordering Facility: [facility] Address: [address] [place] [address] Result Comment: [facility] Pathology Report Case: [id number] Authorizing Provider: Neil Alvarado MD Collected: 09/13/2024 11:09 AM Ordering Location: [facility] Surgery Received: 09/13/2024 02:05 PM Pathologist: Adele Martin MD Specimens: A) - Fallopian Tube, Left, Resection B) - Fallopian Tube, Right, Resection Performed By: #### 6 6121-5 #### [facility] CLIA [id number] [address] [place] [address] [place] CLINICAL HISTORY [facility] Comment on above: Order Comment: Speci men Type: TISSUE SPECIMEN Ordering Facility: [facility] Address: [address] [place] [address] Result Comment: Pre- op diagnosis: Sterilization [Z30.2] Performed By: #### 6 6121-5 #### [facility] CLIA [id number] [address] [place] [address] [place] FINAL DIAGNOSIS [facility] Comment on above: Order Comment: Speci men Type: TISSUE SPECIMEN Ordering Facility: [facility] Address: [address] [place] [address] Result Comment: A-B. Fallopian tubes, bilateral, bilateral salpingectomy: - Histologically unremarkable fallopian tubes. at 1222 EDT Performed By: #### 6 6121-5 #### [facility] CLIA [id number] [address] [place] [address] [place] FINAL PERFORMING LAB [facility] Comment on above: Order Comment: Speci men Type: TISSUE SPECIMEN Ordering Facility: [facility] Address: [address] [place] [address] Result Comment: Diag nostic interpretation performed at: [facility], [address] [place] [address] CLIA# [id number] Wireless Sales Expert: Jim Castillo MD Performed By: #### 6 6121-5 #### [facility] CLIA [id number] [address] [place] [address] GROSS DESCRIPTION [facility] Comment on above: Order Comment: Speci men Type: TISSUE SPECIMEN Ordering Facility: [facility] Address: [address] [place] [address] Result Comment: A. F allopian Tube, Left, Resection Received in formalin labeled fallopian tube, left, resection is a fallopian tube measuring 4.0 cm in length by 0.7 cm in diameter. A normal villous fimbriated end is present. The lumen is unremarkable. [employer] sections consisting of the entire fimbriated end sectioned and a cross-section are submitted in formalin in cassette A1. B. Fallopian Tube, Right, Resection Received in formalin labeled fallopian tube, right, resection fallopian tube measuring 5.8 cm in length by 0.7 cm in diameter. A normal villous fimbriated end is present. The lumen is unremarkable. [employer] sections consisting of the entire fimbriated end sectioned and a cross-section are submitted in formalin in cassette B1. Gross examination performed at [facility], [address] [place] [address], [address] 09/13/24 4:33 PM Performed By: #### 6 6121-5 #### [facility] CLIA [id number] [address] [place], [place] [id number] [place] [facility] CNOVon 09-09-2024 CNOV Office Visit (OBGYWM ) CHRISTINA CUEVAS ([id number]) 1995 F Date Time Provider Department 09/09/24 3:20 PM NEIL ALVARADO OBGYWM During your visit today, we recorded the following information about you: Blood pressure Weight Height 116/74 104.8 kg 1.65 m Neil Alvarado MD 09/10/2024 1:20 PM Signed Pre-Op History and Physical HPI: The patient is a 29 year old female presenting for pre-operative visit. She is scheduled for laparoscopic tubal sterilization, for sterilization on 09/13/24. Procedure discussed along with risks, benefits and complications. Other alternatives discussed for management. Consent form signed? Yes. No past medical history on file. PAST SURGICAL HISTORY Procedure Laterality Date ADENOIDECTOMY SECONDARY AGE 11/> Bilateral REMOVAL GALLBLADDER 09/2023 Current Outpatient Medications Medication Sig Dispense Refill ZINC ACETATE ORAL Take by mouth. Ethinyl Estradiol-Norelgestro m (XULANE) 150-35 mcg/24 hr patch Apply 1 Patch as directed one time a week. 3 Patch 3 sertraline (ZOLOFT) 50 mg tablet Take 1 tablet by mouth once daily. 30 tablet 5 MAGNESIUM GLYCINATE ORAL Take 2 capsules by mouth once daily. acyclovir (ZOVIRAX) 400 mg tablet Take 1 tablet by mouth three times a day. 80 tablet 4 No current facility-administered medications for this visit. ALLERGIES: Patient has no known allergies. PERSONAL HISTORY: Social History Tobacco Use Smoking status: Never Smokeless tobacco: Never Vaping Use Vaping status: Never Used Substance Use Topics Alcohol use: Never Drug use: Never FAMILY HISTORY: FAMILY HISTORY Problem Relation Age of Onset Diabetes Mother Depression Sister Hypertension Maternal Grandfather REVIEW OF SYMPTOMS: GENERAL: denies fevers or chills ENDOCRINOLOGY: has not been on steroids Cardiology : denies palpitations or chest pain Respiratory: denies SOB or cough Hematology: denies history of prolonged bleeding or easy bruising or VTE Allergy: Denies history of personal or family history of allergy to anesthesia PHYSICAL EXAMINATION: VITALS: Last menstrual period 04/26/2024, not currently . GENERAL: The patient is well nourished, well hydrated in no acute distress. , The patient is oriented to time, place, and person. NECK: Supple. No lynphadenopathy, normal thyroid, no thyromegaly. LUNGS: Clear to auscultation bilaterally. no wheezes, rhonchi or rales HEART: Regular rate and rhythm, Normal heart sounds, and No murmurs or gallops IMPRESSION: sterilization request PLAN: The risks/benefits/altern atives and personal involved for the planned tubal sterilization, likely bilateral salpingectomy were reviewed with the patient. Her questions were answered to her satisfaction and she desires to proceed. Consent was signed. I reviewed with her postop instructions and expectations. I have reviewed and updated past medical and surgical history, medications and allergies Neil Alvarado M.D. Neil Alvarado MD 09/10/2024 1:20 PM Signed Christina Cuevas is a 29 year old female who presents for problem visit for discussion of contraception. HPI: 29-year-old female who is completed childbearing desires permanent sterilization. Patient has no new complaints today. She declines reversible methods. OB History Gravida4 Para4 Term3 Preterm1 AB0 Living3 SAB0 IAB0 Ectopic0 Multiple0 Live Births4 Dresser Tender History LMP: 04/26/2024 (Approximate), Unknown Age at Menarche: Age at First : Age at Menopause: Dresser Tender History Comments: Sexual Activity: Yes; Male Contraception: No contraception data on record History reviewed. No pertinent past medical history. PAST SURGICAL HISTORY Procedure Laterality Date ADENOIDECTOMY SECONDARY AGE 11/ Bilateral REMOVAL GALLBLADDER 09/2023 FAMILY HISTORY Problem Relation Age of Onset Diabetes Mother Depression Sister Hypertension Maternal Grandfather Social History Tobacco Use Smoking status: Never Smokeless tobacco: Never Vaping Use Vaping status: Never Used Substance Use Topics Alcohol use: Never Drug use: Never Current Outpatient Medications Medication Sig metronidazole (FLAGYL ORAL) Take by mouth. ZINC ACETATE ORAL Take by mouth. Ethinyl Estradiol-Norelgestro m (XULANE) 150-35 mcg/24 hr patch Apply 1 Patch as directed one time a week. sertraline (ZOLOFT) 50 mg tablet Take 1 tablet by mouth once daily. MAGNESIUM GLYCINATE ORAL Take 2 capsules by mouth once daily. acyclovir (ZOVIRAX) 400 mg tablet Take 1 tablet by mouth three times a day. No current facility-administered medications for this visit. Allergies As of Date: 09/09/2024 (No Known Allergies) Fully Assessed 09/09/2024 Allergies and current medication updated:Yes SENSITIVE EXAM: The sensitive examination was discussed with the Patient or Patient's Authorized [employer]. As applicable, any (more content not included)... [facility] HISTORY PHYSICALon HISTORY PHYSICAL HNO ID: [id number] Author: NEIL ALVARADO MD Service: ? Author Type: Physician Type: H&P Filed: 09/10/2024 13:20 Note Text: Pre-Op History and Physical HPI: The patient is a 29 year old female presenting for pre-operative visit. She is scheduled for laparoscopic tubal sterilization, for sterilization on 09/13/24. Procedure discussed along with risks, benefits and complications. Other alternatives discussed for management. Consent form signed? Yes. No past medical history on file. PAST SURGICAL HISTORY Procedure Laterality Date ADENOIDECTOMY SECONDARY AGE 11/> Bilateral REMOVAL GALLBLADDER 09/2023 Current Outpatient Medications Medication Sig Dispense Refill ZINC ACETATE ORAL Take by mouth. Ethinyl Estradiol-Norelgestro m (XULANE) 150-35 mcg/24 hr patch Apply 1 Patch as directed one time a week. 3 Patch 3 sertraline (ZOLOFT) 50 mg tablet Take 1 tablet by mouth once daily. 30 tablet 5 MAGNESIUM GLYCINATE ORAL Take 2 capsules by mouth once daily. acyclovir (ZOVIRAX) 400 mg tablet Take 1 tablet by mouth three times a day. 80 tablet 4 No current facility-administered medications for this visit. ALLERGIES: Patient has no known allergies. PERSONAL HISTORY: Social History Tobacco Use Smoking status: Never Smokeless tobacco: Never Vaping Use Vaping status: Never Used Substance Use Topics Alcohol use: Never Drug use: Never FAMILY HISTORY: FAMILY HISTORY Problem Relation Age of Onset Diabetes Mother Depression Sister Hypertension Maternal Grandfather REVIEW OF SYMPTOMS: GENERAL: denies fevers or chills ENDOCRINOLOGY: has not been on steroids Cardiology : denies palpitations or chest pain Respiratory: denies SOB or cough Hematology: denies history of prolonged bleeding or easy bruising or VTE Allergy: Denies history of personal or family history of allergy to anesthesia PHYSICAL EXAMINATION: VITALS: Last menstrual period 04/26/2024, not currently . GENERAL: The patient is well nourished, well hydrated in no acute distress. , The patient is oriented to time, place, and person. NECK: Supple. No lynphadenopathy, normal thyroid, no thyromegaly. LUNGS: Clear to auscultation bilaterally. no wheezes, rhonchi or rales HEART: Regular rate and rhythm, Normal heart sounds, and No murmurs or gallops IMPRESSION: sterilization request PLAN: The risks/benefits/altern atives and personal involved for the planned tubal sterilization, likely bilateral salpingectomy were reviewed with the patient. Her questions were answered to her satisfaction and she desires to proceed. Consent was signed. I reviewed with her postop instructions and expectations. I have reviewed and updated past medical and surgical history, medications and allergies Neil Alvarado M.D. [facility] HISTORY PHYSICALon HISTORY PHYSICAL HNO ID: [id number] Author: CHINYERE GAVIN PA-C Service: ? Author Type: Physician Foreman Or Supervisor And Operator Type: H&P Filed: 08/26/2024 10:27 Note Text: PREANESTHESIA CONSULT CLINIC TELEHEALTH VISIT Patient has been identified by name and date of : Yes This is a virtual visit using [employer] Video Visit. It require patient-provider interaction for the medical decision making as documented below. Reason for contact: PACC visit Accompanied by: Self Scheduled Surgery: lap salpingectomy Subjective CHIEF COMPLAINT: Patient presents with: Anesthesia Consult HPI: This is a 28 year old female who presents with desire for sterilization. No vaginal d/c, itching, rashes. Uses BC patch. ACTIVE PROBLEM LIST Post Depression Obesity, Class II, Bmi 35-39.9 Viral Upper Respiratory Tract Infection History of Asthma History reviewed. No pertinent past medical history. PAST SURGICAL HISTORY Procedure Laterality Date ADENOIDECTOMY SECONDARY AGE 11/> Bilateral REMOVAL GALLBLADDER 09/2023 FAMILY HISTORY Problem Relation Age of Onset Diabetes Mother Depression Sister Hypertension Maternal Grandfather Social History Tobacco Use Smoking status: Never Smokeless tobacco: Never Vaping Use Vaping status: Never Used Substance Use Topics Alcohol use: Never Drug use: Never ALLERGIES No Known Allergies MEDICATIONS: Current Outpatient Medications Medication Sig ZINC ACETATE ORAL Take by mouth. Ethinyl Estradiol-Norelgestro m (XULANE) 150-35 mcg/24 hr patch Apply 1 Patch as directed one time a week. sertraline (ZOLOFT) 50 mg tablet Take 1 tablet by mouth once daily. MAGNESIUM GLYCINATE ORAL Take 2 capsules by mouth once daily. acyclovir (ZOVIRAX) 400 mg tablet Take 1 tablet by mouth three times a day. No current facility-administered medications for this visit. COVID VACCINATION STATUS: REVIEW OF SYSTEMS: Pain Assessment: General: No weight loss, malaise or fevers. Neuro: sciatica Respiratory: current mild URI/runny nose, had cough at s [place] 1 week ago but no other sx; no viral testing. Sx miproving. Hx childhood asthma. No wheezing, SOB as adult. Cardiovascular: No history of HTN requiring medication, no history of angina, CHF, [place], cardiac surgery or stents. Denies rest pain, gangrene or revascularization/amp utation for PVD. No history of cardiovascular symptoms or problems. GI: No history of GI symptoms or problems. No history of esophageal varices, recent ascites, or ETOH greater than 2 drinks per day. : No history of dysuria, frequency or incontinence,, stones or chronic kidney disease [employer] SYSTEMS LABORATORY DIRECTOR: See HPI : Denies, Patient's last menstrual period was 04/26/2024 (approximate). Endocrine: No history of diabetes. Has not taken steroids within the past 30 days. No history of endocrinological symptoms or problems. Hematology: No history of bleeding or clotting disorder. Pt is not taking anti-coagulation or platelet medications. No history of hematological symptoms or problems. Oncology: No history of CA metastasis, chemo within 30 days, or radiotherapy within 90 days. Has not lost 10% of body wt in 6 months. No history of oncological symptoms or problems. Psych: [place] Musculoskeletal: Back pain Skin: Negative for lesions, rash and itching. Objective PHYSICAL EXAM: Pulse 80 Ht 5' 6 (1.68m) Wt 220 lb (99.8kg) LMP 04/26/2024 BMI 35.53 kg/(m2). Last BP readings: Date: BP: 06/21/2024 114/62 06/07/2024 110/64 06/04/2023 108/64 05/31/2023 90/68 VIDEO EXAM: (if completed, performed via video enabled technology) GENERAL: alert and appropriate, in no distress, well-hydrated, interactive, obese SKIN: no rash noted on visualized areas EYES: no injection, EOMI, NOSE: external nose normal without visible rhinorrhea OROPHARYNX: moist mucus membranes, difficult to see OP due to lighting NECK: full ROM, no cervical LNs noted, no masses RESPIRATORY: breathing non-labored, no grunting/flaring/retr actions and or wheezing CHEST: equal chest rise with normal respiratory effort HEART: RRR per verbalization of radial pulse; No cyanosis, JVD EXTREMITIES: no c/c/e/e hands, unable to see LEs due to computer setup NEUROLOGIC: CN II-XII grossly intact Normal speech Diagnostic tests reviewed for today's visit: Lab Value Units Date High Low HB No results within date range. HCT No results within date range. WBC No results within date range. PLT No results within date range. NA No results within date range. K No results within date range. GLUC No results within date range. BUN No results within date range. CREAT No results within date range. PTSEC No results within date range. INR No results within date range. APTT No results within date range. ALT No results within date range. AST No results within date range. TBILI No results within date range. TSH No results within date range. Lab Value Units Date High Low (more content not included)... [facility] [place] 08-13-2024 CNPN Telephone (OBGYWM) CHRISTINA CUEVAS ([id number]) 1995 F Date Time Provider Department 08/13/24 NEIL ALVARADO During your visit today, we recorded the following information about you: Cherry Borrero LPN 08/13/2024 11:16 AM Signed Patient requesting surgery at [facility] on 09/13/2024. Please approve order. Allergies As of Date: 08/13/2024 (No Known Allergies) Date Reviewed: 06/21/2024 Reviewed by: Trinidad Raya APRN.COMPENSATOR - Fully Assessed Reason for Visit: Schedule Surgery [1330] Primary Visit Diagnosis:Sterilizati on [Z30.2] Order(s):SURGICAL REQUEST - ELECTIVE (12/2019) [[id number]] Order #: [id number]: 1 Prescriptions as of 08/18/2024 - Ethinyl Estradiol-Norelgestro m (XULANE) 150-35 mcg/24 hr patch Apply 1 Patch as directed one time a week. - sertraline (ZOLOFT) 50 mg tablet Take 1 tablet by mouth once daily. - MAGNESIUM GLYCINATE ORAL Take 2 capsules by mouth once daily. - acyclovir (ZOVIRAX) 400 mg tablet Take 1 tablet by mouth three times a day. Problem List As Of Date 08/13/2024 Noted Resolved Diet controlled gestational diabetes mellitus (*02/03/2023 06/07/2023 Prior with demise [O09.299] 02/03/2023 06/07/2023 Premature delivery [O60.10X0] 02/03/2023 06/07/2023 Diagnosed: 02/03/2023 Supervision of other high risk pregnancies, thi*03/18/2023 06/07/2023 Encounter for administration of vaccine [Z23] 03/18/2023 06/07/2023 Post depression [F53.0] 06/07/2023 Encounter Status:Closed by CHERRY BORRERO on 08/18/24 [facility] [place] 07-06-2024 BRAYDON Telephone (ALCIRAWJose Antonio) CHRISTINA CUEVAS ([id number]) 1995 F Date Time Provider Department 07/06/24 TRINIDAD RAYA During your visit today, we recorded the following information about you: Krystal Uribe RN 07/06/2024 8:56 AM Signed Patient called inquiring if she needs labs prior to having a tubal ligation. Advised that there are no labs ordered. Does patient need a consult with a physician to discuss or did you certified genetic counselor her regarding this at her last visit? Please advise. Patient aware provider our of office until . TYLER Pope Emily, APRN.NATALY 07/08/2024 7:15 AM Signed I recommend an appointment with physician to make sure she's a good candidate for surgery. Can be virtual or in person. Trinidad Raya APRN.Eda Faye RN 07/08/2024 11:24 AM Signed Left message for patient to call office. TYLER Muñiz Jennifer, RN 07/13/2024 9:23 AM Signed 2nd message left for patient to call the office. TYLER Pope Jennifer, RN 07/13/2024 11:46 AM Signed Patient called back. Appointment given. Krystal Uribe RN Allergies As of Date: 07/06/2024 (No Known Allergies) Date Reviewed: 06/21/2024 Reviewed by: Trinidad Raya APRN.CNP - Fully Assessed Reason for Visit: Patient Question [9357] Prescriptions as of 07/13/2024 - Ethinyl Estradiol-Norelgestro m (XULANE) 150-35 mcg/24 hr patch Apply 1 Patch as directed one time a week. - sertraline (ZOLOFT) 50 mg tablet Take 1 tablet by mouth once daily. - vit calc,iron,folic (PRENAT.VITS,GERA,MIN- IRON-FOLIC ORAL) Take 1 tablet by mouth once daily. - MAGNESIUM GLYCINATE ORAL Take 2 capsules by mouth once daily. - acyclovir (ZOVIRAX) 400 mg tablet Take 1 tablet by mouth three times a day. 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 trachomatis+N. gonorrhoea e DNA ELDA+probe Ql (Unsp spec)on 06-21-2024 C. trachomatis rRNA ELDA+probe Ql (Unsp spec) Not detected Normal Not detected [facility] Comment on above: Order Comment: Speci men Type: SWABOrdering Facility: [facility] Address: [address] [place] [address] Performed By: #### 3 6902-5 ####[facility] LABCLIA [id number] [place] [address] [place] N. gonorrhoeae rRNA ELDA+probe Ql (Unsp spec) Not detected Normal Not detected [facility] Comment on above: Order Comment: Speci men Type: SWABOrdering Facility: [facility] Address: [address] [place] [address] Performed By: #### 3 6902-5 ####[facility] LABCLIA [id number] [place] [address] [place] BARBARA/TRICHOMONAS NAATon 0 06-21-2024 C. glabrata RNA ELDA+probe Ql (Vag fld) Not detected Normal Not detected [facility] Comment on above: Order Comment: Speci men Type: SWABOrdering Facility: [facility] Address: [address] [place] [address] Performed By: #### Royal VAMP CVTV ####[facility] LABIA [id number] [place] [address] [place] Barbara sp DNA ELDA+probe Ql (Vag fld) Not detected Normal Not detected [facility] Comment on above: Order Comment: Speci men Type: SWABOrdering Facility: [facility] Address: [address] [place] [address] Result Comment: The Barbara species group target includes C. albicans, C. tropicalis, C. parapsilosis, and C. dubliniensis. Performed By: #### Royal BARNHART CVTV ####[facility] LABCLIA [id number] [place] [address] [place] T. vaginalis DNA ELDA+probe Ql (Unsp spec) Not detected Normal Not detected [facility] Comment on above: Order Comment: Speci men Type: SWABOrdering Facility: [facility] Address: [address] [place] [address] Performed By: #### Royal VAMP, CVTV ####[facility] LABCLIA [id number] [place] [address] [place] CNOVon 06-21-2024 CNOV Office Visit (OBGYWM ) CHRISTINA CUEVAS ([id number]) 1995 F Date Time Provider Department 06/21/24 4:00 PM TRINIDAD RAYA During your visit today, we recorded the following information about you: Blood pressure Weight 114/62 104.3 kg Trinidad Raya, YANDEL.COMPENSATOR 06/21/2024 4:19 PM Signed Senior Clerk offered: Patient declines. Christina Cuevas is a 28 year old female who presents for problem visit for vaginal itching for a couple weeks. HPI: Christina presents for vaginal itching. Denies discharge or pain. She tried Monistat 7 and experiencing some relief. She noticed that itching resurfaced a few days later after intercourse. She reports some swelling as well. OB History Gravida4 Para4 Term3 Preterm1 AB0 Living3 SAB0 IAB0 Ectopic0 Multiple1 Live Births3 Dresser Tender History LMP: 04/26/2024 (Approximate), Unknown Age at Menarche: Age at First : Age at Menopause: Dresser Tender History Comments: Sexual Activity: Yes; Male Contraception: No contraception data on record No past medical history on file. PAST SURGICAL HISTORY Procedure Laterality Date - ADENOIDECTOMY SECONDARY AGE 11/> Bilateral - REMOVAL GALLBLADDER 09/2023 FAMILY HISTORY Problem Relation Age of Onset - Diabetes Mother - Depression Sister - Hypertension Maternal Grandfather Social History Tobacco Use - Smoking status: Never - Smokeless tobacco: Never Vaping Use - Vaping status: Never Used Substance Use Topics - Alcohol use: Never - Drug use: Never Current Outpatient Medications Medication Sig - Ethinyl Estradiol-Norelgestro m (XULANE) 150-35 mcg/24 hr patch Apply 1 Patch as directed one time a week. - sertraline (ZOLOFT) 50 mg tablet Take 1 tablet by mouth once daily. - vit calc,iron,folic (PRENAT.VITS,GERA,MIN- IRON-FOLIC ORAL) Take 1 tablet by mouth once daily. (Patient not taking: Reported on 06/07/2024) - MAGNESIUM GLYCINATE ORAL Take 2 capsules by mouth once daily. - acyclovir (ZOVIRAX) 400 mg tablet Take 1 tablet by mouth three times a day. No current facility-administered medications for this visit. Allergies As of Date: 06/21/2024 (No Known Allergies) Fully Assessed 06/21/2024 REVIEW OF SYSTEMS Expanded ROS: ENERGY SYSTEMS LABORATORY DIRECTOR: + vaginal itching, swelling Allergies and current medication updated:Yes SENSITIVE EXAM: The sensitive examination was discussed with the Patient or Patient's Authorized [employer]. As applicable, any other physician, advance practice provider, medical student, or other health professional student that will be observing or involved in the sensitive examination for educational or training purposes was discussed with the Patient or Authorized [employer]. The Patient or Authorized [employer] has agreed to proceed with the sensitive examination. (Sensitive examination includes inspection and/or palpation of the breasts, pelvis, prostate and anorectal regions). EXAM: BP 114/62 Wt 230 lb (104.3kg) LMP 04/26/2024 GENERAL: pleasant, female in no apparent distress HEENT: Normocephalic, atraumatic, mucus membranes moist, and no lesions CHEST: Normal inspiratory effort PELVIC: external genitalia normal, erythema to bilateral anterior bilateral labia minora, normal Bartholin's glands, urethra, Orrick's glands, no vulvar lesions, no cervical lesions, good vaginal support, physiologic discharge present, normal appearing perineal body and perianal region NEURO: alert and oriented x3,exam grossly non-focal EXTREMITIES: normal ASSESSMENT AND PLAN: 1. Vaginal itching - ICD9: 698.1, ICD10: N89.8 (primary diagnosis) 2. Screening examination for STD (sexually transmitted disease) - ICD9: V74.5, ICD10: Z11.3 - Cultures obtained - Will treat accordingly - Use neutral unscented soap/detergent RTO for annual or sooner as needed. Trinidad Raya APRN.NATALY Medical Decision Making: Problems: Low: Acute, uncomplicated illness or injury Data: Unique test(s) ordered: 3+ Risk: Minimal: Minimal risk from testing/treatment Medical Decision Making Level: 3 - Low Allergies As of Date: 06/21/2024 (No Known Allergies) Date Reviewed: 06/21/2024 Reviewed by: Trinidad Raya APRN.COMPENSATOR - Fully Assessed Reason for Visit: Vaginal Problem [117] Primary Visit Diagnosis:Vaginal itching [N89.8] Other Visit Diagnosis:Screening examination for STD (sexually transmitted disease) [Z11.3] Order(s):BACTERIAL VAGINOSIS NAAT [SQBVAMP] Order #: [id number] BARBARA/TRICHOMONAS NAAT [SQCVTV] Order #: [id number] GONORRHEA/CHLAMYDIA NAAT [SQGCCT] Order #: [id number] Prescriptions as of 06/21/2024 - Ethinyl Estradiol-Norelgestro m (XULANE) 150-35 mcg/24 hr patch Apply 1 Patch as directed one time a week. - sertraline (ZOLOFT) 50 mg tablet Take 1 tablet by mouth once daily. - vit calc,iron,folic (PRENAT.VITS,GERA,MIN- IRON-FOLIC ORAL) Take 1 tablet by mouth once daily. - MAGNESIU (more content not included)... Normal [facility] Inital Evaluation (1) - PTon 06-21-2024 Inital Evaluation (1) - PT [facility] Physical Therapy [facility] [address] [place] [address] [address] [place] [address] / REHABILITATION SERVICES INITIAL EVALUATION MR#: [id number] Acct: [id number] Name: CHRISTINA CUEVAS Rep #: [id number] : 1995 28 From: Paulette Murrieta PT, Cert. MDT Referring Dr.: DINESH Fraser Status: REG RC R Insurance: [facility] SELF PAY INSURANCE Patient's Visit Information Visit Information Visit Information: CHRISTINA CUEVAS is a 28 year old F referred to Physical Therapy by DINESH Fraser with a diagnosis of CHRONIC BACK PAIN AND STRESS URINARY INCONTINENCE. Date of Evaluation: 06/21/24 Physical Therapist: Paulette Murrieta PT, Cert MDT Visit Plan Frequency: 1-2x /Week Duration: 2-4 Months Plan: POSTURE CORRECTION/STRENGTHEN ING, INSTRUCTION IN APPROPRIATE BODY MECHANICS AND ACTIVITY MODIFICATIONS. CORE AND JUVENAL LE ROM, STRETCHING AND STRENGTHENING. PELVIC FLOOR EDUCATION, STRENGTHENING AND ENDURANCE TRAINING. HEALTHY BLADDER HABIT EDUCATION. HEP INSTRUCTION. 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 MOM OF 2 CHILDREN AT HOME - AGES 3.5 YEARS OLD AND 14 MONTHS OLD. Disability: NO Present symptoms: CENTRAL LOW BACK/L HIP PAIN AND MILD INCONTINENCE WITH SNEEZING. INTERMITTENT L LE PAIN RADIATING DOWN LLE TO ARCH OF FOOT (X 2 IN THE LAST 5 MONTHS). PATIENT REPORTS A FEW DROPS INCONTIENCE OCCURRING LESS THAN ONCE A WEEK BUT MORE THAN ONCE A MONTH WITH SNEEZING. SHE DENIES WEARING PAD PROTECTION OR URINE LOSS WITH OTHER ACTIVITY. Present since: CHRONIC LBP/L HIP PAIN (AT LEAST 8 YEARS). UI X AT LEAST 15 YEARS SINCE HAVING FIRST CHILD. Pain Scale: LBP/HIP PAIN - WORST 7/10, LEAST 0/10 Currently: 3/10 Is it getting better, worse or staying the same: STAYING THE SAME Commenced as a result of: EPIDURAL FOR LBP BUT OTHERWISE NO APPARENT REASON. Worse: SITTING Better: RUBBING WITH LOTION, STRETCHING IT OUT - LEANING TO THE RIGHT. Disturbed sleep: NO Previous history/Previous treatment: PT YEARS AGO. CHIROPRACTOR A COUPLE TIMES A REALLY LONG TIME AGO - PATIENT DOESN'T REMEMBER EFFECT. NO BACK OR HIP INJECTIONS OR SURGERY. STATES SHE LEARNED KEGELS A WHILE AGO AND DOES THEM INTERMITTENTLY. Coughing/sneezing/str aining: REPORTS intermittently having increased effect on back pain and intermittently having UI with sneezing. Gait: NORMAL. How long can you delay the need to urinate: LONG NEEDED TO GET TO THE BATHROOM IN TIME. Prolapse (Falling out feeling): NO/NEVER Frequency of Urination: 5-8 TIMES DURING THE DAY AND 1 TIME AT NIGHT. Ability to stop urine flow: CAN STOP COMPLETELY Ability to initiate urine stream: YES - NEVER TROUBLE INITIATING. Dyspareunia: NO Bowel Incontinence: NO Accidents: NO IMAGING: L HIP/PELVIS AND LUMBAR SPINE X-RAYS MAR 2024 APPEAR UNREMARKABLE - SEE [facility] EMR. PMH: GALLBLADDER REMOVAL SEPTEMBER 2023. Objective Objective: Sitting/Standing Posture: SITTING: VERY SLOUCHED. STANDING: ANTERIOR PELVIC TILT. NO RELEVANT LATERAL SHIFT. Active Correction of posture: PATIENT ABLE TO PARTIALLY CORRECT AND DENIES CHANGE IN PAIN. Other Observations: INDEP GAIT AND TRANSFERS. SIT TO STAND WITHOUT UE ASSIST. Sensory deficit: JUVENAL LE LIGHT TOUCH SENSATION GROSSLY INTACT AND SYMMETRICAL ROM deficit: JUVENAL LE HIP FLEXOR, ER, HS AND CALF TIGHTNESS Motor deficit: JUVENAL LE'S GROSSLY 5/5 EXCEPT HIPS 4/5 Reflexes: 2+ JUVENAL LE QUADS AND ACHILLES Dural Signs: NEGATIVE JUVENAL LE'S. Lumbar mvmt loss: flex - MIN - INCREASES LB - NW ext - MOD - INCREASES LB - NW R SG - MIN - INCREASES LB - NW L SG - MIN - INCREASES LB - NW Core strength: POOR FUNCTIONAL SCREEN: Incontinence Impact Questionnaire Score: 2 Urogenital Distress Inventory Score: 4 TREATMENT: HEP Inst: Quick Flick Kegels and Posture Correction. Balance/Special Test Scores Oswestry Low Back Score: 14 Goals Goal 1:: DECREASE C/O LOW BACK AND LLE PAIN BY AT LEAST 50% TO EASE ADL'S. Goal Time Frame: 6-8 Weeks Goal 2:: PATIENT WILL DEMONSTRATE/COMMUNICA TE HEALTHY BACK HABITS FOR SITTING, WORK AND ADL FUNCTIONS Goal Time Frame: 4-6 Weeks Goal 3:: PATIENT WILL COMMUNICATE HEALTH BLADDER HABITS Goal Time Frame: 4-6 Weeks Goal 4:: PATIENT WILL DEMONSTRATE/COMMUNICA TE 10 CONSISTENT AND CONSECUTIVE 10 SECOND PELVIC FLOOR MUSCLE CONTRACTIONS TO DEMONSTRATE IMPROVED PELVIC FLOOR ENDURANCE. Goal Time Frame: 8-12 Weeks Goal 5:: PATIENT WILL REPORT DECREASED UI WITH SNEEZING. Goal Time Frame: 8-12 Weeks Goal 6:: PATIENT WILL BE INDEP WITH A HEP/HOME INSTRUCTIONS FOR BACK/HIP STRETCHING/STRENGTHEI NG AND PELVIC FLOOR STRETCHING/STRENGTHEI NG FOR CONTINUED IMPROVEMENT ONCE FORMAL PHYSICAL THERAPY CONCLUDES. Goal Time Frame: 8-12 Weeks Rehabilitation Potential Physical Therapy Diagnosis: TRUNK AND LE STIFFNESS AND WEAKNESS ALONG WITH SX'S CONSIST (more content not included)... Normal [facility] HbA1c (Bld)on 06-17-2024 Average glucose Estimated from glycated hemoglobin (Bld) [Mass/Vol] 103 mg/dL Normal [facility] Comment on above: Order Comment: Speci men Type: BLOOD SPECIMENOrdering Facility: [facility] Address: [address] [place] [address] Result Comment: eAG: (Estimated average glucose) is a calculated value from HgbA1c and is labor union business representative of the average blood glucose level in the last 2-3 month period. Performed By: #### 5 5454-3 ####[facility] LABCLIA [id number] [facility] [id number] [address] [place] HbA1c (Bld) [Mass fraction] 5.2 % Normal 4.3-5.6 [facility] Comment on above: Order Comment: Speci men Type: BLOOD SPECIMENOrdering Facility: [facility] Address: [address] [place] [address] Result Comment: [place] Diabetes Association guidelines indicate that patients with HgbA1c in the range 5.7-6.4% are at increased risk for development of diabetes, and intervention by lifestyle modification may be beneficial. HgbA1c greater or equal to 6.5% is considered diagnostic of diabetes. Performed By: #### 5 5454-3 ####[facility] LABCLIA [id number] [facility] [id number] CNOVon 06-07-2024 CNOV Office Visit (OBGYWM ) CHRISTINA CUEVAS Gary ([id number]) 1995 F Date Time Provider Department 06/07/24 1:30 PM TRINIDAD RAYA During your visit today, we recorded the following information about you: Blood pressure Weight Height Last Period 110/64 103.9 kg 1.702 m 04/26/24 Trinidad Raya APRN.COMPENSATOR 06/07/2024 2:02 PM Signed Senior Clerk offered: Patient declines. Vasquez is a 28 year old who presents for an annual gynecologic exam without complaints. LMP: 04/26/2024 Menses: cycles every 30 days and 5-7 days of flow, but some irregular bleeding. Using patch. Sexually active: Yes Contraception: Patch HPV vaccine: No HPV: negative Last pap smear: 06/04/2023 ASCUS History of abnormal pap: Yes- ASCUS, HPV negative 2023 Colposcopy: No Bothersome pelvic pain: No Last mammogram: never OB History T3 L3 SAB0 IAB0 Ectopic0 Multiple1 Live Births3 Dresser Tender History LMP: 04/26/2024 (Approximate), Unknown Age at Menarche: Age at First : Age at Menopause: Dresser Tender History Comments: Sexual Activity: Yes; Male Contraception: No contraception data on record History reviewed. No pertinent past medical history. PAST SURGICAL HISTORY Procedure Laterality Date ADENOIDECTOMY SECONDARY AGE 11/> Bilateral REMOVAL GALLBLADDER 09/2023 History reviewed. No pertinent family history.SOCIAL HISTORY Social History Tobacco Use Smoking status: Never Smokeless tobacco: Never Vaping Use Vaping status: Never Used Substance Use Topics Alcohol use: Never Drug use: Never REVIEW OF SYSTEMS Abdomen: No abdominal pain, nausea, vomiting, diarrhea, or constipation. No bloating, early satiety, indigestion, or increased flatulence. Bladder: No dysuria, gross hematuria, urinary frequency, urinary urgency + stress incontinence Breast: No breast lumps, nipple d/c, overlying skin changes, redness or skin retraction. Allergies and current medication updated:Yes SENSITIVE EXAM: The sensitive examination was discussed with the Patient or Patient's Authorized [employer]. As applicable, any other physician, advance practice provider, medical student, or other health professional student that will be observing or involved in the sensitive examination for educational or training purposes was discussed with the Patient or Authorized [employer]. The Patient or Authorized [employer] has agreed to proceed with the sensitive examination. (Sensitive examination includes inspection and/or palpation of the breasts, pelvis, prostate and anorectal regions). EXAM: BP 110/64 Ht 5' 7 (1.70m) Wt 229 lb (103.9kg) LMP 04/26/2024 BMI 35.86 kg/(m2). GENERAL: pleasant, female in no apparent distress HEENT: Normocephalic, atraumatic, mucus membranes moist, and no lesions NECK: Supple, full range of motion, no adenopathy, and thyroid normal DERMATOLOGY: Normal, without lesions, non-icteric, and non-hirsute BREAST: soft, non-tender, symmetric, no dominant mass, normal nipple-areolar complex, no lymphadenopathy, and no nipple discharge CHEST: Normal inspiratory effort ABDOMEN: soft, non-tender, and no masses PELVIC: external genitalia normal, normal Bartholin's glands, urethra, Orrick's glands, no vulvar lesions, no cervical lesions, good vaginal support, physiologic discharge present, normal appearing perineal body and perianal region BIMANUAL: uterus normal size, shape and consistency, no adnexal masses, and non-tender RECTOVAGINAL: deferred. NEURO: alert and oriented x3,exam grossly non-focal EXTREMITIES: normal I attest that I was present, not working on other tasks, and directing the student during this visit. I have reviewed and agree with the above documentation of this student. Trinidad Raya APRN.CNP ASSESSMENT/PLAN: 1) Health maintenance: Pap/HPV up to date. Plan for pap in 2026. Mammogram starting age 40. Nutrition, exercise and routine health maintenance exams reviewed. HPV vaccine: interested, literature given 2) Contraception: patch. Considering tubal. Title 19 signed. To schedule consult with physician. Denies migraines with aura, VTE history or clotting disorder, hypertension, or liver issues. Does not smoke. 3) STD screening: Declined STD check. 4) Follow up one year or sooner as needed Urinary, incontinence, stress female - ICD9: 625.6, ICD10: N39.3 - Recommend pelvic floor therapy - Consult placed to [facility] per patient request Discussed irregular bleeding may be related to patch use - not recommended for BMI >30. Discussed risk of and breakthrough bleeding. To follow up if persistent/ongoing. KRISTIN Fraser Emily, APRN.CNP 06/07/2024 1:49 PM Signed A 3-dose schedule is recommended for people who get the first dose on or after their 15th birthday, and for people with certain immunocompromising conditions. In a (more content not included)... Normal [facility] 06-07-2024 [place] Telephone (OBGYWM) CHRISTINA CUEVAS ([id number]) 1995 F Date Time Provider Department 06/07/24 TRINIDAD RAYA During your visit today, we recorded the following information about you: Trinidad Raya APRN.CNP 06/07/2024 2:00 PM Signed Please fax PFPT consult to [facility] for stress incontinence. Trinidad Raya APRN.Geraldine Cavazos RN 06/07/2024 2:08 PM Signed Referral faxed to [facility]. Geraldine Daugherty RN Allergies As of Date: 06/07/2024 (No Known Allergies) Date Reviewed: 06/07/2024 Reviewed by: Trinidad Raya APRN.CNP - Fully Assessed Reason for Visit: PFPT [Other] Prescriptions as of 06/07/2024 - Ethinyl Estradiol-Norelgestro m (XULANE) 150-35 mcg/24 hr patch Apply 1 Patch as directed one time a week. - sertraline (ZOLOFT) 50 mg tablet Take 1 tablet by mouth once daily. - vit calc,iron,folic (PRENAT.VITS,GERA,MIN- IRON-FOLIC ORAL) Take 1 tablet by mouth once daily. - MAGNESIUM GLYCINATE ORAL Take 2 capsules by mouth once daily. - acyclovir (ZOVIRAX) 400 mg tablet Take 1 tablet by mouth three times a day. 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 Steph Schuler MD Status: REG CLI Study: HIP, UNI W/ Pelvis 2-3 Views Date of Exam: Exam# [id number] Ordering Dr: Steph Schuler MD [id number] INDICATION: left hip pain EXAMINATION/TECHNIQUE : X-RAY - LEFT XR Hip Unilateral with Pelvis when performed; 2-3 Views COMPARISON: None. __ FINDINGS: Single Frontal view of the pelvis. 2 views of the left hip. BONES: Normal anatomic alignment without evidence of fracture or subluxation. No concerning bony lesion or abnormal sclerosis to suggest lesion. JOINTS: No significant degenerative change. SOFT TISSUES: Unremarkable. RAD/HIP, UNI W/ Pelvis 2-3 Views IMPRESSION: No acute osseous abnormality of the pelvis or left hip. Electronically Signed: Tim Stoll MD at 1:02 EST , CC: Dr. Steph Schuler MD Museum Registrar: Signed Normal [facility] Lumbar Spine 2 or 3 Viewson 03-26-2024 Lumbar Spine 2 or 3 Views [facility] [address] [place] [address] [id number] Lumbar Spine 2 or 3 Views MR#: [id number] Acct: [id number] Name: CHRISTINA CUEVAS Rep #: [id number] : 1995 F 28 From: Tim Stoll MD PCP: Dr. Steph Schuler MD Status: REG CLI Study: Lumbar Spine 2 or 3 Views Date of Exam: Exam# [id number] Ordering Dr: Steph Schuler MD [id number] INDICATION: back pain EXAMINATION/TECHNIQUE : X-RAY - XR Spine Lumbar 2 or 3 Views COMPARISON: None. __ FINDINGS: 3 views of the lumbar spine. BONES: Normal anatomic alignment without evidence of fracture or subluxation. No concerning bony lesion or abnormal sclerosis to suggest lesion. DISCS/JOINTS: No significant degenerative change. SOFT TISSUES: Unremarkable. RAD/Lumbar Spine 2 or 3 Views IMPRESSION: Unremarkable lumbar spine. If there is persistent clinical concern for spine fracture and this is a trauma patient, recommend dedicated lumbar spine CT. Electronically Signed: Tim Stoll MD at 5:07 EST , CC: Dr. Steph Schuler MD Museum Registrar: Signed Normal [facility] Absolute lymphocyte countOrd ered By: Francisco Mcgovern on 07-20-2023 Lymphocytes Auto (Unsp spec) [#/Vol] 1.19 10*3/uL 0.83-4.51 [facility] Automated lymphocyte count a s percentage of total leukocytesOrdered By: Francisco Mcgovern on 07-20-2023 Lymphocytes/100 WBC Auto (Unsp spec) 36.6 % 19-41 [facility] Basophil percentageOrdered B y: Francisco Mcgovern on 07-20-2023 Basophils/100 WBC (Bld) 0.3 % 0-1 [facility] Chloride [Moles/Vol] 107 mmol/L 98-107 [facility] Eosinophils/100 WBC (Bld) 0.6 % 0-5 [facility] Glucose [Mass/Vol] 114 mg/dL 74-106 [facility] Comment on above: Fasting Glucose resu lt from 100 to 125 mg/dL suggests IMPAIRED HOMEOSTASIS per A.D.A. criteria. Hemoglobin (Bld) [Mass/Vol] 11.5 g/dL 12.0-15.0 [facility] Monocytes/100 WBC (Bld) 9.8 % 0-10 [facility] Neutrophils (Bld) [#/Vol] 1.7 10*3/uL 2.0-7.7 [facility] Neutrophils/100 WBC (Bld) 52.7 % 47-70 [facility] Potassium [Moles/Vol] 3.8 mmol/L 3.5-5.1 [facility] Sodium [Moles/Vol] 139 mmol/L 136-145 [facility] WBC (Bld) [#/Vol] 3.3 10*3/uL 4.4-11.0 [facility] Determination of erythrocyte mean corpuscular volume (MCV)Ordered By: Francisco Mcgovern on 07-20-2023 MCV (RBC) [Entitic vol] 87.6 fL 81-99 [facility] Erythrocyte distribution wid th ratioOrdered By: Francisco Mcgovern on 07-20-2023 Erythrocyte distribution width (RBC) [Ratio] 13.6 % 11.6-14.6 [facility] Erythrocyte distribution wid th standard deviationOrdered By: Francisco Mcgovern on 07-20-2023 Erythrocyte distribution width (RBC) [Entitic vol] 43.8 fL 35.1-43.9 [facility] Hematocrit Auto (Bld) [Volum e fraction]Ordered By: Francisco Mcgovern on 07-20-2023 Hematocrit (Bld) [Volume fraction] 36.0 % 37-47 [facility] Immature granulocytes/100 WB C Auto (Bld)Ordered By: Francisco Mcgovern on 07-20-2023 Immature granulocytes/100 WBC (Bld) 0.000 % 0.0-0.9 [facility] Comment on above: IG% - Immature Granu locytes (promyelocytes, myelocytes and metamyelocytes) > 1% indicates that a LEFT SHIFT is Present. Laboratory - Chemistry and C hemistry - challengeOrdered By: Francisco Mcgovern on 07-20-2023 HCG ( test) Ql (U) Negative [facility] Comment on above: 0Very dilute urine s pecimens, as indicated by a low specificgravity, may not contain labor union business representative levels of hCG. If is still suspected, a first morning urinespecimen should be collected 48 hours later and tested. CO2 [Moles/Vol] 27.0 mmol/L 21.0-32.0 [facility] Lipase [Catalytic activity/Vol] 44 U/L 13-75 [facility] Comment on above: Please note:LIPASE r evised reference range effective 22. New Lipase methodology. Expected to produce lower values than the previous assay method. NEW Reference Range: 13 - 75 U/L Urea nitrogen/Creatinine [Mass ratio] 17.6 mg/mg 10-20 [facility] Laboratory - Hematology and Cell countsOrdered By: Francisco Mcgovern on 07-20-2023 MCH (RBC) [Entitic mass] 28.0 pg 27.0-32.0 [facility] MCHC (RBC) [Mass/Vol] 31.9 g/dL 32-36 [facility] Nucleated RBC/100 WBC (Bld) [Ratio] 0 % 0-5 [facility] Platelet mean volume (Bld) [Entitic vol] 9.5 fL 6.2-12.0 [facility] Platelets (Bld) [#/Vol] 157 10*3/uL 150-450 [facility] No Panel InformationOrdered By: Francisco Mcgovern on 07-20-2023 Estimated Creatinine Clearance Calc 138.19 ml/min [facility] Estimated GFR (MDRD) Amer 119 mL/min >60 [facility] Comment on above: GFR Calc Estimated GFR (MDRD) Non-Af Amer 99 mL/min >60 [facility] Comment on above: Non- GFR Calc RBC Auto (Bld) [#/Vol]Ordere d By: Francisco Mcgovern on 07-20-2023 RBC (Bld) [#/Vol] 4.11 10*6/uL 4.2-5.4 [facility] Serum or plasma calcium epi urement (mass/volume)Ordered By: Francisco Mcgovern on 07-20-2023 Calcium [Mass/Vol] 8.4 mg/dL 8.5-10.1 [facility] Serum or plasma creatinine m easurement (mass/volume)Ordered By: Francisco Mcgovern on 07-20-2023 Creatinine [Mass/Vol] 0.74 mg/dL 0.55-1.02 [facility] Comment on above: The validity of the calculated GFR & GFRAA in patients over 70 years has not been determined. Clinical correlation is essential. Serum or plasma urea nitroge n measurement (mass/volume)Ordered By: Francisco Mcgovern on 07-20-2023 Urea nitrogen [Mass/Vol] 13 mg/dL 7-18 [facility] Thin prep Papanicolaou smear with manual screeningOrdered By: Francisco Mcgovern on 07-20-2023 Thin prep Papanicolaou smear with manual screening 5 5-15 [facility] STREP A MOLECULAR (POC)on Procedural Control Valid [facility] Strep A (POCT) Negative Negative [facility] Glucose Glucometer (BldC) [M ass/Vol]Ordered By: Charla Rubio on 04-24-2023 Glucose [Mass/Vol] 70 mg/dL 74-106 [facility] Comment on above: MANAGEMENT OF PATIEN T CARE PER NURSING PROTOCOL Absolute lymphocyte countOrd ered By: Charla Rubio on 04-23-2023 Lymphocytes Auto (Unsp spec) [#/Vol] 1.41 10*3/uL 0.83-4.51 [facility] Basophil percentageOrdered B y: Charla Rubio on 04-23-2023 Basophils/100 WBC (Bld) 0.1 % 0-1 [facility] Eosinophils/100 WBC (Bld) 0.6 % 0-5 [facility] Neutrophils (Bld) [#/Vol] 7.2 10*3/uL 2.0-7.7 [facility] Neutrophils/100 WBC (Bld) 79.3 % 47-70 [facility] WBC (Bld) [#/Vol] 9.0 10*3/uL 4.4-11.0 [facility] Blood erythrocytes count (nu mber/volume)Ordered By: Charla Rubio on 04-23-2023 RBC (Bld) [#/Vol] 4.00 10*6/uL 4.2-5.4 [facility] Blood hemoglobin measurement (mass/volume)Ordered By: Charla Rubio on 04-23-2023 Hemoglobin (Bld) [Mass/Vol] 11.3 g/dL 12.0-15.0 [facility] Blood lymphocytes/100 leukoc ytesOrdered By: Charla Rubio on 04-23-2023 Lymphocytes/100 WBC (Bld) 15.6 % 19-41 [facility] Blood monocytes/100 leukocyt esOrdered By: Charlayareli Rubio on 04-23-2023 Monocytes/100 WBC (Bld) 3.8 % 0-10 [facility] Blood platelet mean volumeOr dered By: Charla Rubio on 04-23-2023 Platelet mean volume (Bld) [Entitic vol] 10.2 fL 6.2-12.0 [facility] Determination of erythrocyte mean corpuscular volume (MCV)Ordered By: Charla Rubio on 04-23-2023 MCV (RBC) [Entitic vol] 87.3 fL 81-99 [facility] Hematocrit Auto (Bld) [Volum e fraction]Ordered By: Charla Rubio on 04-23-2023 Hematocrit (Bld) [Volume fraction] 34.9 % 37-47 [facility] Laboratory - Hematology and Cell countsOrdered By: Charla Rubio on 04-23-2023 Erythrocyte distribution width (RBC) [Entitic vol] 48.4 fL 35.1-43.9 [facility] Erythrocyte distribution width (RBC) [Ratio] 15.0 % 11.6-14.6 [facility] Immature granulocytes/100 WBC (Bld) 0.600 % 0.0-0.9 [facility] Comment on above: IG% - Immature Granu locytes (promyelocytes, myelocytes and metamyelocytes) > 1% indicates that a LEFT SHIFT is Present. MCH (RBC) [Entitic mass] 28.3 pg 27.0-32.0 [facility] Nucleated RBC/100 WBC (Bld) [Ratio] 0 % 0-5 [facility] MCHC Auto (RBC) [Mass/Vol]Or dered By: Charla Rubio on 04-23-2023 MCHC (RBC) [Mass/Vol] 32.4 g/dL 32-36 [facility] Neisseria gonorrhoeae genita l PCROrdered By: Charla Rubio on 04-23-2023 N. gonorrhoeae DNA ELAD+probe Ql (Genital specimen) [facility] N. gonorrhoeae DNA ELDA+probe Ql (Genital specimen) [facility] No Panel InformationOrdered By: Charla Ramiro on 04-23-2023 Chlamydia trachomatis (PCR) [facility] Chlamydia trachomatis (PCR) [facility] Platelets bldOrdered By: Kristen alessio Rubio on 04-23-2023 Platelets (Bld) [#/Vol] 200 10*3/uL 150-450 [facility] Serum Treponema species anti body detectionOrdered By: Charla Rubio on 04-23-2023 Treponema sp Ab Ql (S) Non-Reactive [facility] URINE OB DIP B/Oon 3 Glucose Ql (U) Negative Neg mg/dL [facility] Protein.monoclonal (U) [Mass/Vol] trace Neg mg/dL [facility] URINE OB DIP B/Oon 3 Glucose Ql (U) Negative Neg mg/dL [facility] Protein.monoclonal (U) [Mass/Vol] Negative Neg mg/dL [facility] Bilirubin Test strip Ql (U)O rdered By: Brianna Mckee on 04-01-2023 Bilirubin Ql (U) Negative Negative [facility] Culture, urineOrdered By: Mike Mckee on 04-01-2023 Bacteria identified Cx Nom (U) Positive [facility] Bacteria identified Cx Nom (U) Positive [facility] Ketones Test strip Ql (U)Ord ered By: Brianna Mckee on 04-01-2023 Ketones Ql (U) Negative Negative [facility] Nitrite Test strip Ql (U)Ord ered By: Brianna Mckee on 04-01-2023 Nitrite Ql (U) Negative Negative [facility] Protein Test strip Ql (U)Ord ered By: Brianna Mckee on 04-01-2023 Protein Ql (U) 15 mg/dl Negative [facility] Urine blood detectionOrdered By: Brianna Mckee on 04-01-2023 RBC Ql (U) Negative Negative [facility] Urine clarityOrdered By: Nimo Mckee on 04-01-2023 Clarity (U) Sl. Cloudy Clear [facility] Urine color determinationOrd ered By: Brianna Mckee on 04-01-2023 Color (U) Yellow Yellow [facility] Urine glucose detectionOrder ed By: Brianna Mckee on 04-01-2023 Glucose Ql (U) Normal mg/dl Normal [facility] Urine leukocyte esterase det ection by dipstickOrdered By: Brianna Mckee on 04-01-2023 Leukocyte esterase Test strip Ql (U) 25 /ul Negative [facility] Urine pHOrdered By: Brianna Mckee on 04-01-2023 pH (U) 6.0 [pH] 5.0 - 8.0 [facility] Urine specific gravity measu rementOrdered By: Brianna Mckee on 04-01-2023 Specific gravity (U) [Rel density] 1.025 1.002-1.030 [facility] Urobilinogen Auto test strip Ql (U)Ordered By: Brianna Mckee on 04-01-2023 Urobilinogen Ql (U) Normal mg/dl Normal [facility] URINE OB DIP B/Oon 3 Glucose Ql (U) Negative Neg mg/dL [facility] Protein.monoclonal (U) [Mass/Vol] Negative Neg mg/dL [facility] URINE OB DIP B/Oon 3 Glucose Ql (U) Negative Neg mg/dL [facility] Protein.monoclonal (U) [Mass/Vol] Negative Neg mg/dL [facility] CBC panel Auto (Bld)on 02-03 Erythrocyte distribution width (RBC) [Ratio] 14.7 % 11.5 - 15.0 % [facility] Hematocrit (Bld) [Volume fraction] 35.4 % Low 36.0 - 46.0 % [facility] Hemoglobin (Bld) [Mass/Vol] 11.6 g/dL 11.5 - 15.5 g/dL [facility] MCH (RBC) [Entitic mass] 27.6 pg 26.0 - 34.0 pg [facility] MCHC (RBC) [Mass/Vol] 32.8 g/dL 30.5 - 36.0 g/dL [facility] MCV (RBC) [Entitic vol] 84.3 fL 80.0 - 100.0 fL [facility] Nucleated RBC (Bld) [#/Vol] <0.01 k/uL [facility] Platelet mean volume (Bld) [Entitic vol] 9.6 fL 9.0 - 12.7 fL [facility] Platelets (Bld) [#/Vol] 215 10*3/uL 150 - 400 k /uL [facility] RBC (Bld) [#/Vol] 4.20 10*6/uL 3.90 - 5.2 0 m/uL [facility] WBC (Bld) [#/Vol] 9.12 10*3/uL 3.70 - 11. 00 k/uL [facility] TYPE + SCREEN PRENATALon ABO group Nom (Bld) A [facility] Blood group antibody screen Ql Negative [facility] HIstorical Ab Scr Status Negative [facility] Rh Nom (Bld) Positive [facility] Type and Screen Expiration 02/06/2023 23:59 [facility] No Panel Informationon 01-23 POC SARS CoV-2 Antigen Negative [facility] Absolute lymphocyte countOrd ered By: Danny Aguila on 12-23-2022 Lymphocytes Auto (Unsp spec) [#/Vol] 1.73 10*3/uL 0.83-4.51 [facility] Basophil percentageOrdered B y: Danny Aguila on 12-23-2022 Basophils/100 WBC (Bld) 0.1 % 0-1 [facility] Eosinophils/100 WBC (Bld) 1.4 % 0-5 [facility] Neutrophils (Bld) [#/Vol] 5.6 10*3/uL 2.0-7.7 [facility] Neutrophils/100 WBC (Bld) 70.8 % 47-70 [facility] WBC (Bld) [#/Vol] 7.9 10*3/uL 4.4-11.0 [facility] Blood erythrocytes count (nu mber/volume)Ordered By: Danny Aguila on 12-23-2022 RBC (Bld) [#/Vol] 3.83 10*6/uL 4.2-5.4 [facility] Blood hemoglobin measurement (mass/volume)Ordered By: Danny Aguila on 12-23-2022 Hemoglobin (Bld) [Mass/Vol] 10.5 g/dL 12.0-15.0 [facility] Blood lymphocytes/100 leukoc ytesOrdered By: Danny Aguila on 12-23-2022 Lymphocytes/100 WBC (Bld) 21.9 % 19-41 [facility] Blood monocytes/100 leukocyt esOrdered By: Danny Aguila on 12-23-2022 Monocytes/100 WBC (Bld) 5.3 % 0-10 [facility] Blood platelet mean volumeOr dered By: Danny Aguila on 12-23-2022 Platelet mean volume (Bld) [Entitic vol] 10.0 fL 6.2-12.0 [facility] Determination of erythrocyte mean corpuscular volume (MCV)Ordered By: Danny Aguila on 12-23-2022 MCV (RBC) [Entitic vol] 87.5 fL 81-99 [facility] Hematocrit Auto (Bld) [Volum e fraction]Ordered By: Danny Aguila on 12-23-2022 Hematocrit (Bld) [Volume fraction] 33.5 % 37-47 [facility] Laboratory - Hematology and Cell countsOrdered By: Danny Aguila on 12-23-2022 Erythrocyte distribution width (RBC) [Entitic vol] 46.6 fL 35.1-43.9 [facility] Erythrocyte distribution width (RBC) [Ratio] 14.7 % 11.6-14.6 [facility] Immature granulocytes/100 WBC (Bld) 0.500 % 0.0-0.9 [facility] Comment on above: IG% - Immature Granu locytes (promyelocytes, myelocytes and metamyelocytes) > 1% indicates that a LEFT SHIFT is Present. MCH (RBC) [Entitic mass] 27.4 pg 27.0-32.0 [facility] Nucleated RBC/100 WBC (Bld) [Ratio] 0 % 0-5 [facility] MCHC Auto (RBC) [Mass/Vol]Or dered By: Danny Aguila on 12-23-2022 MCHC (RBC) [Mass/Vol] 31.3 g/dL 32-36 [facility] Platelets bldOrdered By: Deondre Aguila on 12-23-2022 Platelets (Bld) [#/Vol] 199 10*3/uL 150-450 [facility] Quantitative serum or plasma 3 hour gestational glucose tolerance panelOrdered By: Danny Aguila on 12-23-2022 Glucose tolerance 3 hours gestational panel See comment [facility] Comment on above: FASTING 93 Col: 12/10 09/01 0847GLUCOSE TOLERANCE TEST FOR Reference Interval GESTATIONAL DIABETES Fasting <105 mg/dL 1 hour <190 mg/dl 2 hour <165 mg/dl 3 hour <145 mg/dl 1 HR GLU 216 H Col: 12/23/22 0947 2 HR GLU 134 Col: 12/23/22 1047 3 HR GLU 91 Col: 12/23/22 1147 Serum Treponema species anti body detectionOrdered By: Danny Aguila on 12-23-2022 Treponema sp Ab Ql (S) Non-Reactive [facility] Quantitative serum or plasma 3 hour gestational glucose tolerance panelOrdered By: Danny Aguila on 11-11-2022 Glucose tolerance 3 hours gestational panel See comment [facility] Comment on above: FASTING 87 Col: 08/01 0846GLUCOSE TOLERANCE TEST FOR Reference Interval GESTATIONAL DIABETES Fasting <105 mg/dL 1 hour <190 mg/dl 2 hour <165 mg/dl 3 hour <145 mg/dl 1 HR GLU 193 H Col: 11/11/22 0946 2 HR GLU 138 Col: 11/11/22 1046 3 HR GLU PENDING RECEIPT Col: 11/11/22 1146 FASTING 87 Col: 08/01 0846GLUCOSE TOLERANCE TEST FOR Reference Interval GESTATIONAL DIABETES Fasting <105 mg/dL 1 hour <190 mg/dl 2 hour <165 mg/dl 3 hour <145 mg/dl 1 HR GLU 193 H Col: 11/11/22 0946 2 HR GLU 138 Col: 11/11/22 1046 3 HR GLU 73 Col: 11/11/22 1146 Gestational diabetes screen 1-hour screen with 50g oral glucose loadOrdered By: Danny Aguila on 11-05-2022 Glucose 1 Hr post 50 g glucose PO [Mass/Vol] 153 mg/dL 70-140 [facility] Progress Noteon 10-29-2022 Laboratory Supervisor Authentication Interface Message Text [facility] Followup Visit Ms. Cuevas was seen again today for followup visit to discuss records obtained pertaining to history of at 21 weeks. She did not have video availability so the followup was performed via audio only. This is a telemedicine video visit requested by the patient/guardian that was performed with the patient's location at home and the provider's location at home office. She is without any complaints today and feels well. She denies any abdominal cramping, vaginal bleeding, or leakage of fluid. Past Medical History: Diagnosis Date Anxiety Obesity Rh incompatibility affecting Vaginal Pap smear, abnormal Past Surgical History: Procedure Laterality Date ADENOIDECTOMY Physical Exam Deferred due to Telehealth. She underwent ultrasound today for early anatomy and ultrasound was normal. Detailed ultrasound report will be faxed separately. Records confirm that this was suspected PTL and not intrauterine demise. Nonetheless, lab workup was performed as standard for IUFD and all labs normal/negative. All documented in prior [facility] consult on 10/23/22. Continue plan as previously made at [facility] consult on 10/23/22. Patient continues to decline the option of history indicated cerclage. RECOMMENDATIONS: Start vaginal progesterone 200mg nightly at 16 weeks gestation. This was prescribed today. Weekly cervical length screening from 16 weeks-24 weeks. These are scheduled to be performed in our [place] office. If CL <25mm would recommend cerclage Anatomy at 18 weeks gestation- will plan this in our [place] office. Serial growth every 4 weeks thereafter. Patient can have these with OB office. Chart review and preparation: 5 minutes. Face to face: 10 minutes. Documentation and care coordination: 5 minutes. Total time spent on patient care today: 20 minutes. Normal [facility] Progress Noteon 10-23-2022 Laboratory Supervisor Authentication Interface Message Text [facility] MEDICINE CONSULT Referring/Requesting Provider: Danny Aguila MD PCP: Juliana Grigsby DO INDICATION FOR CONSULT: History of delivery at 21 weeks. HISTORY OF PRESENT ILLNESS: Patient is a 27 y.o. at 13w3d who presents for consultation regarding 21 week demise. However, in reviewing history with patient and reviewing records from [place], the history is more concerning for previable labor rather than demise. Per her report and consistent with review of medical records., in August 2021 during her last , the patient presented on a Friday with cramping and spotting. She was monitored on toco and and received IVF. She had a UA positive for possible UTI so she was sent home with Macrobid. On Friday she had cramping on and off and continued spotting. The cramping worsened and she presented early Friday morning for evaluation. When she attempted to transfer to wheelchair from car, she delivered spontaneously en caul in the ER parking lot. She was 21 weeks. The fetus and bag was examined in ER but it is not documented if born with a heartbeat. Once deemed stable she was taken to L&D. Per admission H&P with OB, the fetus was then examined- fetus was in intact bag. Placenta appeared intact, amniotic fluid was clear yellow- not cloudy, foul smelling or bloody. 21 week normal appearing female fetus- no skin sloughing or visualized anomalies. Working diagnosis per records was labor. Though low suspicion, because it could not be completely ruled out, a workup for demise was performed as follows and was negative: TSH 2.26 CBC normal Coags normal Anticardiolipin negative, B2 Glycoprotein negative, Lupus anticoagulant negative CMV IgG positive, but IgM negative Negative Toxo and Parvo A positive, Ab negative Syphilis negative HbA1C 5.5 Her care to that point has been normal. She reports a normal anatomy ultrasound and normal heart tones when she was seen on Friday for cramping. She has no other significant past medical history and prior 2 pregnancies were full term and uncomplicated (. She denies any history of cervical surgeries in between the 2 pregnancies. Thus far this she denies any complications. She has had NIPT drawn last week and is pending. Today the patient denies any OB complaints. She denies abdominal pain and vaginal bleeding. OB History Para Term AB Living 4 3 2 1 1 SAB IAB Ectopic Multiple Live Births 2 # Outcome Date GA Lbr Juan Jose/2nd Weight Sex Delivery Anes PTL Lv 4 Current 3 08/19/21 21w5d F Y ND 2 Term 01/17/21 39w0d 3.912 kg M Vag-Spont RITU 1 Term 2009 39w0d F Vag-Spont Past Medical History: Diagnosis Date Anxiety Obesity Rh incompatibility affecting Vaginal Pap smear, abnormal Past Surgical History: Procedure Laterality Date ADENOIDECTOMY PERTINENT FAMILY HISTORY: Family History Problem Relation Age of Onset Mental Illness Mother Diabetes Mellitus II Mother No known problems Father Mental Illness Sister MEDS: Current Outpatient Medications Medication Sig Dispense Refill Last Dispense Assistance Program Adherence Comment ASPIRIN ADULT LOW DOSE 81 MG EC tablet Take 1 Tablet (81 mg) by mouth daily Unknown (patient-reported) . Refill history: . azithromycin (ZITHROMAX) 250 MG tablet Take by mouth Unknown (patient-reported) . Refill history: . folic acid (FOLVITE) 800 MCG TABS Take 1 Tablet (800 mcg) by mouth daily Unknown (patient-reported) . Refill history: . Vit-Fe Fumarate-FA ( VITAMINS PO) Take by mouth Unknown (patient-reported) . Refill history: . Ferrous Sulfate (IRON) 28 MG TABS Take by mouth Unknown (patient-reported) . Refill history: . benzonatate (TESSALON) 100 MG capsule Take 2 Caps (200 mg) by mouth 3 times daily as needed for Cough Do not crush or chew, swallow whole. (Patient not taking: Reported on 10/23/2022) 24 Cap 1 Unknown (outside pharmacy) . Refill history: . ALLERGY: No Known Allergies PHYSICAL EXAM: VITAL SIGNS: BP 91/64 Pulse 64 Resp 20 Ht 167.6 cm Wt (!) 108.6 kg (239 lb 8 oz) LMP 07/21/2022 SpO2 98% BMI 38.66 kg/m Alert and oriented, NAD Gravid, nontender during ultrasound No edema IMAGING: See ultrasound report for detailed findings, but in brief: Normal first trimester ultrasound and NT today, 1.8mm PERTINENT LABS: See HPI IMPRESSION: Christina is a 27 y.o. at 13w3d with History of previable delivery at 21 weeks- consistent with spontaneous labor COUNSELING: Today I explained to the patient that her history is most consistent with labor rather than intrauterine demise. Pain and cramping preceded her delivery x 2 days and she was noted to have viable heartones at her initial evaluation. Her amniotic fluid was clear yellow, so unlikely abruption. It is not uncommon for fetuses at th (more content not included)... Normal [facility] Absolute lymphocyte countOrd ered By: Danny Aguila on 10-03-2022 Lymphocytes Auto (Unsp spec) [#/Vol] 1.67 10*3/uL 0.83-4.51 [facility] Basophil percentageOrdered B y: Danny Aguila on 10-03-2022 Basophils/100 WBC (Bld) 0.4 % 0-1 [facility] Eosinophils/100 WBC (Bld) 1.5 % 0-5 [facility] Neutrophils (Bld) [#/Vol] 5.6 10*3/uL 2.0-7.7 [facility] Neutrophils/100 WBC (Bld) 71.2 % 47-70 [facility] WBC (Bld) [#/Vol] 7.9 10*3/uL 4.4-11.0 [facility] Blood erythrocytes count (nu mber/volume)Ordered By: Danny Aguila on 10-03-2022 RBC (Bld) [#/Vol] 4.06 10*6/uL 4.2-5.4 [facility] Blood hemoglobin measurement (mass/volume)Ordered By: Danny Aguila on 10-03-2022 Hemoglobin (Bld) [Mass/Vol] 11.5 g/dL 12.0-15.0 [facility] Blood lymphocytes/100 leukoc ytesOrdered By: Danny Aguila on 10-03-2022 Lymphocytes/100 WBC (Bld) 21.1 % 19-41 [facility] Blood monocytes/100 leukocyt esOrdered By: Danny Aguila on 10-03-2022 Monocytes/100 WBC (Bld) 5.2 % 0-10 [facility] Blood platelet mean volumeOr dered By: Danny Aguila on 10-03-2022 Platelet mean volume (Bld) [Entitic vol] 10.3 fL 6.2-12.0 [facility] Culture, urineOrdered By: Ashvin Aguila on 10-03-2022 Bacteria identified Cx Nom (U) Positive [facility] Determination of erythrocyte mean corpuscular volume (MCV)Ordered By: Danny Aguila on 10-03-2022 MCV (RBC) [Entitic vol] 86.0 fL 81-99 [facility] HIV 1 and HIV-2 antibody ass ay with HIV-1 p24 antigen detectionOrdered By: Danny Aguila on 10-03-2022 HIV 1+2 Ab+HIV1 p24 Ag IA Ql Non-Reactive Nonreactive [facility] Hematocrit Auto (Bld) [Volum e fraction]Ordered By: Danny Aguila on 10-03-2022 Hematocrit (Bld) [Volume fraction] 34.9 % 37-47 [facility] Laboratory - Hematology and Cell countsOrdered By: Danny Aguila on 10-03-2022 Erythrocyte distribution width (RBC) [Entitic vol] 44.8 fL 35.1-43.9 [facility] Erythrocyte distribution width (RBC) [Ratio] 14.2 % 11.6-14.6 [facility] Immature granulocytes/100 WBC (Bld) 0.600 % 0.0-0.9 [facility] Comment on above: IG% - Immature Granu locytes (promyelocytes, myelocytes and metamyelocytes) > 1% indicates that a LEFT SHIFT is Present. MCH (RBC) [Entitic mass] 28.3 pg 27.0-32.0 [facility] Nucleated RBC/100 WBC (Bld) [Ratio] 0 % 0-5 [facility] MCHC Auto (RBC) [Mass/Vol]Or dered By: Danny Aguila on 10-03-2022 MCHC (RBC) [Mass/Vol] 33.0 g/dL 32-36 [facility] No Panel InformationOrdered By: Danny Aguila on 10-03-2022 Hepatitis B Surface Antigen Non-Reactive Nonreactive [facility] Hepatitis C Antibody Non-Reactive Nonreactive [facility] Comment on above: Non Reactive: < 0.8 Equivocal: >/= 0.8 to < 1.0 Reactive: >/= 1.0The CDC recommends that a reactive/equivocal HCV antibody result be followed up by the HCV Nucleic Acid Amplificationtest (428237) Rubella IgG Antibody Reactive Nonreactive [facility] Comment on above: Antibody Results Int erpretation of Immune Status Non Reactive Presumed Non-Immune Equivocal Equivocal Reactive Presumed Immune Platelets bldOrdered By: Deondre Aguila on 10-03-2022 Platelets (Bld) [#/Vol] 193 10*3/uL 150-450 [facility] Serum Treponema species anti body detectionOrdered By: Danny Aguila on 10-03-2022 Treponema sp Ab Ql (S) Non-Reactive [facility] Serum Varicella zoster virus IgG antibody assay by immunoassay (units/volume)Ordered By: Danny Aguila on 10-03-2022 VZV IgG IA Qn (S) 167 index Immune >165 [facility] Comment on above: Negative <135 Equivo gera 135 - 165 Positive >165A positive result generally indicates exposure to thepathogen or administration of specific immunoglobulins,but it is not indication of active infection or stageof disease.Performed at: - [facility] [id number] Director: Rodolfo Glez PhD, Phone: [phone] Cervical or vagninal specime n microscopic examination by cytology stain (reported asOrdered By: Dr. Aguila on 06-11-2022 Cytology report Cyto stain Doc (Cvx/Vag) Comment . [facility] Comment on above: The Pap smear is a s creening test designed to aid in thedetection of premalignant and malignant conditions of theuterine cervix. It is not a diagnostic procedure andshould not be used as the sole means of detecting cervicalcancer. Both false-positive and false-negative reports dooccur. Laboratory - CytologyOrdered By: Dr. Aguila on 06-11-2022 Zipper Cutter Cyto stain Nom (Cvx/Vag) [ID] Comment . [facility] Comment on above: Ronny Silva ytotechnologist (ASCP) Laboratory - Miscellaneous t estsOrdered By: Dr. Aguila on 06-11-2022 Service comment (Unsp spec) [Interp] Comment . [facility] Comment on above: This liquid based Th inPrep(R) pap test was screened withthe use of an image guided system. Service comment (Unsp spec) [Interp] . . [facility] No Panel InformationOrdered By: Dr. Aguila on 06-11-2022 Human Papillomavirus Screen Comment . [facility] Comment on above: The HPV DNA reflex c yohannes were not met with this specimenresult therefore, no HPV testing was performed.Performed at: [address] [id number] Director: Evette Singh MD, Phone: [phone] Pathology report final diagnosis Narrative Comment . [facility] Comment on above: NEGATIVE FOR INTRAEP ITHELIAL LESION OR MALIGNANCY. Absolute lymphocyte counton 08-19-2021 Lymphocytes Auto (Unsp spec) [#/Vol] 1.06 10*3/uL 0.83-4.51 [facility] Work Phone: Basophil percentageon 2021 Basophils/100 WBC (Bld) 0.1 % 0-1 [facility] Work Phone: Eosinophils/100 WBC (Bld) 0.1 % 0-5 [facility] Work Phone: Neutrophils (Bld) [#/Vol] 15.3 10*3/uL 2.0-7.7 [facility] Work Phone: Neutrophils/100 WBC (Bld) 87.9 % 47-70 [facility] Work Phone: WBC (Bld) [#/Vol] 17.4 10*3/uL 4.4-11.0 [facility] Work Phone: Blood erythrocytes count (nu mber/volume)on 08-19-2021 RBC (Bld) [#/Vol] 3.76 10*6/uL 4.2-5.4 [facility] Work Phone: Blood hemoglobin measurement (mass/volume)on 08-19-2021 Hemoglobin (Bld) [Mass/Vol] 10.1 g/dL 12.0-15.0 [facility] Work Phone: Blood lymphocytes/100 leukoc yteson 08-19-2021 Lymphocytes/100 WBC (Bld) 6.1 % 19-41 [facility] Work Phone: Blood monocytes/100 leukocyt eson 08-19-2021 Monocytes/100 WBC (Bld) 5.0 % 0-10 [facility] Work Phone: Blood platelet mean volumeon 08-19-2021 Platelet mean volume (Bld) [Entitic vol] 10.2 fL 6.2-12.0 [facility] Work Phone: Determination of erythrocyte mean corpuscular volume (MCV)on 08-19-2021 MCV (RBC) [Entitic vol] 83.8 fL 81-99 [facility] Work Phone: Hematocrit Auto (Bld) [Volum e fraction]on 08-19-2021 Hematocrit (Bld) [Volume fraction] 31.5 % 37-47 [facility] Work Phone: INR in Blood by Coagulation assayon 08-19-2021 INR Coag (Bld) [Relative time] 1.1 {INR} [facility] Work Phone: Laboratory - Coagulationon 0 08-19-2021 aPTT Coag (Bld) [Time] 28.3 s 24.1-36.2 Wo cosme [facility] Work Phone: PT Coag (PPP) [Time] 13.6 s 11.7-14.9 allie [facility] Work Phone: [phone] Laboratory - Hematology and Cell countson 08-19-2021 Erythrocyte distribution width (RBC) [Entitic vol] 43.6 fL 35.1-43.9 [facility] Work Phone: [phone] Erythrocyte distribution width (RBC) [Ratio] 14.2 % 11.6-14.6 [facility] Work Phone: [phone] Immature granulocytes/100 WBC (Bld) 0.800 % 0.0-0.9 [facility] Work Phone: [phone] Comment on above: IG% - Immature Granu locytes (promyelocytes, myelocytes and metamyelocytes) > 1% indicates that a LEFT SHIFT is Present. MCH (RBC) [Entitic mass] 26.9 pg 27.0-32.0 [facility] Work Phone: Nucleated RBC/100 WBC (Bld) [Ratio] 0 % 0-5 [facility] Work Phone: [phone] MCHC Auto (RBC) [Mass/Vol]on 08-19-2021 MCHC (RBC) [Mass/Vol] 32.1 g/dL 32-36 [facility] Work Phone: No Panel Informationon 08-19 Thyroid Stimulating Hormone (TSH) 2.26 uIU/mL 0.358-3.74 [facility] Work Phone: Platelets bldon 08-19-2021 Platelets (Bld) [#/Vol] 252 10*3/uL 150-450 [facility] Work Phone: Serum Treponema species anti body detectionon 08-19-2021 Treponema sp Ab Ql (S) Non-Reactive [facility] Work Phone: [phone] Whole blood hemoglobin A1c/t otal hemoglobin ratio (mass fraction)on 08-19-2021 HbA1c (Bld) [Mass fraction] 5.5 % 3.8-5.6 [facility] Work Phone: Comment on above: Normal < 5.7 % Predi abetic 5.7 - 6.4 % Diabetic >or= 6.5 % Please note range changes. Bilirubin Test strip Ql (U)o n 08-17-2021 Bilirubin Ql (U) Negative Negative [facility] Work Phone: Ketones Test strip Ql (U)on 08-17-2021 Ketones Ql (U) Negative Negative [facility] Work Phone: Nitrite Test strip Ql (U)on 08-17-2021 Nitrite Ql (U) Negative Negative [facility] Work Phone: Protein Test strip Ql (U)on 08-17-2021 Protein Ql (U) 15 mg/dl Negative [facility] Work Phone: Urine blood detectionon RBC Ql (U) 150 /ul Negative [facility] Work Phone: Urine clarityon 08-17-2021 Clarity (U) Clear Clear [facility] Work Phone: Urine color determinationon 08-17-2021 Color (U) Yellow Yellow [facility] Work Phone: Urine glucose detectionon Glucose Ql (U) Normal mg/dl Normal [facility] Work Phone: Urine leukocyte esterase det ection by dipstickon 08-17-2021 Leukocyte esterase Test strip Ql (U) 500 /ul Negative [facility] Work Phone: Urine pHon 08-17-2021 pH (U) 7.0 [pH] [facility] Work Phone: Urine specific gravity measu rementon 08-17-2021 Specific gravity (U) [Rel density] 1.020 [facility] Work Phone: Urobilinogen Auto test strip Ql (U)on 08-17-2021 Urobilinogen Ql (U) Normal mg/dl Normal [facility] Work Phone: Absolute lymphocyte counton 05-21-2021 Lymphocytes Auto (Unsp spec) [#/Vol] 1.90 10*3/uL 0.83-4.51 [facility] Work Phone: Basophil percentageon 2021 Basophils/100 WBC (Bld) 0.2 % 0-1 [facility] Work Phone: Eosinophils/100 WBC (Bld) 1.1 % 0-5 [facility] Work Phone: Neutrophils (Bld) [#/Vol] 7.3 10*3/uL 2.0-7.7 [facility] Work Phone: Neutrophils/100 WBC (Bld) 72.5 % 47-70 [facility] Work Phone: WBC (Bld) [#/Vol] 10.1 10*3/uL 4.4-11.0 [facility]: Blood erythrocytes count (nu mber/volume)on 05-21-2021 RBC (Bld) [#/Vol] 4.00 10*6/uL 4.2-5.4 [facility] Work Phone: Blood hemoglobin measurement (mass/volume)on 05-21-2021 Hemoglobin (Bld) [Mass/Vol] 11.4 g/dL 12.0-15.0 [facility] Work Phone: Blood lymphocytes/100 leukoc yteson 05-21-2021 Lymphocytes/100 WBC (Bld) 18.9 % 19-41 [facility] Work Phone: Blood monocytes/100 leukocyt eson 05-21-2021 Monocytes/100 WBC (Bld) 7.0 % 0-10 [facility] Work Phone: Blood platelet mean volumeon 05-21-2021 Platelet mean volume (Bld) [Entitic vol] 9.7 fL 6.2-12.0 [facility] Work Phone: Chlamydia trachomatis rRNA d etection by probe and target amplification methodon 05-21-2021 C. trachomatis rRNA ELDA+probe Ql (Unsp spec) Negative Negative [facility] Work Phone: [phone] Culture, urineon 05-21-2021 Bacteria identified Cx Nom (U) Positive [facility] Work Phone: [phone] Determination of erythrocyte mean corpuscular volume (MCV)on 05-21-2021 MCV (RBC) [Entitic vol] 86.5 fL 81-99 [facility] Work Phone: [phone] HIV 1 and HIV-2 antibody ass ay with HIV-1 p24 antigen detectionon 05-21-2021 HIV 1+2 Ab+HIV1 p24 Ag IA Ql Non-Reactive Nonreactive [facility] Work Phone: [phone] Hematocrit Auto (Bld) [Volum e fraction]on 05-21-2021 Hematocrit (Bld) [Volume fraction] 34.6 % 37-47 [facility] Work Phone: [phone] Laboratory - Hematology and Cell countson 05-21-2021 Erythrocyte distribution width (RBC) [Entitic vol] 43.7 fL 35.1-43.9 [facility] Work Phone: [phone] Erythrocyte distribution width (RBC) [Ratio] 14.0 % 11.6-14.6 [facility] Work Phone: [phone] Immature granulocytes/100 WBC (Bld) 0.300 % 0.0-0.9 [facility] Work Phone: [phone] Comment on above: IG% - Immature Granu locytes (promyelocytes, myelocytes and metamyelocytes) > 1% indicates that a LEFT SHIFT is Present. MCH (RBC) [Entitic mass] 28.5 pg 27.0-32.0 [facility] Work Phone: [phone] Nucleated RBC/100 WBC (Bld) [Ratio] 0 % 0-5 [facility] Work Phone: [phone] Laboratory - Microbiology an d Antimicrobial susceptibilityon 05-21-2021 N. gonorrhoeae DNA ELDA+probe Ql (Unsp spec) Negative Negative [facility] Work Phone: [phone] Comment on above: Performed at: =G - L rosalva Carmichael[address] [place] [id number] Director: Evette Singh MD, Phone: [phone] MCHC Auto (RBC) [Mass/Vol]on 05-21-2021 MCHC (RBC) [Mass/Vol] 32.9 g/dL 32-36 [facility] Work Phone: [phone] No Panel Informationon 05-21 Hepatitis B Surface Antigen Non-Reactive Nonreactive [facility] Work Phone: [phone] Hepatitis C Antibody Non-Reactive Nonreactive [facility] Work Phone: [phone] Comment on above: Non Reactive: < 0.8 Equivocal: >/= 0.8 to < 1.0 Reactive: >/= 1.0The CDC recommends that a reactive/equivocal HCV antibody result be followed up by the HCV Nucleic Acid Amplificationtest (011114) Rubella IgG Antibody Reactive Nonreactive [facility] Work Phone: [phone] Comment on above: Antibody Results Int erpretation of Immune Status Non Reactive Presumed Non-Immune Equivocal Equivocal Reactive Presumed Immune Platelets bldon 05-21-2021 Platelets (Bld) [#/Vol] 244 10*3/uL 150-450 [facility] Work Phone: [phone] Serum Treponema species anti body detectionon 05-21-2021 Treponema sp Ab Ql (S) Non-Reactive [facility] Work Phone: [phone] [facility] on 05-06-2017 [facility] Normal [facility] ([place]) Patient Summary Documentson 05-06-2017 Patient Summary Documents Normal [facility] ([place]) Culture, urine Bacteria identified Cx Nom (U) Streptococcus agalactiae (B) [facility] Work Phone: [phone] Bacteria identified Cx Nom (U) Positive [facility] Work Phone: [phone] Vital Signs Date Time Vital Sign Value Performing Clinician Facility 01-20-2025 16:41-0400 Body temperature 98.9 [degF] Steph Schuler MD Work Phone: [facility] 01-20-2025 16:41-0400 Diastolic blood pressure 72 mm[Hg] Steph Schuler MD Work Phone: [facility] 01-20-2025 16:41-0400 Heart rate 92 /min Steph Schuler MD Work Phone: [facility] 01-20-2025 16:41-0400 Respiratory rate 15 /min Steph Schuler MD Work Phone: [facility] 01-20-2025 16:41-0400 SaO2% (BldA) [Mass fraction] 96 % Steph Schuler MD Work Phone: [facility] 01-20-2025 16:41-0400 Systolic blood pressure 122 mm[Hg] Steph Schuler MD Work Phone: [facility] 12-08-2024 15:36-0400 Body mass index (BMI) [Ratio] 40.49 kg/m2 Karen Gabriel APRN.COMPENSATOR Work Phone: [facility] 12-08-2024 15:36-0400 Body weight 110.22 kg Karen Gabriel APRN.COMPENSATOR Work Phone: [facility] 12-08-2024 15:36-0400 Diastolic blood pressure 78 mm[Hg] Karen Gabriel APRN.COMPENSATOR Work Phone: [facility] 12-08-2024 15:36-0400 Systolic blood pressure 104 mm[Hg] Karen Gabriel APRN.COMPENSATOR Work Phone: [facility] 10-18-2024 13:36-0400 Body mass index (BMI) [Ratio] 39.99 kg/m2 Trinidad Raya APRN.COMPENSATOR Work Phone: [facility] 10-18-2024 13:36-0400 Body weight 108.86 kg Trinidad Raya APRN.COMPENSATOR Work Phone: [facility] 10-18-2024 13:36-0400 Diastolic blood pressure 70 mm[Hg] Trinidad Raya APRN.COMPENSATOR Work Phone: [facility] 10-18-2024 13:36-0400 Systolic blood pressure 118 mm[Hg] Trinidad Haury ELECTRICAL LINEWORKER.COMPENSATOR Work Phone: [facility] 09-09-2024 15:38-0400 Body height 165 cm Neil Alvarado MD Work Phone: [facility] 09-09-2024 15:38-0400 Body mass index (BMI) [Ratio] 38.49 kg/m2 Neil Alvarado MD Work Phone: [facility] 09-09-2024 15:38-0400 Body weight 104.78 kg Neil Alvarado MD Work Phone: [facility] 09-09-2024 15:38-0400 Diastolic blood pressure 74 mm[Hg] Neil Alvarado MD Work Phone: [facility] 09-09-2024 15:38-0400 Systolic blood pressure 116 mm[Hg] Neil Alvarado MD Work Phone: [facility] 08-26-2024 10:02-0400 Body height 167.[address] [facility] 08-26-2024 10:02-0400 Body mass index (BMI) [Ratio] 35.51 kg/m2 [facility] 08-26-2024 10:02-0400 Body weight 99.[address] [facility] Comment on above: est 08-26-2024 10:02-0400 Heart rate 80 /min [facility] 06-21-2024 16:08-0500 Body mass index (BMI) [Ratio] 36.02 kg/m2 Trinidad Haury ELECTRICAL LINEWORKER.COMPENSATOR Work Phone: [facility] 06-21-2024 16:08-0500 Body weight 104.33 kg Trinidad Haury ELECTRICAL LINEWORKER.COMPENSATOR Work Phone: [facility] 06-21-2024 16:08-0500 Diastolic blood pressure 62 mm[Hg] Trinidad Haury ELECTRICAL LINEWORKER.COMPENSATOR Work Phone: [facility] 06-21-2024 16:08-0500 Systolic blood pressure 114 mm[Hg] Trinidad Haury ELECTRICAL LINEWORKER.COMPENSATOR Work Phone: [facility] 06-07-2024 13:24-0500 Body height 170.2 cm Trinidad Orredmond HUMPHRIES.COMPENSATOR Work Phone: [facility] 06-07-2024 13:24-0500 Body mass index (BMI) [Ratio] 35.87 kg/m2 Trinidad Orredmond ELECTRICAL LINEWORKER.COMPENSATOR Work Phone: [facility] 06-07-2024 13:24-0500 Body weight 103.87 kg Trinidad Orredmond ELECTRICAL LINEWORKER.COMPENSATOR Work Phone: [facility] 06-07-2024 13:24-0500 Diastolic blood pressure 64 mm[Hg] Trinidad Orredmond ELECTRICAL LINEWORKER.COMPENSATOR Work Phone: [facility] 06-07-2024 13:24-0500 Systolic blood pressure 110 mm[Hg] Trinidad Orredmond ELECTRICAL LINEWORKER.COMPENSATOR Work Phone: [facility] 07-20-2023 07:16-0400 Body temperature 98.1 [degF] No Primary Care Physician [facility] 07-20-2023 07:16-0400 Diastolic blood pressure 72 mm[Hg] No Primary Care Physician [facility] 07-20-2023 07:16-0400 Heart rate 55 /min No Primary Care Physician [facility] 07-20-2023 07:16-0400 Respiratory rate 16 /min No Primary Care Physician [facility] 07-20-2023 07:16-0400 SaO2% (BldA) [Mass fraction] 99 % No Primary Care Physician [facility] 07-20-2023 07:16-0400 Systolic blood pressure 110 mm[Hg] No Primary Care Physician [facility] 07-20-2023 03:42-0400 Body height 167.64 cm No Primary Care Physician [facility] 07-20-2023 03:42-0400 Body mass index (BMI) [Ratio] 37.1 kg/m2 No Primary Care Physician [facility] 07-20-2023 03:42-0400 Body weight 104.4 kg No Primary Care Physician [facility] 06-27-2023 11:05-0500 Body mass index (BMI) [Ratio] 37.5 kg/m2 No Primary Care Physician [facility] 06-27-2023 11:05-0500 Body weight 105.68 kg No Primary Care Physician [facility] 06-27-2023 11:05-0500 Diastolic blood pressure 68 mm[Hg] No Primary Care Physician [facility] 06-27-2023 11:05-0500 Systolic blood pressure 110 mm[Hg] No Primary Care Physician [facility] 06-01-2023 10:32-0500 Body temperature 97.9 [degF] No Primary Care Physician [facility] 06-01-2023 10:32-0500 Diastolic blood pressure 76 mm[Hg] No Primary Care Physician [facility] 06-01-2023 10:32-0500 Heart rate 95 /min No Primary Care Physician [facility] 06-01-2023 10:32-0500 Respiratory rate 12 /min No Primary Care Physician [facility] 06-01-2023 10:32-0500 SaO2% (BldA) [Mass fraction] 99 % No Primary Care Physician [facility] 06-01-2023 10:32-0500 Systolic blood pressure 118 mm[Hg] No Primary Care Physician [facility] 05-31-2023 12:56-0500 Body temperature 97.7 [degF] ELECTRICAL LINEWORKER.COMPENSATOR Work Phone: [facility] 05-31-2023 12:56-0500 Body weight 105.14 kg Alberta Call ELECTRICAL LINEWORKER.COMPENSATOR Work Phone: [facility] 05-31-2023 12:56-0500 Diastolic blood pressure 68 mm[Hg] Alberta Callow ELECTRICAL LINEWORKER.COMPENSATOR Work Phone: [facility] 05-31-2023 12:56-0500 Heart rate 80 /min Alberta Callow ELECTRICAL LINEWORKER.COMPENSATOR Work Phone: [facility] 05-31-2023 12:56-0500 Respiratory rate 16 /min Alberta Callow ELECTRICAL LINEWORKER.COMPENSATOR Work Phone: [facility] 05-31-2023 12:56-0500 SaO2% (BldA) [Mass fraction] 98 % Alberta Schmitz APRN.CNP Work Phone: [facility] 05-31-2023 12:56-0500 Systolic blood pressure 90 mm[Hg] Alberta Schmitz APRN.CNP Work Phone: [facility] 05-15-2023 16:35-0500 Body temperature 99 [degF] No Primary Care Physician [facility] 05-15-2023 16:35-0500 Diastolic blood pressure 78 mm[Hg] No Primary Care Physician [facility] 05-15-2023 16:35-0500 Heart rate 75 /min No Primary Care Physician [facility] 05-15-2023 16:35-0500 Respiratory rate 12 /min No Primary Care Physician [facility] 05-15-2023 16:35-0500 SaO2% (BldA) [Mass fraction] 98 % No Primary Care Physician [facility] 05-15-2023 16:35-0500 Systolic blood pressure 126 mm[Hg] No Primary Care Physician [facility] 04-24-2023 15:38-0500 Diastolic blood pressure 79 mm[Hg] No Primary Care Physician [facility] 04-24-2023 15:38-0500 Systolic blood pressure 119 mm[Hg] No Primary Care Physician [facility] 04-24-2023 15:15-0500 Body temperature 98.2 [degF] No Primary Care Physician [facility] 04-24-2023 15:15-0500 Heart rate 76 /min No Primary Care Physician [facility] 04-24-2023 15:15-0500 Respiratory rate 18 /min No Primary Care Physician [facility] 04-23-2023 17:17-0500 SaO2% (BldA) [Mass fraction] 100 % No Primary Care Physician [facility] 04-23-2023 08:55-0500 Body height 167.64 cm No Primary Care Physician [facility] 04-23-2023 08:55-0500 Body mass index (BMI) [Ratio] 39.6 kg/m2 No Primary Care Physician [facility] 04-23-2023 08:55-0500 Body weight 111.58 kg No Primary Care Physician [facility] 04-22-2023 15:07-0500 Body weight 109.77 kg Rosa M Drake MD Work Phone: [facility] 04-22-2023 15:07-0500 Diastolic blood pressure 77 mm[Hg] Rosa M Drake MD Work Phone: [facility] 04-22-2023 15:07-0500 Systolic blood pressure 114 mm[Hg] Rosa M Drake MD Work Phone: [facility] 04-14-2023 14:45-0500 Body weight 110.77 kg Brianna Mckee ELECTRICAL LINEWORKER.CNM Work Phone: [facility] 04-14-2023 14:45-0500 Diastolic blood pressure 69 mm[Hg] Brianna Mckee ELECTRICAL LINEWORKER.CNM Work Phone: [facility] 04-14-2023 14:45-0500 Systolic blood pressure 104 mm[Hg] Brianna Mckee ELECTRICAL LINEWORKER.CNM Work Phone: [facility] 04-01-2023 19:39-0500 Body height 167.64 cm No Primary Care Physician [facility] 04-01-2023 19:39-0500 Body mass index (BMI) [Ratio] 39.3 kg/m2 No Primary Care Physician [facility] 04-01-2023 19:39-0500 Body weight 110.49 kg No Primary Care Physician [facility] 04-01-2023 19:37-0500 Body temperature 98.5 [degF] No Primary Care Physician [facility] 04-01-2023 19:37-0500 Diastolic blood pressure 72 mm[Hg] No Primary Care Physician [facility] 04-01-2023 19:37-0500 Heart rate 92 /min No Primary Care Physician [facility] 04-01-2023 19:37-0500 SaO2% (BldA) [Mass fraction] 96 % No [facility] Phys[facility] [facility] 04-01-2023 19:37-0500 Systolic blood pressure 120 mm[Hg] No Primary Care Physician [facility] 03-07-2023 10:33-0400 Body weight 107.23 kg Rhoda Smith MD Work Phone: [facility] 03-07-2023 10:33-0400 Diastolic blood pressure 62 mm[Hg] Rhoda Smith MD Work Phone: [facility] 03-07-2023 10:33-0400 Systolic blood pressure 100 mm[Hg] Rhoda Smith MD Work Phone: [facility] 02-21-2023 14:47-0400 Body height 167.6 cm Neil Alvarado MD Work Phone: [facility] 02-21-2023 14:35-0400 Body weight 107.5 kg Neil Alvarado MD Work Phone: [facility] 02-21-2023 14:35-0400 Diastolic blood pressure 72 mm[Hg] Neil Alvarado MD Work Phone: [facility] 02-21-2023 14:35-0400 Systolic blood pressure 110 mm[Hg] Neil Alvarado MD Work Phone: [facility] 02-03-2023 13:05-0400 Body weight 107.05 kg Anaya Andrew ELECTRICAL LINEWORKER.COMPENSATOR Work Phone: [facility] 02-03-2023 13:05-0400 Diastolic blood pressure 70 mm[Hg] Anaya Andrwe ELECTRICAL LINEWORKER.COMPENSATOR Work Phone: [facility] 02-03-2023 13:05-0400 Systolic blood pressure 110 mm[Hg] Anaya Sedan ELECTRICAL LINEWORKER.COMPENSATOR Work Phone: [facility] 02-01-2023 13:45-0400 Body temperature 98 [degF] No Primary Care Physician [facility] 02-01-2023 13:45-0400 Diastolic blood pressure 69 mm[Hg] No Primary Care Physician [facility] 02-01-2023 13:45-0400 Heart rate 108 /min No Primary Care Physician [facility] 02-01-2023 13:45-0400 Respiratory rate 17 /min No Primary Care Physician [facility] 02-01-2023 13:45-0400 SaO2% (BldA) [Mass fraction] 97 % No Primary Care Physician [facility] 02-01-2023 13:45-0400 Systolic blood pressure 115 mm[Hg] No Primary Care Physician [facility] 01-23-2023 12:26-0400 Body temperature 99.1 [degF] No Primary Care Physician [facility] 01-23-2023 12:26-0400 Diastolic blood pressure 82 mm[Hg] No Primary Care Physician [facility] 01-23-2023 12:26-0400 Heart rate 100 /min No Primary Care Physician [facility] 01-23-2023 12:26-0400 Respiratory rate 16 /min No Primary Care Physician [facility] 01-23-2023 12:26-0400 SaO2% (BldA) [Mass fraction] 98 % No Primary Care Physician [facility] 01-23-2023 12:26-0400 Systolic blood pressure 129 mm[Hg] No Primary Care Physician [facility] 04-01-2022 17:40-0500 Body height 167.64 cm No Primary Care Physician [facility] 04-01-2022 17:40-0500 Body mass index (BMI) [Ratio] 35.5 kg/m2 No Primary Care Physician [facility] 04-01-2022 17:40-0500 Body temperature 98.1 [degF] No Primary Care Physician [facility] 04-01-2022 17:40-0500 Body weight 99.79 kg No Primary Care Physician [facility] 04-01-2022 17:40-0500 Diastolic blood pressure 80 mm[Hg] No Primary Care Physician [facility] 04-01-2022 17:40-0500 Heart rate 90 /min No Primary Care Physician [facility] 04-01-2022 17:40-0500 Respiratory rate 14 /min No Primary Care Physician [facility] 04-01-2022 17:40-0500 Systolic blood pressure 102 mm[Hg] No Primary Care Physician [facility] 03-26-2022 17:34-0500 Body temperature 98.4 [degF] No Primary Care Physician [facility] 03-26-2022 17:34-0500 Diastolic blood pressure 90 mm[Hg] No Primary Care Physician [facility] 03-26-2022 17:34-0500 Heart rate 100 /min No Primary Care Physician [facility] 03-26-2022 17:34-0500 Respiratory rate 20 /min No Primary Care Physician [facility] 03-26-2022 17:34-0500 SaO2% (BldA) [Mass fraction] 98 % No Primary Care Physician [facility] 03-26-2022 17:34-0500 Systolic blood pressure 142 mm[Hg] No Primary Care Physician [facility] 03-20-2022 17:20-0500 Body temperature 98.1 [degF] Willie Pendlebury ELECTRICAL LINEWORKER.COMPENSATOR Work Phone: [facility] 03-20-2022 17:20-0500 Body weight 111.4 kg Willie Pendlebury ELECTRICAL LINEWORKER.COMPENSATOR Work Phone: [facility] 03-20-2022 17:20-0500 Diastolic blood pressure 78 mm[Hg] Willie Pendlebury ELECTRICAL LINEWORKER.COMPENSATOR Work Phone: [facility] 03-20-2022 17:20-0500 Heart rate 106 /min Willie Pendlebury ELECTRICAL LINEWORKER.COMPENSATOR Work Phone: [facility] 03-20-2022 17:20-0500 Respiratory rate 18 /min Willie Pendlebury ELECTRICAL LINEWORKER.COMPENSATOR Work Phone: [facility] 03-20-2022 17:20-0500 SaO2% (BldA) [Mass fraction] 98 % Willie Pendlebury ELECTRICAL LINEWORKER.COMPENSATOR Work Phone: [facility] 03-20-2022 17:20-0500 Systolic blood pressure 110 mm[Hg] Willie Pendlebury ELECTRICAL LINEWORKER.COMPENSATOR Work Phone: [facility] 09-17-2021 13:45-0400 Body temperature 100.4 [degF] Willie Pendlebury ELECTRICAL LINEWORKER.COMPENSATOR Work Phone: [facility] 09-17-2021 13:45-0400 Body weight 103.42 kg Willie Pendlebury ELECTRICAL LINEWORKER.COMPENSATOR Work Phone: [facility] 09-17-2021 13:45-0400 Diastolic blood pressure 72 mm[Hg] Willie Pendlebury ELECTRICAL LINEWORKER.COMPENSATOR Work Phone: [facility] 09-17-2021 13:45-0400 Heart rate 126 /min [facility] ELECTRICAL LINEWORKER.COMPENSATOR Work Phone: [facility] 09-17-2021 13:45-0400 Respiratory rate 18 /min [facility] ELECTRICAL LINEWORKER.COMPENSATOR Work Phone: [facility] 09-17-2021 13:45-0400 SaO2% (BldA) [Mass fraction] 98 % [facility] ELECTRICAL LINEWORKER.COMPENSATOR Work Phone: [facility] 09-17-2021 13:45-0400 Systolic blood pressure 124 mm[Hg] [facility] ELECTRICAL LINEWORKER.COMPENSATOR Work Phone: [facility] 08-19-2021 12:33-0400 Body temperature 98.8 [degF] [facility] Work Phone: 08-19-2021 12:33-0400 Diastolic blood pressure 55 mm[Hg] [facility] Work Phone: 08-19-2021 12:33-0400 Heart rate 78 /min [facility] Work Phone: 08-19-2021 12:33-0400 Respiratory rate 18 /min [facility] Work Phone: 08-19-2021 12:33-0400 Systolic blood pressure 110 mm[Hg] [facility] Work Phone: 08-19-2021 06:56-0400 SaO2% (BldA) [Mass fraction] 98 % [facility] Work Phone: 08-19-2021 05:09-0400 Diastolic blood pressure 65 mm[Hg] [facility] Work Phone: 08-19-2021 05:09-0400 Heart rate 78 /min [facility] Work Phone: 08-19-2021 05:09-0400 Respiratory rate 17 /min [facility] Work Phone: 08-19-2021 05:09-0400 SaO2% (BldA) [Mass fraction] 99 % [facility] Work Phone: 08-19-2021 05:09-0400 Systolic blood pressure 113 mm[Hg] [facility] Work Phone: 08-19-2021 04:32-0400 Body height 167.64 cm [facility] Work Phone: 08-19-2021 04:32-0400 Body mass index (BMI) [Ratio] 37.1 kg/m2 [facility] Work Phone: 08-19-2021 04:32-0400 Body temperature 97.8 [degF] [facility] Work Phone: 08-19-2021 04:32-0400 Body weight 104.4 kg [facility] Work Phone: 08-17-2021 18:48-0400 Body mass index (BMI) [Ratio] 36.9 kg/m2 [facility] Work Phone: 08-17-2021 18:48-0400 Body weight 103.87 kg [facility] Work Phone: Encounters Encounter Date Encounter Type Care Provider Facility Start: 01-20-2025 End: 01-20-2025 Patient encounter procedure Toy Clemente [facility] Work Phone: Start: 01-20-2025 End: 01-20-2025 ambulatory Steph Schuler MD Work Phone: [facility] Start: 12-08-2024 End: 12-08-2024 Patient encounter procedure Karen Gabriel APRN.COMPENSATOR Work Phone: OB/Gynecology Comment on above: Subacute vaginitis ( Primary Dx) Start: 12-08-2024 End: 12-08-2024 ambulatory STEPH SCHULER Facility:[facility] Start: 12-02-2024 End: 12-03-2024 Get Medical Advice Anaya Waggoner APRN.COMPENSATOR Work Phone: OB/Gynecology Comment on above: Refill Start: 10-19-2024 End: 12-19-2024 Follow-up encounter Anaya Waggoner YANDEL.COMPENSATOR Work Phone: OB/Gynecology Comment on above: Results Start: 10-18-2024 End: 10-18-2024 E-mail encounter from caregiver Trinidad Raya YANDEL.NATALY Work Phone: OB/Gynecology Start: 10-18-2024 End: 10-18-2024 Patient encounter procedure Trinidad Orredmond HUMPHRIES.NATALY Work Phone: OB/Gynecology Comment on above: Vaginal pain (Primar y Dx); Vaginal discharge Start: 10-18-2024 End: 10-18-2024 ambulatory Trinidad Elver FOSTER Work Phone: OB/Gynecology Comment on above: Question Start: 09-15-2024 End: 11-15-2024 Follow-up encounter Neil Alvarado MD Work Phone: OB/Gynecology Start: 09-14-2024 End: 09-15-2024 Telephone encounter Neil Alvarado MD Work Phone: OB/Gynecology Comment on above: Patient Request Start: 09-13-2024 End: 09-13-2024 ambulatory NEIL ALVARADO Facility:[facility] Start: 09-09-2024 End: 09-09-2024 Patient encounter procedure Neil Alvarado MD Work Phone: OB/Gynecology Comment on above: General counseling a nd advice for contraceptive management (Primary Dx) Start: 09-09-2024 End: 09-09-2024 ambulatory KELECHI EASON Facility:[facility] Start: 08-26-2024 End: 08-26-2024 ambulatory NEIL ALVARADO Facility:[facility] Start: 08-26-2024 End: 08-26-2024 Admission to establishment [facility] Start: 08-26-2024 End: 08-26-2024 Anesthesia consultation [facility] Comment on above: Preop examination (P rimary Dx); Viral upper respiratory tract infection; Obesity, Class II, BMI 35-39.9; History of asthma Start: 08-26-2024 End: 08-26-2024 [facility] Start: 08-13-2024 End: 08-18-2024 Telephone encounter Neil Alvarado APRN.CNM Work Phone: OB/Gynecology Comment on above: Schedule Surgery Start: 08-09-2024 End: 08-09-2024 ambulatory Neil Alvarado MD Work Phone: OB/Gynecology Comment on above: General counseling a nd advice for contraceptive management (Primary Dx) Start: 08-09-2024 End: 08-09-2024 Telemedicine consultation with patient Neil Alvarado MD Work Phone: OB/Gynecology Start: 07-30-2024 End: 07-30-2024 ambulatory [facility] Facility:[facility] Start: 07-06-2024 End: 07-13-2024 Telephone encounter Trinidad Raya APRN.COMPENSATOR Work Phone: OB/Gynecology Comment on above: Patient Question Start: 06-23-2024 End: 08-23-2024 Follow-up encounter Trinidad Raya APRN.CNP Work Phone: OB/Gynecology Start: 06-21-2024 End: 06-21-2024 ambulatory TRINIDAD RAYA Facility:[facility] Start: 06-21-2024 End: 06-21-2024 Patient encounter procedure Trinidad Raya APRN.CNP Work Phone: OB/Gynecology Comment on above: Vaginal itching (Linda mame Dx); Screening examination for STD (sexually transmitted disease) Start: 06-17-2024 End: 06-17-2024 ambulatory TRINIDAD RAYA Facility:[facility] Start: 06-07-2024 End: 06-07-2024 Telephone encounter Trinidad Raya APRN.CNP Work Phone: OB/Gynecology Comment on above: PFPT Start: 06-07-2024 End: 06-07-2024 Patient encounter procedure Trinidad Raya APRN.CNP Work Phone: OB/Gynecology Comment on above: Encounter for gyneco logical examination (general) (routine) without abnormal findings (Primary Dx); History of gestational diabetes; Urinary, incontinence, stress female Start: 06-07-2024 End: 06-07-2024 Patient encounter status Trinidad Raya COMPENSATOR Work Phone: [facility] Start: 06-07-2024 End: 06-07-2024 ambulatory TRINIDAD RAYA Facility:[facility] Start: 06-07-2024 Encounter for gynecological examination (general) (routine) without abnormal findings TRINIDAD RAYA [facility] Start: 06-03-2024 ambulatory [facility] Facility[facility] Start: 05-21-2024 End: 05-21-2024 Refill Rosa M Drake MD Work Phone: OB/Gynecology Comment on above: Refill Request Start: 05-11-2024 End: 05-11-2024 Refill Rosa Mcathryn Drake MD Work Phone: OB/Gynecology Comment on above: Refill Request Start: 03-26-2024 End: 03-26-2024 ambulatory [facility] Facility:[facility] Start: 11-28-2023 Telephone encounter Charla Rocky townsend APRN.CNM Work Phone: OB/Gynecology Comment on above: Medication Problem Start: 11-27-2023 Refill Rosa M Drake MD Work Phone: OB/Gynecology Comment on above: Refill Request Start: 07-20-2023 End: 07-20-2023 Emergency department patient visit No Primary Care Physician [facility] Work Phone: Start: 06-27-2023 End: 06-27-2023 ambulatory No Primary Care Physician [facility] Work Phone: Start: 06-27-2023 End: 06-27-2023 Patient encounter procedure No Primary Care Physician [facility] Work Phone: Start: 06-01-2023 End: 06-01-2023 Patient encounter procedure No Primary Care Physician [facility] Work Phone: Start: 05-31-2023 End: 05-31-2023 Patient encounter procedure Alberta Schmitz COMPENSATOR Work Phone: [facility] Comment on above: Sorethroat (Primary Dx) Start: 05-15-2023 End: 05-15-2023 Patient encounter procedure No Primary Care Physician [facility] Work Phone: Start: 04-23-2023 End: 04-24-2023 Evaluation and management of inpatient No Primary Care Physician [facility] Work Phone: Start: 04-22-2023 End: 04-22-2023 ambulatory JULIANA Brady [facility] Start: 04-22-2023 End: 04-22-2023 Patient encounter procedure Rosa M Drake MD Work Phone: OB/Gynecology Comment on above: Supervision of other high risk pregnancies, third trimester (Primary Dx); Diet controlled gestational diabetes mellitus (GDM) in third trimester; Oligohydramnios in third trimester, single or unspecified fetus; Obesity affecting in third trimester, unspecified obesity type; 39 weeks gestation of Start: 04-21-2023 Telephone encounter Trinidad powers APRN.COMPENSATOR Work Phone: OB/Gynecology Comment on above: Appointment Start: 04-18-2023 ambulatory [facility] [place] Comment on above: Population Health Na vigation Outreach (Peds/OB) Start: 04-14-2023 End: 04-14-2023 Patient encounter procedure Brianna Mckee APRN.CNJose Antonio Work Phone: OB/Gynecology Comment on above: 38 weeks gestation o f (Primary Dx); Supervision of other high risk pregnancies, third trimester; Diet controlled gestational diabetes mellitus (GDM) in third trimester; Obesity affecting in third trimester, unspecified obesity type Start: 04-07-2023 Telephone encounter Glass Bead Maker RN Obstetrics/Gynecology Comment on above: PRAF Start: 04-04-2023 Telephone encounter Brianna Zaidi negar HUMPHRIES.CNM Work Phone: OB/Gynecology Comment on above: FMLA Paperwork Start: 04-01-2023 End: 04-01-2023 ambulatory No Primary Care Physician [facility] Work Phone: Start: 04-01-2023 End: 04-01-2023 Patient encounter procedure No Primary Care Physician [facility] Work Phone: Start: 03-20-2023 End: 03-20-2023 ambulatory [facility] Start: 03-10-2023 Telephone encounter Rhoda mancia MD Work Phone: OB/Gynecology Comment on above: Results Start: 03-07-2023 Telephone encounter Glass Bead Maker RN Obstetrics/Gynecology Comment on above: PRAF Start: 03-07-2023 End: 03-07-2023 Patient encounter procedure Rhoda Smith MD Work Phone: OB/Gynecology Comment on above: 32 weeks gestation o f (Primary Dx); Diet controlled gestational diabetes mellitus (GDM) in third trimester Start: 03-06-2023 End: 03-06-2023 ambulatory [facility] Start: 03-04-2023 Telephone encounter Rhoda mancia MD Work Phone: OB/Gynecology Comment on above: Question (OB Questio n) (Acyclovir) Start: 02-21-2023 End: 02-21-2023 Patient encounter procedure Neil Alvarado MD Work Phone: OB/Gynecology Comment on above: 30 weeks gestation o f (Primary Dx); Diet controlled gestational diabetes mellitus (GDM) in third trimester; Prior with demise Start: 02-10-2023 End: 02-10-2023 [facility] Start: 02-03-2023 End: 02-03-2023 Patient encounter procedure Anaya Waggoner APRN.COMPENSATOR Work Phone: OB/Gynecology Comment on above: 28 weeks gestation o f (Primary Dx); Previous stillbirth or demise, antepartum; Diet controlled gestational diabetes mellitus (GDM) in third trimester; Prior with demise Start: 02-01-2023 End: 02-01-2023 Patient encounter procedure No Primary Care Physician [facility] Work Phone: Start: 01-23-2023 End: 01-23-2023 Patient encounter procedure No Primary Care Physician [facility] Work Phone: Start: 01-09-2023 ambulatory Anaya Annacalf ELECTRICAL LINEWORKERVondaCOMPENSATOR Work Phone: OB/Gynecology Comment on above: Received Outside [facility] Start: 12-31-2022 End: 12-31-2022 ambulatory ZOHAIB F [facility] Start: 12-24-2022 End: 12-24-2022 ambulatory [facility] Start: 12-23-2022 End: 12-23-2022 ambulatory [facility] Work Phone: Start: 12-23-2022 End: 12-23-2022 Patient encounter procedure [facility] mine analyst Off Start: 12-17-2022 End: 12-17-2022 ambulatory [facility] Start: 12-10-2022 End: 12-10-2022 ambulatory [facility] Start: 12-03-2022 End: 12-03-2022 ambulatory [facility] Start: 11-25-2022 End: 11-25-2022 ambulatory [facility] Start: 11-21-2022 End: 11-21-2022 ambulatory [facility] Start: 11-11-2022 End: 11-11-2022 ambulatory [facility] Start: 11-11-2022 End: 11-11-2022 Patient encounter procedure [facility] [place] mine analyst Off Start: 11-05-2022 End: 11-05-2022 ambulatory [facility] Work Phone: Start: 11-05-2022 End: 11-05-2022 Patient encounter procedure [facility] [place] mine analyst Off Start: 10-29-2022 ambulatory [facility] Start: 10-29-2022 End: 10-29-2022 ambulatory [facility] Start: 10-23-2022 End: 10-23-2022 ambulatory [facility] Start: 10-03-2022 End: 10-03-2022 Patient encounter procedure [facility] [place] mine analyst Off Start: 06-11-2022 End: 06-11-2022 ambulatory No Primary Care Physician [facility] Work Phone: Start: 06-11-2022 End: 06-11-2022 Patient encounter procedure No Primary Care Physician [facility]Laboratory, Specimen Start: 04-01-2022 End: 04-01-2022 Patient encounter procedure No Primary Care Physician [facility] Start: 03-26-2022 End: 03-26-2022 Patient encounter procedure No Primary Care Physician [facility] Start: 03-20-2022 End: 03-20-2022 Patient encounter procedure Willie Ellis APRN.COMPENSATOR Work Phone: [facility] Comment on above: Viral illness (Prima ry Dx) Start: 01-09-2022 End: 01-09-2022 ambulatory [facility] Work Phone: Start: 01-09-2022 End: 01-09-2022 Patient encounter procedure [facility], Specimen Start: 09-18-2021 Telephone encounter Florin saravia APRN.COMPENSATOR Work Phone: [facility] Comment on above: Results Start: 09-17-2021 End: 09-17-2021 Patient encounter procedure Willie Ellis APRN.COMPENSATOR Work Phone: [facility] Comment on above: Viral illness (Prima ry Dx) Start: 08-19-2021 End: 08-19-2021 Evaluation and management of inpatient [facility] Start: 08-19-2021 End: 08-19-2021 Emergency department patient visit [facility]Emergency [facility] Start: 08-17-2021 End: 08-17-2021 Patient encounter procedure [facility], Outpatients Start: 05-21-2021 End: 05-21-2021 Patient encounter procedure [facility] [place] mine analyst Off Start: 05-06-2017 End: 05-06-2017 Emergency department patient visit CORAL Lorena DOMINGUEZ Facility:B Procedures Date Procedure Procedure Detail Performing Clinician Start: 10-18-2024 Iadna trichomonas vaginalis amplified probe tech Trinidad Raya APRN.COMPENSATOR Work Phone: Start: 06-27-2023 Plain x-ray of wrist No Primary Care Physician Start: 05-31-2023 STREP A MOLECULAR (POC) [facility] Provider Start: 04-23-2023 Bacterial nucleic ac id assay No Primary Care Physician Start: 04-23-2023 Chlamydia trachomati s (PCR) No Primary Care Physician Start: 04-22-2023 URINE OB DIP B/O Rosa M Draek MD Work Phone: Start: 04-14-2023 URINE OB DIP B/O Avelina Mckee APRN.CNM Work Phone: Start: 04-01-2023 Urine culture No Primar y Care Physician Start: 03-07-2023 URINE OB DIP B/O Rhoda Smith MD Work Phone: Start: 02-21-2023 URINE OB DIP B/O Sandra Alvarado MD Work Phone: Start: 10-03-2022 Urine culture Start: 05-21-2021 Urine culture History of cholecystectomy S/P cholecyste ctomy Steph Schuler MD Work Phone: Comment on above: Patient 28-year-old female presents for first postoperative visit following laparoscopic cholecystectomy with intraoperative cholangiogram. She is doing well from her collected history and well-healing on exam. I reviewed with her the results of her pathology as well as her cholangiogram. At this point I recommend some local wound care and advised her not to swim until her wounds were completely healed, but do not find cause to require further surgery follow-up. Urine culture Plan of Treatment Date Care Activity Detail Author Start: 01-10-2025 [facility] Start: 09-13-2024 End: 09-13-2024 Admission to same day surgery center 09/13/2024 10:05 AM EDT - 09/13/2024 11:38 AM EDT Surgery [facility] [address] [place] [address] Neil Alvarado MD [address] [place] [address] LAPAROSCOPIC SALPINGECTOMY [facility] Comment on above: LAPAROSCOPIC SALPING ECTOMY Start: 09-13-2024 End: 09-13-2024 Laparoscopy w/rmvl adnexal structures LAPAROSCOPIC SALPINGECTOMY Sterilization 09/13/2024 10:05 AM EDT [facility] OR Start: 09-13-2024 Subsequent hospital visit by physician 09/13/2024 10:05 AM EDT Hospital Encounter [facility] [address] [place] [id number] Neil Alvarado MD [facility] [place] [address] Sterilization [Z30.2] [facility] Comment on above: Sterilization [Z30.2 ] Start: 09-13-2024 End: 09-13-2024 Admission to same day surgery center 09/13/2024 8:27 AM EDT - 09/13/2024 10:00 AM EDT Surgery [facility] [address] [place] [id number] Neil Alvarado MD [address] [place] [address] LAPAROSCOPIC SALPINGECTOMY [facility] Comment on above: LAPAROSCOPIC SALPING ECTOMY Start: 09-13-2024 End: 09-13-2024 Laparoscopy w/rmvl adnexal structures LAPAROSCOPIC SALPINGECTOMY Sterilization 09/13/2024 8:27 AM EDT ME OR Start: 09-13-2024 Subsequent hospital visit by physician 09/13/2024 8:27 AM EDT Hospital Encounter [facility] [address] [place] [address] Neil Alvarado MD [address] [place] [address] Sterilization [Z30.2] [facility] Comment on above: Sterilization [Z30.2 ] Start: 09-09-2024 End: 09-09-2024 Patient encounter procedure 09/09/2024 3:20 PM EDT Office Visit OB/Gynecology [address] [place], [place] [id number] Neil Alvarado MD [address] [place] [place], [place] [id number] Surgery 09/13 @ [facility] Comment on above: Surgery 09/13 @ [facility] Start: 08-09-2024 End: 08-09-2024 ambulatory 08/09/2024 11:30 AM EDT [facility] OB/Gynecology [address] [place], [place] [id number] Neil Alvarado MD [address] [place] [id number] Discuss tubal ligation OB/Gynecology Comment on above: Discuss tubal ligati on Start: 06-07-2024 End: 09-06-2024 Hemoglobin A1c in Blood HEMOGLOBIN A1C Lab Routine History of gestational diabetes Expected: 06/07/2024, Expires: 09/06/2024 [facility] Work Phone: Comment on above: Expected: 06/07/2024 , Expires: 09/06/2024 Start: 06-07-2024 End: 06-07-2024 Patient encounter procedure 06/07/2024 1:30 PM EST Office Visit OB/Gynecology [address] [place], [place] [id number] Trinidad Raya APRN.COMPENSATOR [address] [place] [address] Annual OB/Gynecology Comment on above: Annual Start: 06-04-2024 Screening for malign ant neoplasm of cervix Cervical Cancer Screening [facility] Start: 06-04-2024 End: 06-04-2024 Patient encounter procedure 06/04/2024 1:20 PM EST Office Visit OB/Gynecology [address] [place] [address] Rosa M Reyes MD [address] [place] [address] annual OB/Gynecology Comment on above: annual Start: 01-11-2024 Covid-19 Vaccine () Covid-19 Vaccine () [facility] Start: 01-11-2024 Influenza vaccination Influenza Vacc ine (#1) [facility] Start: 07-20-2023 [facility] Start: 05-12-2023 Depression Assessment Depression Ass essment [facility] Start: 04-24-2023 Patient discharge [facility] Start: 04-23-2023 Administration of medication [facility] Start: 04-23-2023 Application of ice collar, cap or bag [facility] Start: 04-23-2023 Catheterization of vein [facility] Start: 04-23-2023 Introduction of urin arvind catheter [facility] Start: 04-23-2023 Measuring intake and output [facility] Start: 04-23-2023 Notification of physician [facility] Start: 04-23-2023 Procedure discontinued [facility] Start: 04-23-2023 Provision of activit y privileges [facility] Start: 04-23-2023 Vital signs measurements [facility] Start: 04-23-2023 [facility] Start: 04-23-2023 Admission procedure [facility] Start: 04-23-2023 Consultation [facility] Start: 04-01-2023 End: 04-01-2023 [facility] Start: 04-01-2023 Nonstress test [facility] Start: 04-01-2023 Obstetric monitoring [facility] Start: 04-01-2023 Vital signs measurements [facility] Start: 04-01-2023 Bacteria identified in Urine by Culture Urine Culture [facility] Start: 04-01-2023 Patient discharge [facility] Start: 03-15-2023 Urine microalbumin profile DTaP,Tdap,Td Vaccine (7 - Td or Tdap) [facility] Start: 02-03-2023 End: 04-05-2023 SYPHILIS TOTAL W/REFLEX [facility] Work Phone: Comment on above: Expected: 02/03/2023 , Expires: 04/05/2023 Start: 01-10-2023 Covid-19 Vaccine ( season) Covid-19 Vaccine () [facility] Start: 01-10-2023 Influenza vaccination [facility] Start: 05-12-2022 DEPRESSION ASSESSMENT DEPRESSION ASS [facility] Start: 01-10-2022 Influenza vaccination C [facility] Start: 01-09-2022 Procedure [facility] Work Phone: Start: 2021 HPV Vaccine (1 - 3-d ose SCDM series) HPV Vaccine (1 - 3-dose SCDM series) [facility] Start: 05-12-2021 DEPRESSION ASSESSMENT DEPRESSION ASS [facility] Start: 09-05-2015 PAP TESTING PAP TESTING [facility] Start: 09-05-2015 Screening for malign ant neoplasm of cervix Pap Testing [facility] Start: 2013 Urine microalbumin profile [facility] Start: 2012 Anxiety Screening Anxiety Screening [facility] Start: 2012 HEPATITIS C SCREENING HEPATITIS C SC REENING [facility] Start: 2012 HIV SCREENING HIV SCREENING [facility] Start: 2006 Adult depression screening assessment DEPRESSION SCREENING [facility] Start: 09-05-1999 COVID-19 VACCINE (#1) COVID-19 VACCI NE (#1) [facility] Start: 03-06-1995 COVID-19 VACCINE (#1) COVID-19 VACCI NE (#1) [facility] Start: 1994 HEPATITIS B (1 of 3 - 3-dose series) HEPATITIS B (1 of 3 - 3-dose series) [facility] Start: 1994 Hepatitis B Vaccine (1 of 3 - 3-dose series) Hepatitis B Vaccine (1 of 3 - 3-dose series) [facility] BACTERIAL VAGINOSIS NAAT BACTERI AL VAGINOSIS NAAT Lab Routine Vaginal itching Screening examination for STD (sexually transmitted disease) Ordered: 06/21/2024 [facility] Work Phone: Comment on above: Ordered: 06/21/2024 BACTERIAL VAGINOSIS NAAT BACTERI AL VAGINOSIS NAAT Lab Routine Vaginal discharge 10/18/2024 2:12 PM EDT [facility] Work Phone: BARBARA/TRICHOMONAS NAAT BARBARA /TRICHOMONAS NAAT Lab Routine Vaginal itching Screening examination for STD (sexually transmitted disease) Ordered: 06/21/2024 [facility] Comment on above: Ordered: 06/21/2024 Chlamydia trachomatis+Neisseria gonorrhoeae DNA [Presence] in Unspecified specimen by ELDA with probe detection GONORRHEA/CHLAMYDIA NAAT Lab Routine Vaginal itching Screening examination for STD (sexually transmitted disease) Ordered: 06/21/2024 [facility] Comment on above: Ordered: 06/21/2024 COVID & INFLUENZA A/ B & RSV NAAT, ROUTINE COVID & INFLUENZA A/B & RSV NAAT, ROUTINE Microbiology Routine Sorethroat Ordered: 05/31/2023 [facility] Work Phone: Comment on above: Ordered: 05/31/2023 Glucose [Mass/volume ] in Serum or Plasma --3 hours post dose glucose [facility] Influenza virus A an d B RNA and SARS-CoV-2 (COVID-19) N gene panel - Respiratory specimen by ELDA with probe detection COVID WITH FLUA+B, ROUTINE Microbiology Routine Viral illness Ordered: 09/17/2021 [facility] Work Phone: Comment on above: Ordered: 09/17/2021 Patient Education [facility] Work Phone: Patient referral [facility] Work Phone: Procedure [facility] Work Phone: RAPID STREP TEST B/O RAPID STREP TEST B/O Lab Routine Sorethroat Ordered: 05/31/2023 [facility] Work Phone: Comment on above: Ordered: 05/31/2023 [facility] Immunizations Immunization Date Immunization Notes Care Provider Fa casaty 03-18-2023 RSV Adult BiValent (Abrysvo) No Primary Care Physician [facility] 03-15-2013 meningococcal polysaccharide (groups A, C, Y and W-135) diphtheria toxoid conjugate vaccine (MCV4P) Rhoda Smith MD Work Phone: [facility] 03-15-2013 tetanus toxoid, redu isacc diphtheria toxoid, and acellular pertussis vaccine, adsorbed Rhoda Smith MD Work Phone: [facility] 02-04-2001 varicella virus vaccine Alexander Smith MD Work Phone: [facility] 12-17-1999 diphtheria, tetanus toxoids and acellular pertussis vaccine Rhoda Smith MD Work Phone: [facility] 12-17-1999 measles, mumps and rubella virus vaccine Rhoda Smith MD Work Phone: [facility] 12-17-1999 poliovirus vaccine, inactivated Rhoda Smith MD Work Phone: [facility] 12-08-1995 diphtheria, tetanus toxoids and acellular pertussis vaccine Rhoda Smith MD Work Phone: [facility] 12-08-1995 haemophilus influenz ae type b vaccine, PRP-T conjugate Rhoda Smith MD Work Phone: [facility] 09-12-1995 measles, mumps and rubella virus vaccine Rhoda Smith MD Work Phone: [facility] 04-17-1995 hepatitis B vaccine, pediatric or pediatric/adolescent dosage Rhoda Smith MD Work Phone: [facility] 02-19-1995 diphtheria, tetanus toxoids and acellular pertussis vaccine Rhoda Smith MD Work Phone: [facility] 02-19-1995 haemophilus influenz ae type b vaccine, PRP-T conjugate Rhoda Smith MD Work Phone: [facility] 02-19-1995 poliovirus vaccine, inactivated Rhoda Smith MD Work Phone: [facility] 1994 diphtheria, tetanus toxoids and acellular pertussis vaccine Rhoda Smith MD Work Phone: [facility] 1994 haemophilus influenz ae type b vaccine, PRP-T conjugate Rhoda Smith MD Work Phone: [facility] 1994 poliovirus vaccine, inactivated Rhoda Smith MD Work Phone: [facility] 1994 hepatitis B vaccine, pediatric or pediatric/adolescent dosage Rhoda Smith MD Work Phone: [facility] 1994 diphtheria, tetanus toxoids and acellular pertussis vaccine Rhoda Smith MD Work Phone: [facility] 1994 haemophilus influenz ae type b vaccine, PRP-T conjugate Rhoda Smith MD Work Phone: [facility] 1994 poliovirus vaccine, inactivated Rhoda Smith MD Work Phone: [facility] 1994 hepatitis B vaccine, pediatric or pediatric/adolescent dosage Rhoda Smith MD Work Phone: [facility] NEGATED: Highlighted row has not occurred!02-03-2023 RHO(D) immune globulin- IV or IM Anaya Sedan ELECTRICAL LINEWORKER.COMPENSATOR Work Phone: [facility] Payers Date Payer Category Payer Self-pay [id number] 2020 Medicaid [employer] [id number] 2020-Present [phone] [address] [place] [address] Medicaid [id number] 2020 Medicaid [id number] 2017 Unknown [id number] 2003 Unknown [id number] 1994 Unknown [id number] [id number]. 1994 Unknown [id number] 2.840.1.633265.3.579. 1994 Unknown [id number] 2.840.1.982720.3.579. 1994 Unknown [id number] 2.840.1.987474.3.579. 1994 Unknown [id number] 2.840.1.912826.3.579. 1994 Unknown [id number] 2.840.1.150688.3.579. 1994 Unknown [id number] 2.840.1.965983.3.579. 1994 Unknown [id number] 2.840.1.769824.3.579.2 1994 Unknown [id number] 2.840.1.913328.3.579.2 1994 Unknown [id number] 2.16840.1.789361.3.579.2 1994 Unknown [id number] 2.16840.1.941713.3.579. 1994 Unknown [id number] 2.840.1.056729.3.579.2 1994 Unknown [id number] 2.16840.1.850373.3.579.2. 479 1994 Unknown [id number] 2.16.840.1.940134.3.579.2. 479 1994 Unknown [id number] 2.16.840.1.785609.3.579.2. 479 1994 Unknown [id number] 2.16.840.1.533588.3.579.2. 479 [employer] ( and others) [id number] [facility] e ( and others) [id number] Unknown [id number] Unknown [id number] 2.16.840.1.775690.3.579.2. 462 Unknown [id number] 2.16.840.1.960394.3.579.2. 462 Unknown [id number] 2.16.840.1.636752.3.579.2. 462 Unknown [id number] 2.16.840.1.866145.3.579.2. 462 Social History Date Type Detail Facility [facility] Work Phone: Start: 08-19-2021 End: 04-23-2023 Tobacco smoking status ORIS Unknown if ever smoked [facility] Start: 1995 Sex Assigned At Female [facility] Start: 12-08-2012 End: 09-30-2023 Tobacco smoking status ORIS Never smoked tobacco [facility] Work Phone: Start: 12-08-2012 End: 03-20-2022 Tobacco use and exposure Smokeless tobacco non-user [facility] Work Phone: Start: 09-17-2021 End: 03-20-2022 Alcohol intake Not Asked [facility] Start: 1994 Sex Assigned At Not on file [facility] Start: 09-07-2021 End: 03-20-2022 Exposure to SARS-CoV-2 (event) Not sure [facility] Start: 03-20-2022 End: 02-03-2023 History of Social function [facility] Start: 03-20-2022 End: 02-03-2023 Tobacco use panel [facility] Start: 04-12-2012 National Score (1-100), lower number is lower risk Not on file [facility] Start: 02-03-2023 End: 10-18-2024 Alcohol intake Lifetime non-drinker (finding) [facility] Start: 08-04-2022 [facility] The thought of jt teague myself has occurred to me Never [facility] Medical Equipment Procedure Code Equipment Code Equipment Original Text Equipment Identifier Dates Total cholecystectomy with exploration of common bile duct SUPERVISOR MONEY ROOM,CLIP 5MM LIGAMAX FDA Start: 10-01-2023 Total cholecystectomy with exploration of common bile duct CLIP,HEMOLOCK MED WECK FDA Start: 10-01-2023 Total cholecystectomy with exploration of common bile duct CLIP,HEMOLOCK MED WECK FDA Start: 10-01-2023 Total cholecystectomy with exploration of common bile duct SUPERVISOR MONEY ROOM,CLIP 5MM LIGAMAX FDA Start: 10-01-2023 Total cholecystectomy with exploration of common bile duct CLIP,HEMOLOCK MED WECK FDA Start: 10-01-2023 Total cholecystectomy with exploration of common bile duct CLIP,HEMOLOCK MED WECK FDA Start: 10-01-2023 TRUE METRIX GLUCOSE TEST STRIP test strip Start: 01-15-2023 Goals Date Patient Goal Desired Activity /State Personal health goal Functional Status Date Assessment Result Facility 08-31-2014 Are you deaf, or do you have serious difficulty hearing No 08/31/2014 4:42 PM Coco Medeiros MA No [facility] 08-31-2014 Are you blind, or do you have serious difficulty seeing, even when wearing glasses No 08/31/2014 4:42 PM Coco Medeiros MA No [facility] 08-31-2014 Do you have serious difficulty walking or climbing stairs No 08/31/2014 4:42 PM Coco Medeiros MA No [facility] 08-31-2014 Do you have difficul ty dressing or bathing No 08/31/2014 4:42 PM EDT Coco Chao MA No [facility] 08-31-2014 Because of a physica l, mental, or emotional condition, do you have difficulty doing errands alone such as visiting a physician's office or shopping No 08/31/2014 4:42 PM EDT Coco Chao MA No [facility] Mental Status Date Assessment Result Facility 08-31-2014 Because of a physica l, mental, or emotional condition, do you have serious difficulty concentrating, remembering, or making decisions No 08/31/2014 4:42 PM EDT Coco Chao MA No [facility] Clinical Notes 09-17-2021 to 01-20-2025 Note Date & Type Note Facility 01-20-2025 Evaluation note Diagnosis Onset Date Resolution Acute upper respiratory infection acute January 20, 2025 4:37pm Rhinorrhea acute January 4:37pm [facility] Work Phone: 1(744) 438-315607-30-2025 Instructions* Patient Instructions* Karen Gabriel APRN.COMPENSATOR - 12/08/2024 3:53 PM EDT Minimizing irritation of the vulva (area around the vagina) Wear white cotton underwear. Avoid synthetic fabrics and tight clothing. Sleep wearing shorts or pajama bottoms without underwear. Shower as soon as possible after exercise. Avoid clothing detergents and soaps with perfumes or dyes. Use warm (not hot) water to wash the vulva and if you use soap use a product designed for sensitive skin (like Dove or Cetaphil). Do not douche or use creams/powders in the vulvar area unless instructed by your physician. If you must douche, use only plain warm water. Make sure the vulva is dry before dressing by patting dry with a towel. Avoid vigorous rubbing withthe towel. You may want to use the blow dryer (on the cool setting only!) on the vulva. The most important way to let your body heal is by avoiding scratching. Many patients find it difficult to avoid scratching at night when they are most aware of the itchiness. You can try taking Benadryl just before bedtime. Some women find it helpful to wear cotton gloves to bed to avoid scratching at night. - Continue your Monistat 7 cream tonight (Day 6) and tomorrow night (Day 7) to complete the 7-day treatment. - Monitor your symptoms; if itching or other symptoms persist a few days after finishing the medication, call our office to schedule a follow-up visit for reevaluation and testing. - Review and follow the printed guidelines provided on preventing yeast infections and bacterial vaginosis (for example, avoiding douching and unnecessary feminine sprays). [facility] NoteHNO ID: [id number] Author: KAREN GABRIEL APRN.CNP Service: ? Author Type: Nurse Practitioner Type: Progress Notes Filed: 12/08/2024 16:14 Note Text: Senior Clerk offered: Patient declines. Obstetrics and Gynecology [place] [employer] DIRECTOR Visit Subjective Recording using barcoo software for draft documentation of the visit was discussed with the patient/authorized labor union business representative; all questions welcomed and answered. Patient/authorized labor union business representative agreed to proceed CHIEF COMPLAINT: CC: Patient is a 29-year-old female presenting for evaluation of recurrent yeast infections and vaginal dryness. HPI: HPI: Yeast Infection: - Reports itching inside the vagina for about a week; no discharge noted. - Treated with Diflucan for a yeast infection in October. - Completed Day 5 of Monistat 7 treatment last night; symptoms improved by 50-60%. - Denies fever, chills, abdominal pain, bowel, or bladder problems. - No recent antibiotic use. Vaginal Dryness: - Experiencing vaginal dryness during intercourse with a new partner of two months. - Has not experienced this issue with previous partners. - Recently started using lubricant; unsure if discomfort is due to not being fully comfortable with the new partner yet. Sexual Health: - Has had multiple partners since ending a seven-year relationship. - No concerns for STD exposure with the new partner; had STD testing a couple of months ago. - Denies use of feminine sprays, washes, douches, or deodorants. - Has regular monthly periods; has had tubal ligation. - Declines STD testing. HISTORY: OB History Gravida4 Para4 Term3 Preterm1 AB0 Living3 SAB0 IAB0 Ectopic0 Multiple0 Live Births4 Dresser Tender History LMP: 09/09/2024 (Approximate), Unknown Age at Menarche: Age at First : Age at Menopause: Dresser Tender History Comments: Sexual Activity: Yes; Male Contraception: No contraception data on record History reviewed. No pertinent past medical history. PAST SURGICAL HISTORY Procedure Laterality Date ADENOIDECTOMY SECONDARY AGE 11/> Bilateral REMOVAL GALLBLADDER 09/2023 FAMILY HISTORY Problem Relation Age of Onset Diabetes Mother Depression Sister Hypertension Maternal Grandfather Social History Tobacco Use Smoking status: Never Smokeless tobacco: Never Vaping Use Vaping status: Never Used Substance Use Topics Alcohol use: Never Drug use: Never Current Outpatient Medications Medication Sig metronidazole (FLAGYL ORAL) Take by mouth. ZINC ACETATE ORAL Take by mouth. MAGNESIUM GLYCINATE ORAL Take 2 capsules by mouth once daily. acyclovir (ZOVIRAX) 400 mg tablet Take 1 tablet by mouth three times a day. No current facility-administered medications for this visit. ALLERGIES No Known Allergies REVIEW OF SYSTEMS: Genitourinary: (+) vaginal dryness, (+) vaginal pruritus, (+) vaginal burning, (-) abnormal vaginal discharge Objective SENSITIVE EXAM: The sensitive examination was discussed with the Patient or Patient's Authorized Laborer [employer]. As applicable, any other physician, advance practice provider, medical student, or other health professional student that will be observing or involved in the sensitive examination for educational or training purposes was discussed with the Patient or Authorized Lab[employer]. The Patient or Authorized Lab[employer] has agreed to proceed with the sensitive examination. (Sensitive examination includes inspection and/or palpation of the breasts, pelvis, prostate and anorectal regions). PHYSICAL EXAM: BP 104/78 Wt 243 lb (110.2kg) LMP 09/09/2024 GENERAL: Pleasant; in no acute distress PULMONARY: normal inspiratory effort ABDOMEN: soft, non-tender, no masses : - PELVIC: external genitalia normal, normal Bartholin's glands, urethra, Orrick's glands, no vulvar lesions, vulva without erythema, no cervical lesions, good vaginal support, physiologic discharge present, normal appearing perineal body and perianal region, unable to visualize internal structures due to presence of antifungal cream - BIMANUAL: uterus normal size, shape and consistency, no adnexal masses, non-tender - Patient consent for exam received NEURO: alert and oriented x3 EXTREMITIES: normal Assessment AND Plan ASSESSMENT AND PLAN: 1. Subacute vaginitis (N76.1) - Currently on day 6 of Monistat 7 treatment with approximately 50-60% improvement in symptoms. - Advised to complete the 7-day course of Monistat 7 and wait an additional 2-3 days post-treatment for full resolution. - If symptoms persist after completing treatment, advised to return for further evaluation. - Provided education on the effectiveness of Monistat 7 compared to Diflucan, and general information on yeast infections and prevention. Follow-up as needed. Karen Gabriel APRN.NATALY I spent a total of 20 minutes on the date of the service which included preparing to see the patient, [id number] patient ca (more content not included)...[facility]07-30-2025 History of Present illness Narrative* Karen Gabriel APRN.NATALY - 12/08/2024 3:29 PM EDT Images from the original note were not included. Senior Clerk offered: Patient declines. Obstetrics and Gynecology [place] [employer]AT[employer] DIRECTOR Visit Subjective Recording using barcoo software for draft documentation of the visit was discussed with the patient/authorized labor union business representative; all questions welcomed and answered. Patient/authorized labor union business representative agreed to proceed CHIEF COMPLAINT: CC: Patient is a 29-year-old female presenting for evaluation of recurrent yeast infections and vaginaldryness. HPI: HPI: Yeast Infection: - Reports itching inside the vagina for about a week; no discharge noted. - Treated with Diflucan for a yeast infection in October. - Completed Day 5 of Monistat 7 treatment last night; symptoms improved by 50-60%. - Denies fever, chills, abdominal pain, bowel, or bladder problems. - No recent antibiotic use. Vaginal Dryness: - Experiencing vaginal dryness during intercourse with a new partner of two months. - Has not experienced this issue with previous partners. - Recently started using lubricant; unsure if discomfort is due to not being fully comfortable withthe new partner yet. Sexual Health: - Has had multiple partners since ending a seven-year relationship. - No concerns for STD exposure with the new partner; had STD testing a couple of months ago. - Denies use of feminine sprays, washes, douches, or deodorants. - Has regular monthly periods; has had tubal ligation. - Declines STD testing. HISTORY: OB History Gravida4 Para4 Term3 Preterm1 AB0 Living3 SAB0 IAB0 Ectopic0 Multiple0 Live Births4 Dresser Tender History LMP: 09/09/2024 (Approximate), Unknown Age at Menarche: Age at First : Age at Menopause: Dresser Tender History Comments: Sexual Activity: Yes; Male Contraception: No contraception data on record History reviewed. No pertinent past medical history. PAST SURGICAL HISTORY Procedure Laterality Date ADENOIDECTOMY SECONDARY AGE 11/> Bilateral REMOVAL GALLBLADDER 09/2023 FAMILY HISTORY Problem Relation Age of Onset Diabetes Mother Depression Sister Hypertension Maternal Grandfather Social History Tobacco Use Smoking status: Never Smokeless tobacco: Never Vaping Use Vaping status: Never Used Substance Use Topics Alcohol use: Never Drug use: Never Current Outpatient Medications Medication Sig metronidazole (FLAGYL ORAL) Take by mouth. ZINC ACETATE ORAL Take by mouth. MAGNESIUM GLYCINATE ORAL Take 2 capsules by mouth once daily. acyclovir (ZOVIRAX) 400 mg tablet Take 1 tablet by mouth three times a day. No current facility-administered medications for this visit. ALLERGIES No Known Allergies REVIEW OF SYSTEMS: Genitourinary: (+) vaginal dryness, (+) vaginal pruritus, (+) vaginal burning, (-) abnormal vaginaldischarge Objective SENSITIVE EXAM: The sensitive examination was discussed with the Patient or Patient's Authorized [employer]. As applicable, any other physician, advance practice provider, medical student, or other health professional student that will be observing or involved in the sensitive examination for educational or training purposes was discussed with the Patient or Authorized [employer]. The Patient or Authorized [employer] has agreed to proceed with the sensitive examination. (Sensitive examination includes inspection and/or palpation of the breasts, pelvis, prostate and anorectal regions). PHYSICAL EXAM: BP 104/78 Wt 243 lb (110.2kg) LMP 09/09/2024 GENERAL: Pleasant; in no acute distress PULMONARY: normal inspiratory effort ABDOMEN: soft, non-tender, no masses : - PELVIC: external genitalia normal, normal Bartholin's glands, urethra, Orrick's glands, no vulvar lesions, vulva without erythema, no cervical lesions, good vaginal support, physiologic discharge present, normal appearing perineal body and perianal region, unable to visualize internal structures due to presence of antifungal cream - BIMANUAL: uterus normal size, shape and consistency, no adnexal masses, non-tender - Patient consent for exam received NEURO: alert and oriented x3 EXTREMITIES: normal Assessment & Plan ASSESSMENT AND PLAN: 1. Subacute vaginitis (N76.1) - Currently on day 6 of Monistat 7 treatment with approximately 50-60% improvement in symptoms. - Advised to complete the 7-day course of Monistat 7 and wait an additional 2-3 days post-treatmentfor full resolution. - If symptoms persist after completing treatment, advised to return for further evaluation. - Provided education on the effectiveness of Monistat 7 compared to Diflucan, and general information on yeast infections and prevention. Follow-up as needed. Karen Gabriel APRN.CNP I spent a total of 20 minutes on the date of the service which included preparing to see the patient, [id number] patient care, completing clinical documentation, obtaining and/or reviewing separately obtained history, performing a medically appropriate examination, and counseling and educating the patient/family/caregiver. [facility] Telephone encounter Note * Telephone Encounter - Trinidad Raya APRN.CNP - 12/03/2024 10:44 AM EDT Would recommend Monistat 7 and if symptoms persist, appointment with any provider Trinidad Raya APRN.CNP [facility]07-[facility]-2025 Miscellaneous Notes* Telephone Encounter - Trinidad Raya APRN.CNP - 12/03/2024 10:44 AM EDT Would recommend Monistat 7 and if symptoms persist, appointment with any provider Trinidad Raya APRN.CNP * Telephone Encounter - Екатерина Gann RN - 12/03/2024 10:29 AM EDT Patient was given Dilfucan on 10/19. Do you want patient to use Monistat 7 or does she need appointment? Екатерина Gann RN documented in this encounterChildren[facility] Telephone encounter Note * Telephone Encounter - Екатерина Gann RN - 12/03/2024 10:29 AM EDT Patient was given Dilfucan on 10/19. Do you want patient to use Monistat 7 or does she need appointment? Екатерина Gann RN [facility]06[facility] Telephone encounter Note* Telephone Encounter - Anaya Waggoner APRN.CNP - 10/19/2024 12:02 PM EDT Patient is positive for yeast I will send in 1 Diflucan for her. If her symptoms do not resolve with this she can follow back up with Trinidad [facility] Miscellaneous Notes* Telephone Encounter - Anaya Waggoner APRN.CNP - 10/19/2024 12:02 PM EDT Patient is positive for yeast I will send in 1 Diflucan for her. If her symptoms do not resolve with this she can follow back up with Trinidad documented in this encounterChildren[facility]06-[facility]-2025 NoteHNO ID: [id number] Author: TRINIDAD RAYA APRN.CNP Service: ? Author Type: Nurse Practitioner Type: Progress Notes Filed: 10/18/2024 14:40 Note Text: Senior Clerk offered: Patient declines. Christina Cuevas is a 29 year old female who presents for vaginal itching and internal vaginal swelling for 3 days. Has been using Vagisil. Vaginal discharge: none. 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 Contraception: tubal sterilization Last pap: 2023, abnormal ASCUS, HPV negative Past medical, surgical, social history, medications and allergies reviewed and updated. OBJECTIVE: SENSITIVE EXAM: The sensitive examination was discussed with the Patient or Patient's Authorized [employer]. As applicable, any other physician, advance practice provider, medical student, or other health professional student that will be observing or involved in the sensitive examination for educational or training purposes was discussed with the Patient or Authorized [employer]. The Patient or Authorized [employer] has agreed to proceed with the sensitive examination. (Sensitive examination includes inspection and/or palpation of the breasts, pelvis, prostate and anorectal regions). BP 118/70 Wt 240 lb (108.9kg) LMP 09/09/2024 GENERAL: Well developed, well nourished in no apparent distress PELVIC: external genitalia normal, normal Bartholin's glands, urethra, Orrick's glands, no vulvar lesions, no cervical lesions, good vaginal support, + white vaginal discharge, normal appearing perineal body and perianal region BIMANUAL: uterus normal size, shape and consistency, no adnexal masses + tenderness to vagina RECTOVAGINAL: deferred. ASSESSMENT/PLAN: 1. Vaginal pain - ICD9: 625.9, ICD10: R10.2 (primary diagnosis) 2. Vaginal discharge - ICD9: 623.5, ICD10: N89.8 - Denies concerns for STI exposure - Stop Vagisil use - Rotate Tylenol and Ibuprofen for pain - Denies concerns related to recent sterilization - History of HSV? Possible start of outbreak - BACTERIAL VAGINOSIS NAAT - BARBARA/TRICHOMONAS NAAT Treat accordingly. RTO for annual exam or sooner as needed. Trinidad Raya APRN.COMPENSATOR Medical Decision Making: Problems: Low: Acute, uncomplicated illness or injury Data: Unique test(s) ordered: 2 Risk: Minimal: Minimal risk from testing/treatment Medical Decision Making Level: 3 - [facility] of Present illness Narrative* Trinidad Raya APRN.COMPENSATOR - 10/18/2024 1:27 PM EDT Senior Clerk offered: Patient declines. Christina Cuevas is a 29 year old female who presents for vaginal itching and internal vaginal swelling for 3 days. Has been using Vagisil. Vaginal discharge: none. 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 Contraception: tubal sterilization Last pap: 2023, abnormal ASCUS, HPV negative Past medical, surgical, social history, medications and allergies reviewed and updated. OBJECTIVE: SENSITIVE EXAM: The sensitive examination was discussed with the Patient or Patient's Authorized [employer]. As applicable, any other physician, advance practice provider, medical student, or other health professional student that will be observing or involved in the sensitive examination for educational or training purposes was discussed with the Patient or Authorized [employer]. The Patient or Authorized [employer] has agreed to proceed with the sensitive examination. (Sensitive examination includes inspection and/or palpation of the breasts, pelvis, prostate and anorectal regions). BP 118/70 Wt 240 lb (108.9kg) LMP 09/09/2024 GENERAL: Well developed, well nourished in no apparent distress PELVIC: external genitalia normal, normal Bartholin's glands, urethra, Orrick's glands, no vulvar lesions, no cervical lesions, good vaginal support, + white vaginal discharge, normal appearing perineal body and perianal region BIMANUAL: uterus normal size, shape and consistency, no adnexal masses + tenderness to vagina RECTOVAGINAL: deferred. ASSESSMENT/PLAN: 1. Vaginal pain - ICD9: 625.9, ICD10: R10.2 (primary diagnosis) 2. Vaginal discharge - ICD9: 623.5, ICD10: N89.8 - Denies concerns for STI exposure - Stop Vagisil use - Rotate Tylenol and Ibuprofen for pain - Denies concerns related to recent sterilization - History of HSV? Possible start of outbreak - BACTERIAL VAGINOSIS NAAT - BARBARA/TRICHOMONAS NAAT Treat accordingly. RTO for annual exam or sooner as needed. Trinidad Raya APRN.CNP Medical Decision Making: Problems: Low: Acute, uncomplicated illness or injury Data: Unique test(s) ordered: 2 Risk: Minimal: Minimal risk from testing/treatment Medical Decision Making Level: 3 - Low documented in this encounterChildren[facility]-20[facility] Instructions* Patient Instructions* Silvia Gant MA - 10/18/2024 1:27 PM EDT Minimizing irritation of the vulva (area around the vagina) Wear white cotton underwear. Avoid synthetic fabrics and tight clothing. Sleep wearing shorts or pajama bottoms without underwear. Shower as soon as possible after exercise. Avoid clothing detergents and soaps with perfumes or dyes. Use warm (not hot) water to wash the vulva and if you use soap use a product designed for sensitive skin (like Dove or Cetaphil). Do not douche or use creams/powders in the vulvar area unless instructed by your physician. If you must douche, use only plain warm water. Make sure the vulva is dry before dressing by patting dry with a towel. Avoid vigorous rubbing withthe towel. You may want to use the blow dryer (on the cool setting only!) on the vulva. The most important way to let your body heal is by avoiding scratching. Many patients find it difficult to avoid scratching at night when they are most aware of the itchiness. You can try taking Benadryl just before bedtime. Some women find it helpful to wear cotton gloves to bed to avoid scratching at night. documented in this encounterChildren[facility] Telephone encounter Note * Telephone Encounter - Екатерина Gann RN - 09/15/2024 8:29 AM EDT Spoke with patient, declines need for post op appointment. Patient would like both letters to be released to her [facility]. Letters prepared and released to [facility]. Екатерина Gann RN [facility] Miscellaneous Notes* Telephone Encounter - Екатерина Gann RN - 09/15/2024 8:29 AM EDT Spoke with patient, declines need for post op appointment. Patient would like both letters to be released to her [facility]. Letters prepared and released to [facility]. Екатерина Gann RN * Telephone Encounter - Neil Alvarado MD - 09/14/2024 5:12 PM EDT yes both sound reasonable. Doesn't need postop appointment unless having a problem. Ok for letters.Thank you for the clarification. Neil Alvarado MD * Telephone Encounter - Geraldine Daugherty RN - 09/14/2024 4:30 PM EDT Patient was just requesting letters, not appt. Does she need 1 week post op if she is doing well? She is requesting 1 letter for each of her jobs only. Her one job she has a lot of heavy lifting and would like this week off. 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 Okay forletters without appointment or does she need seen first? Original note stated: Patient had a b/l salpingectomy 09/13/2024 and called requesting notes for work. Patient has 2 jobs and is requesting 1 note written to be off work for 7 days and 2nd letter is requesting to be able tosit in a chair as needed during work hours. Geraldine Daugherty RN * Telephone Encounter - Geraldine Daugherty RN - 09/14/2024 4:30 PM EDT ----- Message from Neil Alvarado MD sent at 09/14/2024 3:35 PM EDT ----- she sent [employer] message about appointment for today. Please call her and triage her. Schedule for postop appointment in 1-2weeks, can be virtual. If I am not available another provider is fine. Thanks. rlr documented in this encounterChildren[facility]-2025 Telephone encounter Note * Telephone Encounter - Neil Alvarado MD - 09/14/2024 5:12 PM EDT yes both sound reasonable. Doesn't need postop appointment unless having a problem. Ok for letters.Thank you for the clarification. Neil Alvarado MD [facility]05-[facility] Telephone encounter Note* Telephone Encounter - Geraldine Daugherty RN - 09/14/2024 4:30 PM EDT Patient was just requesting letters, not appt. Does she need 1 week post op if she is doing well? She is requesting 1 letter for each of her jobs only. Her one job she has a lot of heavy lifting and would like this week off. 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 Okay forletters without appointment or does she need seen first? Original note stated: Patient had a b/l salpingectomy 09/13/2024 and called requesting notes for work. Patient has 2 jobs and is requesting 1 note written to be off work for 7 days and 2nd letter is requesting to be able tosit in a chair as needed during work hours. Geraldine Daugherty RN [facility]05-[facility] Telephone encounter Note* Telephone Encounter - Geraldine Daugherty RN - 09/14/2024 4:30 PM EDT ----- Message from Neil Alvarado MD sent at 09/14/2024 3:35 PM EDT ----- she sent [employer] message about appointment for today. Please call her and triage her. Schedule for postop appointment in 1-2weeks, can be virtual. If I am not available another provider is fine. Thanks. rlr [facility]05-05-2025 NoteHNO ID: [id number] Author: RONALDO GABRIEL APRN.SUPERVISOR [employer]ILTING Service: Anesthesiology Author Type: Nurse Engineering Aide Type: Anesthesia Procedure Notes Filed: 09/13/2024 11:08 Note Text: ANESTHESIOLOGY PROCEDURE NOTE Airway General Information Procedure Start Time/Medication Administration: 09/13/2024 10:48 AM Procedure End Time: 09/13/2024 10:50 AM Patient location during procedure: OR Staffing SUPER[employer]: Ronaldo Gabriel APRN.SUPERVISOR [employer] Performed by: SUPERVISOR QUILTING Indications and Patient Condition Indications for airway management: anesthesia Preoxygenated: yes anesthesia circuit Patient position: sniffing Method: asleep Difficult Mask: No Airway Accessory: oral airway (90mm) Final Airway Details Final airway type: endotracheal airway Final Endotracheal Airway: ETT Cuffed: yes Successful intubation technique: direct laryngoscopy Devices used: intubating stylet Endotracheal tube insertion site: oral Blade: Amelia Blade size: #3 ETT size (mm): 7.0 Measured from: lips Measurement (cm): 21 Placement verified by: chest auscultation and capnometry Cormack-Lehane Classification: grade I - full view of glottis Number of attempts at approach: 1 Airway trauma: teeth and lips as per pre-op assessment. Failed airway: no Unrecognized esophageal intubation: no Airway not difficult SIGNATURE: Ronaldo Gabriel APRN.CRNA PATIENT NAME: Christina Cuevas DATE: September 13, 2024 TIME: 11:06 AM CSN: [id number] ID: [id number] Author: NEIL ALVARADO MD Service: ? Author Type: Physician Type: Progress Notes Filed: 09/10/2024 13:20 Note Text: Christina Cuevas is a 29 year old female who presents for problem visit for discussion of contraception. HPI: 29-year-old female who is completed childbearing desires permanent sterilization. Patient has no new complaints today. She declines reversible methods. OB History Gravida4 Para4 Term3 Preterm1 AB0 Living3 SAB0 IAB0 Ectopic0 Multiple0 Live Births4 Dresser Tender History LMP: 04/26/2024 (Approximate), Unknown Age at Menarche: Age at First : Age at Menopause: Dresser Tender History Comments: Sexual Activity: Yes; Male Contraception: No contraception data on record History reviewed. No pertinent past medical history. PAST SURGICAL HISTORY Procedure Laterality Date ADENOIDECTOMY SECONDARY AGE 11/ Bilateral REMOVAL GALLBLADDER 09/2023 FAMILY HISTORY Problem Relation Age of Onset Diabetes Mother Depression Sister Hypertension Maternal Grandfather Social History Tobacco Use Smoking status: Never Smokeless tobacco: Never Vaping Use Vaping status: Never Used Substance Use Topics Alcohol use: Never Drug use: Never Current Outpatient Medications Medication Sig metronidazole (FLAGYL ORAL) Take by mouth. ZINC ACETATE ORAL Take by mouth. Ethinyl Estradiol-Norelgestrom (XULANE) 150-35 mcg/24 hr patch Apply 1 Patch as directed one time a week. sertraline (ZOLOFT) 50 mg tablet Take 1 tablet by mouth once daily. MAGNESIUM GLYCINATE ORAL Take 2 capsules by mouth once daily. acyclovir (ZOVIRAX) 400 mg tablet Take 1 tablet by mouth three times a day. No current facility-administered medications for this visit. Allergies As of Date: 09/09/2024 (No Known Allergies) Fully Assessed 09/09/2024 Allergies and current medication updated:Yes SENSITIVE EXAM: The sensitive examination was discussed with the Patient or Patient's Authorized [employer]. As applicable, any other physician, advance practice provider, medical student, or other health professional student that will be observing or involved in the sensitive examination for educational or training purposes was discussed with the Patient or Authorized [employer]. The Patient or Authorized [employer] has agreed to proceed with the sensitive examination. (Sensitive examination includes inspection and/or palpation of the breasts, pelvis, prostate and anorectal regions). EXAM: BP 116/74 Ht 5' 4.961 (1.65m) Wt 231 lb (104.8kg) LMP 04/26/2024 BMI 38.49 kg/(m2). GENERAL: pleasant, female in no apparent distress ASSESSMENT AND PLAN: Assessment AND Plan General counseling and advice for contraceptive management Risks, benefits and alternatives to sterilization have been discussed with the patient. She declines reversible options including LARC. She understands sterilization is permanent, irreversible, risks of failure, regret and ectopic. In addition she understands there are surgical risks as well. Her questions were answered to her satisfaction and consent was signed Decision for surgery today. Neil Alvarado, [facility]05-02-2025 History of Present illness Narrative* Neil Alvarado MD - 09/10/2024 1:17 PM EDT Christina Cuevas is a 29 year old female who presents for problem visit for discussion of contraception. HPI: 29-year-old female who is completed childbearing desires permanent sterilization. Patient has no new complaints today. She declines reversible methods. OB History Gravida4 Para4 Term3 Preterm1 AB0 Living3 SAB0 IAB0 Ectopic0 Multiple0 Live Births4 Dresser Tender History LMP: 04/26/2024 (Approximate), Unknown Age at Menarche: Age at First : Age at Menopause: Dresser Tender History Comments: Sexual Activity: Yes; Male Contraception: No contraception data on record History reviewed. No pertinent past medical history. PAST SURGICAL HISTORY Procedure Laterality Date ADENOIDECTOMY SECONDARY AGE 11/> Bilateral REMOVAL GALLBLADDER 09/2023 FAMILY HISTORY Problem Relation Age of Onset Diabetes Mother Depression Sister Hypertension Maternal Grandfather Social History Tobacco Use Smoking status: Never Smokeless tobacco: Never Vaping Use Vaping status: Never Used Substance Use Topics Alcohol use: Never Drug use: Never Current Outpatient Medications Medication Sig metronidazole (FLAGYL ORAL) Take by mouth. ZINC ACETATE ORAL Take by mouth. Ethinyl Estradiol-Norelgestrom (XULANE) 150-35 mcg/24 hr patch Apply 1 Patch as directed one time aweek. sertraline (ZOLOFT) 50 mg tablet Take 1 tablet by mouth once daily. MAGNESIUM GLYCINATE ORAL Take 2 capsules by mouth once daily. acyclovir (ZOVIRAX) 400 mg tablet Take 1 tablet by mouth three times a day. No current facility-administered medications for this visit. Allergies As of Date: 09/09/2024 (No Known Allergies) Fully Assessed 09/09/2024 Allergies and current medication updated:Yes SENSITIVE EXAM: The sensitive examination was discussed with the Patient or Patient's Authorized [employer]. As applicable, any other physician, advance practice provider, medical student, or other health professional student that will be observing or involved in the sensitive examination for educational or training purposes was discussed with the Patient or Authorized [employer]. The Patient or Authorized [employer] has agreed to proceed with the sensitive examination. (Sensitive examination includes inspection and/or palpation of the breasts, pelvis, prostate and anorectal regions). EXAM: BP 116/74 Ht 5' 4.961 (1.65m) Wt 231 lb (104.8kg) LMP 04/26/2024 BMI 38.49 kg/(m^2). GENERAL: pleasant, female in no apparent distress ASSESSMENT AND PLAN: Assessment & Plan General counseling and advice for contraceptive management Risks, benefits and alternatives to sterilization have been discussed with the patient. She declines reversible options including LARC. She understands sterilization is permanent, irreversible, risksof failure, regret and ectopic. In addition she understands there are surgical risks as well. Her questions were answered to her satisfaction and consent was signed Decision for surgery today. Neil Alvarado MD documented in this encounterChildren[facility] History and physical note * Neil Alvarado MD - 09/09/2024 3:32 PM EDT Pre-Op History and Physical HPI: The patient is a 29 year old female presenting for pre-operative visit. She is scheduled for laparoscopic tubal sterilization, for sterilization on 09/13/24. Procedure discussed along with risks, benefits and complications. Other alternatives discussed for management. Consent form signed? Yes. No past medical history on file. PAST SURGICAL HISTORY Procedure Laterality Date ADENOIDECTOMY SECONDARY AGE 11/> Bilateral REMOVAL GALLBLADDER 09/2023 Current Outpatient Medications Medication Sig Dispense Refill ZINC ACETATE ORAL Take by mouth. Ethinyl Estradiol-Norelgestrom (XULANE) 150-35 mcg/24 hr patch Apply 1 Patch as directed one time aweek. 3 Patch 3 sertraline (ZOLOFT) 50 mg tablet Take 1 tablet by mouth once daily. 30 tablet 5 MAGNESIUM GLYCINATE ORAL Take 2 capsules by mouth once daily. acyclovir (ZOVIRAX) 400 mg tablet Take 1 tablet by mouth three times a day. 80 tablet 4 No current facility-administered medications for this visit. ALLERGIES: Patient has no known allergies. PERSONAL HISTORY: Social History Tobacco Use Smoking status: Never Smokeless tobacco: Never Vaping Use Vaping status: Never Used Substance Use Topics Alcohol use: Never Drug use: Never FAMILY HISTORY: FAMILY HISTORY Problem Relation Age of Onset Diabetes Mother Depression Sister Hypertension Maternal Grandfather REVIEW OF SYMPTOMS: GENERAL: denies fevers or chills ENDOCRINOLOGY: has not been on steroids Cardiology : denies palpitations or chest pain Respiratory: denies SOB or cough Hematology: denies history of prolonged bleeding or easy bruising or VTE Allergy: Denies history of personal or family history of allergy to anesthesia PHYSICAL EXAMINATION: VITALS: Last menstrual period 04/26/2024, not currently . GENERAL: The patient is well nourished, well hydrated in no acute distress. , The patient is oriented to time, place, and person. NECK: Supple. No lynphadenopathy, normal thyroid, no thyromegaly. LUNGS: Clear to auscultation bilaterally. no wheezes, rhonchi or rales HEART: Regular rate and rhythm, Normal heart sounds, and No murmurs or gallops IMPRESSION: sterilization request PLAN: The risks/benefits/alternatives and personal involved for the planned tubal sterilization, likely bilateral salpingectomy were reviewed with the patient. Her questions were answered to her satisfaction and she desires to proceed. Consent was signed. I reviewed with her postop instructions and expectations. I have reviewed and updated past medical and surgical history, medications and allergies Neil Alvarado M.D. [facility]05-01-2025 History and physical note* Neil Alvarado MD - 09/09/2024 3:32 PM EDT Pre-Op History and Physical HPI: The patient is a 29 year old female presenting for pre-operative visit. She is scheduled for laparoscopic tubal sterilization, for sterilization on 09/13/24. Procedure discussed along with risks, benefits and complications. Other alternatives discussed for management. Consent form signed? Yes. No past medical history on file. PAST SURGICAL HISTORY Procedure Laterality Date ADENOIDECTOMY SECONDARY AGE 11/> Bilateral REMOVAL GALLBLADDER 09/2023 Current Outpatient Medications Medication Sig Dispense Refill ZINC ACETATE ORAL Take by mouth. Ethinyl Estradiol-Norelgestrom (XULANE) 150-35 mcg/24 hr patch Apply 1 Patch as directed one time aweek. 3 Patch 3 sertraline (ZOLOFT) 50 mg tablet Take 1 tablet by mouth once daily. 30 tablet 5 MAGNESIUM GLYCINATE ORAL Take 2 capsules by mouth once daily. acyclovir (ZOVIRAX) 400 mg tablet Take 1 tablet by mouth three times a day. 80 tablet 4 No current facility-administered medications for this visit. ALLERGIES: Patient has no known allergies. PERSONAL HISTORY: Social History Tobacco Use Smoking status: Never Smokeless tobacco: Never Vaping Use Vaping status: Never Used Substance Use Topics Alcohol use: Never Drug use: Never FAMILY HISTORY: FAMILY HISTORY Problem Relation Age of Onset Diabetes Mother Depression Sister Hypertension Maternal Grandfather REVIEW OF SYMPTOMS: GENERAL: denies fevers or chills ENDOCRINOLOGY: has not been on steroids Cardiology : denies palpitations or chest pain Respiratory: denies SOB or cough Hematology: denies history of prolonged bleeding or easy bruising or VTE Allergy: Denies history of personal or family history of allergy to anesthesia PHYSICAL EXAMINATION: VITALS: Last menstrual period 04/26/2024, not currently . GENERAL: The patient is well nourished, well hydrated in no acute distress. , The patient is oriented to time, place, and person. NECK: Supple. No lynphadenopathy, normal thyroid, no thyromegaly. LUNGS: Clear to auscultation bilaterally. no wheezes, rhonchi or rales HEART: Regular rate and rhythm, Normal heart sounds, and No murmurs or gallops IMPRESSION: sterilization request PLAN: The risks/benefits/alternatives and personal involved for the planned tubal sterilization, likely bilateral salpingectomy were reviewed with the patient. Her questions were answered to her satisfaction and she desires to proceed. Consent was signed. I reviewed with her postop instructions and expectations. I have reviewed and updated past medical and surgical history, medications and allergies Neil Alvarado M.D. documented in this [facility] History and physical note * Chinyere Gavin PA-C - 08/26/2024 10:16 AM EDT PREANESTHESIA CONSULT CLINIC TELEHEALTH VISIT Patient has been identified by name and date of : Yes This is a virtual visit using [employer] Video Visit. It require patient- provider interaction forthe medical decision making as documented below. Reason for contact: PACC visit Accompanied by: Self Scheduled Surgery: lap salpingectomy Subjective CHIEF COMPLAINT: Patient presents with: Anesthesia Consult HPI: This is a 28 year old female who presents with desire for sterilization. No vaginal d/c, itching, rashes. Uses BC patch. ACTIVE PROBLEM LIST Post Depression Obesity, Class II, Bmi 35-39.9 Viral Upper Respiratory Tract Infection History of Asthma History reviewed. No pertinent past medical history. PAST SURGICAL HISTORY Procedure Laterality Date ADENOIDECTOMY SECONDARY AGE 11/> Bilateral REMOVAL GALLBLADDER 09/2023 FAMILY HISTORY Problem Relation Age of Onset Diabetes Mother Depression Sister Hypertension Maternal Grandfather Social History Tobacco Use Smoking status: Never Smokeless tobacco: Never Vaping Use Vaping status: Never Used Substance Use Topics Alcohol use: Never Drug use: Never ALLERGIES No Known Allergies MEDICATIONS: Current Outpatient Medications Medication Sig ZINC ACETATE ORAL Take by mouth. Ethinyl Estradiol-Norelgestrom (XULANE) 150-35 mcg/24 hr patch Apply 1 Patch as directed one time aweek. sertraline (ZOLOFT) 50 mg tablet Take 1 tablet by mouth once daily. MAGNESIUM GLYCINATE ORAL Take 2 capsules by mouth once daily. acyclovir (ZOVIRAX) 400 mg tablet Take 1 tablet by mouth three times a day. No current facility-administered medications for this visit. COVID VACCINATION STATUS: REVIEW OF SYSTEMS: Pain Assessment: General: No weight loss, malaise or fevers. Neuro: sciatica Respiratory: current mild URI/runny nose, had cough at s tart 1 week ago but no other sx; no viral testing. Sx miproving. Hx childhood asthma. No wheezing, SOB as adult. Cardiovascular: No history of HTN requiring medication, no history of angina, CHF, [place], cardiac surgery or stents. Denies rest pain, gangrene or revascularization/amputation for PVD. No history of cardiovascular symptoms or problems. GI: No history of GI symptoms or problems. No history of esophageal varices, recent ascites, or ETOH greater than 2 drinks per day. : No history of dysuria, frequency or incontinence,, stones or chronic kidney disease ENERGY SYSTEMS LABORATORY DIRECTOR: See HPI : Denies, Patient's last menstrual period was 04/26/2024 (approximate). Endocrine: No history of diabetes. Has not taken steroids within the past 30 days. No history of endocrinological symptoms or problems. Hematology: No history of bleeding or clotting disorder. Pt is not taking anti- coagulation or platelet medications. No history of hematological symptoms or problems. Oncology: No history of CA metastasis, chemo within 30 days, or radiotherapy within 90 days. Has not lost 10% of body wt in 6 months. No history of oncological symptoms or problems. Psych: ND Musculoskeletal: Back pain Skin: Negative for lesions, rash and itching. Objective PHYSICAL EXAM: Pulse 80 Ht 5' 6 (1.68m) Wt 220 lb (99.8kg) LMP 04/26/2024 BMI 35.53 kg/(m^2). Last BP readings: Date: BP: 06/21/2024 114/62 06/07/2024 110/64 06/04/2023 108/64 05/31/2023 90/68 VIDEO EXAM: (if completed, performed via video enabled technology) GENERAL: alert and appropriate, in no distress, well-hydrated, interactive, obese SKIN: no rash noted on visualized areas EYES: no injection, EOMI, NOSE: external nose normal without visible rhinorrhea OROPHARYNX: moist mucus membranes, difficult to see OP due to lighting NECK: full ROM, no cervical LNs noted, no masses RESPIRATORY: breathing non-labored, no grunting/flaring/retractions and or wheezing CHEST: equal chest rise with normal respiratory effort HEART: RRR per verbalization of radial pulse; No cyanosis, JVD EXTREMITIES: no c/c/e/e hands, unable to see LEs due to computer setup NEUROLOGIC: CN II-XII grossly intact Normal speech Diagnostic tests reviewed for today's visit: Lab Value Units Date High Low HB No results within date range. HCT No results within date range. WBC No results within date range. PLT No results within date range. NA No results within date range. K No results within date range. GLUC No results within date range. BUN No results within date range. CREAT No results within date range. PTSEC No results within date range. INR No results within date range. APTT No results within date range. ALT No results within date range. AST No results within date range. TBILI No results within date range. TSH No results within date range. Lab Value Units Date High Low HCGQT No results within date range. UHCG No results within date range. HCG, BODY* No results within date range. Lab Value Units Date High Low ABORHD No results within date range. ABSCREEN No results within date range. Hemoglobin A1C (%) Date Value 06/17/2024 5.2 Most recent labs Impression/Recommendations ASSESSMENT: Viral upper respiratory tract infection Assessment: sx presnt for one week, mild, improving, should be gone by surgery, using supplements to tx. Pt to notify surgeon if ill in anyway within 2d of surgery. History of asthma Assessment: chilldhood only. No wheezing, SOB recently. Obesity, Class II, BMI 35-39.9 Assessment: BMI 35.51. She is not on diet or meds for weight loss. METS: Run a short distance (8.00 METs) Patient denies any chest pain or undue shortness of breath with the above physical activity. ASA Class: ANESTHESIA FINDINGS: Intubation History: No history of difficult intubation Significant Anesthesia Considerations: None Airway Exam: General: Obese Mallampati Score is CLASS IV poor lighting ULBT: Class III - Lower incisors cannot bite the upper lip Neck: thick appearance and normal function, recessed chin Mouth: Normal tongue size and Mouth opening greater than 2 finger breaths Dentition: Intact Airway History: No abnormal airway history STOP BANG Score: Criteria: Snoring Tired BMI > 35 Neck circumference > 15.75 inches Score = 4 PLAN: Pt optimally prepared for surgery, pending day of surgery CONSULTS: Patient does not require consults for optimization at this time. The Following Tests/Procedures Have Been Initiated: Labs not indicated per P[facility] protocol, EKG not indicated per [facility] protocol Planned Anesthetic: Per anesthesia choice Instructions Given to Patient: Patient given verbal instructions and voices comprehension and compliance. Copy sent electronically via My Chart, email, or mobile device. This is a virtual visit. It required patient-provider interaction for the medical decision making as documented above. SIGNATURE: Chinyere Gavin PA-C PATIENT NAME: Christina Cuevas DATE: August 26, 2024. TIME: 10:25 AM PAGER/CONTACT #: [facility]04-17-2025 History and physical note* Chinyere Gavin PA-C - 08/26/2024 10:16 AM EDT PREANESTHESIA CONSULT CLINIC TELEHEALTH VISIT Patient has been identified by name and date of : Yes This is a virtual visit using [employer] Video Visit. It require patient- provider interaction forthe medical decision making as documented below. Reason for contact: PACC visit Accompanied by: Self Scheduled Surgery: lap salpingectomy Subjective CHIEF COMPLAINT: Patient presents with: Anesthesia Consult HPI: This is a 28 year old female who presents with desire for sterilization. No vaginal d/c, itching, rashes. Uses BC patch. ACTIVE PROBLEM LIST Post Depression Obesity, Class II, Bmi 35-39.9 Viral Upper Respiratory Tract Infection History of Asthma History reviewed. No pertinent past medical history. PAST SURGICAL HISTORY Procedure Laterality Date ADENOIDECTOMY SECONDARY AGE 11/ Bilateral REMOVAL GALLBLADDER 09/2023 FAMILY HISTORY Problem Relation Age of Onset Diabetes Mother Depression Sister Hypertension Maternal Grandfather Social History Tobacco Use Smoking status: Never Smokeless tobacco: Never Vaping Use Vaping status: Never Used Substance Use Topics Alcohol use: Never Drug use: Never ALLERGIES No Known Allergies MEDICATIONS: Current Outpatient Medications Medication Sig ZINC ACETATE ORAL Take by mouth. Ethinyl Estradiol-Norelgestrom (XULANE) 150-35 mcg/24 hr patch Apply 1 Patch as directed one time aweek. sertraline (ZOLOFT) 50 mg tablet Take 1 tablet by mouth once daily. MAGNESIUM GLYCINATE ORAL Take 2 capsules by mouth once daily. acyclovir (ZOVIRAX) 400 mg tablet Take 1 tablet by mouth three times a day. No current facility-administered medications for this visit. COVID VACCINATION STATUS: REVIEW OF SYSTEMS: Pain Assessment: General: No weight loss, malaise or fevers. Neuro: sciatica Respiratory: current mild URI/runny nose, had cough at s tart 1 week ago but no other sx; no viral testing. Sx miproving. Hx childhood asthma. No wheezing, SOB as adult. Cardiovascular: No history of HTN requiring medication, no history of angina, CHF, [place], cardiac surgery or stents. Denies rest pain, gangrene or revascularization/amputation for PVD. No history of cardiovascular symptoms or problems. GI: No history of GI symptoms or problems. No history of esophageal varices, recent ascites, or ETOH greater than 2 drinks per day. : No history of dysuria, frequency or incontinence,, stones or chronic kidney disease ENERGY SYSTEMS LABORATORY DIRECTOR: See HPI : Denies, Patient's last menstrual period was 04/26/2024 (approximate). Endocrine: No history of diabetes. Has not taken steroids within the past 30 days. No history of endocrinological symptoms or problems. Hematology: No history of bleeding or clotting disorder. Pt is not taking anti- coagulation or platelet medications. No history of hematological symptoms or problems. Oncology: No history of CA metastasis, chemo within 30 days, or radiotherapy within 90 days. Has not lost 10% of body wt in 6 months. No history of oncological symptoms or problems. Psych: ND Musculoskeletal: Back pain Skin: Negative for lesions, rash and itching. Objective PHYSICAL EXAM: Pulse 80 Ht 5' 6 (1.68m) Wt 220 lb (99.8kg) LMP 04/26/2024 BMI 35.53 kg/(m^2). Last BP readings: Date: BP: 06/21/2024 114/62 06/07/2024 110/64 06/04/2023 108/64 05/31/2023 90/68 VIDEO EXAM: (if completed, performed via video enabled technology) GENERAL: alert and appropriate, in no distress, well-hydrated, interactive, obese SKIN: no rash noted on visualized areas EYES: no injection, EOMI, NOSE: external nose normal without visible rhinorrhea OROPHARYNX: moist mucus membranes, difficult to see OP due to lighting NECK: full ROM, no cervical LNs noted, no masses RESPIRATORY: breathing non-labored, no grunting/flaring/retractions and or wheezing CHEST: equal chest rise with normal respiratory effort HEART: RRR per verbalization of radial pulse; No cyanosis, JVD EXTREMITIES: no c/c/e/e hands, unable to see LEs due to computer setup NEUROLOGIC: CN II-XII grossly intact Normal speech Diagnostic tests reviewed for today's visit: Lab Value Units Date High Low HB No results within date range. HCT No results within date range. WBC No results within date range. PLT No results within date range. NA No results within date range. K No results within date range. GLUC No results within date range. BUN No results within date range. CREAT No results within date range. PTSEC No results within date range. INR No results within date range. APTT No results within date range. ALT No results within date range. AST No results within date range. TBILI No results within date range. TSH No results within date range. Lab Value Units Date High Low HCGQT No results within date range. UHCG No results within date range. HCG, BODY* No results within date range. Lab Value Units Date High Low ABORHD No results within date range. ABSCREEN No results within date range. Hemoglobin A1C (%) Date Value 06/17/2024 5.2 Most recent labs Impression/Recommendations ASSESSMENT: Viral upper respiratory tract infection Assessment: sx presnt for one week, mild, improving, should be gone by surgery, using supplements to tx. Pt to notify surgeon if ill in anyway within 2d of surgery. History of asthma Assessment: chilldhood only. No wheezing, SOB recently. Obesity, Class II, BMI 35-39.9 Assessment: BMI 35.51. She is not on diet or meds for weight loss. METS: Run a short distance (8.00 METs) Patient denies any chest pain or undue shortness of breath with the above physical activity. ASA Class: ANESTHESIA FINDINGS: Intubation History: No history of difficult intubation Significant Anesthesia Considerations: None Airway Exam: General: Obese Mallampati Score is CLASS IV poor lighting ULBT: Class III - Lower incisors cannot bite the upper lip Neck: thick appearance and normal function, recessed chin Mouth: Normal tongue size and Mouth opening greater than 2 finger breaths Dentition: Intact Airway History: No abnormal airway history STOP BANG Score: Criteria: Snoring Tired BMI > 35 Neck circumference > 15.75 inches Score = 4 PLAN: Pt optimally prepared for surgery, pending day of surgery CONSULTS: Patient does not require consults for optimization at this time. The Following Tests/Procedures Have Been Initiated: Labs not indicated per [facility] protocol, EKG not indicated per [facility] protocol Planned Anesthetic: Per anesthesia choice Instructions Given to Patient: Patient given verbal instructions and voices comprehension and compliance. Copy sent electronically via My Chart, email, or mobile device. This is a virtual visit. It required patient-provider interaction for the medical decision making as documented above. SIGNATURE: Chinyere Gavin PA-C PATIENT NAME: Christina Cuevas DATE: August 26, 2024. TIME: 10:25 AM PAGER/CONTACT #: documented in this encounterChildren[facility] Instructions* Patient Instructions* Chinyere Gavin PA-C - 08/26/2024 10:10 AM EDT PATIENT PREOPERATIVE INSTRUCTIONS Neil Alvarado MD has scheduled you for your procedure at this surgery center: [facility]: [phone] -- [address] [address] Arrival Time for Surgery: - The Surgery Center or hospital where you are having surgery will call the afternoon before surgery (or Friday for Friday surgery) with a scheduled arrival time. - If you have not heard by 4 pm, please contact the surgery center above. Please be aware that emergency situations arise, which may delay or change your surgical time. If this happens, we will notify you as soon as possible and regret any inconvenience. Please read below carefully for your personalized instructions. Dietary Restrictions: - No solid food after midnight. - You may have 12 ounces of clear liquids (water, clear juices such as apple juice or gatorade, carbonated beverages, clear tea, black coffee, jello) until 2 hours before scheduled arrival at facility. Preoperative Instructions for Patient's with Diabetes Mellitus/ Prediabetes If you are currently using a [id number] injectable or oral medication for diabetes or weight loss such as Dulaglutide (Trulicity), Exenatide (Byetta, Bydureon), Liraglutide (Victoza, Saxenda), Semaglutide (Ozempic, Wegovy, Rybelsus), or Tirzepatide (Mounjaro), the medicine should be stopped at least 7 days before surgery. These medicines can cause food to remain in your stomach for a very longtime and increase the risks from surgery and anesthesia. Not stopping the medication for a long enough time may result in your surgery being rescheduled. Medications: Unless instructed differently below, stay on all of your medications until your surgery. Approved medications to take the morning of surgery with a sip of water: zoloft, If you start any new medications after today's visit, please contact the surgeon's office. Blood Thinning Medications: - Stop NSAIDS (Ibuprofen, Advil, Aleve, Motrin, Celebrex, Mobic, etc.) 7 days before surgery, as directed by your surgeon. - Stop Aspirin 7 days before surgery, as directed by your surgeon. - Stop Vitamin E, ALL multi-vitamins, herbals and dietary supplements 7 days before surgery. - You may take Tylenol (Acetaminophen) or any of your pain medications that do not contain aspirin or NSAIDS as needed. Important Reminders: - If you use CPAP/BIPAP, bring the machine with you to the surgery center. - If you are prescribed inhalers for breathing, continue using them. - Candy, mints, and tobacco products are NOT permitted the morning of surgery. - Hearing aids, dentures and glasses may be worn the morning of surgery. - NO jewelry, body piercings, makeup, hairpins or contacts are to be worn the day of surgery. If you develop symptoms such as a fever, cold, or flu, or have other changes to your health within TWO DAYS of scheduled surgery or the morning of surgery, please contact the surgery center above. Personal Belongings: -Please have photo ID and insurance cards. -If you do not have a copy of advance directives on file with us, please bring a copy with you on the day of surgery. - Leave ALL valuables and money at home or with family members. For Outpatient Procedures: - YOU MUST HAVE A RESPONSIBLE MANAGER OF SOFTWARE DEVELOPMENT TAKE YOU HOME. A MANAGER OF QUALITY OR REFINERY OPERATOR CANNOT BE MADE A RESPONSIBLE MANAGER OF SOFTWARE DEVELOPMENT. - We recommend that a responsible person stays with you overnight to take care of you. - You cannot stay in a hotel alone after outpatient surgery. You will not be permitted to have yoursurgery, if you do not have someone to take care of you. If you already have an Advance Directive, please fax a copy to [phone] or email to for it to be added to your chart. If you do not have an Advance Directive, you can find the appropriate form and more information at [email or web address]. We recommend that youcomplete the Advance Directive form found on the website and bring it with you the day of your surgery. It can be witnessed and scanned into your chart that day. Chinyere Gavin PA-C documented in this encounterChildren[facility] Telephone encounter Note * Telephone Encounter - Cherry Borrero LPN - 08/13/2024 11:14 AM EDT Patient requesting surgery at [facility] on 09/13/2024. Please approve order. [facility]04-04-2025 Miscellaneous Notes* Telephone Encounter - Cherry Borrero LPN - 08/13/2024 11:14 AM EDT Patient requesting surgery at [facility] on 09/13/2024. Please approve order. documented in this encounterChildren'[facility]03-[facility]-2025 NoteHNO ID: [id number] Author: NEIL ALVARADO MD Service: ? Author Type: Physician Type: Progress Notes Filed: 08/09/2024 12:17 Note Text: VIRTUAL VISIT PROGRESS NOTE This is a virtual visit using Audio Only Visit. It required patient-provider interaction for the medical decision making as documented below. I have communicated my name and active licensure. The patient's identity and physical location were verified at the time of this visit. Either the patient or their legal labor union business representative has been informed of the risks and benefits of -- and alternatives to -- treatment through a remote evaluation and consents to proceed with the evaluation remotely. Christina Cuevas is a 28 year old female seen for discussion of contraception. Desires tubal sterilization. HISTORY REVIEWED (electronic chart updated): No past medical history on file. PAST SURGICAL HISTORY Procedure Laterality Date ADENOIDECTOMY SECONDARY AGE 11/ Bilateral REMOVAL GALLBLADDER 09/2023 FAMILY HISTORY Problem Relation Age of Onset Diabetes Mother Depression Sister Hypertension Maternal Grandfather Social History Tobacco Use Smoking status: Never Smokeless tobacco: Never Vaping Use Vaping status: Never Used Substance Use Topics Alcohol use: Never Drug use: Never Current Outpatient Medications Medication Sig Ethinyl Estradiol-Norelgestrom (XULANE) 150-35 mcg/24 hr patch Apply 1 Patch as directed one time a week. sertraline (ZOLOFT) 50 mg tablet Take 1 tablet by mouth once daily. vit calc,iron,folic (PRENAT.VITS,GERA,GOA-TDMO-WEIWD ORAL) Take 1 tablet by mouth once daily. (Patient not taking: Reported on 06/07/2024) MAGNESIUM GLYCINATE ORAL Take 2 capsules by mouth once daily. acyclovir (ZOVIRAX) 400 mg tablet Take 1 tablet by mouth three times a day. No current facility-administered medications for this visit. ALLERGIES No Known Allergies RPHYSICAL EXAMINATION: VIDEO EXAM: n/a Assessment AND Plan General counseling and advice for contraceptive management Risks, benefits and alternatives to sterilization have been discussed with the patient. She declines reversible options including LARC. She understands sterilization is permanent, irreversible, risks of failure, regret and ectopic. In addition she understands there are surgical risks as well. Her questions were answered to her satisfaction and she desires to proceed. There are no Patient Instructions on file for this visit. I spent a total of 11 minutes on the date of the service which included preparing to see the patient, [id number] patient care, and completing clinical documentation Neil Alvarado [facility]03-31-2025 History of Present illness Narrative* Neil Alvarado MD - 08/09/2024 11:58 AM EDT VIRTUAL VISIT PROGRESS NOTE This is a virtual visit using Audio Only Visit. It required patient-provider interaction for the medical decision making as documented below. I have communicated my name and active licensure. The patient's identity and physical location wereverified at the time of this visit. Either the patient or their legal labor union business representative has been informed of the risks and benefits of -- and alternatives to -- treatment through a remote evaluation andconsents to proceed with the evaluation remotely. Christina Cuevas is a 28 year old female seen for discussion of contraception. Desires tubal sterilization. HISTORY REVIEWED (electronic chart updated): No past medical history on file. PAST SURGICAL HISTORY Procedure Laterality Date ADENOIDECTOMY SECONDARY AGE 11/> Bilateral REMOVAL GALLBLADDER 09/2023 FAMILY HISTORY Problem Relation Age of Onset Diabetes Mother Depression Sister Hypertension Maternal Grandfather Social History Tobacco Use Smoking status: Never Smokeless tobacco: Never Vaping Use Vaping status: Never Used Substance Use Topics Alcohol use: Never Drug use: Never Current Outpatient Medications Medication Sig Ethinyl Estradiol-Norelgestrom (XULANE) 150-35 mcg/24 hr patch Apply 1 Patch as directed one time aweek. sertraline (ZOLOFT) 50 mg tablet Take 1 tablet by mouth once daily. vit calc,iron,folic (PRENAT.VITS,GERA,PUV-[id number]-[id number] ORAL) Take 1 tablet by mouth once daily. (Patient not taking: Reported on 06/07/2024) MAGNESIUM GLYCINATE ORAL Take 2 capsules by mouth once daily. acyclovir (ZOVIRAX) 400 mg tablet Take 1 tablet by mouth three times a day. No current facility-administered medications for this visit. ALLERGIES No Known Allergies RPHYSICAL EXAMINATION: VIDEO EXAM: n/a Assessment & Plan General counseling and advice for contraceptive management Risks, benefits and alternatives to sterilization have been discussed with the patient. She declines reversible options including LARC. She understands sterilization is permanent, irreversible, risksof failure, regret and ectopic. In addition she understands there are surgical risks as well. Her questions were answered to her satisfaction and she desires to proceed. There are no Patient Instructions on file for this visit. I spent a total of 11 minutes on the date of the service which included preparing to see the patient, [id number] patient care, and completing clinical documentation Neil Alvarado MD [facility] Telephone encounter Note * Telephone Encounter - Krystal Uribe RN - 07/13/2024 11:46 AM EST Patient called back. Appointment given. Krystal Uribe RN [facility]03-04-2025 Miscellaneous Notes* Telephone Encounter - Krystal Uribe RN - 07/13/2024 11:46 AM EST Patient called back. Appointment given. Krystal Uribe RN * Telephone Encounter - Krystal Uribe RN - 07/13/2024 9:23 AM EST 2nd message left for patient to call the office. Krystal Uribe RN * Telephone Encounter - Eda Butcher RN - 07/08/2024 11:24 AM EST Left message for patient to call office. Eda Butcher RN * Telephone Encounter - Trinidad Raya APRN.CNP - 07/08/2024 7:14 AM EST I recommend an appointment with physician to make sure she's a good candidate for surgery. Can be virtual or in person. Trinidad Raya APRN.CNP * Telephone Encounter - Krystal Uribe RN - 07/06/2024 8:53 AM EST Patient called inquiring if she needs labs prior to having a tubal ligation. Advised that there areno labs ordered. Does patient need a consult with a physician to discuss or did you certified genetic counselor her regarding this at her last visit? Please advise. Patient aware provider our of office until . Krystal Urbie RN documented [facility] encounterChildren[facility] Telephone encounter Note * Telephone Encounter - Krystal Uribe RN - 07/13/2024 9:23 AM EST 2nd message left for patient to call the office. Krystal Uribe RN [facility]02-27-[facility] Telephone encounter Note* Telephone Encounter - Eda Butcher RN - 07/08/2024 11:24 AM EST Left message for patient to call office. Eda Butcher RN [facility]02-[facility] Telephone encounter Note* Telephone Encounter - Trinidad Raya APRN.CNP - 07/08/2024 7:14 AM EST I recommend an appointment with physician to make sure she's a good candidate for surgery. Can be virtual or in person. Trinidad Raya APRN.CNP [facility]02-25-2025 Telephone encounter Note* Telephone Encounter - Krystal Uribe RN - 07/06/2024 8:53 AM EST Patient called inquiring if she needs labs prior to having a tubal ligation. Advised that there areno labs ordered. Does patient need a consult with a physician to discuss or did you certified genetic counselor her regarding this at her last visit? Please advise. Patient aware provider our of office until . Krystal Highman, RN [facility]02-10-2025 NoteHNO ID: [id number] Author: TRINIDAD RAYA APRN.COMPENSATOR Service: ? Author Type: Nurse Practitioner Type: Progress Notes Filed: 06/21/2024 16:19 Note Text: Senior Clerk offered: Patient declines. Christina Cuevas is a 28 year old female who presents for problem visit for vaginal itching for a couple weeks. HPI: Christina presents for vaginal itching. Denies discharge or pain. She tried Monistat 7 and experiencing some relief. She noticed that itching resurfaced a few days later after intercourse. She reports some swelling as well. OB History Gravida4 Para4 Term3 Preterm1 AB0 Living3 SAB0 IAB0 Ectopic0 Multiple1 Live Births3 Dresser Tender History LMP: 04/26/2024 (Approximate), Unknown Age at Menarche: Age at First : Age at Menopause: Dresser Tender History Comments: Sexual Activity: Yes; Male Contraception: No contraception data on record No past medical history on file. PAST SURGICAL HISTORY Procedure Laterality Date - ADENOIDECTOMY SECONDARY AGE 11/> Bilateral - REMOVAL GALLBLADDER 09/2023 FAMILY HISTORY Problem Relation Age of Onset - Diabetes Mother - Depression Sister - Hypertension Maternal Grandfather Social History Tobacco Use - Smoking status: Never - Smokeless tobacco: Never Vaping Use - Vaping status: Never Used Substance Use Topics - Alcohol use: Never - Drug use: Never Current Outpatient Medications Medication Sig - Ethinyl Estradiol-Norelgestrom (XULANE) 150-35 mcg/24 hr patch Apply 1 Patch as directed one time a week. - sertraline (ZOLOFT) 50 mg tablet Take 1 tablet by mouth once daily. - vit calc,iron,folic (PRENAT.VITS,GERA,[id number] ORAL) Take 1 tablet by mouth once daily. (Patient not taking: Reported on 06/07/2024) - MAGNESIUM GLYCINATE ORAL Take 2 capsules by mouth once daily. - acyclovir (ZOVIRAX) 400 mg tablet Take 1 tablet by mouth three times a day. No current facility-administered medications for this visit. Allergies As of Date: 06/21/2024 (No Known Allergies) Fully Assessed 06/21/2024 REVIEW OF SYSTEMS Expanded ROS: ENERGY SYSTEMS LABORATORY DIRECTOR: + vaginal itching, swelling Allergies and current medication updated:Yes SENSITIVE EXAM: The sensitive examination was discussed with the Patient or Patient's Authorized [employer]. As applicable, any other physician, advance practice provider, medical student, or other health professional student that will be observing or involved in the sensitive examination for educational or training purposes was discussed with the Patient or Authorized [employer]. The Patient or Authorized [employer] has agreed to proceed with the sensitive examination. (Sensitive examination includes inspection and/or palpation of the breasts, pelvis, prostate and anorectal regions). EXAM: BP 114/62 Wt 230 lb (104.3kg) LMP 04/26/2024 GENERAL: pleasant, female in no apparent distress HEENT: Normocephalic, atraumatic, mucus membranes moist, and no lesions CHEST: Normal inspiratory effort PELVIC: external genitalia normal, erythema to bilateral anterior bilateral labia minora, normal Bartholin's glands, urethra, Orrick's glands, no vulvar lesions, no cervical lesions, good vaginal support, physiologic discharge present, normal appearing perineal body and perianal region NEURO: alert and oriented x3,exam grossly non-focal EXTREMITIES: normal ASSESSMENT AND PLAN: 1. Vaginal itching - ICD9: 698.1, ICD10: N89.8 (primary diagnosis) 2. Screening examination for STD (sexually transmitted disease) - ICD9: V74.5, ICD10: Z11.3 - Cultures obtained - Will treat accordingly - Use neutral unscented soap/detergent RTO for annual or sooner as needed. Trinidad Raya APRN.CNP Medical Decision Making: Problems: Low: Acute, uncomplicated illness or injury Data: Unique test(s) ordered: 3+ Risk: Minimal: Minimal risk from testing/treatment Medical Decision Making Level: 3 - [facility] History of Present illness Narrative* Trinidad Raya APRN.CNP - 06/21/2024 4:00 PM EST Senior Clerk offered: Patient declines. Christina Cuevas is a 28 year old female who presents for problem visit for vaginal itching for a couple weeks. HPI: Christina presents for vaginal itching. Denies discharge or pain. She tried Monistat 7 and experiencing some relief. She noticed that itching resurfaced a few days later after intercourse. She reports some swelling as well. OB History Gravida4 Para4 Term3 Preterm1 AB0 Living3 SAB0 IAB0 Ectopic0 Multiple1 Live Births3 Dresser Tender History LMP: 04/26/2024 (Approximate), Unknown Age at Menarche: Age at First : Age at Menopause: Dresser Tender History Comments: Sexual Activity: Yes; Male Contraception: No contraception data on record No past medical history on file. PAST SURGICAL HISTORY Procedure Laterality Date ADENOIDECTOMY SECONDARY AGE 11/> Bilateral REMOVAL GALLBLADDER 09/2023 FAMILY HISTORY Problem Relation Age of Onset Diabetes Mother Depression Sister Hypertension Maternal Grandfather Social History Tobacco Use Smoking status: Never Smokeless tobacco: Never Vaping Use Vaping status: Never Used Substance Use Topics Alcohol use: Never Drug use: Never Current Outpatient Medications Medication Sig Ethinyl Estradiol-Norelgestrom (XULANE) 150-35 mcg/24 hr patch Apply 1 Patch as directed one time aweek. sertraline (ZOLOFT) 50 mg tablet Take 1 tablet by mouth once daily. vit calc,iron,folic (PRENAT.VITS,GERA,[id number] ORAL) Take 1 tablet by mouth once daily. (Patient not taking: Reported on 06/07/2024) MAGNESIUM GLYCINATE ORAL Take 2 capsules by mouth once daily. acyclovir (ZOVIRAX) 400 mg tablet Take 1 tablet by mouth three times a day. No current facility-administered medications for this visit. Allergies As of Date: 06/21/2024 (No Known Allergies) Fully Assessed 06/21/2024 REVIEW OF SYSTEMS Expanded ROS: ENERGY SYSTEMS LABORATORY DIRECTOR: + vaginal itching, swelling Allergies and current medication updated:Yes SENSITIVE EXAM: The sensitive examination was discussed with the Patient or Patient's Authorized [employer]. As applicable, any other physician, advance practice provider, medical student, or other health professional student that will be observing or involved in the sensitive examination for educational or training purposes was discussed with the Patient or Authorized [employer]. The Patient or Authorized [employer] has agreed to proceed with the sensitive examination. (Sensitive examination includes inspection and/or palpation of the breasts, pelvis, prostate and anorectal regions). EXAM: BP 114/62 Wt 230 lb (104.3kg) LMP 04/26/2024 GENERAL: pleasant, female in no apparent distress HEENT: Normocephalic, atraumatic, mucus membranes moist, and no lesions CHEST: Normal inspiratory effort PELVIC: external genitalia normal, erythema to bilateral anterior bilateral labia minora, normal Bartholin's glands, urethra, Orrick's glands, no vulvar lesions, no cervical lesions, good vaginal support, physiologic discharge present, normal appearing perineal body and perianal region NEURO: alert and oriented x3,exam grossly non-focal EXTREMITIES: normal ASSESSMENT AND PLAN: 1. Vaginal itching - ICD9: 698.1, ICD10: N89.8 (primary diagnosis) 2. Screening examination for STD (sexually transmitted disease) - ICD9: V74.5, ICD10: Z11.3 - Cultures obtained - Will treat accordingly - Use neutral unscented soap/detergent RTO for annual or sooner as needed. Trinidad Raya APRN.CNP Medical Decision Making: Problems: Low: Acute, uncomplicated illness or injury Data: Unique test(s) ordered: 3+ Risk: Minimal: Minimal risk from testing/treatment Medical Decision Making Level: 3 - Low documented in this encounterChildren[facility] Telephone encounter Note * Telephone Encounter - Geraldine Daugherty RN - 06/07/2024 2:07 PM EST Referral faxed to [facility]. Geraldine Daugherty RN [facility]01-27-2025 Miscellaneous Notes* Telephone Encounter - Geraldine Daugherty RN - 06/07/2024 2:07 PM EST Referral faxed to [facility]. Geraldine Daugherty RN * Telephone Encounter - Trinidad Raya APRN.CNP - 06/07/2024 2:00 PM EST Please fax PFPT consult to [facility] for stress incontinence. Trinidad Raya APRN.CNP documented in this encounterChildren[facility]01-27-2025 Telephone encounter Note * Telephone Encounter - Trinidad Raya APRN.CNP - 06/07/2024 2:00 PM EST Please fax PFPT consult to [facility] for stress incontinence. Trinidad Raya APRN.CNP [facility]01-27-2025 Instructions* Patient Instructions* Trinidad Raya APRN.CNP - 06/07/2024 1:49 PM EST A 3-dose schedule is recommended for people who get the first dose on or after their 15th birthday,and for people with certain immunocompromising conditions. In a 3-dose series, the second dose should be given 1-2 months after the first dose, and the third dose should be given 6 months after the first dose (0, 1-2, 6-month schedule). The minimum intervals are 4 weeks between the first and second dose, 12 weeks between the second and third doses, and 5 months between the first and third doses. If a vaccine dose is administered after a shorter interval, it should be re-administered after another minimum interval has elapsed sincethe most recent dose. If the vaccination schedule is interrupted, vaccine doses do not need to be repeated (no maximum interval). documented in this encounterChildren'S [facility]01-27-2025 NoteHNO ID: [id number] Author: TRINIDAD RAYA APRN.CNP Service: ? Author Type: Nurse Practitioner Type: Progress Notes Filed: 06/07/2024 14:02 Note Text: Senior Clerk offered: Patient declines. Vasquez is a 28 year old who presents for an annual gynecologic exam without complaints. LMP: 04/26/2024 Menses: cycles every 30 days and 5-7 days of flow, but some irregular bleeding. Using patch. Sexually active: Yes Contraception: Patch HPV vaccine: No HPV: negative Last pap smear: 06/04/2023 ASCUS History of abnormal pap: Yes- ASCUS, HPV negative 2023 Colposcopy: No Bothersome pelvic pain: No Last mammogram: never OB History T3 L3 SAB0 IAB0 Ectopic0 Multiple1 Live Births3 Dresser Tender History LMP: 04/26/2024 (Approximate), Unknown Age at Menarche: Age at First : Age at Menopause: Dresser Tender History Comments: Sexual Activity: Yes; Male Contraception: No contraception data on record History reviewed. No pertinent past medical history. PAST SURGICAL HISTORY Procedure Laterality Date ADENOIDECTOMY SECONDARY AGE 11/ Bilateral REMOVAL GALLBLADDER 09/2023 History reviewed. No pertinent family history.SOCIAL HISTORY Social History Tobacco Use Smoking status: Never Smokeless tobacco: Never Vaping Use Vaping status: Never Used Substance Use Topics Alcohol use: Never Drug use: Never REVIEW OF SYSTEMS Abdomen: No abdominal pain, nausea, vomiting, diarrhea, or constipation. No bloating, early satiety, indigestion, or increased flatulence. Bladder: No dysuria, gross hematuria, urinary frequency, urinary urgency + stress incontinence Breast: No breast lumps, nipple d/c, overlying skin changes, redness or skin retraction. Allergies and current medication updated:Yes SENSITIVE EXAM: The sensitive examination was discussed with the Patient or Patient's Authorized [employer]. As applicable, any other physician, advance practice provider, medical student, or other health professional student that will be observing or involved in the sensitive examination for educational or training purposes was discussed with the Patient or Authorized [employer]. The Patient or Authorized [employer] has agreed to proceed with the sensitive examination. (Sensitive examination includes inspection and/or palpation of the breasts, pelvis, prostate and anorectal regions). EXAM: BP 110/64 Ht 5' 7 (1.70m) Wt 229 lb (103.9kg) LMP 04/26/2024 BMI 35.86 kg/(m2). GENERAL: pleasant, female in no apparent distress HEENT: Normocephalic, atraumatic, mucus membranes moist, and no lesions NECK: Supple, full range of motion, no adenopathy, and thyroid normal DERMATOLOGY: Normal, without lesions, non-icteric, and non-hirsute BREAST: soft, non-tender, symmetric, no dominant mass, normal nipple-areolar complex, no lymphadenopathy, and no nipple discharge CHEST: Normal inspiratory effort ABDOMEN: soft, non-tender, and no masses PELVIC: external genitalia normal, normal Bartholin's glands, urethra, Orrick's glands, no vulvar lesions, no cervical lesions, good vaginal support, physiologic discharge present, normal appearing perineal body and perianal region BIMANUAL: uterus normal size, shape and consistency, no adnexal masses, and non-tender RECTOVAGINAL: deferred. NEURO: alert and oriented x3,exam grossly non-focal EXTREMITIES: normal I attest that I was present, not working on other tasks, and directing the student during this visit. I have reviewed and agree with the above documentation of this student. Trinidad Raya APRN.NATALY ASSESSMENT/PLAN: 1) Health maintenance: Pap/HPV up to date. Plan for pap in 2026. Mammogram starting age 40. Nutrition, exercise and routine health maintenance exams reviewed. HPV vaccine: interested, literature given 2) Contraception: patch. Considering tubal. Title 19 signed. To schedule consult with physician. Denies migraines with aura, VTE history or clotting disorder, hypertension, or liver issues. Does not smoke. 3) STD screening: Declined STD check. 4) Follow up one year or sooner as needed Urinary, incontinence, stress female - ICD9: 625.6, ICD10: N39.3 - Recommend pelvic floor therapy - Consult placed to [facility] per patient request Discussed irregular bleeding may be related to patch use - not recommended for BMI >30. Discussed risk of and breakthrough bleeding. To follow up if persistent/ongoing. Trinidad Raya APRN.NATALYMckitrick Hospital01-27-2025 History of Present illness Narrative* Trinidad Raya APRN.COMPENSATOR - 06/07/2024 1:15 PM EST Senior Clerk offered: Patient declines. Christina is a 28 year old who presents for an annual gynecologic exam without complaints. LMP: 04/26/2024 Menses: cycles every 30 days and 5-7 days of flow, but some irregular bleeding. Using patch. Sexually active: Yes Contraception: Patch HPV vaccine: No HPV: negative Last pap smear: 06/04/2023 [facility]US History of abnormal pap: Yes- ASCUS, HPV negative 2023 Colposcopy: No Bothersome pelvic pain: No Last mammogram: never OB History T3 L3 SAB0 IAB0 Ectopic0 Multiple1 Live Births3 Dresser Tender History LMP: 04/26/2024 (Approximate), Unknown Age at Menarche: Age at First : Age at Menopause: Dresser Tender History Comments: Sexual Activity: Yes; Male Contraception: No contraception data on record History reviewed. No pertinent past medical history. PAST SURGICAL HISTORY Procedure Laterality Date ADENOIDECTOMY SECONDARY AGE 11/> Bilateral REMOVAL GALLBLADDER 09/2023 History reviewed. No pertinent family history.SOCIAL HISTORY Social History Tobacco Use Smoking status: Never Smokeless tobacco: Never Vaping Use Vaping status: Never Used Substance Use Topics Alcohol use: Never Drug use: Never REVIEW OF SYSTEMS Abdomen: No abdominal pain, nausea, vomiting, diarrhea, or constipation. No bloating, early satiety, indigestion, or increased flatulence. Bladder: No dysuria, gross hematuria, urinary frequency, urinary urgency + stress incontinence Breast: No breast lumps, nipple d/c, overlying skin changes, redness or skin retraction. Allergies and current medication updated:Yes SENSITIVE EXAM: The sensitive examination was discussed with the Patient or Patient's Authorized [employer]. As applicable, any other physician, advance practice provider, medical student, or other health professional student that will be observing or involved in the sensitive examination for educational or training purposes was discussed with the Patient or Authorized [employer]. The Patient or Authorized [employer] has agreed to proceed with the sensitive examination. (Sensitive examination includes inspection and/or palpation of the breasts, pelvis, prostate and anorectal regions). EXAM: BP 110/64 Ht 5' 7 (1.70m) Wt 229 lb (103.9kg) LMP 04/26/2024 BMI 35.86 kg/(m^2). GENERAL: pleasant, female in no apparent distress HEENT: Normocephalic, atraumatic, mucus membranes moist, and no lesions NECK: Supple, full range of motion, no adenopathy, and thyroid normal DERMATOLOGY: Normal, without lesions, non-icteric, and non-hirsute BREAST: soft, non-tender, symmetric, no dominant mass, normal nipple-areolar complex, no lymphadenopathy, and no nipple discharge CHEST: Normal inspiratory effort ABDOMEN: soft, non-tender, and no masses PELVIC: external genitalia normal, normal Bartholin's glands, urethra, Orrick's glands, no vulvar lesions, no cervical lesions, good vaginal support, physiologic discharge present, normal appearing perineal body and perianal region BIMANUAL: uterus normal size, shape and consistency, no adnexal masses, and non-tender RECTOVAGINAL: deferred. NEURO: alert and oriented x3,exam grossly non-focal EXTREMITIES: normal I attest that I was present, not working on other tasks, and directing the student during this visit. I have reviewed and agree with the above documentation of this student. Trinidad Raya APRN.NATALY ASSESSMENT/PLAN: 1) Health maintenance: Pap/HPV up to date. Plan for pap in 2026. Mammogram starting age 40. Nutrition, exercise and routine health maintenance exams reviewed. HPV vaccine: interested, literature given 2) Contraception: patch. Considering tubal. Title 19 signed. To schedule consult with physician. Denies migraines with aura, VTE history or clotting disorder, hypertension, or liver issues. Does not smoke. 3) STD screening: Declined STD check. 4) Follow up one year or sooner as needed Urinary, incontinence, stress female - ICD9: 625.6, ICD10: N39.3 - Recommend pelvic floor therapy - Consult placed to [facility] per patient request Discussed irregular bleeding may be related to patch use - not recommended for BMI >30. Discussed risk of and breakthrough bleeding. To follow up if persistent/ongoing. Trinidad Raya APRN.NATALY documented in this encounterChildren[facility] Telephone encounter Note * Telephone Encounter - Eda Butcher RN - 05/21/2024 4:24 PM EST Last OV 06/04/23. Pt has upcoming annual scheduled with on 06/07/24. Pt currently out of control and requesting refill to get her through until appointment. Please address in DM absence. Requested Prescriptions Pending Prescriptions Disp Refills norelgestromin-ethinyl estradiol (XULANE, LOS) patch 150-35 mcg/24 hr 3 Patch 0 Sig: Apply 1 Patch as directed one time a week. Eda Butcher RN [facility]01-10-20[facility] Miscellaneous Notes* Telephone Encounter - Eda Butcher RN - 05/21/2024 4:24 PM EST Last OV 06/04/23. Pt has upcoming annual scheduled with on 06/07/24. Pt currently out of control and requesting refill to get her through until appointment. Please address in DM absence. Requested Prescriptions Pending Prescriptions Disp Refills norelgestromin-ethinyl estradiol (XULANE, ZAFEMY) patch 150-35 mcg/24 hr 3 Patch 0 Sig: Apply 1 Patch as directed one time a week. Eda Butcher RN documented in this encounterChildren[facility]24 Telephone encounter Note * Telephone Encounter - Charla Rubio APRN.CNM - 11/28/2023 5:06 PM EDT RX sent. She can schedule appointment if continues to have bleeding with patch. Charla Rubio APRN.CNM [facility]07-19-2024 Miscellaneous Notes* Telephone Encounter - Charla Rubio APRN.CNM - 11/28/2023 5:06 PM EDT RX sent. She can schedule appointment if continues to have bleeding with patch. Charla Rubio APRN.CNM * Telephone Encounter - Cherry Borrero LPN - 11/28/2023 4:00 PM EDT Pt. prescribed Xulane 05/2023 and called stating that for past couple months she has been having spotting to light bleeding during the 3rd week of wearing patch and during patch free week. Patient stated that she recently changed from wearing the patch on her upper buttocks/waist area to her shoulder blade when the BTB began. Patient also requesting a refill of Zoloft. Was prescribed . documented in this encounterChildren'S [facility]07-19-2024 Telephone encounter Note * Telephone Encounter - Cherry Borrero LPN - 11/28/2023 4:00 PM EDT Pt. prescribed Xulane 05/2023 and called stating that for past couple months she has been having spotting to light bleeding during the 3rd week of wearing patch and during patch free week. Patient stated that she recently changed from wearing the patch on her upper buttocks/waist area to her shoulder blade when the BTB began. Patient also requesting a refill of Zoloft. Was prescribed . [facility]03-10-2024 Discharge summary Author Francisco Mcgovern [facility] July 20, 2023 6:59am Note Date/Time July 20, 2023 3:5 0am [facility] Medical Records Department [address] [place] [address] Emergency Department Summary 07/20/23 MR#: [id number] Acct: [id number] Name: CHRISTINA CUEVAS Rep #:[id number] : 1995 27 From: Francisco Clark PCP: Care Physician,No Primary Status :REG ER Location: ED HPI History of Present Illness Chief Complaint: Abd Pain [facility] Medical History Abnormal bruising Acute sinusitis, unspecified Anxiety Chlamydia infection affecting Chronic neck and back pain GDM, class A1 Gestational diabetes HPV (human papilloma virus) infection Oligohydramnios Prior with demise Spontaneous vaginal delivery Stillborn, normal Home Medications sertraline 50 mg tablet (Zoloft) 50 mg PO DAILY 06/27/23 [History Last Taken Unknown] vitamin C 45 mg-zinc citrate 3.75 mg-elderberry 50 mg chewable tablet (M2 Connections) 2 tab PO DAILY 06/27/23 [History Last Taken Unknown] ondansetron 4 mg disintegrating tablet 4 mg PO Q8H PRN PRN Nausea #10 tabs 07/20/23 [Rx Last Taken Unknown] Allergy/AdvReac Type Severity Reaction Status Date / Time No Known Allergies Allergy Verified 07/20/23 03:41 Family History Other Diabetes Surgical History History of adenoidectomy History of surgery Social History Smoking Status: Never smoker alcohol intake: never EXAM Physical Exam Const Vital Signs: 07/20/23 03:42 Temperature 98.1 F Temperature Source Oral Pulse Rate 76 Respiratory Rate 18 Blood Pressure 124/84 H Blood Pressure Mean 97 Pulse Ox 97 MDM MDM MDM Narrative Medical decision making narrative: HISTORY OF PRESENT ILLNESS: 19-year-old female presents abdominal pain. States this began 11 PM last night. Notes acute onset epigastric abdominal pain that is nonradiating. Is not worsewith food. She denies any vomiting but notes nausea. Denies any changes to bowel or bladder habits. Denies any vaginal bleeding or discharge. Denies history abdominal surgeries. REVIEW OF SYSTEMS: Pertinent positives: Abdominal pain, nausea Pertinent negatives: Vomiting, constipation, hematuria, vaginal bleeding or discharge PHYSICAL EXAM: Nursing triage notes reviewed, Vital signs reviewed Constitutional: please see mdm HENT: MMM Eyes: Pupils equal round and reactive to light, Extraocular muscles intact Neck: No stridor, no JVD, full neck ROM Lungs: Clear to auscultation, No wheezing or rales. No increased work of breathing, no conversational dyspnea, no accessory muscle use, no nasal flaring. No respiratory distress noted Heart: Regular rate and rhythm, No murmurs, No rubs and No gallops, 2+ distal pulses (radial, femoral, posterior tibial) in all extremities Abdomen: Soft, there is no tenderness, rigidity, rebound or guarding, no obviousperitoneal signs, no palpable pulsatile abdominal masses, no auscultated abdominal bruit : No CVAT Extremities: No edema Neuro: No focal neurological deficits, cranial nerves II through XII intact, 5/5strength in all extremities. Intact sensation to light touch in all extremities,2+ reflexes bilateral patella tendons. Normal gait. No ataxia. Skin: No rash or lesions noted MEDICAL DECISION MAKING: Chief Complaint: Abdominal pain External records reviewed: No recent advanced imaging of the abdomen Factors affecting care: none Social determinants of health: none History obtained from others: none Consults: none [facility] Narrative: Patient was hemodynamically stable, afebrile, nontoxic-appearing. Abdominal exam benign. Abdominal exam is not consistent with perforation or obstruction. While I considered obtaining CT scan the benign nature the patients abdominal exam made an acute life-threatening etiology less likely and as such a CT scan not indicated at this time. I considered the following differential diagnosis: AAA, small bowel obstruction,abdominal perforation, appendicitis, pancreatitis, hepatobiliary pathology (acute cholecystitis), mesenteric ischemia, pathology (ie nephrolithiasis, pyelonephritis). I opted to obtain labs to further elucidate the etiology of the patient's complaints Treat the patient with normal saline, Zofran and Pepcid ALL IMAGES (IF OBTAINED) HAVE BEEN PERSONALLY REVIEWED AND INTERPRETED BY MYSELF. CBC without leukocytosis, anemia, no thrombocytopenia BMP without evidence of significant electrolyte abnormalities, no anion gap, no acute kidney injury. Lipase is wnl indicating no pancreatic inflammation. Urine is negative Patient noted symptomatic improvement after the above interventions. I suspect the patient is suffering from gastritis. Repeat abdominal exam remained benign The patient and/or family, caregivers express understanding. The patient and/orfamily, caregivers agrees with the plan. Shared decision making: I will have a discussion with the patient and or visitors regarding risk/benefits of further testing or admission. They will be made aware of of the risk/benefits inherent in this decision they will be given the opportunity to voice understanding. Total critical care time today provided was at least 0 minutes. This excludes separately billable procedures. Critical care time (if documented) is secondary to the patient having high probability of clinically significant/life threatening deterioration in the patient's condition which required my urgent intervention. Impression: 1. Abdominal pain 2. Anemia Dispo: Discharge home This note was generated with [employer] dictation software. It may contain incorrectwords, spelling, and punctuation that were not noted in review of the chart prior to signing. Lab Data Labs: Laboratory Results - last 24 hr 07/20/23 07/20/23 04:27 06:08 WBC 3.3 L RBC 4.11 L Hgb 11.5 L Hct 36.0 L MCV 87.6 MCH 28.0 MCHC 31.9 L RDW Std Deviation 43.8 RDW Coeff of Caitlyn 13.6 Plt Count 157 MPV 9.5 Immature Gran % (Auto) 0.000 Neut % (Auto) 52.7 Lymph % (Auto) 36.6 Greene % (Auto) 9.8 Eos % (Auto) 0.6 Baso % (Auto) 0.3 Absolute Neuts (auto) 1.7 L Absolute Lymphs (auto) 1.19 Nucleated RBC % 0 Sodium 139 Potassium 3.8 Chloride 107 Carbon Dioxide 27.0 Anion Gap 5 BUN 13 Creatinine 0.74 Estim Creat Clear Calc 138.19 Est GFR (MDRD) Af Amer 119 Est GFR (MDRD) Non-Af 99 BUN/Creatinine Ratio 17.6 Glucose 114 H Calcium 8.4 L Lipase 44 Urine Test Negative Discharge Plan Triage Chief Complaint: Abd Pain ED Provider: Francisco Mcgovern Dx/Rx/DC Orders Instructions: ED Abdominal Pain Unkn Cause Male... Prescriptions: New ondansetron 4 mg tablet,disintegrating 4 mg PO Q8H PRN PRN (Reason: Nausea) Qty: 10 0RF No Action sertraline [Zoloft] 50 mg tablet 50 mg PO DAILY M2 Connections 45-3.75-50 mg tablet,chewable 2 tab PO DAILY Primary Care Provider: Care Physician,No Primary Referrals: Deanna Mayes MD [Med Staff - Development Educator] - Friend,DO Osvaldo [Med Staff - Active Staff] - Activity Restrictions/Additional Instructions: Thank you for trusting us with your care today! Please go to local pharmacy or drugstore and obtain omeprazole(Prilosec). Please take as directed. Please take Zofran as needed for nausea control. Please take Tylenol (2 pills, 650 mg) every 6 hours as needed for pain and fevercontrol. Please return to the emergency department if your symptoms change or worsen. Please follow with your primary care physician for further outpatient evaluationand management. Please follow-up with our local separating machine operator Dr. Roper at the number and location provided. Disposition Disposition: Home, Self Care What to do if you have Problems For any increased pain, shortness of breath, bleeding, nausea or vomiting, chestpain, or any unexpected problems, contact your Primary Care Provider. Call [facility] ([phone]) or report to the closest Emergency Room. Call 911 if necessary. 07/20/23 0659 <Electronically signed by Francisco Mcgovern DO> Cosigner Signature (if applicable): CC: No Primary Care Physician ~ Signed [facility] Work Phone: 1(208) 447-394001-20-2024 History of Present illness Narrative* DeneenAlberta bellYANDEL.COMPENSATOR - 05/31/2023 1:05 PM EST Subjective HPI Christina presents today say with resolved cough but continues to clear her throat a lot. She has not had a fever, is eating and drinking well, her son is also sick. No past medical history on file. PAST SURGICAL HISTORY Procedure Laterality Date ADENOIDECTOMY SECONDARY AGE 11/> Bilateral ALLERGIES Patient has no known allergies. MEDICATIONS vit calc,iron,folic (PRENAT.VITS,GERA,JCT-ITAV-NDMZD ORAL) Take 1 tablet by mouth once [...] NAAT, ROUTINE - RAPID STREP TEST B/O Ablerta Schmitz APRN.COMPENSATOR documented in this encounterChildren'[facility]12-14-2023 Progress note Author Rhoda Smith [facility] April 24, 2023 8:21am Note Date/Time April 24, 2023 8:09am [facility] Medical Records Department [address] [place] [address] Progress Note - OBGYN 04/24/23 0807 MR#: [id number] Acct: [id number] Name: CHRISTINA CUEVAS Rep #:[id number] : 1995 27 From: Rhoda Smith MD PCP: Care Physician,No Primary Status :ADM IN Location: AG487-0 Subjective Subjective No complaints Objective Data Objective Data Vital Signs: Vital Signs Temp Pulse Resp BP Pulse Ox O2 Del Method 97.6 F L 79 16 105/66 100 Room Air 04/24/23 04:00 04/24/23 04:00 04/24/23 04:00 04/24/23 04:00 04/23/23 17:17 04/24/23 04:00 Oxygen Delivery Method Room Air Weight: 246 lb Body Mass Index (BMI) 39.6 Intake & Output: Intake and Output for Last 24 Hours 04/22/23 04/23/23 12 23:59 23:59 23:59 Intake Total 3238.95 / 3238.95 Output Total 1500 / 1500 250 / 250 Balance 1738.95 / 1738.95 -250 / -250 Lab / Micro Data 04/23/23 07:45 Labs: Laboratory Results - last 24 hr 04/23/23 07:45: WBC 9.0, RBC 4.00 L, Hgb 11.3 L, Hct 34.9 L, MCV 87.3, MCH 28.3,MCHC 32.4, RDW Std Deviation 48.4 H, RDW Coeff of Caitlyn 15.0 H, Plt Count 200, MPV10.2, Immature Gran % (Auto) 0.600, Neut % (Auto) 79.3 H, Lymph % (Auto) 15.6 L,Greene % (Auto) 3.8, Eos % (Auto) 0.6, Baso % (Auto) 0.1, Absolute Neuts (auto) 7.2, Absolute Lymphs (auto) 1.41, Nucleated RBC % 0, Syphilis Total Ab Non-reactive, Blood Type A POSITIVE, Antibody Screen NEGATIVE 04/23/23 07:48: POC Glucose 211 H 04/23/23 08:48: POC Glucose 176 H 04/23/23 10:26: POC Glucose 151 H 04/23/23 11:50: POC Glucose 76 04/23/23 12:42: POC Glucose 63 L 04/23/23 13:04: POC Glucose 91 04/23/23 14:10: POC Glucose 84 04/23/23 17:29: POC Glucose 85 04/23/23 18:56: POC Glucose 92 04/24/23 05:48: POC Glucose 70 L Micro: Microbiology 04/23/23 08:30 Genital vaginal Chlamydia trachomatis (PCR) - Final 04/23/23 08:30 Genital vaginal Neisseria gonorrhoeae (PCR) - Final Physical Exam Const alert, oriented x3 and no apparent distress HEENT normocephalic GI soft to palpation, non-tender and non-distended GI Narrative: fundus firm, mid & below umbilicus Extremity normal to inspection and no calf tenderness Assessment & Plan (1) GDM, class A1: COMMENT: PPD#1 (2) Oligohydramnios: QUALIFIERS: Fetus number: single or unspecified fetus Trimester: unspecified trimester Qualified Code(s): O41.00X0 - Oligohydramnios, unspecified trimester, not applicable or unspecified (3) Spontaneous vaginal delivery: PLAN: Plan GDM - FBS normal this am. Plan for PP GDM screening. Routine PP care 04/24/23820 <Electronically signed by Rhoda Smith MD> Cosigner Signature (if applicable): CC: ~ Signed [facility] Work Phone: 1(424) 541-454012-13-2023 Procedure [facility] 04-23-2023 Progress note Author Charla Rubio [facility] April 23, 2023 12:46pm Note Date/Time April 23, 2023 12:47pm [facility] Medical Records Department [address] [place] [address] Progress Note - OBGYN 04/23/23 1243 MR#: [id number] Acct: [id number] Name: CHRISTINA CUEVAS Rep #:[id number] : 1995 27 From: Charla Rubio CNM PCP: Care Physician,No Primary Status :ADM IN Location: [place] [id number] Subjective Subjective Patient seen at bedside. Starting to feel pain with contractions. Quintanilla bulb out. Objective Data Objective Data Vital Signs: Vital Signs Temp Pulse BP Pulse Ox 97.7 F L 90 133/72 H 98 04/23/23 11:48 04/23/23 12:39 04/23/23 12:39 04/23/23 11:47 Weight: 246 lb Body Mass Index (BMI) 39.6 Intake & Output: Intake and Output for Last 24 Hours 04/21/23 04/22/23 04/23/23 23:59 23:59 23:59 Intake Total 1531.37 / 1531.37 Output Total 600 / 600 Balance 931.37 / 931.37 Lab / Micro Data 04/23/23 07:45 Labs: Laboratory Results - last 24 hr 04/23/23 07:45: WBC 9.0, RBC 4.00 L, Hgb 11.3 L, Hct 34.9 L, MCV 87.3, MCH 28.3,MCHC 32.4, RDW Std Deviation 48.4 H, RDW Coeff of Caitlyn 15.0 H, Plt Count 200, MPV10.2, Immature Gran % (Auto) 0.600, Neut % (Auto) 79.3 H, Lymph % (Auto) 15.6 L,Greene % (Auto) 3.8, Eos % (Auto) 0.6, Baso % (Auto) 0.1, Absolute Neuts (auto) 7.2, Absolute Lymphs (auto) 1.41, Nucleated RBC % 0, Syphilis Total Ab Non-reactive, Blood Type A POSITIVE, Antibody Screen NEGATIVE 04/23/23 07:48: POC Glucose 211 H 04/23/23 08:48: POC Glucose 176 H 04/23/23 10:26: POC Glucose 151 H 04/23/23 11:50: POC Glucose 76 Micro: Microbiology 04/23/23 08:30 Genital vaginal Chlamydia trachomatis (PCR) - Final 04/23/23 08:30 Genital vaginal Neisseria gonorrhoeae (PCR) - Final Assessment & Plan (1) Oligohydramnios: (2) GDM, class A1: (3) 39 weeks gestation of : (4) Obesity affecting : PLAN: Plan Insulin pump started due to elevated blood glucose levels NST reactive, Cat. 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 complicated by GDM A1, Oligo, SGA, GBS positive, and previous demise at 21 weeks gestation. Maternal Data Information JAVY Calculator Estimated Delivery Date Method Current WG Current Estimate 04/27/23 Manual 39w 3d PFSH [facility] Medical History Abnormal bruising Acute sinusitis, unspecified Anxiety Chest pain Chlamydia infection affecting Chronic neck and back pain Difficulty balancing Knee pain Spontaneous vaginal delivery Home Medications ferrous sulfate 325 mg (65 mg iron) tablet (Iron (ferrous sulfate)) 325 mg PO DAILY anemia 01/15/21 [History Last Taken 03/31/23 19:00] prenat.vits,gera,bas-guak-qycwj 1 tab PO DAILY 01/15/21 [History Last Taken 03/31/23 19:00] acyclovir 400 mg tablet 400 mg PO DAILY 01/23/23 [History Last Taken 03/31/23 19:00] aspirin 81 mg tablet,delayed release mg PO 01/23/23 [History Last Taken 03/31/23 19:00] folic acid 800 mcg tablet PO 01/23/23 [History Last Taken 03/31/23 19:00] Allergy/AdvReac Type Severity Reaction Status Date / Time No Known Allergies Allergy Verified 04/01/23 19:41 Family History Other Diabetes Surgical History History of adenoidectomy History of surgery Social History Smoking Status: Never smoker alcohol intake: never History Elective abortions Hx Para 1 Spontaneous abortions Hx # Term Pregnancies Ectopic pregnancies Hx # Pregnancies Multiple births # of living children Labs Labs Labs: Blood Type A POSITIVE Antibody Screen NEGATIVE Hct 34.9 % (37-47) L Hgb 11.3 g/dL (12.0-15.0) L Syphilis Total Ab Non-reactive VZV IgG Antibody 167 index (Immune >165) Rubella IgG Antibody Reactive (Nonreactive) Hep Bs Antigen Non-Reactive (Nonreactive) Hepatitis C Antibody Non-Reactive (Nonreactive) Chlamydia DNA (ELDA) Negative (Negative) N.gonorrhoeae DNA (ELDA) Negative (Negative) HIV 1&2 Antibody Non-Reactive (Nonreactive) Glucose 1 Hr 50 gm 153 mg/dL (70-140) H Gest Glucose Tolerance MG/DL Rhogam given: No Miscellaneous Test GBS postive Assessment & Plan (1) 39 weeks gestation of : (2) GDM, class A1: (3) Oligohydramnios: (4) Prior with demise: PLAN: Plan Cat. 1 tracing No contractions CE- 1/50/-2 Quintanilla bulb placed without difficulty and filled with 50 cc N/S Start Pitocin at 2 mu/min and increase per policy GBS positive- Start PCN protocol Dr. Drake notified of admission and is collaborating physician 04/23/23 0841 <Electronically signed by Charla Rubio CNM> Cosigner Signature (if applicable): CC: KYLE Rubio; No Primary Care Physician~ Signed [facility] Work Phone: 1(740) 496-308512-12-2023 History of Present illness Narrative* Rosa M Reyes MD - 04/22/2023 5:09 PM EST NST SUMMARY PROVIDER ASSESSMENT AND INTERPRETATION Christina Cuevas is a 27 year old female, , who is at 39w2d with an JAVY of 04/27/2023, by Last Menstrual Period dating method. Indications for NST: Oligohydramnios Baseline: 140 Variability: Moderate Accelerations: Present 15 X 15 Decelerations: None Contractions: TOCO: None Interpretation: Category I and Reactive SIGNATURE: Rosa M Hickey MD documented in this encounterChildren'S [facility]12-12-2023 Miscellaneous Notes* Quick Notes - Rosa M Reyes MD - 04/22/2023 5:07 PM EST DM-Pt doing well. Denies vaginal Bleeding, Leaking fluid, or regular Contractions. Pt reports good movement Physical Exam: Gen: female in no apparent distress Abd: soft, Gravid. Non tender to palpation. See flow sheet A/P: @ 39.2 weeks- GDMA1, Oligo 1) sent from [facility] office for OLIGO 2cm- IOL scheduled tmrw, NST today reactive cat 1 2) Quintanilla/pit reviewed 3) Kick counts 4) reviewed BS log - well controlled 5) IOL consent signed Rosa M Hickey MD documented in this encounterChildren'S [facility]12-12-2023 Instructions* Patient Instructions* Jaqueline Ching Ma - 04/22/2023 3:07 PM EST SEQUENTIAL SCREENINGS [facility] offers sequential screenings for women who are interested in screenings for chromosomal abnormalities and certain defects during a . The sequential screen combinesultrasound and blood tests to determine the risk [...] this testing. It will require an appointment withour wind tunnel technician. This is not an ultrasound performed [...] the above symptoms, contact our office at [phone] and ask to speak with anurse. After hours, you can call [employer] registry at [phone] OR call [facility] at [phone] ask to have the doctor personal banking advisor paged. If you consider this an emergency, dial 9-1-1 or go to your nearest emergency department. NEED HELP? Are you dealing with a violent or abusive relationship? Are you a victim of rape or sexual assult? Call [facility]) 24 hour Crisis Hotline: 399.267.6560 or 056-180-2409. MANUAL Your Guide to a Healthy manual is now on-line. Visit [email or web address] to download your free copy documented in this encounterChildren'S Hospital [facility]12-12-2023 Miscellaneous Notes* Telephone Encounter - Krystal Uribe RN - 04/22/2023 2:31 PM EST Patient coming in for an appointment to see DM. Spoke with L&D. They took patient name down to hold an induction spot for tomorrow AM. Krystal Uribe RN * Telephone Encounter - Neil Alvarado MD - 04/22/2023 2:18 PM EST Spoke w/ MFM from [facility]. US today shows oligo> BPP 10/17. Needs to come to office for NST, cervical check and schedule induction. Please call her MATTHEW. Dr. Smith aware. See if tomorrow there is an opening in the am they can save for her. Neil Alvarado MD * Telephone Encounter - Krystal Uribe RN - 04/21/2023 10:37 AM EST Received the following message from : This patient is on my schedule for but should be rescheduled to cnm or physician due to diabetes and to schedule an induction. Left patient a message to either call the office or to review Mychart message. Moved her to 2:40 with KJ instead that day. documented in this encounterChildren'S Hospital [facility]12-08-2023 History of Present illness Narrative* Juliana Ibanez MA - 04/18/2023 10:14 AM EST POPULATION HEALTH NAVIGATION OUTREACH Action/I 1st attempt: Called and left message to call back to discuss rib puller. MC message sent. Patient Identified by Name and : NO Outreach Outcome/Action Unable to reach patient: Left message MyChart message sent Did you use a PCP flex slot to schedule this appointment? N/A Reason for Outreach Payer: Payor: [facility] MEDICAID / Plan: [facility] MEDICAID / Product Type: Medicaid / Care Gap Reviewed:: N/A Reminder: Reminder note to check Health Maintenance for items below Health Maintenance items due: Covid-19 Vaccine(1) Never done Pap Testing Never done Depression Assessment Never done Influenza Vaccine(1) Never done DTaP,Tdap,Td Vaccine(7 - Td or Tdap) due on 03/15/2023 Navigation Signature: Juliana Lopez MA April 18, 2023 10:15 AM documented in this encounterChildren'S Hospital [facility]12-04-2023 History of Present illness Narrative* Brianna Mckee APRN.CNM - 04/14/2023 4:44 PM EST NST SUMMARY PROVIDER ASSESSMENT AND INTERPRETATION Christina Cuevas is a 27 year old female, , who is at 38w1d with an JAVY of 04/27/2023, by Last Menstrual Period dating method. Indications for NST: Diabetes - Diet Controlled Baseline: 135 Variability: Moderate Accelerations: Present 15 X 15 Decelerations: None Contractions: TOCO: None Interpretation: Reactive SIGNATURE: Brianna Mckee APRN.CNM documented in this encounterChildren'S Hospital [facility]12-04-2023 Miscellaneous Notes* Quick Notes - Brianna Mckee APRN.CNM - 04/14/2023 2:56 PM EST MIR-S: Christina Cuevas is a 27 year old female who presents at 38w1d with JAVY:04/27/2023, by Last Menstrual Period for a routine visit. Good FM. Denies headache, visual changes, chest pain, shortness ofbreath, vaginal bleeding, leakage of fluid, or dysuria. [...] uncertain and may want to go to 41weeks. Does not want to schedule today and discuss next visit. 4) Good glycemic control 5) Growth US with Rosa Mckee APRN.CNM documented in this encounterChildren[facility]12-[facility]23 Instructions* Patient Instructions* Juliana Trevino MA - 04/14/2023 2:44 PM EST SEQUENTIAL SCREENINGS [facility] offers sequential screenings for women who are interested in screenings for chromosomal abnormalities and certain defects during a . The sequential screen combinesultrasound and blood tests to determine the risk [...] this testing. It will require an appointment withour wind tunnel technician. This is not an ultrasound performed [...] the above symptoms, contact our office at [phone] and ask to speak with anurse. After hours, you can call doctors registry at [phone] OR call [facility] at [phone] ask to have the doctor personal banking advisor paged. If you consider this an emergency, dial 01-10-5 or go to your nearest emergency department. NEED HELP? Are you dealing with a violent or abusive relationship? Are you a victim of rape or sexual assult? Call [facility] ([place]) 24 hour Crisis Hotline: 236.833.6296 or 510-656-8231. MANUAL Your Guide to a Healthy manual is now on-line. Visit [email or web address] to download your free copy documented in this encounterChildren'S Hospital [facility]11-27-2023 Miscellaneous Notes* Telephone Encounter - Nara Blount RN - 04/07/2023 3:17 PM EST 3rd risk assessment form submitted 04/07/23 Nara Blount RN documented in this encounterChildren'S [facility]11-24-2023 Miscellaneous Notes* Telephone Encounter - Adri De La Rosa LPN - 04/04/2023 4:29 PM EST FMLA faxed to employer, scanned into EMR and filed in nurses station. Adri De La Rosa LPN * Telephone Encounter - Adri De La Rosa LPN - 04/04/2023 4:10 PM EST FMLA completed and placed on providers desk for signature. ,Adri De La Rosa LPN\ documented in this encounterChildren'S Hospital [facility]11-07-2023 Miscellaneous Notes* Telephone Encounter - Geraldine Daugherty RN - 03/18/2023 1:18 PM EST Patient in office for visit with MIR now. Geraldine Daugherty RN * Telephone Encounter - Rhoda Smith MD - 03/18/2023 1:14 PM EST Reassuring growth US. Follow up is scheduled 2 weeks from that US. Rhoda Smith MD * Telephone Encounter - Krystal Uribe RN - 03/18/2023 10:44 AM EST Received US from [facility] Scan on 03/18/2023 10:24 AM by Provider, JACINTO Vargas: Ultrasound * Telephone Encounter - Krystal Uribe RN - 03/18/2023 9:11 AM EST Called and spoke with [facility]. They will be faxing the US report over to our office. Krystal Uribe RN * Telephone Encounter - Krystal Uribe RN - 03/13/2023 4:14 PM EDT Attempted to contact [facility] in [place] @ [phone] but no one in the office. Will try calling again. Krystal Uribe RN * Telephone Encounter - Krystal Uribe RN - 03/10/2023 4:51 PM EDT Patient returned call. Asked patient to contact [facility] and have them fax our office the US report and future reports. Please leave open to make sure the US report is faxed to us. Krystal Uribe RN * Telephone Encounter - Brooke Schaefer RN - 03/10/2023 4:43 PM EDT Left message for patient to call office. Dr. Smith requested a copy of the US report from [facility] but we never received it, not on care everywehre. Patients care team on their encounter has Danny Aguila listed, so was going to ask patient to update them that she is seeing us and ask them to send her ultrasound to us. BROOKE SCHAEFER RN documented in this encounterChildren'S Hospital [facility]10-27-2023 Miscellaneous Notes* Telephone Encounter - Nara Blount RN - 03/07/2023 2:18 PM EDT 2ND risk assessment form submitted 03/07/23 Nara Blount RN documented in this encounterChildren'S Hospital [facility]10-27-2023 Miscellaneous Notes* Quick Notes - Rhoda Smith MD - 03/07/2023 10:42 AM EDT KJ - VB No. LOF No. CTXS No. Movement: present. Other c/o: No. Medication list reviewed. Physical Exam See Flow Sheet Gen: no accute distress, well appearing Abd: soft, nontender, gravid A/P 32w5d Estimated Date of Delivery: 04/27/23 GDMA1 - BS log reviewed & all normal H/o 21wk demise - continue US with [facility] (last US yesterday & await final report) PTL precautions reviewed, Kick counts reviewed. Rhoda Smith MD documented in this encounterChildren'S Hospital [facility]10-27-2023 Instructions* Patient Instructions* Juliana Trevino MA - 03/07/2023 10:26 AM EDT SEQUENTIAL SCREENINGS [facility] offers sequential screenings for women who are interested in screenings for chromosomal abnormalities and certain defects during a . The sequential screen combinesultrasound and blood tests to determine the risk [...] this testing. It will require an appointment withour wind tunnel technician. This is not an ultrasound performed [...] the above symptoms, contact our office at [phone] and ask to speak with anurse. After hours, you can call doctors registry at [phone] OR call [facility] at [phone] ask to have the doctor personal banking advisor paged. If you consider this an emergency, dial 9-6-2 or go to your nearest emergency department. NEED HELP? Are you dealing with a violent or abusive relationship? Are you a victim of rape or sexual assult? Call [facility] ([place]) 24 hour Crisis Hotline: 790.742.4667 or 913-882-2005. MANUAL Your Guide to a Healthy manual is now on-line. Visit [email or web address] to download your free copy documented in this encounterChildren'S Hospital Of [facility]10-24-2023 Miscellaneous Notes* Telephone Encounter - Rhoda Smith MD - 03/04/2023 12:28 PM EDT Done Rhoda Smith MD * Telephone Encounter - Krystal Uribe RN - 03/04/2023 12:24 PM EDT 32w2d Patient is a transfer from [place]. Takes Acyclovir for daily suppressive therapy. She has been outof her medication for approximately a week. Needing a new Rx. Pharmacy is up to date. No need to call patient back unless there is a problem. Krystal Uribe RN documented in this encounterChildren'S Hospital [facility]10-13-2023 Miscellaneous Notes* Quick Notes - Neil Alvarado MD - 02/21/2023 2:46 PM EDT RR- VB No. LOF No. CTXS No. Movement: present. 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 Physical Exam See Flow Sheet Abd: soft, nontender, gravid Ext: edema: 1+ A/P 30w5d Estimated Date of Delivery: 04/27/23 GDMA1- reports FBS are in 90 range after meals within limits for most part per her. Neil Alvarado M.D. documented in this encounterChildren'S Hospital Of [facility]10-13-2023 Instructions* Patient Instructions* Kendal Rosado Ma - 02/21/2023 2:34 PM EDT SEQUENTIAL SCREENINGS The [facility] offers sequential screenings for women who are interested in screenings for chromosomal abnormalities and certain defects during a . The sequential screen combinesultrasound and blood tests to determine the risk [...] this testing. It will require an appointment withour wind tunnel technician. This is not an ultrasound performed [...] the above symptoms, contact our office at [phone] and ask to speak with anurse. After hours, you can call doctors registry at [phone] OR call [facility] at [phone] ask to have the doctor personal banking advisor paged. If you consider this an emergency, dial 9-1-5 or go to your nearest emergency department. NEED HELP? Are you dealing with a violent or abusive relationship? Are you a victim of rape or sexual assult? Call [facility] ([place]) 24 hour Crisis Hotline: 918.297.2644 or 463-276-7399. MANUAL Your Guide to a Healthy manual is now on-line. Visit [email or web address] to download your free copy documented in this encounterChildren'S Hospital [facility]09-25-2023 History of Present illness Narrative* Anaya Waggoner APRN.NATALY - 02/03/2023 1:03 PM EDT INITIAL OB ASSESSMENT OB Provider: Anaya Waggoner CNP HPI: Christina is a 27 year [...] use: No Multivitamin with Folic acid: Yes Jainism or heritage: No Would refuse blood transfusion if medically necessary: No Are you currently employed? 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 Reviewed midwifery and police or patrol park officer services that are available. 2) Gest DM- diet controlled Refused Tdapt, LARC declined Follow up in 2 weeks or sooner prn. Anaya Waggoner APRN.NATALY documented in this encounterChildren'S Hospital [facility]09-25-2023 Instructions* Patient Instructions* Jaqueline Ching Ma - 02/03/2023 1:03 PM EDT Please select the following link to access the [facility] Your Guide to a Healthy . [email or web address] documented in this encounterChildren'S Hospital [facility]08-31-2023 History of Present illness Narrative* Krystal Uribe RN - 01/09/2023 5:36 PM EDT Received outside medical records from [place]. In nurse triage room. Krystal Uribe RN documented in this encounterChildren'S Hospital Of [facility]01-31-2023 NotePap Smear Specimen AdequacyJanuary 2022 3:20pmComment.Satisfactory for evaluation. Endocervical and/or squamous metaplasticcells (endocervical component)are present.[facility] INTERFACED A#[id number] Ridge Medical CenterComment on above: Satisfactory for evaluation. Endocervical and/or squamous metaplasticcells (endocervical component)are present.03-20-2022 History of Present illness Narrative* Willie Ellis, YANDEL.COMPENSATOR - 03/20/2022 5:33 PM EST Subjective HPI Nontoxic-appearing female presents urgent complaint sore throat left ear pain. Duration of symptomstransient over the last week and a half. Presents today for evaluation. States feels like she is improving. Concerned about possible ear infection. No known sick contacts. 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 No OTC medications currently. No pain. Denies any fever body aches chills productive cough chest pain shortness of breath pleuritic pain hemoptysis nausea vomiting abdominal pain change in bowelor bladder habits. Past medical history prescription medication [...] of care. This note was generated using [employer] software. It may contain errors in wording, punctuation, or spelling. Willie Ellis APRN.CNP documented in this encounterChildren'S Hospital [facility]05-10-2022 Miscellaneous Notes* Telephone Encounter - Coco Chao - 09/18/2021 8:43 AM EDT Patient given results and verbalized understanding of instructions given. Coco Chao * Telephone Encounter - Florin Villanueva APRN.CNP - 09/18/2021 7:16 AM EDT You tested positive for COVID-19 Follow the [...] care provider or schedule a visit with [facility]. A test is not recommended to return to work/school when meeting the above criteria. documented in this encounterChildren'S Hospital [facility]05-09-2022 Instructions* Patient Instructions* Willie Ellis APRN.CNP - 09/17/2021 2:16 PM EDT How to Manage Common Symptoms Associated with COVID for Adults Fever- Fever is a temperature over 100.4 F and can occur when the body is fighting an infection. Tohelp treat a fever: Drink plenty of fluids [...] your chest such as Vicks, which can helpreduce cough. Try cough drops. Avoid smoking and other strong odors or perfumes. Try breathing exercises to keep your lungs open and clear. Take a big deep breath through your noseand hold for 5 seconds before slowly releasing. [...] of water every 10-15 minutes and increase astolerated. You can try sucking an ice cube [...] or concerning to you. documented in this encounterChildren'S Hospital Of [facility]05-09-2022 History of Present illness Narrative* Willie Ellis APRN.CNP - 09/17/2021 2:09 PM EDT Subjective HPI Nontoxic-appearing female presents urgent care [...] not perforated, erythematous or bulging. Mouth/Throat: Lips: [place]. Mouth: Mucous membranes are moist. Pharynx: Oropharynx [...] of care. This note was generated using [employer] software. It may contain errors in wording, punctuation, or spelling. Willie Ellis APRN.COMPENSATOR documented in this encounterChildren'S Hospital Of ColumbusDis[facility] summary Author Rhoda Smith [facility] April 24, 2023 5:30pm Note Date/Time April 24, 2023 5:28pm [facility] Medical Records Department [address] [place] [address] Discharge Summary 04/24/23 1726 MR#: [id number] Acct: [id number] Name: CHRISTINA CUEVAS Rep #:[id number] : 1995 27 From: Rhoda Smith MD PCP: Care Physician,No Primary Status :ADM IN [facility] Prov[facility] Date of Admission: 04/23/23 Primary Care Physician: No Primary Care Phys Reason For Visit: VAG Diagnosis Discharge Diagnosis (1) GDM, class A1: Status: Acute Code(s): O24.410 - Gestational diabetes mellitus in , diet controlled (2) Oligohydramnios: Status: Acute Code(s): O41.00X0 - Oligohydramnios, unspecified trimester, not applicable or unspecified Qualifiers: Fetus number: single or unspecified fetus Trimester: unspecified trimester Qualified Code(s): O41.00X0 - Oligohydramnios, unspecified trimester,not applicable or unspecified (3) Spontaneous vaginal delivery: Status: Acute Code(s): O80 - Encounter for full-term uncomplicated delivery Plan GDM - FBS normal this am. Plan for PP GDM screening. Routine PP care Medications at Discharge Home Medications prenat.vits,gera,yxi-osnr-sihhr 1 tab PO DAILY 01/15/21 acyclovir 400 mg tablet 400 mg PO DAILY 01/23/23 acetaminophen 500 mg tablet 1,000 mg (2 x 500 mg) PO Q6H PRN PRN Pain 1-10 Or Fever #0 tabs 04/24/23 ibuprofen 600 mg tablet 600 mg PO Q6H PRN PRN Pain Score 1-3 #0 tabs 04/24/23 Hospital Course Summary of Care Provided Minutes Spent on Discharge: 15 Hospital Course: Vaginal delivery Weight / BMI Weight Weight: 246 lb Body Mass Index (BMI) 39.6 ABG / Lab / Microbiology Data 04/23/23 07:45 Laboratory: Laboratory Results - last 24 hr 04/23/23 17:29: POC Glucose 85 04/23/23 18:56: POC Glucose 92 04/24/23 05:48: POC Glucose 70 L Microbiology: Microbiology 04/23/23 08:30 Genital vaginal Chlamydia trachomatis (PCR) - Final 04/23/23 08:30 Genital vaginal Neisseria gonorrhoeae (PCR) - Final D/C Instructions Discharge Diet: No restrictions Discharge Activity: May Shower May resume sexual activity in: 6 weeks Weight Bearing Status: Weight bearing as tolerated Call your doctor if you observe: Fever of 101 or Higher, Coldness, Increased Pain, Change in Color, Inability to urinate, Inability to have a bowel movement,Using more than 1 pad per hour, Shortness of breath, Dizziness, Fainting spells,Chest pain, Increased palpitations (irregular heartbeat), Calf discomfort and Uncontrolled pain Please Follow Up With: Charla Rubio CNM When: Follow up in 2 and 6 weeks for visits. Meaningful Use Info Meaningful Use Diagnoses (Choose all that apply): None applicable Discharge Plan Admission Admit Date/Time: 04/23/23 07:30 Primary Reason for Your Visit: Vaginal delivery Attending Provider: Charla Rubio Primary Care Provider: Care Physician,Elba Primary Discharge Orders/Prescriptions Prescriptions: New acetaminophen 500 mg Tablet 1,000 mg PO Q6H PRN PRN (Reason: Pain 1-10 Or Fever) Qty: 0 0RF ibuprofen 600 mg Tablet 600 mg PO Q6H PRN PRN (Reason: Pain Score 1-3) Qty: 0 0RF Continued acyclovir 400 mg tablet 400 mg PO DAILY prenat.vits,gera,ixg-mskd-alrpz Tablet 1 tab PO DAILY Discontinued aspirin 81 mg tablet,delayed release (DR/EC) 81 mg PO DAILY folic acid 800 mcg tablet 0.8 mg PO DAILY ferrous sulfate [Iron (ferrous sulfate)] 325 mg (65 mg iron) Tablet 325 mg PO DAILY Referrals / Follow Up: Care Physician,No Primary [Primary Care Provider] - Disposition Disposition (needs filled in before D/C Order can be placed): Home, Self Care 04/24/23 1730 <Electronically signed by Rhoda Smith MD> Cosigner Signature (if applicable): CC: Dr. Rhoda Smith MD; No Primary Care Physician~ Signed [facility] Work Phone: Evaluation noteNo assessment information available [facility] Work Phone: Evaluation note* Diagnosis Onset Date Resolution Status delivery acute Spontaneous miscarriage acut e [facility] Work Phone: Evaluation note* Diagnosis Viral illness- Primary Unspecified viral infection, in conditions classified elsewhere and of unspecified site documented in this encounter [facility] note* Diagnosis Viral illness- Primary Unspecified viral infection, in conditions classified elsewhere and of unspecified site [facility]* Diagnosis Onset Date Resolution Status Acute bronchitis acute Acute sinusitis, unspecified acute [facility] Work Phone: evaluation note* Diagnosis 28 weeks gestation of - Primary state, incidental Previous stillbirth or demise, antepartum with other poor reproductive history Diet controlled gestational diabetes mellitus (GDM) in third trimester Prior with demise with other poor reproductive history documented in this encounter [facility] note* Diagnosis 30 weeks gestation of - Primary state, incidental Diet controlled gestational diabetes mellitus (GDM) in third trimester Prior with demise with other poor reproductive history [facility]* Diagnosis 32 weeks gestation of - Primary state, incidental Diet controlled gestational diabetes mellitus (GDM) in third trimester documented in this encounter [facility] note* Diagnosis Onset Date Resolution Status Acute sinusitis, unspecified acute [facility] Work Phone: Evaluation note* Diagnosis 38 weeks gestation of - Primary state, incidental Supervision of other high risk pregnancies, third trimester Diet controlled gestational diabetes mellitus (GDM) in third trimester Obesity affecting in third trimester, unspecified obesity type documented in this encounter [facility] note* Diagnosis Supervision of other high risk pregnancies, third trimester- Primary Diet controlled gestational diabetes mellitus (GDM) in third trimester Oligohydramnios in third trimester, single or unspecified fetus Obesity affecting in third trimester, unspecified obesity type 39 weeks gestation of state, incidental documented in this encounter [facility] note* Diagnosis Sorethroat- Primary Acute pharyngitis [facility] Diagnosis Onset Date Resolution Status 36 weeks gestation of acute Back pain acute 39 weeks gestation of resolved Obesity affecting resolved Oligohydramnios resolved Acute bronchitis acute Acute right otitis media acu te URI (upper respiratory infection) acute Strain of right wrist acute [facility] Work Phone: Evaluation note* Diagnosis Onset Date Resolution Status Acute sinusitis, unspecified acute 36 weeks gestation of acute Back pain acute 39 weeks gestation of acute GDM, class A1 acute Obesity affecting acute Oligohydramnios acute Prior with demise acute Spontaneous vaginal delivery acute [facility] Work Phone: Evaluation note* Diagnosis Encounter for gynecological examination (general) (routine) without abnormal findings- Primary History of gestational diabetes Personal history of gestational diabetes Urinary, incontinence, stress female Female stress incontinence [facility]* Diagnosis Vaginal itching- Primary Pruritus of genital organs Screening examination for STD (sexually transmitted disease) Screening examination for venereal disease documented in this encounter [facility] note* Diagnosis General counseling and advice for contraceptive management- Primary Other general counseling and advice for contraceptive management documented in this encounter [facility] note* Diagnosis Sterilization- Primary Sterilization documented in this encounter [facility] note* Diagnosis Bacterial vaginosis- Primary Vaginitis and vulvovaginitis, unspecified Sterilization documented in this encounter [facility] note* Diagnosis Preop examination- Primary Preoperative examination, unspecified Viral upper respiratory tract infection Acute upper respiratory infections of unspecified site Obesity, Class II, BMI 35-39.9 Obesity, unspecified History of asthma Personal history of other diseases of respiratory system Sterilization * Assessment & Plan Note - Chinyere Gavin PA-C - 08/26/2024 10:22 AM EDT Associated Problem(s): Obesity, Class II, BMI 35-39.9 Assessment: BMI 35.51. She is not on diet or meds for weight loss. * Assessment & Plan Note - Chinyere Gavin PA-C - 08/26/2024 10:22 AM EDT Associated Problem(s): History of asthma Assessment: chilldhood only. No wheezing, SOB recently. * Assessment & Plan Note - Chinyere Gavin PA-C - 08/26/2024 10:21 AM EDT Associated Problem(s): Viral upper respiratory tract infection Assessment: sx presnt for one week, mild, improving, should be gone by surgery, using supplements to tx. Pt to notify surgeon if ill in anyway within 2d of surgery. documented in this encounter [facility]* Diagnosis Preop examination- Primary Preoperative examination, unspecified Viral upper respiratory tract infection Acute upper respiratory infections of unspecified site Obesity, Class II, BMI 35-39.9 Obesity, unspecified History of asthma Personal history of other diseases of respiratory system General counseling and advice for contraceptive management- Primary Other general counseling and advice for contraceptive management Sterilization [facility]* Diagnosis Preop examination- Primary Preoperative examination, unspecified Viral upper respiratory tract infection Acute upper respiratory infections of unspecified site Obesity, Class II, BMI 35-39.9 Obesity, unspecified History of asthma Personal history of other diseases of respiratory system Vaginal pain- Primary Unspecified symptom associated with female genital organs Vaginal discharge Leukorrhea, not specified as infective [facility]* Diagnosis Preop examination- Primary Preoperative examination, unspecified Viral upper respiratory tract infection Acute upper respiratory infections of unspecified site Obesity, Class II, BMI 35-39.9 Obesity, unspecified History of asthma Personal history of other diseases of respiratory system Subacute vaginitis- Primary [facility] Additional Instructions Thank you for trusting us with your care today! Please go to local pharmacy or drugstore and obtain omeprazole(Prilosec). Please take as directed. Please take Zofran as needed for nausea control. Please take Tylenol (2 pills, 650 mg) every 6 hours as needed for pain and fever control. Please return to the emergency department if your symptoms change or worsen. Please follow with your primary care physician for further outpatient evaluation and management. Please follow-up with our local separating machine operator Dr. Roper at the number and location provided.[facility] Work Phone: Reason for referral (narrative)No reason for referral information availableSan Ramon Regional Medical [facility] Work Phone: Summary Purpose Family History Relationship Condition Age at Onset Recorded Date/T rashedea Not Specified Diabetes mellitus Unknown Advance Directives Advance Directive Response Recorded Date/ Time Living Will No August 19, 2021 4:36am Power of Flue Lining Dipper No August 19 4:36am Advance Directive Response Recorded Date/ Time Living Will No August 19, 2021 5:51am Power of Flue Lining Dipper No August 19 5:51am Advance Directive Response Recorded Date/ Time Living Will No August 19, 2021 4:51am Power of Flue Lining Dipper No August 19 4:51am Advance Directive Response Recorded Date/ Time Living Will No January 23, 2023 10:50am Power of Flue Lining Dipper No January 10:50am Advance Directive Response Recorded Date/ Time Living Will No June 27, 2 024 12:05pm Power of Flue Lining Dipper No June 27, 2023 12:05pm Advance Directive Response Recorded Date/ Time Living Will No July 20, 2023 3:42am Power of Flue Lining Dipper No July 19 3:42am Advance Directive Response Recorded Date/ Time Living Will No April 23, 2 023 9:01am Power of Flue Lining Dipper No April 23, 2023 9:01am Chief Complaint and Reason for Visit Chief Complaint 21 WEEK BLEEDING VAG BLEEDING, PREG Chief Complaint 21 WEEK BLEEDING DEMISE Reason for Visit delivery Spontaneous miscarriage Chief Complaint COUGH/POST NASAL/CON GESTION CONCERN FOR ONGOING COLD SYMPTOMS Reason for Visit Acute bronchitis Acute sinusitis, unspecified Chief Complaint SINUS PRESSURE, MEGAN ESTED, COUGH COUGH, CONGESTION R/O LABOR Reason for Visit Acute sinusitis, uns pecified Chief Complaint R/O LABOR VAG COUGH, CONGESTION, PRESSURE IN RT EAR SINUS CONGESTION RT WRIST INJURY/ TJ FANNY Right wrist pain Reason for Visit 36 weeks gestation o f Back pain 39 weeks gestation of Obesity affecting Oligohydramnios Acute bronchitis Acute right otitis media URI (upper respiratory infection) Strain of right wrist Chief Complaint R/O LABOR VAG COUGH, CONGESTION, PRESSURE IN RT EAR SINUS CONGESTION RT WRIST INJURY/ TJ FANNY Right wrist pain abd pain Reason for Visit 36 weeks gestation o f Back pain 39 weeks gestation of Obesity affecting Oligohydramnios Acute bronchitis Acute right otitis media URI (upper respiratory infection) Strain of right wrist Chief Complaint SINUS PRESSURE, MEGAN ESTED, COUGH COUGH, CONGESTION R/O LABOR VAG Reason for Visit Acute sinusitis, uns pecified 36 weeks gestation of Back pain 39 weeks gestation of GDM, class A1 Obesity affecting Oligohydramnios Prior with demise Spontaneous vaginal delivery Chief Complaint Admit Date RUNNY NOSE January 20, 2025 4:37pm Reason for Visit Admit Date Acute upper respiratory infection Septem 2024 4:37pm Rhinorrhea January 20, 2025 4:37pm Health Concerns Infection Onset Date Last Indicated Resolved Time COVID-19 Confirmed 09/17/2021 09/17/2021 Problem Noted Date Diagnosed Date [facility] - [facility] 02/03/2023 [place] - [place] 02/03/2023 Problem Noted Date Diagnosed Date [facility] - [facility] 02/03/2023 [place] - [place] 02/03/2023 Problem Noted Date Diagnosed Date [facility] - [facility] 02/03/2023 Education - [place] 02/03/2023 Problem Noted Date Diagnosed Date [facility] - [facility] 02/03/2023 Education - [place] 02/03/2023 Problem Noted Date Diagnosed Date [facility] - [facility] 02/03/2023 Education - [place] 02/03/2023 Problem Noted Date Diagnosed Date [facility] - [facility] 02/03/2023 Education - [place] 02/03/2023 Problem Noted Date Diagnosed Date [facility] - [facility] 02/03/2023 Education - [place] 02/03/2023 Problem Noted Date Diagnosed Date [facility] - [facility] 02/03/2023 Education - [place] 02/03/2023 Problem Noted Date Diagnosed Date [facility] - [facility] 02/03/2023 Education - [place] 02/03/2023 Problem Noted Date Diagnosed Date [facility] - [facility] 02/03/2023 Education - [place] 02/03/2023 Problem Noted Date Diagnosed Date [facility] - [facility] 02/03/2023 Education - [place] 02/03/2023 Reason for Referral Specialty Diagnoses / Procedures Referred By Mirella t Referred To Contact [facility] Diagnoses Urinary, incontinence, stress female Procedures CONSULT TO PHYSICAL THERAPY PHYSICAL THERAPY EVALUATION HIGH COMPLEX 45 MINS Trinidad Raya APRN.COMPENSATOR [address] [place] [address] [facility] [place] [address] Referral ID Status Reason Start Date Expiration Date Visits Requested Visits Authorized [id number] Pending Review Auto-Generat ed Referral 06/07/2024 06/07/2025 1 1 Additional Source Comments INFORMATION SOURCE (unrecogn ized section and content) DATE CREATED AUTHOR 11/04/2017 [facility] ([place]) DATE CREATED AUTHOR AUTHOR'S ORGANIZ ATION 04/24/2023 [facility] DATE CREATED AUTHOR AUTHOR'S ORGANIZ ATION 09/16/2024 [facility] DATE CREATED AUTHOR AUTHOR'S ORGANIZ ATION 12/10/2024 [facility] DATE CREATED AUTHOR AUTHOR'S ORGANIZ ATION 02/20/2025 [facility] Goals (unrecognized section and content) Goals may be documented in a n alternate sectionGoals may be documented in an alternate sectionGoals may be documented in an alternate sectionGoals may be documented in an alternate sectionGoals may be documented in an alternate sectionGoals may be documented in an alternate sectionGoals may be documented in an alternate sectionGoals may be documented in an alternate sectionGoals may be documented in an alternate section Source Comments (unrecognize d section and content) In the event this informatio n is protected by the Federal Confidentiality of Alcohol and Drug Abuse Patient Records regulations: The Federal rules restrict any use of the information to criminally investigate or prosecute any alcohol or drug abuse patient.[facility] the event this information is protected by the Federal Confidentiality of Alcohol and Drug Abuse Patient Records regulations: The Federal rules restrict any use of the information to criminally investigate or prosecute any alcohol or drug abuse patient.[facility] the event this information is protected by the Federal Confidentiality of Alcohol and Drug Abuse Patient Records regulations: The Federal rules restrict any use of the information to criminally investigate or prosecute any alcohol or drug abuse patient.[facility]In the event this information is protected by the Federal Confidentiality of Alcohol and Drug Abuse Patient Records regulations: The Federal rules restrict any use of the information to criminally investigate or prosecute any alcohol or drug abuse patient.[facility]In the event this information is protected by the Federal Confidentiality of Alcohol and Drug Abuse Patient Records regulations: The Federal rules restrict any use of the information to criminally investigate or prosecute any alcohol or drug abuse patient.[facility]In the event this information is protected by the Federal Confidentiality of Alcohol and Drug Abuse Patient Records regulations: The Federal rules restrict any use of the information to criminally investigate or prosecute any alcohol or drug abuse patient.[facility] ColumbusIn the event this information is protected by the Federal Confidentiality of Alcohol and Drug Abuse Patient Records regulations: The Federal rules restrict any use of the information to criminally investigate or prosecute any alcohol or drug abuse patient.[facility] ColumbusIn the event this information is protected by the Federal Confidentiality of Alcohol and Drug Abuse Patient Records regulations: The Federal rules restrict any use of the information to criminally investigate or prosecute any alcohol or drug abuse patient.[facility] ColumbusIn the event this information is protected by the Federal Confidentiality of Alcohol and Drug Abuse Patient Records regulations: The Federal rules restrict any use of the information to criminally investigate or prosecute any alcohol or drug abuse patient.[facility] ColumbusIn the event this information is protected by the Federal Confidentiality of Alcohol and Drug Abuse Patient Records regulations: The Federal rules restrict any use of the information to criminally investigate or prosecute any alcohol or drug abuse patient.[facility] ColumbusIn the event this information is protected by the Federal Confidentiality of Alcohol and Drug Abuse Patient Records regulations: The Federal rules restrict any use of the information to criminally investigate or prosecute any alcohol or drug abuse patient.[facility] ColumbusIn the event this information is protected by the Federal Confidentiality of Alcohol and Drug Abuse Patient Records regulations: The Federal rules restrict any use of the information to criminally investigate or prosecute any alcohol or drug abuse patient.[facility] ColumbusIn the event this information is protected by the Federal Confidentiality of Alcohol and Drug Abuse Patient Records regulations: The Federal rules restrict any use of the information to criminally investigate or prosecute any alcohol or drug abuse patient.[facility] ColumbusIn the event this information is protected by the Federal Confidentiality of Alcohol and Drug Abuse Patient Records regulations: The Federal rules restrict any use of the information to criminally investigate or prosecute any alcohol or drug abuse patient.[facility] ColumbusIn the event this information is protected by the Federal Confidentiality of Alcohol and Drug Abuse Patient Records regulations: The Federal rules restrict any use of the information to criminally investigate or prosecute any alcohol or drug abuse patient.[facility] ColumbusIn the event this information is protected by the Federal Confidentiality of Alcohol and Drug Abuse Patient Records regulations: The Federal rules restrict any use of the information to criminally investigate or prosecute any alcohol or drug abuse patient.[facility] ColumbusIn the event this information is protected by the Federal Confidentiality of Alcohol and Drug Abuse Patient Records regulations: The Federal rules restrict any use of the information to criminally investigate or prosecute any alcohol or drug abuse patient.[facility] ColumbusIn the event this information is protected by the Federal Confidentiality of Alcohol and Drug Abuse Patient Records regulations: The Federal rules restrict any use of the information to criminally investigate or prosecute any alcohol or drug abuse patient.[facility] ColumbusIn the event this information is protected by the Federal Confidentiality of Alcohol and Drug Abuse Patient Records regulations: The Federal rules restrict any use of the information to criminally investigate or prosecute any alcohol or drug abuse patient.[facility] ColumbusIn the event this information is protected by the Federal Confidentiality of Alcohol and Drug Abuse Patient Records regulations: The Federal rules restrict any use of the information to criminally investigate or prosecute any alcohol or drug abuse patient.[facility] ColumbusIn the event this information is protected by the Federal Confidentiality of Alcohol and Drug Abuse Patient Records regulations: The Federal rules restrict any use of the information to criminally investigate or prosecute any alcohol or drug abuse patient.[facility] the event this information is protected by the Federal Confidentiality of Alcohol and Drug Abuse Patient Records regulations: The Federal rules restrict any use of the information to criminally investigate or prosecute any alcohol or drug abuse patient.[facility] ColumbusIn the event this information is protected by the Federal Confidentiality of Alcohol and Drug Abuse Patient Records regulations: The Federal rules restrict any use of the information to criminally investigate or prosecute any alcohol or drug abuse patient.[facility] ColumbusIn the event this information is protected by the Federal Confidentiality of Alcohol and Drug Abuse Patient Records regulations: The Federal rules restrict any use of the information to criminally investigate or prosecute any alcohol or drug abuse patient.[facility] ColumbusIn the event this information is protected by the Federal Confidentiality of Alcohol and Drug Abuse Patient Records regulations: The Federal rules restrict any use of the information to criminally investigate or prosecute any alcohol or drug abuse patient.[facility] ColumbusIn the event this information is protected by the Federal Confidentiality of Alcohol and Drug Abuse Patient Records regulations: The Federal rules restrict any use of the information to criminally investigate or prosecute any alcohol or drug abuse patient.[facility] ColumbusIn the event this information is protected by the Federal Confidentiality of Alcohol and Drug Abuse Patient Records regulations: The Federal rules restrict any use of the information to criminally investigate or prosecute any alcohol or drug abuse patient.[facility] ColumbusIn the event this information is protected by the Federal Confidentiality of Alcohol and Drug Abuse Patient Records regulations: The Federal rules restrict any use of the information to criminally investigate or prosecute any alcohol or drug abuse patient.[facility] ColumbusIn the event this information is protected by the Federal Confidentiality of Alcohol and Drug Abuse Patient Records regulations: The Federal rules restrict any use of the information to criminally investigate or prosecute any alcohol or drug abuse patient.[facility] ColumbusIn the event this information is protected by the Federal Confidentiality of Alcohol and Drug Abuse Patient Records regulations: The Federal rules restrict any use of the information to criminally investigate or prosecute any alcohol or drug abuse patient.[facility] ColumbusIn the event this information is protected by the Federal Confidentiality of Alcohol and Drug Abuse Patient Records regulations: The Federal rules restrict any use of the information to criminally investigate or prosecute any alcohol or drug abuse patient.[facility] ColumbusIn the event this information is protected by the Federal Confidentiality of Alcohol and Drug Abuse Patient Records regulations: The Federal rules restrict any use of the information to criminally investigate or prosecute any alcohol or drug abuse patient.[facility] ColumbusIn the event this information is protected by the Federal Confidentiality of Alcohol and Drug Abuse Patient Records regulations: The Federal rules restrict any use of the information to criminally investigate or prosecute any alcohol or drug abuse patient.[facility] ColumbusIn the event this information is protected by the Federal Confidentiality of Alcohol and Drug Abuse Patient Records regulations: The Federal rules restrict any use of the information to criminally investigate or prosecute any alcohol or drug abuse patient.[facility] ColumbusIn the event this information is protected by the Federal Confidentiality of Alcohol and Drug Abuse Patient Records regulations: The Federal rules restrict any use of the information to criminally investigate or prosecute any alcohol or drug abuse patient.[facility] ColumbusIn the event this information is protected by the Federal Confidentiality of Alcohol and Drug Abuse Patient Records regulations: The Federal rules restrict any use of the information to criminally investigate or prosecute any alcohol or drug abuse patient.[facility] ColumbusIn the event this information is protected by the Federal Confidentiality of Alcohol and Drug Abuse Patient Records regulations: The Federal rules restrict any use of the information to criminally investigate or prosecute any alcohol or drug abuse patient.[facility] Reason for Visit (unrecogniz ed section and content) Reason Comments Sinus Problem sinus pressure, fati teresa and dizziness x 1 day Reason Comments Results Reason Comments Sore Throat [...] Rhinitis With nasal drainage x 2 days Reason Comments Refill Request Reason Comments Medication Problem Reason Onset Date Comments Refill Request 05/21/2024 Reason Comments PFPT Reason Comments Vaginal Problem Reason Comments Patient Question Reason Comments Contraception Reason Comments Schedule Surgery Reason Comments Anesthesia Consult Reason Comments Patient Request 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 Reason Onset Date Comments Results 10/19/2024 Care Teams (unrecognized sec tion and content) Team Status: Active Member Role Status Dates No Primary Care Physician Primary Care Provider Active Team Status: Inactive Member Role Status Dates No Primary Care Physician Primary Care Provider, Refer ring Provider Active Toy PETER PA Attending Provider Active Team Status: Inactive Member Role Status Dates No Primary Care Physician Primary Care Provider, Refer ring Provider Active Mauricio PETER PA Attending Provider Active Team Status: Inactive Member Role Status Dates No Primary Care Physician Primary Care Provider Active Dr. Danny Aguila MD Attending Provider Active Team Status: Active Member Role Status Dates No Primary Care Physician Primary Care Provider Active Dr. Danny Aguila MD Attending Provider Active Team Status: Inactive Member Role Status Dates No Primary Care Physician Primary Care Provider Active Brianna Mckee CNM Attending Provider, Referring Prov ider Active Manager Books Relationship Specialty Start Date End Date Kelechi Eason DO [address] [place], [place] [id number] PCP - General Family Medicine 05/31/23 Team Status: Inactive Member Role Status Dates No Primary Care Physician Primary Care Provider, Refer ring Provider Active DINESH Franks Attending Provider Active Team Status: Inactive Member Role Status Dates No Primary Care Physician Primary Care Provider Active Charla Rubio CNM Admit Provider, Attending Provid er Active Team Status: Inactive Member Role Status Dates No Primary Care Physician Primary Care Provider Active Toy PETER, PA Attending Provider, Referring Provi sagrario Active Team Status: Inactive Member Role Status Dates No Primary Care Physician Primary Care Provider Active Dr. Francisco Mcgovern , DO Emergency Provider Active Manager Books Relationship Specialty Start Date End Date Kelechi EasonDO [address] [place] [address] PCP - General Family Medicine 05/31/23 Manager Books Relationship Specialty Start Date End Date Kelechi Eason DO [address] [place], [place] [id number] PCP - General Family Medicine 05/31/23 Manager Books Relationship Specialty Start Date End Date Kelechi Eason [address] [place], [place] [id number] PCP - General Family Medicine 05/31/23 Manager Books Relationship Specialty Start Date End Date Kelechi Eason [address] [place], [place] [address] PCP - General Family Medicine 05/31/23 Manager Books Relationship Specialty Start Date End Date Kelechi Eason DO [address] [place] [address] PCP - General Family Medicine 05/31/23 Manager Books Relationship Specialty Start Date End Date Kelechi Eason DO [address] [place], [place] [id number] PCP - General Family Medicine 05/31/23 Manager Books Relationship Specialty Start Date End Date Kelechi Eason DO [address] [place], [place] [id number] PCP - General Family Medicine 05/31/23 Manager Books Relationship Specialty Start Date End Date Steph Schuler MD [address] [place] [address] PCP - General Internal Medicine 09/13/24 Manager Books Relationship Specialty Start Date End Date Steph Schuler MD [address] [place] [address] PCP - General Internal Medicine 09/13/24 Manager Books Relationship Specialty Start Date End Date Steph Schuler MD [address] [place] [address] PCP - General Internal Medicine 09/13/24 Manager Books Relationship Specialty Start Date End Date Steph Schuler MD [address] [place] [address] PCP - General Internal Medicine 09/13/24 Manager Books Relationship Specialty Start Date End Date Steph Schuler MD [address] [address] PCP - General Internal Medicine 09/13/24 Team Status: Active Member Role/Relationship Status Dates Steph Schuler MD Primary Care Provider Active Team Status: Inactive Member Role/Relationship Status Dates Steph Schuler MD Primary Care Provider Active St art: January 20, 2025 End: January 20, 2025 Steph Schuler MD Referring Provider Active Start : January 20, 2025 End: January 20, 2025 BRITTANI Davis Attending Provider Active Sta rt: January 20, 2025 End: January 20, 2025 Team Status: Active Member Role/Relationship Status Jim Schuler MD Primary care physician Active Team Status: Inactive Member Role/Relationship Status Dates Steph Schuler MD Primary care physician Active S tart: January 20, 2025 End: January 20, 2025 Steph Schuler MD Referring Provider Active Start : January 20, 2025 End: January 20, 2025 BRITTANI Davis Attending physician Active St art: January 20, 2025 End: January 20, 2025 FOR RECORDS PERTAINING TO PATIENTS WHO ARE [...] BE BASED ON THE PRIMARY CLINICAL RECORDS. [facility]. provides no warranty or guarantee of the accuracy or completeness of information in this document.
[2025-03-08 19:18] LABS: Hematocrit 36.0 % (37-47); Hemoglobin 11.6 g/dL (12.0-15.0); Immature Granulocytes Count 0.020 X10^3/uL (0.0-0.0); Mean Corp Hgb Conc 32.2 g/dL (32-36); Mean Corpuscular Volume 85.3 fL (81-99); Mean Platelet Vol. 9.6 fl (6.2-12.0); NRBC Flagged by Analyzer 0 % (0-5); Platelet Count 254 K/mm3 (150-450); RBC Distribution Width CV 13.2 % (11.6-14.6); RBC Distribution Width SD 41.3 fl (35.1-43.9); Red Blood Count 4.22 M/mm3 (4.2-5.4); White Blood Count 8.2 K/mm3 (4.4-11.0)
[2025-03-08 19:20] LABS: Internal QC Validated? YES +Cl - CLEAR BKGD; Pregnancy, Serum, hCG Quali. NEGATIVE Negative; Record Kit Lot#, Serum Preg. 0000980607
[2025-03-08 19:42] LABS: AST(SGOT) 22 U/L (<=31); Alanine Aminotransfer ALT/SGPT 21 U/L (<=34); Albumin, Serum 4.1 g/dL (3.5-5.0); Alkaline Phosphatase 48 U/L (35-104); Anion Gap 10 (5-15); BUN 14 mg/dL (4-19); BUN/Creat Ratio 23.8 RATIO (10-20); Calcium,Total 8.9 mg/dL (7.6-11.0); Carbon Dioxide 22.2 mmol/L (21.0-32.0); Chloride 107 mmol/L (98-108); Estimated Creatinine Clearance 185.13 ml/min (50-250); Globulin 2.8 g/dL (2.2-4.2); Glucose 94 mg/dL (70-99); Potassium 4.2 mmol/L (3.3-5.1)
[2025-03-08 20:00] VITALS: BP 110/57; PULSE 65; RESP 16; O2SAT 97
[2025-03-08 20:07] VITALS: BP 110/57; PULSE 65; RESP 16; TEMP 36.6; O2SAT 97
== END 2025-03-08 20:13 | disposition home or self-care (01) ==
PROVIDERS: Emergency Provider Emergency Medicine; PCP Family Medicine; Visit Provider Emergency Medicine
DX: N93.9 Abnormal uterine and vaginal bleeding, unspecified (principal); N94.6 Dysmenorrhea, unspecified
CPT/HCPCS: 80053; 84703; 85025; 99283; A4216

== ENCOUNTER → 2025-04-25 | Outpatient (CLI) | payer MEDICAID, SELFPAY ==
--- NOTE | 2025-04-25 16:28 | RAD_ITS ---
PROCEDURE: LUMBAR SPINE 2 OR 3 VIEWS 04/25/2025 REASON FOR EXAM: NUMBNESS IN RIGHT LEG BELOW KNEE, ANTERIOR TECHNIQUE: Procedure Code: RADSPLL Modality: DX Procedure: LUMBAR SPINE 2 OR 3 VIEWS COMPARISON: 03/26/2024 FINDINGS: No evidence for fracture or subluxation. Vertebral body heights are preserved, with anatomic alignment. Relatively well preserved disc spaces. Minimal degenerative changes with lower lumbar facet hypertrophy. Normal bone mineralization. Probable cholecystectomy surgical clips in the right hemiabdomen. RAD/Lumbar Spine 2 or 3 Views IMPRESSION: No evidence of fracture or subluxation. Minimal spondylotic changes. Reading Location: [id number]
--- NOTE | 2025-04-25 16:50 | RAD_ITS ---
PROCEDURE: KNEE 4 OR MORE VIEWS 04/25/2025 REASON FOR EXAM: LEFT KNEE PAIN TECHNIQUE: Procedure Code: RADKN Modality: DX Procedure: KNEE 4 OR MORE VIEWS Laterality: Left COMPARISON: None. FINDINGS: No acute fracture or dislocation. Alignment is anatomic. Preserved joint spaces. No aggressive osseous lesion. Nonspecific small suprapatellar joint effusion. No focal soft tissue swelling. RAD/Knee 4 or More Views IMPRESSION: No acute fracture, dislocation, or significant arthrosis. Nonspecific small suprapatellar joint effusion. Reading Location: [id number]
== END | disposition home or self-care (01) ==
PROVIDERS: PCP Family Medicine; Referring Provider Family Medicine; Visit Provider Family Medicine
DX: S89.92XA Unspecified injury of left lower leg, initial encounter (principal); R20.0 Anesthesia of skin
CPT/HCPCS: 72100; 73564